=== PATIENT | female | born 1940 | race Caucasian/White ===

== ENCOUNTER 2017-06-20 13:41 | Outpatient (CLI) | payer MEDICARE | END 2017-06-20 13:42 | disposition home or self-care (01) | LOC: BICMAMMO 13:41 | PROVIDERS: ATTEND Physician Assistant | DX: Z12.31 Encounter for screening mammogram for malignant neoplasm of breast (principal); Z80.3 Family history of malignant neoplasm of breast; Z85.42 Personal history of malignant neoplasm of other parts of uterus | CPT/HCPCS: 77063; 77067 ==

== ENCOUNTER 2018-04-01 19:16 | Inpatient (IN) | payer MEDICARE ==
[2018-04-01 20:12] LABS: Hemoglobin 11.5 g/dL (12.0-16.0); Mean Corpuscular HGB CONC 31.6 g/dL (32.0-36.0); Mean Corpuscular Hemoglobin 30.9 pg (27.0-31.0); Mean Corpuscular Volume 97.9 fL (78.0-98.0); Mean Platelet Volume 7.8 fL (7.4-10.4); Platelet Count 438 thou/uL (130-400); RBC Distribution Width 11.7 % (11.5-14.5); Red Blood Cell (RBC) Count 3.71 mill/uL (4.20-5.40); White Blood Cell (WBC) Count 29.8 thou/uL (4.8-10.8)
--- NOTE | 2018-04-01 20:22 | RAD ---
CHEST ONE VIEW: History: Chest pain Comparison: None. FINDINGS: Lungs are clear. No pneumothorax or effusion. Cardiac silhouette and mediastinal contours are within normal limits. IMPRESSION: No acute intrathoracic abnormality. POS: [facility]
[2018-04-01 20:24] LABS: Band 8 % (5-11); Lymphocytes 8 % (21-51); MDiff Complete? YES; Monocytes 9 % (0-10); Myelocyte 1 % (0-0); Neutrophil 74 % (42-75); Platelet Morphology Comment Appears Increased; RBC Morphology Normal
[2018-04-01] MEDS ORDERED: Piperacillin/Tazobactam 3.375 GM VIAL ONE (20:29)
[2018-04-01] MEDS ORDERED: Norepinephrine 8 MG/0.9% NS 0 ML ONE (20:29)
[2018-04-01 20:32] LABS: ALT (SGPT) 41 U/L (8-55); AST (SGOT) 32 U/L (5-34); Albumin 3.4 g/dL (3.4-4.8); Alkaline Phosphatase 80 U/L (40-150); BUN (Urea Nitrogen) 48 mg/dL (9.8-20.1); Bilirubin, Total 0.2 mg/dL (0.2-1.2); CK (CPK) 702 U/L (29-168); Calc. Creatinine Clearance 0 mL/min (70-130); Calcium 8.7 mg/dL (7.8-10.44); Chloride 106 mmol/L (98-107); Estimated GFR-MDRD 10; Globulin 2.8 g/dL (2.4-3.5); Glucose 98 mg/dL (83-110); Lipase 487 U/L (8-78); Protein, Total 6.2 g/dL (6.0-8.3); Sodium 137 mmol/L (136-145)
[2018-04-01] MEDS ORDERED: Piperacillin/Tazobactam 4.5 GM VIAL ONE (20:34)
[2018-04-01 20:55] LABS: Carbon Dioxide Less than 8 mmol/L (23-31); Potassium 6.6 mmol/L (3.5-5.1)
[2018-04-01] MEDS ORDERED: Sodium Bicarbonate 150 MEQ in Dextrose 5% in Water 1,000 ML IV SCH (21:15)
[2018-04-01] MEDS ORDERED: Calcium Chloride 1 GM/10 ML Abboject SYRINGE ONE (21:20)
[2018-04-01] MEDS ORDERED: Sodium Bicarb 50 MEQ/50 ML VIAL ONE (21:20)
[2018-04-01] MEDS ORDERED: Insulin Regular 300 UNITS/3 ML VIAL ONE (21:20)
[2018-04-01] MEDS ORDERED: Dextrose 50% Abboject 50 ML SYRINGE ONE (21:20)
[2018-04-01] MEDS ORDERED: Dexamethasone 10 MG/ML VIAL ONE (21:32)
--- NOTE | 2018-04-01 22:13 | PDOC.FPRHP ---
- History of Present Illness Chief Complaint: SOB History of Present Illness: Mrs. Scott presents with her and daughter for increasing shortness of breath They report that she had hematuria earlier this week and was treated outpatient with abx, since that time she has had difficulty taking her medications 2/2 n/ v. vomiting multiple times today with increasing SOB and weakness. denies syncope, fever, chest or abdominal pain, focal weakness, headache or vision changes. They report a history of recurrent UTIs treated outpatient, no known stones. Her reports her main problem has been not being able to sleep well or tolerate her thyroid medication. she lives at home with him and completes ADLs without assistance. difficulty walking 2/2 to spinal issues. ED Course: CBC, CMP, LA, BNP, CK, UA, UCx, BCx, Coags, lipase MAPs<60, subclavian line placed, levophed drip at 14 vanc/zosyn/levaquin, 30ml/kg bolus, 3 amps bicarb, decadron - Allergies/Adverse Reactions Allergies Allergy/AdvReac Type Severity Reaction Status Date / Time No Known Drug Allergies Allergy Verified 04/17/18 08:36 - History PMHx: HTN, HLD, hypothyroid, DMII PSHx: Hysterectomy, Cspine repair FHx: Cancer Social: no TAD - Review of Systems ROS unobtainable: due to mental status (family reported) General: reports: fever/chills, weight/appetite/sleep changes Eyes: denies: vision changes ENT: denies: nasal congestion, rhinorrhea Respiratory: reports: shortness of breath. denies: cough, congestion Cardiovascular: denies: chest pain, palpitation, edema Gastrointestinal: reports: nausea, vomiting, diarrhea. denies: constipation, abdominal pain Genitourinary: reports: polyuria. denies: incontinence, dysuria Skin: denies: rashes, lesions Musculoskeletal: denies: pain, tenderness Neurological: denies: numbness, syncope - Vital signs BP: 119/59 HR: 99 RR: 25 Tmax: 97.4 Pox: 99% on RA Wt: 70kg - Physical Exam Constitutional: NAD, other (somnolent, unable to answer questioning) HEENT: normocephalic and atraumatic, grossly normal vision, grossly normal hearing, oropharynx clear, other (dry mm) Neck: supple, trachea midline Chest: no-tender to palpation, no lesions Heart: RRR, normal S1/S2, no murmurs/rubs/gallops Lungs: CTAB, no respiratory distress, good air movement Abdomen: soft, non-tender, bowel sounds present Musculoskeletal: normal structure, normal tone Neurological: no focal deficit, CN II-XII intact Skin: no rash/lesions Heme/Lymphatic: no unusual bruising or bleeding FMR H&P: Results - Labs Result Diagrams: 04/11/18 05:35 04/13/18 05:41 Lab results: WBC 29.8 thou/uL (4.8-10.8) H 04/01/18 20:02 Hgb 11.5 g/dL (12.0-16.0) L 04/01/18 20:02 Hct 36.3 % (36.0-47.0) 04/01/18 20:02 MCV 97.9 fL (78.0-98.0) 04/01/18 20:02 Plt Count 438 thou/uL (130-400) H 04/01/18 20:02 Band Neuts % (Manual) 8 % (5-11) 04/01/18 20:02 Sodium 137 mmol/L (136-145) 04/01/18 20:02 Potassium 6.6 mmol/L (3.5-5.1) H* 04/01/18 20:02 Chloride 106 mmol/L (98-107) 04/01/18 20:02 Carbon Dioxide Less than 8 mmol/L (23-31) L* 04/01/18 20:02 BUN 48 mg/dL (9.8-20.1) H 04/01/18 20:02 Creatinine 4.25 mg/dL (0.6-1.1) H 04/01/18 20:02 Glucose 98 mg/dL (83-110) 04/01/18 20:02 Lactic Acid 9.7 mmol/L (0.5-2.2) H* 04/01/18 20:41 Calcium 8.7 mg/dL (7.8-10.44) 04/01/18 20:02 Total Bilirubin 0.2 mg/dL (0.2-1.2) 04/01/18 20:02 AST 32 U/L (5-34) 04/01/18 20:02 ALT 41 U/L (8-55) 04/01/18 20:02 Alkaline Phosphatase 80 U/L (40-150) 04/01/18 20:02 Creatine Kinase 702 U/L (29-168) H 04/01/18 20:02 B-Natriuretic Peptide 229.3 pg/mL (0-100) H 04/01/18 20:02 Serum Total Protein 6.2 g/dL (6.0-8.3) 04/01/18 20:02 Albumin 3.4 g/dL (3.4-4.8) 04/01/18 20:02 Lipase 487 U/L (8-78) H 04/01/18 20:02 FMR H&P: A/P - Problem List (1) Septic shock Status: Acute Code(s): A41.9 - SEPSIS, UNSPECIFIED ORGANISM; R65.21 - SEVERE SEPSIS WITH SEPTIC SHOCK (2) NELI (acute kidney injury) Status: Acute Code(s): N17.9 - ACUTE KIDNEY FAILURE, UNSPECIFIED (3) Elevated lipase Status: Acute Code(s): R74.8 - ABNORMAL LEVELS OF OTHER SERUM ENZYMES (4) Elevated CK Status: Acute (5) Elevated brain natriuretic peptide (BNP) level Status: Acute Code(s): R79.89 - OTHER SPECIFIED ABNORMAL FINDINGS OF BLOOD CHEMISTRY (6) HTN (hypertension) Status: Chronic Code(s): I10 - ESSENTIAL (PRIMARY) HYPERTENSION (7) HLD (hyperlipidemia) Status: Acute Code(s): E78.5 - HYPERLIPIDEMIA, UNSPECIFIED (8) DMII (diabetes mellitus, type 2) Status: Chronic (9) Metabolic acidosis Status: Acute Code(s): E87.2 - ACIDOSIS - Plan Septic shock - MAP>60, non responsive to 30ml/kg bolus, subclavian placed levo 14 drip - evidence of organ failure, AMS - LR 150ml/hr - vanc/zosyn - pulmonology consulted, appreciate recs - admit to CCU Metabolic acidosis - s/p 3 amps bicarb - fluids as above NELI - fluid as above - FeNa pending - nephrology consulted, appreciate recs - q4hr BMP - mcguire placed - avoid nephrotoxic meds elevated lipase - abdominal US in ED, no evidence of acute pancreatitis - likely 2/2 septic shock elevated BNP - no history of CHF - likely 2/2 heart strain and NELI elevated CK - likely 2/2 poor perfusion - continue to monitor, fluids as above HTN - hold home meds 2/2 hypotension HLD - hold home meds 2/2 increased CK DMII - mild sliding scale - hold home meds 2/2 NELI Hypothyroid - continue home meds Code: full ppx: heparin Dispo: admit to CCU, monitor kidney function, prepare for dialysis if kidney function does not improve, aggressive fluid resuscitation FMR H&P: Upper Level - Pertinent history 78F presenting to ED for SOB. Recent history of UTI/hematuria that was treated with Bactrim. reports the medication made her sick with n/v multiple times over the last two days. Today, she has had worsening SOB and weakness which is unusual for her. She denies urinary sxs, fever/chills, productive cough , syncope, headache, palpitations, and changes in vision. Daughter reports the labored breathing has improved since coming to the ER. She has had difficulty walking for several months now due to long-standing issues with her back. Patient was found to be extremely hypotensive in ED and was given CVC. She has been fluid resuscitated 30cc/kg and is now maintaining MAPs on pressor support. Mentation has slightly improved and she is able to answer questions appropriately. - Pertinent findings CXR: normal EKG: NSR; no T wave abnormalities RUQ US: no abnormalities WBC: 30k H.5 D-dimer: 2.76 K: 6.6 Bicarb: less than 8 BUN/Cr: 48/4.25 lactate: 9.7 CK: 702 BNP: 230 Lipase: 487 Gen: A&Ox3 CV: RRR, no murmurs. no LE edema Pulm: CTA-B - Plan Date/Time: 04/01/182211 I, Earl Rai, have evaluated this patient and agree with findings/plan as outlined by planner intern resident. Pertinent changes/additions are listed here. Septic shock 2/2 likely urinary source: MAP unresponsive to IVF resuscitation. S /p left subclavian CVC with levophed titrated to MAP > 65. We will continue with LR @ 150 cc/hr. Continue empiric coverage with vanc/zosyn. Pulm and Nephro have been notified and we will await further recommendations. We will try to titrate levophed gtt down overnight. NELI: Nephrology consulted. Continue IVF with BMP q4h. Urine studies pending. Avoid nephrotoxic agents. Elevated Lipase: US in ED shows no abnormalities. Will continue to monitor and trend daily. No hx of pancreatitis. AG metabolic acidosis: 2/2 to renal failure. continue IVF and monitor. Patient receiving bicarb in MIVF. Check with BMPs Elevated BNP: no history of HF. Trend and monitor. consider TTE if unimproved or she shows s/s of HF.
--- NOTE | 2018-04-01 22:26 | RAD ---
CHEST ONE VIEW: History: Central line placement. Comparison: Radiograph same day. FINDINGS: Left subclavian central venous catheter has been placed, the tip at the cavoatrial junction. The raphael javier of the findings are unchanged. No pneumothorax. IMPRESSION: Uncomplicated placement left subclavian central venous catheter. POS: [facility]
[2018-04-01 22:54] LABS: Bilirubin Negative (Negative); Blood, Urine Large (Negative); Clarity CLOUDY (Clear); Glucose, Urine (Dipstick) 100 mg/dL (Negative); Leukocyte Small (Negative); Nitrite Negative (Negative); Protein, Urine (Dipstick) 100 mg/dL (Neg-Trace); Specific Gravity, Urine 1.014 (1.002-1.036); Urobilinogen 0.2 mg/dL (0.2-1.0)
[2018-04-01 22:56] LABS: Bacteria/HPF None Seen HPF (None Seen); RBC/HPF 0-3 HPF (0-3)
[2018-04-01 22:58] LABS: Pathc Cast-AUWi Flag 6.97 (0-2.49)
[2018-04-01 23:09] LABS: Hyaline Casts/LPF NONE SEEN LPF (0-3 Hyaline)
[2018-04-01] MEDS ORDERED: Ondansetron ODT 4 MG TAB SL PRN (23:28)
[2018-04-01] MEDS ORDERED: Ondansetron PF 4 MG/2 ML Vial IVP PRN ×2 (23:28→23:50)
[2018-04-01] MEDS ORDERED: Norepinephrine 8 MG/250 ML BAG IVPB PRN (23:28)
--- NOTE | 2018-04-01 23:41 | ULT ---
ULTRASOUND ABDOMEN: History: Abdominal pain. Comparison: None. FINDINGS: Real-time grayscale and color evaluation of the abdomen of the abdomen was performed. Visualized port ion of the aorta, IVC, and pancreas is unremarkable. Portal vein is patent. Antegrade flow. Gallbladd er is normal. No pericholecystic fluid. Right kidney measures 9.4 x 4.7 x 5 cm without mass, hydronephrosis, or abnormal calcifications. Left kidney measures 9.8 x 4.2 x 4.6 cm without mass, hydronephrosis, or abnormal calcifications. Measure s 6.2 cm in length. Urinary bladder volume is 56 ml. No dilatation of the intrahepatic or extrahepatic biliary system. N IMPRESSION: Unremarkable exam. POS: [facility]
[2018-04-01] MEDS ORDERED: Acetaminophen 325 MG TAB PO PRN (23:50)
[2018-04-01] MEDS ORDERED: Ondansetron ODT 4 MG TAB PO PRN (23:50)
[2018-04-01] MEDS ORDERED: Acetaminophen 650 MG Suppository PR PRN (23:50)
[2018-04-01] MEDS: Lactated Ringer's 1,000 ML IV SCH (23:50)
[2018-04-01] MEDS ORDERED: Piperacillin/Tazobactam 4.5 GM in Sodium Chloride 0.9% 100 ML IVPB SCH (23:59)
[2018-04-02 01:12] LABS: BUN (Urea Nitrogen) 48 mg/dL (9.8-20.1); Calc. Creatinine Clearance 14 mL/min (70-130); Calcium 9.4 mg/dL (7.8-10.44); Chloride 103 mmol/L (98-107); Estimated GFR-MDRD 10; Glucose 344 mg/dL (83-110); Potassium 6.2 mmol/L (3.5-5.1); Sodium 135 mmol/L (136-145)
[2018-04-02 01:18] LABS: Carbon Dioxide Less than 8 mmol/L (23-31); Lactic Acid 10.8 mmol/L (0.5-2.2)
[2018-04-02 01:22] LABS: Sodium, Urine Less than 20 mmol/L (Not Available)
[2018-04-02 01:27] LABS: Creatinine, Urine 47.26 mg/dL (47-110)
[2018-04-02] MEDS ORDERED: Piperacillin/Tazobactam 4.5 GM in Sodium Chloride 0.9% 100 ML IVPB SCH (05:00)
[2018-04-02 05:24] LABS: ALT (SGPT) 41 U/L (8-55); AST (SGOT) 32 U/L (5-34); Albumin 3.2 g/dL (3.4-4.8); Alkaline Phosphatase 70 U/L (40-150); BUN (Urea Nitrogen) 51 mg/dL (9.8-20.1); Bilirubin, Total 0.2 mg/dL (0.2-1.2); Calc. Creatinine Clearance 14 mL/min (70-130); Calcium 8.8 mg/dL (7.8-10.44); Chloride 99 mmol/L (98-107); Estimated GFR-MDRD 10; Globulin 2.7 g/dL (2.4-3.5); Glucose 437 mg/dL (83-110); Potassium 6.5 mmol/L (3.5-5.1); Protein, Total 5.9 g/dL (6.0-8.3); Sodium 132 mmol/L (136-145)
[2018-04-02 05:27] LABS: Carbon Dioxide Less than 8 mmol/L (23-31)
[2018-04-02 05:32] LABS: Band 4 % (5-11); Hemoglobin 10.2 g/dL (12.0-16.0); Hypochromia SLIGHT = 6-15 cells (100X) (0-5/hpf); Lymphocytes 10 % (21-51); MDiff Complete? YES; Mean Corpuscular HGB CONC 33.1 g/dL (32.0-36.0); Mean Corpuscular Volume 93.8 fL (78.0-98.0); Mean Platelet Volume 7.5 fL (7.4-10.4); Monocytes 2 % (0-10); Neutrophil 84 % (42-75); Platelet Count 400 thou/uL (130-400); Platelet Morphology Comment Appears Adequate; RBC Distribution Width 11.7 % (11.5-14.5); White Blood Cell (WBC) Count 27.9 thou/uL (4.8-10.8)
[2018-04-02] MEDS: Piperacillin/Tazobactam 2.25 GM in Sodium Chloride 0.9% 100 ML IVPB SCH ×3 (05:38→21:16)
[2018-04-02] MEDS: Lactated Ringer's 1,000 ML IV SCH (05:55)
[2018-04-02] MEDS: Norepinephrine 8 MG/0.9% NS 250 ML IVPB SCH (06:02)
--- NOTE | 2018-04-02 06:14 | PDOC.FM ---
- Subjective Subjective: This morning patient is AxOx2. She denies pain this morning and is much more alert than time of admission per her daughter who is at the bedside. She states she is thirsty this moring. SHe has not been able to eat for 3 days 2/2 N/V. She had hematuria for a few days and was given bactrim by her PCP which she was not able to take because of the vomiting. Daughter states that she has recurrent UTIs. - Objective Vital Signs & Weight: Vital Signs (12 hours) Temp Pulse Ox 04/02/18 04:00 98.4 F 04/02/18 02:00 97.2 F L 04/02/18 01:00 96.8 F L 04/02/18 00:00 94.3 F L 100 Weight Admit Weight 77.2 kg Weight 77.2 kg Most Recent Monitor Data Heart Rate from ECG 97 NIBP 99/59 NIBP BP-Mean 72 Respiration from ECG 23 SpO2 100 I&O: 03/31/18 04/01/18 04/02/18 06:59 06:59 06:59 Output Total 125 Balance -125 Result Diagrams: 04/02/18 03:45 04/02/18 03:45 Phys Exam - Physical Examination Constitutional: NAD HEENT: PERRLA, moist MMs, oral pharynx no lesions Respiratory: no wheezing, no rales, clear to auscultation bilateral Cardiovascular: RRR, no significant murmur, no rub Gastrointestinal: soft, non-tender, no distention, positive bowel sounds Musculoskeletal: no edema, pulses present Neurological: non-focal, moves all 4 limbs Psychiatric: normal affect Skin: no rash, cap refill <2 seconds Dx/Plan (1) NELI (acute kidney injury) Code(s): N17.9 - ACUTE KIDNEY FAILURE, UNSPECIFIED Status: Acute (2) DMII (diabetes mellitus, type 2) Status: Acute (3) Elevated CK Status: Acute (4) HTN (hypertension) Code(s): I10 - ESSENTIAL (PRIMARY) HYPERTENSION Status: Acute (5) Metabolic acidosis Code(s): E87.2 - ACIDOSIS Status: Acute (6) Septic shock Code(s): A41.9 - SEPSIS, UNSPECIFIED ORGANISM; R65.21 - SEVERE SEPSIS WITH SEPTIC SHOCK Status: Acute - Plan Plan: This is a 63 yo M/F being admitted for septic shock likely 2/2 UTI causing NELI, metabolic acidosis . 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, Pulm [facility]YWO[facility] MATCHER () - Sedation: none - AxOx2, improved from admission Resp () - ABG: pending - CXR no acute process CV (Septic shock, intravascular depletion) - Pressors: levophed 10 - BP in 110s/50s this AM GI (N/V) - suspect 2/2 sepsis /Renal (Metabolic Acidosis w/ AG, Hyper K, NELI) - I/O: 145 ml UO overnight - Cr 4.3, baseline around 2 - Lactic acid 10.8, AG 25, suspect intravascular depletion 2/2 sepsis - s/p 3 amps bicarb in ED, 150mEq in 1 L D5W overnight - will plan for dialysis today, will consult surgery for fem cath - HyperK, lantus 10U, continue fluid resuscitation, dialysis today - FeNa 1.4% suggests intrinsic injury, volume down - CK 702 likely 2/2 volume depletion Infection (Septic shock likely 2/2 UTI) - vanc/zosyn - clinically improving - bcx, ucx pending Endo (DMII) - on oral meds at home - hyperglycemia this AM, likely 2/2 d5W - lantus 10U Lines/Tubes: right subclavian Code status: full PPx: protonix, heparin Dispo: >2 midnights Addendum - Attending - Attending Attestation Date/Time: 04/02/18 1100 I personally evaluated the patient and discussed the management with Dr. Caldera and team. I agree with and repeated the History, Examination, Assessment and Plan documented above with any addition or exceptions noted below. Patient largely asymptomatic. Unclear source of leukocytosis but with mild right CVAT/suprapubic tenderness today. She also has a prominent murmur. Continue antibiotics. Initiate HD for hyperK/NELI. Monitor hypoNa. Thrombocytosis resolved. Mildly elevated BNP and murmur with check chart and consider TTE.
[2018-04-02] MEDS ORDERED: Benzocaine 20% Spray 60 ML CAN PO SCH (07:45)
[2018-04-02] MEDS: Heparin 5,000 UNITS/ML VIAL SC SCH ×3 (09:11→21:16)
[2018-04-02] MEDS ORDERED: Chloraseptic Spray 180 ml Bottle PO PRN (09:33)
--- NOTE | 2018-04-02 10:18 | CON ---
DATE OF CONSULTATION: HISTORY OF PRESENT ILLNESS: Ms. Scott is a 78-year-old white female, who was admitted with sepsis. She was also noted to be in acute kidney injury. She was also noted to be hyperkalemic and having severe metabolic acidosis. Attempt to correct the hyperkalemia has not been successful. She continues to be acidemic. We are now following this patient for acute kidney injury on top of her chronic renal failure. Due to the unimproved renal dysfunction, hyperkalemia, and metabolic acidosis, we will initiate dialysis. Please note, the patient was also very hypotensive when she came in at the hospital. She is currently in ICU on pressor supports and empiric antibiotics. REVIEW OF SYSTEMS: Positive for generalized malaise ? Of fever at home. No nausea. No vomiting. No diarrhea. No constipation. No abdominal pain. Positive for productive cough. Denies any dysuria or urinary frequency. MEDICATIONS: 1. Tylenol 650 mg q.4 hours. 2. Heparin 5000 units subcu t.i.d. 3. Lactated Ringer's at 150 mL/hour. 4. Levophed, titrating BP. 5. P.r.n. Zofran. 6. Protonix 40 mg daily. 7. Zosyn 2.25 g IV q.8 hours, status post vancomycin. PAST MEDICAL HISTORY: Type 2 diabetes mellitus, hypertension, DJD, hyperlipidemia, uterine cancer in remission. PAST SURGICAL HISTORY: Status post hysterectomy, status post colonoscopy. SOCIAL HISTORY: The patient lives in [place] by herself, no history of smoking. No alcohol intake. No blood transfusion. No IV drug abuse. Education, 10th grade. 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 FAMILY HISTORY: No family history of ESRD. ALLERGIES: TRAZODONE. TRAUMA: Status post left foot fracture. IMMUNIZATION: Up-to-date. HOSPITALIZATIONS: Please see past medical history. PHYSICAL EXAMINATION: VITAL SIGNS: Blood pressure is currently 115/54, heart rate 97, respiratory rate 23, and pulse ox 100%. GENERAL: Awake, comfortable, not in overt distress. SKIN: Adequate turgor. HEENT: She has a pinkish conjunctivae. Anicteric sclerae. NECK: No neck mass. No carotid bruits. No JVD. CHEST: No deformities. LUNGS: Clear breath sounds. No wheezing. No crackles. HEART: Normal sinus rhythm. No murmurs. No gallops. No rubs. ABDOMEN: Globular, soft, nontender. No masses. EXTREMITIES: No edema. No deformities. LABORATORY DATA: Laboratories of April 02, 2018; white count 27.9, hemoglobin 10.2. Sodium 132, potassium 6.5, chloride 99, carbon dioxide less than 8, BUN 51, creatinine 4.3, glucose 437, AST 32, ALT 41, albumin 3.2. ASSESSMENT AND PLAN: 1. Acute kidney injury on top of her chronic renal failure-this patient most likely has superimposed acute tubular necrosis. At times, she can have a low urine sodium in patient who may have ischemic acute tubular necrosis secondary to sepsis. Continue to optimize hemodynamics. Due to the unimproved hyperkalemia and metabolic acidosis, we will initiate hemodialysis. Surgical consult has been done for placement of a temporary femoral dialysis catheter. 2. Sepsis-continue empiric IV antibiotics. 3. Hyperkalemia/metabolic acidosis-a hemodialysis to be initiated today. Our plan 1 to 2 hour dialysis treatment with her today. Job ID: [id number] [facility]
[2018-04-02] MEDS ORDERED: Dextrose 5% in Water 1,000 ML IV PRN (10:24)
[2018-04-02] MEDS: Insulin Glargine 10 UNITS in Pre-Filled Syringe SC SCH (10:41)
[2018-04-02 10:56] LABS: HBSAB Concentration 0.84 mIU/mL; HBSAg Index 0.22 S/CO (0-0.99); Hep B Surf AB Non-Reactive (NonReactive); Hep B Surf Ag Non-Reactive S/CO (NonReactive)
[2018-04-02] MEDS: HumaLOG 300 UNITS/3 ML VIAL SC PRN (11:19)
[2018-04-02] MEDS: Sodium Chloride 0.9% 1,000 ML IV SCH ×2 (11:22→17:55)
[2018-04-02 11:42] LABS: Anion Gap 31 mmol/L (10-20); BUN (Urea Nitrogen) 57 mg/dL (9.8-20.1); Calc. Creatinine Clearance 13 mL/min (70-130); Calcium 8.6 mg/dL (7.8-10.44); Chloride 99 mmol/L (98-107); Estimated GFR-MDRD 10; Glucose 269 mg/dL (83-110); Potassium 6.5 mmol/L (3.5-5.1); Sodium 132 mmol/L (136-145)
[2018-04-02] MEDS ORDERED: Haloperidol Lactate 5 MG/ML VIAL ONE (12:02)
[2018-04-02 12:05] LABS: Carbon Dioxide 9 mmol/L (23-31)
[2018-04-02 13:13] LABS: Actual Bicarbonate (HCO3a) 9.9 mEq/L (22-28); Base Excess (BEa) -13.9 mEq/L (-2.0 to +3.0); Calcium, Ionized 1.13 mmol/L (1.12-1.30); Carboxyhemoglobin (COHb) 0.1 gm% (0.0-3.0); O2 Tension (PaO2) 88.2 mmHg (> 70.0); pH, Arterial 7.34 (7.35-7.45)
[2018-04-02 13:16] LABS: ALV-art Gradient 37.905 (0-20); CO2 Tension 18.9 mmHg (35.0-45.0); Puncture Site RRA
[2018-04-02 13:38] LABS: Magnesium 1.4 mg/dL (1.6-2.6); Phosphorus 4.3 mg/dL (2.3-4.7)
--- NOTE | 2018-04-02 14:35 | HP ---
HISTORY OF PRESENT ILLNESS: Alisa Scott is a 78-year-old female with diabetes, hypertension, chronic kidney disease, followed by Dr. John Sosa. I have been asked to see her by Dr. Sosa regarding placement of hemodialysis catheter. The patient was admitted yesterday, 97/52, heart rate 94. Her white count was 29,000, hemoglobin 10. She is acidotic, CO2 less than 8, potassium greater than 6.2 to 6.5 this morning. Sodium 135, GFR 10. She has a history of chronic kidney disease. MEDICATIONS: 1. Sulfa. 2. Rosuvastatin. 3. Metoprolol 50 mg a day. 4. Mobic 7.5 mg p.r.n. 5. Amaryl 2 mg daily. 6. Gabapentin 200 mg q.i.d. 7. Levothyroxine 12.5 mcg a day. 8. Metformin 1000 mg b.i.d. 9. Amlodipine 10 mg daily. 10. Losartan 25 mg daily. PAST SURGICAL HISTORY: Hysterectomy for uterine cancer and did not require radiation or chemotherapy. PAST MEDICAL HISTORY: Diabetes mellitus, hypertension, chronic kidney disease. PHYSICAL EXAMINATION: VITAL SIGNS: Height 5 feet tall, 170 pounds, 33 BMI, heart rate 94, temperature 97.2 degrees, blood pressure 97/52. HEAD, EARS, EYES, NOSE AND THROAT: Unremarkable. LUNGS: Clear to auscultation. CARDIAC: Regular rate and rhythm without murmur or gallop. ABDOMEN: Soft and nontender. No masses. VASCULAR: Palpable radial pulses. EXTREMITIES: Unremarkable. LABORATORY DATA: Laboratories noted above. Abdominal ultrasound, gallbladder is normal, kidneys normal, no obstructive uropathy. ASSESSMENT AND PLAN: Acute renal failure on top of chronic kidney disease. It is likely that she will need a cuffed tunneled dialysis catheter, when she is more stable we can place that. Currently, we will place a bedside femoral vein dialysis catheter to initiate dialysis and address her hyperkalemia. Avoid IV access and blood draws from above her wrist. Obtain ultrasound vein mapping. Await Dr. Sosa's assessment and consider possible hemodialysis catheter placement later in the week. Job ID: [id number]
[2018-04-02] MEDS ORDERED: Heparin 10,000 UNITS/ 10 ML VIAL ONE (15:00)
--- NOTE | 2018-04-02 15:24 | OP ---
DATE OF PROCEDURE: 04/02/2018 PREOPERATIVE DIAGNOSES: Hyperkalemia, renal failure in need of dialysis access. POSTOPERATIVE DIAGNOSES: Hyperkalemia, renal failure in need of dialysis access. PROCEDURE PERFORMED: Right femoral vein Trialysis catheter. ANESTHESIA: 1% Xylocaine. DESCRIPTION OF PROCEDURE: The patient was at bedside. Right groin was clipped of hair, prepared with ChloraPrep, and draped in routine fashion. Local anesthetic 1% Xylocaine was infiltrated in the skin and subcutaneous tissue about the operative site. Right femoral vein was cannulated with a trocar catheter. J-wire was threaded. Seldinger technique was used to place a Trialysis catheter. Removed the J-wire and secured the catheter with 3-0 nylon suture. Sterile dressings were applied. Each port aspirated and blood flushed with heparinized saline solution. Job ID: [id number]
[2018-04-02 16:15] LABS: Actual Bicarbonate (HCO3a) 15.1 mEq/L (22-28); Base Excess (BEa) -7.9 mEq/L (-2.0 to +3.0); Calcium, Ionized 1.07 mmol/L (1.12-1.30); Carboxyhemoglobin (COHb) 0.3 gm% (0.0-3.0); Hemoglobin (Hb) 10.9 g/dL (12.0-16.0); O2 Tension (PaO2) 78.9 mmHg (> 70.0); Potassium - ABG Lab 4.57 mmol/L (3.70-5.30); pH, Arterial 7.42 (7.35-7.45)
[2018-04-02 16:18] LABS: ALV-art Gradient 40.705 (0-20); CO2 Tension 24.1 mmHg (35.0-45.0); Puncture Site LRA
[2018-04-02 18:14] LABS: Anion Gap 23 mmol/L (10-20); BUN (Urea Nitrogen) 38 mg/dL (9.8-20.1); Calc. Creatinine Clearance 19 mL/min (70-130); Calcium 8.3 mg/dL (7.8-10.44); Carbon Dioxide 13 mmol/L (23-31); Chloride 102 mmol/L (98-107); Estimated GFR-MDRD 15; Glucose 122 mg/dL (83-110); Potassium 4.8 mmol/L (3.5-5.1); Sodium 133 mmol/L (136-145)
--- NOTE | 2018-04-02 18:42 | ULT ---
BILATERAL UPPER EXTREMITY VEIN MAPPING: HISTORY: End-stage renal disease. Evaluation for dialysis access. FINDINGS: RIGHT CEPHALIC BASILIC PROXIMAL HUMERUS 1.0 mm 4.2 mm MID 0.8 mm 4.4 mm DISTAL 1.1 mm 2.8 mm ELBOW 1.5 mm 1.7 mm PROXIMAL FOREARM 1.3 mm 1.2 mm MID 1.3 mm 1.3 mm DISTAL 1.1 mm Not seen LEFT PROXIMAL HUMERUS Thrombosed 1.6 mm MID Thrombosed 1.2 mm DISTAL 1.6 mm 2.5 mm ELBOW 2.0 mm with thrombus 2.5 mm PROXIMAL FOREARM 1.7 mm 2.5 mm MID 1.4 mm 1.4 mm DISTAL 1.2 mm Thrombosed at wrist RIGHT BRACHIAL ARTERY: 3.7 mm RIGHT RADIAL ARTERY: 1.3 mm RIGHT ULNAR ARTERY: 1.6 mm LEFT BRACHIAL ARTERY: 3.6 mm LEFT RADIAL ARTERY: 1.3 mm LEFT ULNAR ARTERY: 1.4 mm IMPRESSION: Vein mapping as discussed above. POS: [facility]
--- NOTE | 2018-04-02 21:04 | CON ---
DATE OF CONSULTATION: 04/02/2018 HISTORY OF PRESENT ILLNESS: Alisa Scott is a 78-year-old female who is admitted with severe metabolic acidosis and renal insufficiency as well as hyperkalemia. A temporary dialysis catheter has been placed. I was consulted because of her presence in the critical care unit. She says she has had nausea and vomiting for several days. She does report abdominal discomfort. Says it has not been severe. She has had diabetes for many years. She says she has had diabetes for so many years, she cannot remember how long it has been. PAST MEDICAL HISTORY: Remarkable for hypertension, lipid disorder, and uterine cancer. She has had a hysterectomy and a colonoscopy in the past. SOCIAL HISTORY: She is nonsmoker, nondrinker, nondrug user. 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 FAMILY HISTORY: Negative for lung disease in early age or kidney disease in early age. REVIEW OF SYSTEMS: 10 point review of systems completed, otherwise negative. ALLERGIES: SHE REPORTS TRAZODONE INTOLERANCE. PHYSICAL EXAMINATION: GENERAL: A temporary dialysis catheter has been placed. VITAL SIGNS: Surprisingly, her blood pressure was unremarkable. This afternoon , she was 114/55 after dialysis, heart rate was in the 90s, respiratory rate was in the 20s, but she had large tidal volume respiratory pattern (Kussmaul respirations). Oximetry was fine. HEAD: Unremarkable. NECK: Unremarkable. LUNGS: Clear. HEART: Regular rhythm with soft grade 1-3/6 systolic murmur. ABDOMEN: Soft. She had diffuse tenderness especially in the right lower quadrant, but there was no guarding or rigidity. EXTREMITIES: Without clubbing, cyanosis, or edema. LABORATORY DATA: White count 27.9, hemoglobin 10.2, platelets 400,000. Sodium 132, potassium 6.5, chloride 99, bicarb less than 8, BUN 51, creatinine 4.3. After dialysis, sodium 133, potassium 4.8, chloride 102, bicarb 13, BUN 38, creatinine 3.11. Blood gas before dialysis 7.34, CO2 18, PO2 88. Blood gas post dialysis 7.42, CO2 of 24, PO2 of 78. Urinalysis showed 100 mg/dL protein and 46 white cells. IMPRESSION: Acute on chronic kidney disease. Her creatinine in March 21 of this year was 2.0. It is unclear whether or not this is all just simply triggered by an enteritis type illness. Microbiology has been reviewed. Blood cultures are negative so far. Influenza screen was negative and urine culture was negative. Certainly with many years of diabetes could have ischemic bowel, but I would think that if she had bowel , she would be clinically getting worse instead of getting better. We will be happy to follow the other physicians caring for. This is a 70-minute consult, 50% of the time spent on the unit coordinating care and re-evaluating the patient both before and after dialysis. Job ID: [id number]
[2018-04-03] MEDS: Sodium Chloride 0.9% 1,000 ML IV SCH ×6 (00:09→21:07)
[2018-04-03] MEDS: Dextrose 50% Abboject 50 ML SYRINGE SLOW IVP PRN ×2 (04:55→05:19)
[2018-04-03 04:56] LABS: #Lymphocytes 2.1 thou/uL (1.20-3.40); #Monocytes 2.2 thou/uL (0.11-0.59); #Neutrophils 15.1 thou/uL (1.40-6.50); %Basophils 0.1 % (0.0-1.0); %Eosinophils 0.1 % (0.0-10.0); %Lymphocytes 10.8 % (21.0-51.0); %Monocytes 11.3 % (0.0-10.0); %Neutrophils 77.7 % (42.0-75.0); Hemoglobin 8.9 g/dL (12.0-16.0); Mean Corpuscular HGB CONC 32.8 g/dL (32.0-36.0); Mean Corpuscular Hemoglobin 30.3 pg (27.0-31.0); Mean Corpuscular Volume 92.3 fL (78.0-98.0); Mean Platelet Volume 7.1 fL (7.4-10.4); Platelet Count 289 thou/uL (130-400); RBC Distribution Width 11.9 % (11.5-14.5); Red Blood Cell (RBC) Count 2.92 mill/uL (4.20-5.40); White Blood Cell (WBC) Count 19.4 thou/uL (4.8-10.8)
[2018-04-03] MEDS: Piperacillin/Tazobactam 2.25 GM in Sodium Chloride 0.9% 100 ML IVPB SCH ×3 (05:02→22:40)
[2018-04-03 05:20] LABS: ALT (SGPT) 36 U/L (8-55); AST (SGOT) 37 U/L (5-34); Albumin 2.7 g/dL (3.4-4.8); Alkaline Phosphatase 57 U/L (40-150); Anion Gap 15 mmol/L (10-20); BUN (Urea Nitrogen) 48 mg/dL (9.8-20.1); Bilirubin, Total 0.2 mg/dL (0.2-1.2); CK (CPK) 564 U/L (29-168); Calc. Creatinine Clearance 17 mL/min (70-130); Calcium 7.6 mg/dL (7.8-10.44); Carbon Dioxide 20 mmol/L (23-31); Chloride 107 mmol/L (98-107); Estimated GFR-MDRD 12; Globulin 2.1 g/dL (2.4-3.5); Potassium 4.5 mmol/L (3.5-5.1); Protein, Total 4.8 g/dL (6.0-8.3); Sodium 137 mmol/L (136-145)
[2018-04-03 05:22] LABS: Glucose 38 mg/dL (83-110)
[2018-04-03 05:33] LABS: Lipase 1084 U/L (8-78)
[2018-04-03] MEDS: Norepinephrine 8 MG/0.9% NS 250 ML IVPB SCH (05:51)
--- NOTE | 2018-04-03 06:12 | PDOC.FM ---
- Subjective Subjective: This morning patient is AxOx3. She was taking clear liquids yesterday without N/ V. Will advance diet to blands. She states she has no pain this morning but her lips feel dry. She says she had a dry cough overnight but no SOB. - Objective Vital Signs & Weight: Vital Signs (12 hours) Temp Pulse Ox 04/03/18 04:00 99.0 F 04/03/18 03:13 95 04/03/18 00:00 98.6 F 04/02/18 20:00 98.1 F 97 04/02/18 18:35 99 Weight Admit Weight 77.2 kg Weight 79 kg Most Recent Monitor Data Heart Rate from ECG 88 NIBP 81/46 NIBP BP-Mean 57 Respiration from ECG 17 SpO2 95 I&O: 04/01/18 04/02/18 04/03/18 06:59 06:59 06:59 Intake Total 1196 2482 Output Total 145 130 Balance 1051 2352 Result Diagrams: 04/03/18 04:45 04/03/18 04:45 Phys Exam - Physical Examination Constitutional: NAD HEENT: PERRLA dry lips, mild dryness to oral mucosa Respiratory: no wheezing, no rales, clear to auscultation bilateral Cardiovascular: RRR, no significant murmur, no rub Gastrointestinal: soft, non-tender, no distention, positive bowel sounds Musculoskeletal: no edema, pulses present Neurological: non-focal, moves all 4 limbs Psychiatric: normal affect, A&O x 3 Skin: no rash, cap refill <2 seconds Dx/Plan (1) NELI (acute kidney injury) Code(s): N17.9 - ACUTE KIDNEY FAILURE, UNSPECIFIED Status: Acute (2) DMII (diabetes mellitus, type 2) Status: Acute (3) Elevated CK Status: Acute (4) HTN (hypertension) Code(s): I10 - ESSENTIAL (PRIMARY) HYPERTENSION Status: Acute (5) Metabolic acidosis Code(s): E87.2 - ACIDOSIS Status: Acute (6) Septic shock Code(s): A41.9 - SEPSIS, UNSPECIFIED ORGANISM; R65.21 - SEVERE SEPSIS WITH SEPTIC SHOCK Status: Acute - Plan Plan: This is a 63 yo M/F being admitted for septic shock likely 2/2 UTI causing NELI, metabolic acidosis . 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 () - Sedation: none - AxOx3, improved from admission Resp () - CXR no acute process - dry cough, CTA-B CV (Septic shock, intravascular depletion) - Pressors: levophed 5, was off most of the night but had a low of 81/46 this AM now back on - BP in 100s/50s this AM w/ levophed - suspect volume depletion contributing, will increase fluids to 200ml/hr and advance diet GI (N/V-resolved) - suspect viral gastroenteritis - zofran - lipase trending up, will follow, no clinical sxs of pancreatitis at this time suspect 2/2 hypotension, will trend /Renal (Metabolic Acidosis w/ AG- resolved, Hyper K- resolved, NELI on CKD) - urine output: 0.06 ml/kg/hr yesterday, dialysis x1 hour - Cr 3.6, baseline around 2 - bicarb improved to 20 this AM - yesterday the delta/delta ratio was 1.3 so unlikely DKA contributing - Lantus 10U, had one low overnight, advanced diet - FeNa 1.4% suggests intrinsic injury, volume down - BUN 48, anticipate another round of dialysis, appreciate Dr. Ian pagan Infection (Septic shock likely 2/2 UTI) - vanc/zosyn - WBC 29-> 27.9 -> 19.4 - clinically improving, still required levophed - bcx, ucx NGTD Endo (DMII) - on oral meds at home - hyperglycemia resolved - lantus 10U, will hold off on home meds for now 2/2 NELI Lines/Tubes: right subclavian Code status: full PPx: protonix, heparin Dispo: >2 midnights, will remain in ICU 2/2 need for pressors Addendum - Attending - Attending Attestation Date/Time: 04/03/18 2244 I personally evaluated the patient and discussed the management with Dr. Caldera. I agree with and repeated the History, Examination, Assessment and Plan documented above with any addition or exceptions noted below. Patient doing much better this AM. Still c/o some upper abdominal pain. No n/ v. Tolerating PO. Otherwise nonfocal exam. Working dx remains septic shock 2/2 UTI as she was dx with one prior to arrival (GBS). She is responding well. Deescalate when off pressors consistently. Profound LA yesterday with hyperglycemia and mild elevation of bhb, both of which resolved with a case of hypoglycemia which was treated as well. By her d- d I believe that she likely had a LA, with DKA only a very mild possibility in my opinion in light of her symptoms and rapidity of correction. Regardless we will monitor her closely. Dialysis again today.
[2018-04-03 08:55] LABS: Lactic Acid 1.9 mmol/L (0.5-2.2)
[2018-04-03] MEDS: Insulin Glargine 10 UNITS in Pre-Filled Syringe SC SCH (09:24)
[2018-04-03] MEDS: Heparin 5,000 UNITS/ML VIAL SC SCH ×3 (09:27→21:06)
--- NOTE | 2018-04-03 10:18 | PRG ---
DATE OF SERVICE: 04/03/2018 SUBJECTIVE: Ms. Scott is a 78-year-old white female, who was seen by the Renal Service for acute kidney injury. She was noted to be hyperkalemic and had severe metabolic acidosis at that time. For that reason, we initiated dialysis with this patient. Her urine sodium suggested that she may simply be hemodynamically mediated with the low urine sodium. She has still decreased urine output. What I will do today is probably hold the dialysis temporarily. Continue to optimize hemodynamics, start albumin infusion if needed with this patient. No other acute events noted. OBJECTIVE: VITAL SIGNS: Blood pressure is 109/57, heart rate 101, respiratory rate 22, pulse ox 95%. GENERAL: Awake, comfortable, not in overt distress. SKIN: Adequate turgor. HEENT: She has slightly pale conjunctivae. Anicteric sclerae. No neck mass. No carotid bruits. No JVD. CHEST: No deformities. LUNGS: Clear breath sounds. HEART: Normal sinus rhythm. No murmur. No gallops. No rubs. ABDOMEN: Globular, soft, nontender. No masses. EXTREMITIES: No edema. No deformities. MEDICATIONS: Medications of April 03, 2018, have been reviewed. LABORATORY DATA: Laboratories of April 03, 2018: White count 19.4, hemoglobin 8.9. Sodium 137, potassium 4.5, chloride 107, carbon dioxide 20, BUN 40, creatinine 3.59, glucose 130, calcium 7.6. AST 37, ALT 36, albumin is 2.7. ASSESSMENT AND PLAN: 1. Acute kidney injury on top of her chronic renal failure - still consider hemodynamically-mediated renal dysfunction. Electrolyte abnormalities are actually much improved with this patient after one dialysis session. Potassium is now normal. The bicarb was improved to 20. a. We will hold off dialysis today. Start albumin infusion. It is still possible that this patient may have superimposed acute tubular necrosis. I will re-evaluate her if there is a need for dialysis tomorrow. 2. Sepsis syndrome - currently on empiric IV antibiotics. Leukocytosis is much improved. Job ID: [id number]
[2018-04-03] MEDS: Albumin 25% 25 GM/100 ML BOT IVPB SCH ×3 (12:27→23:24)
--- NOTE | 2018-04-03 18:29 | PRG ---
DATE OF SERVICE: 04/03/2018 SUBJECTIVE: Alisa Scott says she is feeling better. She is actually hypoglycemic this morning. Two hours later, blood sugar is 130. She had a lipase done this morning that was 1084. Lipase 2 days ago was 487. OBJECTIVE: LUNGS: Clear. HEART: Regular rhythm. VITAL SIGNS: Stable. Blood pressure 109/65 this afternoon, heart rate 95, respiratory rate 26. ABDOMEN: Still diffusely mildly tender. EXTREMITIES: Without edema. IMPRESSION: Acute renal failure With pancreatitis, I would wonder if she did not have something infectious involving her biliary tree, although clinically it seems unlikely. We will ask for gastroenterology input. We will continue with supportive care. She appears to be clinically improving. Job ID: [id number] MTDD
[2018-04-03] MEDS ORDERED: Vancomycin HCl 750 MG in Sodium Chloride 0.9% 250 ML 250 ML IVPB SCH (21:00)
--- NOTE | 2018-04-04 01:52 | CON ---
DATE OF CONSULTATION: 04/03/2018 REASON FOR CONSULTATION: Acute pancreatitis. CONSULTING PHYSICIAN: Elvis Caldera MD HISTORY OF PRESENT ILLNESS: The patient is a 78-year-old female with past medical history of hypertension, hyperlipidemia, hypothyroidism, diabetes and chronic kidney disease, who was initially admitted to the hospital with complaints of shortness of breath, nausea and vomiting. On chart review, the patient was noted to have a history of recurrent UTIs that were being evaluated by primary care physician. However, earlier this week, she was noted to have hematuria and was placed on outpatient antibiotics by her PCP again of recurring UTI. With placement on what appears to be trimethoprim/sulfamethoxazole, she had increased nausea and vomiting as well as associated increased shortness of breath and weakness. With this increased nausea, vomiting, shortness of breath and weakness, it prompted her to seek healthcare assistance at the [facility]. While in the ER, she was noted to have a probable urinary tract infection, but also noted to have a severe metabolic acidosis concerning for diabetic ketoacidosis. She was ultimately admitted to the ICU and has since undergone aggressive antibiotic and IV fluid administration. However, during the course of this hospitalization, she had a significantly decreased urine output despite IV fluid administration concerning for worsening of her chronic kidney disease and was ultimately placed on dialysis after a tunnel catheter was placed. However, on admission, she was also noted to have a significantly elevated lipase concerning for acute pancreatitis. Upon conferring with the patient today, she does complain of increased midepigastric abdominal pain characterized as a sharp/stabbing/tightness type pain that is nonradiating. It is fairly constant with waxing and waning severity, and will reach a severity of approximately 7 to 8/10. The pain is worse with eating primarily solid foods with the pain occurring within seconds of ingestion, but does not experience any increased pain with ingestion of liquids. She also adds that the pain is worse with spicy greasy foods and has not noted any alleviating factors other than pain medications given here in the hospital. In addition to her increased abdominal pain, she also endorses increased back pain (that has been present for the last 6 months), nausea without any vomiting and subjective fevers, chills. During the course of this hospitalization, she has responded well to pressor support, IV fluids, dialysis and broad-spectrum antibiotics but again continues to have an elevated lipase on labs. Currently, she denies any vomiting, fevers, chills, hematemesis, melena, hematochezia, or constipation. REVIEW OF SYSTEMS: A 10-category review of systems was obtained with all responses negative except for the pertinent positives as listed in HPI. PAST MEDICAL HISTORY: As per HPI. PAST SURGICAL HISTORY: Hysterectomy and cervical spine repair. FAMILY HISTORY: Denies any GI malignancies. SOCIAL HISTORY: Denies any tobacco, alcohol, or illicit drug use. OUTPATIENT MEDICATIONS: Include: 1. Tylenol 650 mg every 4 hours as needed. 2. Rosuvastatin. 3. Metoprolol 50 mg daily. 4. Meloxicam 7.5 mg as needed. 5. Amaryl 2 mg daily. 6. Gabapentin 200 mg 4 times daily. 7. Levothyroxine 12.5 mcg daily. 8. Metformin 1000 mg b.i.d. 9. Amlodipine 10 mg daily. 10. Losartan 25 mg daily. ALLERGIES: NO KNOWN DRUG ALLERGIES. PHYSICAL EXAMINATION: VITAL SIGNS: Temperature 98.2, pulse 98, blood pressure 117/60, respiratory rate 26, saturating 96% on room air. GENERAL: The patient is lying in bed, in no acute distress. Alert and oriented x3. HEENT. Neck supple. No JVD or scleral icterus noted. Normocephalic, atraumatic. CARDIOVASCULAR: Regular rate and rhythm with no discernible murmurs, gallops, or rubs. RESPIRATORY: Clear to auscultation bilaterally, but with poor inspiratory effort. ABDOMEN: Normoactive bowel sounds. Soft, nondistended. Tenderness to palpation in the midepigastric region. EXTREMITIES: No cyanosis, clubbing, or edema. LABORATORY DATA: CBC with a white blood cell count of 19.4, hemoglobin 8.9, hematocrit 26.9, and platelets 289. Chemistry with a sodium of 137, potassium 4.5, chloride 107, CO2 of 20, BUN 48, creatinine 3.59, glucose 38, AST 37, ALT 36, alkaline phosphatase 57, total bilirubin 0.2. Creatine kinase 564, lipase 1084, albumin 2.7. IMAGING DATA: Abdominal ultrasound obtained on April 01, 2018, showed normal liver, aorta, IVC and pancreas. Also showed normal gallbladder with no evidence of pericholecystic fluid. No dilatation of the intrahepatic or extrahepatic biliary system was also seen, and essentially read as an unremarkable exam. ASSESSMENT AND PLAN: The patient is a 78-year-old female with past medical history of hypertension, hyperlipidemia, hypothyroidism, diabetes and chronic kidney disease, presenting with acute pancreatitis. 1. Acute pancreatitis. 2. The patient is presenting with history of recurrent urinary tract infections that have required multiple therapies with antibiotics in the past to assist with this particular condition. However, within the recent past, she was again diagnosed with urinary tract infection and placed on Bactrim as an outpatient. Shortly after being placed on Bactrim, she experienced increased nausea, vomiting, and midepigastric abdominal pain that ultimately prompted her to seek healthcare assistance at [facility]. On admission, she was noted to have a significantly elevated lipase level of approximately 487, which is only up trended during this hospitalization. On review of her other labs, she was also noted to have a significant metabolic acidosis as well as hyperglycemia on admission consistent with diabetic ketoacidosis type picture. At this time, it is difficult to say what may have prompted her to have the diabetic ketoacidosis and whether or not it was the urinary tract infection or acute pancreatitis but with the elevation of her lipase on admission to 487, acute pancreatitis is probably a true diagnosis. Granted, you can see elevated lipase levels in patients with either chronic kidney disease or end-stage renal disease. It usually does not exceed three times the upper limit of normal. Therefore, in this patient, the significant elevation of her lipase is more consistent with acute pancreatitis, especially when coupled with midepigastric abdominal pain that worsens with ingestion of solid food. Now, the etiology of her pancreatitis is a bit more confusing in that she could potentially have a hypertriglyceridemia associated with her hyperlipidemia, but could also be medication-induced given the fact that she is also taking losartan, rosuvastatin, and trimethoprim sulfamethoxazole as an outpatient, which could prompt her to have pancreatitis. In any case, the main stage of therapy is usually aggressive IV fluid hydration but with her chronic kidney disease now extending into end-stage renal disease and does make it more difficult in terms of maintaining sufficient volume status and avoiding hypervolemia. RECOMMENDATIONS: 1. We would continue IV fluids at the current rate with plans to have the patient dialyzed on a regular basis to avoid hyperkalemia and to assist with reduction of inflammatory cytokines associated with pancreatitis. 2. We would obtain a lipid panel for evaluation of triglycerides and rule out hypertriglyceridemia as a possible source of acute pancreatitis. 3. We would avoid any potential medications that could induce pancreatitis for the near future. 4. We will continue patient on a clear liquid diet and consider advancing the diet within the next 24 hours if the patient is able to tolerate it. 5. Pain control per primary team. We will continue to follow. Please call with any questions. Job ID: [id number]
[2018-04-04] MEDS: Piperacillin/Tazobactam 2.25 GM in Sodium Chloride 0.9% 100 ML IVPB SCH (05:12)
[2018-04-04] MEDS: Albumin 25% 25 GM/100 ML BOT IVPB SCH (05:12)
[2018-04-04] MEDS: Sodium Chloride 0.9% 1,000 ML IV SCH (05:12)
[2018-04-04 05:31] LABS: #Lymphocytes 2.3 thou/uL (1.20-3.40); #Monocytes 1.8 thou/uL (0.11-0.59); #Neutrophils 11.5 thou/uL (1.40-6.50); %Eosinophils 0.1 % (0.0-10.0); %Lymphocytes 14.8 % (21.0-51.0); %Monocytes 11.5 % (0.0-10.0); %Neutrophils 73.6 % (42.0-75.0); Hemoglobin 8.2 g/dL (12.0-16.0); Mean Corpuscular HGB CONC 33.3 g/dL (32.0-36.0); Mean Corpuscular Hemoglobin 30.9 pg (27.0-31.0); Mean Corpuscular Volume 92.7 fL (78.0-98.0); Mean Platelet Volume 6.8 fL (7.4-10.4); Platelet Count 195 thou/uL (130-400); RBC Distribution Width 12.1 % (11.5-14.5); Red Blood Cell (RBC) Count 2.67 mill/uL (4.20-5.40); White Blood Cell (WBC) Count 15.6 thou/uL (4.8-10.8)
[2018-04-04 05:57] LABS: ALT (SGPT) 23 U/L (8-55); AST (SGOT) 31 U/L (5-34); Albumin 3.7 g/dL (3.4-4.8); Alkaline Phosphatase 60 U/L (40-150); Anion Gap 17 mmol/L (10-20); BUN (Urea Nitrogen) 50 mg/dL (9.8-20.1); Bilirubin, Total 0.3 mg/dL (0.2-1.2); Calc. Creatinine Clearance 15 mL/min (70-130); Calcium 7.2 mg/dL (7.8-10.44); Carbon Dioxide 15 mmol/L (23-31); Cardiac Risk 2.1 (Less than 4.5); Chloride 107 mmol/L (98-107); Cholesterol 44 mg/dl (< 200 Desired); Estimated GFR-MDRD 11; Globulin 1.8 g/dL (2.4-3.5); Glucose 80 mg/dL (83-110); HDL Cholesterol 21 mg/dL (>60 Neg Risk); LDL Cholesterol, Calculated 8 mg/dL; Lipase 199 U/L (8-78); Potassium 4.2 mmol/L (3.5-5.1); Protein, Total 5.5 g/dL (6.0-8.3); Sodium 135 mmol/L (136-145); Triglycerides 73 mg/dL (Less than 150)
--- NOTE | 2018-04-04 06:58 | PDOC.FM ---
- Subjective Subjective: This morning the patient had shortness of breath which got worst around 0600. She was put on 3L NC and is satting well. She has had minimal urine output overnight. This morning she states she is still having some abdominal pain radiating around to the back katlin. with food. - Objective Vital Signs & Weight: Vital Signs (12 hours) Temp Pulse Ox 04/04/18 04:00 98.5 F 04/04/18 00:00 98.9 F 04/03/18 20:00 98.4 F 92 L Weight Admit Weight 77.2 kg Weight 83.6 kg Most Recent Monitor Data Heart Rate from ECG 113 NIBP 135/80 NIBP BP-Mean 98 Respiration from ECG 30 SpO2 90 I&O: 04/02/18 04/03/18 04/04/18 06:59 06:59 06:59 Intake Total 1196 4232 4776 Output Total 145 145 65 Balance 1051 4087 4711 Result Diagrams: 04/04/18 05:25 04/04/18 05:25 Phys Exam - Physical Examination Constitutional: NAD HEENT: PERRLA, moist MMs crackles throughout Cardiovascular: RRR, no significant murmur, no rub Gastrointestinal: soft, non-tender, no distention, positive bowel sounds Musculoskeletal: pulses present trace edema Neurological: non-focal, moves all 4 limbs Psychiatric: normal affect, A&O x 3 Skin: no rash, cap refill <2 seconds Dx/Plan (1) NELI (acute kidney injury) Code(s): N17.9 - ACUTE KIDNEY FAILURE, UNSPECIFIED Status: Acute (2) DMII (diabetes mellitus, type 2) Status: Acute (3) Elevated CK Status: Acute (4) HTN (hypertension) Code(s): I10 - ESSENTIAL (PRIMARY) HYPERTENSION Status: Acute (5) Metabolic acidosis Code(s): E87.2 - ACIDOSIS Status: Acute (6) Septic shock Code(s): A41.9 - SEPSIS, UNSPECIFIED ORGANISM; R65.21 - SEVERE SEPSIS WITH SEPTIC SHOCK Status: Acute - Plan Plan: This is a 63 yo M/F being admitted for septic shock likely 2/2 UTI vs pancreatitis, NELI on CKD, metabolic acidosis . 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 Sosa, will send patient for urgent dialysis CV (Septic shock, intravascular depletion-> now fluid overloaded) - Pressors: off pressors overnight - 45ml urine output total yesterday, BP WNL this AM GI (pancreatitis) - lipase 487-> 1082 -> 199 - zofran, norco for pain control - tolerated small amounts of solid foods yesterday, peaches, advance diet as tolerated /Renal (Metabolic Acidosis w/ AG- resolved, Hyper K- resolved, NELI on CKD, fluid overload) - urine output: 0.03 ml/kg/hr yesterday, dialysis x1 hour - Cr 4.1, baseline around 2 - FeNa 1.4% suggests intrinsic injury - gap resolved - now fluid overloaded 2/2 fluids for pancreatitis, spoke with Dr. Sosa will do urgent dialysis this AM - patient may have progressed to ESRD, has rt fem access, has had venous mapping , may need to consider long-term access later this week, appreciate Dr. Sosa recs Infection (Septic shock likely 2/2 UTI) - s/p vanc/zosyn - de-escalated to rocephin - WBC 29-> 27.9 -> 19.4 -> 15.6 - bcx, ucx negative Endo (DMII) - on oral meds at home - hyperglycemia resolved -was on lantus 10U, but had lows the last 2 mornings, will stop lantus - accuchecks q6 hrs Lines/Tubes: right subclavian, rt femoral tunnel cath Code status: full PPx: protonix, heparin Dispo: >2 midnights, will likely stay in ICU another day 2/2 resp distress Addendum - Attending - Attending Attestation Date/Time: 04/04/18 1018 I personally evaluated the patient and discussed the management with Dr. Caldera. I agree with and repeated the History, Examination, Assessment and Plan documented above with any addition or exceptions noted below.
--- NOTE | 2018-04-04 08:22 | RAD ---
PORTABLE AP CHEST X-RAY: 04/04/2018 HISTORY: Shortness of breath. Evaluate fluid state. COMPARISON: 04/01/2018 FINDINGS: A left subclavian central venous catheter is again noted in place. The cardiac silhouette is within normal limits for the portable technique of the study. There is a mild increase in interstitial dens ities when compared to the prior exam, which may be related to an element of mild pulmonary edema. T here is suggestion of tiny bilateral pleural effusions. The pulmonary vasculature is at the upper li mits of normal. Osteopenia is present. No other interval change. IMPRESSION: 1. Interval development of mild increase in interstitial densities bilaterally, which may be related to an element of mild pulmonary edema or an infectious process. Continued followup is suggested. 2. Suggestion of tiny bilateral pleural effusions. POS: CONSTANCE
--- NOTE | 2018-04-04 09:47 | PRG ---
DATE OF SERVICE: 04/04/2018 SERVICE: Renal Medicine. SUBJECTIVE: Ms. Scott is a 78-year-old white female seen by the Renal Service for acute kidney injury. Initially, I felt that she may simply have a hemodynamically-mediated renal dysfunction. Empiric volume repletion has also been given with this patient. She was started on dialysis the day before yesterday. I have dialysis yesterday thinking that there might be some improvement. However, she developed respiratory distress early today. In addition, renal function continues to worsen. My feeling is this patient most likely may have an acute tubular necrosis. She is currently undergoing dialysis. I am attempting to remove between 2 L and 3 L of fluid as tolerated by the patient. Review of the chest x-ray on April 04, 2018 showed CHF. In addition, this patient has been evaluated by Dr. Caballero for her acute pancreatitis. No other complaints by the patient. OBJECTIVE: VITAL SIGNS: Blood pressure 149/83, heart rate is 114, respiratory rate 36, and pulse ox 95%. GENERAL: Noted to be awake, supine, comfortable. SKIN: Adequate turgor. HEENT: She has slightly pale conjunctivae. Anicteric sclerae. NECK: No neck mass. No carotid bruits. No JVD. CHEST: No deformities. LUNGS: Decreased breath sounds. HEART: Normal sinus rhythm. No murmur. No gallops or rubs. ABDOMEN: Globular, soft, nontender. No masses. EXTREMITIES: Positive for edema. MEDICATIONS: Medications of April 04, 2018 reviewed. LABORATORY DATA: Laboratories of April 04, 2018; white count 15.6, hemoglobin 8.2. Sodium 135, potassium 4.2, chloride 107, carbon dioxide 15, BUN 50, creatinine 4.1, calcium is 7.2, AST 31, ALT 23. ASSESSMENT AND PLAN: 1. Acute kidney injury - consider the possibility of ischemic ATN with this patient. Continue supportive care. Since the patient is overloaded, I resume back dialysis. We will do a 2-hour dialysis with attempting to remove between 2 L and 3 L of fluid. 2. I have rescheduled her again tomorrow for 3-hour hemodialysis. 3. Acute pancreatitis. GI following. Continue supportive care. 4. Sepsis syndrome - clinically improving. White count is improving. She continues to be on IV antibiotics. So far, her blood cultures have been negative to growth. 5. Overall agree with current management. Job ID: [id number]
[2018-04-04] MEDS: HYDROcodone/Acetaminophen 5/325 mg Tablet PO PRN ×2 (10:09→17:42)
[2018-04-04] MEDS: Heparin 5,000 UNITS/ML VIAL SC SCH ×3 (10:09→21:57)
[2018-04-04] MEDS ORDERED: cefTRIAXone\\ROCEPHIN 1 GM in Sodium Chloride 0.9% 100 ML IVPB SCH (11:00)
[2018-04-04] MEDS ORDERED: Heparin 1,000 UNITS/ML VIAL ONE (11:11)
[2018-04-04] MEDS ORDERED: Sodium Chloride 0.9% 1,000 ML IV SCH (12:00)
--- NOTE | 2018-04-04 22:49 | PRG ---
DATE OF SERVICE: 04/04/2018 SUBJECTIVE: Alisa Scott developed some tachypnea and dyspnea overnight. She was volume resuscitated for pancreatitis. She did not tolerate this. She was urgently dialyzed this morning and had resolution of her symptoms. OBJECTIVE: VITAL SIGNS: This evening she is 122/59, heart rate is 104, respiratory rate is 20, and oximetry is 95. LUNGS: Remarkable for crackles at her bases. HEART: Regular rhythm. ABDOMEN: Soft. EXTREMITIES: Without edema. LABORATORY DATA: White count 15.6, hemoglobin 8.2, and platelets 195. Sodium 135, potassium 4.2, chloride 107, bicarb 15, BUN 50, and creatinine 4.1. She has no blood gas. IMPRESSION: 1. Respiratory failure associated with metabolic acidosis, now requiring intubation, compensated surprisingly well. 2. Status post emergent hemodialysis to correct her acid-base disorder. 3. Severe lactic acidosis, resolved. 4. Pancreatitis of unclear etiology. 5. Pulmonary edema secondary to volume resuscitation. It was hoped that she would have improvement of her renal function and tolerate the volume, but she did not. PLAN: Continue supportive care in critical care environment. Job ID: [id number]
--- NOTE | 2018-04-04 22:54 | PRG ---
DATE OF SERVICE: 04/04/2018 REASON FOR CONSULTATION: Acute pancreatitis. SUBJECTIVE: This morning, the patient exhibited increased wheezing with imaging consistent with possible pulmonary edema. She subsequently underwent more urgent dialysis today with significant improvement in her respiratory status. Currently states that she is doing much better, stating that her midepigastric abdominal pain has improved, but has not yet abated. She has not been able to tolerate anything other than clear liquids at this point due to increased abdominal pain with ingestion of either solid or liquid foods. She has had approximately one bowel movement earlier today with no difficulty with defecation. She currently remains off pressor support and there is plans to have the patient dialyzed every day for the next 2 days. Currently, denies any fevers, chills, constipation, dysphagia, or odynophagia. OBJECTIVE: VITAL SIGNS: Temperature 98.4, heart rate 104, blood pressure 122/59, respiratory rate 20, saturating 95% on room air. GENERAL: The patient is lying in bed, in no acute distress. Alert and oriented x4. CARDIOVASCULAR: Tachycardic rate, but regular rhythm. RESPIRATORY: Diminished breath sounds in bilateral lower lung doan, but difficult to discern due to poor inspiratory effort. Otherwise, clear to auscultation. ABDOMEN: Normoactive bowel sounds. Soft, nondistended. Tenderness to palpation in the midepigastric region. EXTREMITIES: No cyanosis, clubbing, or edema. LABORATORY DATA: CBC with a white blood cell count of 15.6, hemoglobin 8.2, hematocrit 24.7, platelets 195. Chemistry with a sodium of 135, potassium 4.2, chloride 107, CO2 of 15, BUN 50, creatinine 4.1, glucose 80, AST 31, ALT 23, alkaline phosphatase 60, total bilirubin 0.3, triglycerides 73, lipase 199. IMAGING DATA: No current GI imaging is available for review. ASSESSMENT AND PLAN: The patient is a 78-year-old female with past medical history of hypertension, hyperlipidemia, hypothyroidism, diabetes, and chronic kidney disease, presenting with acute pancreatitis and what appears to be end-stage renal disease. Acute pancreatitis. The patient is presenting with a history of recurrent urinary tract infections and required multiple therapies with antibiotics in the past with a recent bout of urinary tract infection and treatment with Bactrim as an outpatient. Shortly after being placed on Bactrim, she experienced increased nausea, vomiting, midepigastric abdominal pain, and intolerance to p.o. that prompted her to seek healthcare assistance at [facility]. On admission, she was noted to have a significant elevated lipase level consistent with acute pancreatitis as well as a significant metabolic acidosis consistent with diabetic ketoacidosis. She was subsequently transferred to the ICU where she has responded well to aggressive management including IV fluid support, broad-spectrum antibiotics, and pressor support, which she has been taken off of at this time. Based on her current clinical picture and based on the history of everything as well as a normal triglyceride level seen on labs this morning, the more likely explanation could be due to medication-induced pancreatitis resulting in midepigastric abdominal pain, nausea, vomiting which can further cascade into an episode of diabetic ketoacidosis with intolerance to p.o. Currently, she is doing better with decreased midepigastric abdominal pain, although she has not been able to tolerate much more than a clear liquid diet at this point in time. She also did have evidence of hypervolemia on physical exam earlier this morning due to decreased urinary output from worsening renal function. However, with dialysis earlier today, she exhibited improvement in her clinical status and does not exhibit any wheezing or crackles on physical exam this evening. Given her diagnosis of acute pancreatitis, aggressive IV fluid hydration is usually warranted in patients for the first 24 to 48 hours after presenting for therapy. Given that she is now approaching 48 hours and hypervolemia on examination this morning, I will decrease the IV fluids especially in light of her renal dysfunction. RECOMMENDATIONS: 1. Agree with significant reduction in her IV fluids, given hypervolemia on physical exam this morning and decreased efficacy of aggressive IV fluid hydration beyond 48 hours with acute pancreatitis. 2. Would continue to avoid any potential medications that could induce pancreatitis in the near future. 3. Continue the patient on a clear liquid diet and consider advancing within the next 24 hours and sedation if able to tolerate. 4. Pain control per primary team. 5. Trending lipase does not portend any prognostic indications nor does it reflect improvement in her clinical status from pancreatitis. Further trending of this labs not necessary. We will continue to follow. Please call with any questions. Job ID: [id number]
[2018-04-05 05:41] LABS: Hemoglobin 8.5 g/dL (12.0-16.0); Mean Corpuscular HGB CONC 34.1 g/dL (32.0-36.0); Mean Corpuscular Hemoglobin 31.4 pg (27.0-31.0); Mean Corpuscular Volume 92.2 fL (78.0-98.0); Mean Platelet Volume 7.2 fL (7.4-10.4); Platelet Count 184 thou/uL (130-400); RBC Distribution Width 11.8 % (11.5-14.5); White Blood Cell (WBC) Count 16.3 thou/uL (4.8-10.8)
[2018-04-05 05:57] LABS: Band 9 % (5-11); Eosinophils 2 % (0-10); Lymphocytes 13 % (21-51); MDiff Complete? YES; Metamyelocyte 1 % (0-0); Monocytes 7 % (0-10); Neutrophil 68 % (42-75); Platelet Morphology Comment Appears Adequate
[2018-04-05 06:01] LABS: Anion Gap 17 mmol/L (10-20); BUN (Urea Nitrogen) 34 mg/dL (9.8-20.1); Calc. Creatinine Clearance 17 mL/min (70-130); Calcium 7.6 mg/dL (7.8-10.44); Carbon Dioxide 19 mmol/L (23-31); Chloride 103 mmol/L (98-107); Estimated GFR-MDRD 12; Glucose 88 mg/dL (83-110); Potassium 3.9 mmol/L (3.5-5.1); Sodium 135 mmol/L (136-145)
--- NOTE | 2018-04-05 06:41 | PDOC.FM ---
- Subjective Subjective: This morning patient states she slept well overnight. She says she still has mild wet cough. She was on 1L NC overnight, turned off o2 while at bedside and still satting in mid-90s. Patient states she is not feeling short of breath this morning but is still feeling weak overall. Denies fevers, chills, sweats. Denies N/V/D. Patient states she is still having mild 4/10 aching LUQ pain that radiates around to the back with eating. She is tolerating clear liquid diet but still having poor appetite. - Objective Vital Signs & Weight: Vital Signs (12 hours) Temp Pulse Ox 04/05/18 04:00 98.6 F 04/05/18 00:00 98.8 F 04/04/18 20:00 98.3 F 95 Weight Admit Weight 77.2 kg Weight 83.5 kg Most Recent Monitor Data Heart Rate from ECG 106 NIBP 147/69 NIBP BP-Mean 95 Respiration from ECG 20 SpO2 97 I&O: 04/03/18 04/04/18 04/05/18 06:59 06:59 06:59 Intake Total 4232 4776 1170 Output Total 145 65 47 Balance 4087 4711 1123 Result Diagrams: 04/05/18 05:30 04/05/18 05:30 Phys Exam - Physical Examination Constitutional: NAD HEENT: PERRLA, moist MMs Respiratory: no rales no resp distress, mild expiratory wheeze bilaterally Cardiovascular: RRR, no significant murmur, no rub Gastrointestinal: soft, no distention, positive bowel sounds mild tenderness to palpation LUQ trace edema bilaterally Neurological: non-focal, moves all 4 limbs Psychiatric: normal affect, A&O x 3 Skin: no rash, cap refill <2 seconds Dx/Plan (1) NELI (acute kidney injury) Code(s): N17.9 - ACUTE KIDNEY FAILURE, UNSPECIFIED Status: Acute (2) DMII (diabetes mellitus, type 2) Status: Acute (3) Elevated CK Status: Acute (4) HTN (hypertension) Code(s): I10 - ESSENTIAL (PRIMARY) HYPERTENSION Status: Acute (5) Metabolic acidosis Code(s): E87.2 - ACIDOSIS Status: Acute (6) Septic shock Code(s): A41.9 - SEPSIS, UNSPECIFIED ORGANISM; R65.21 - SEVERE SEPSIS WITH SEPTIC SHOCK Status: Acute - Plan Plan: This is a 63 yo M/F being admitted for septic shock likely 2/2 UTI vs pancreatitis, NELI on CKD, metabolic acidosis . 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 () - Sedation: none - AxOx3, improved from admission Resp () - CXR yesterday showed pulm edema, no distress this AM - mild exp wheezes - status much improved after dialysis yesterday - plan for dialysis once again today CV (Septic shock-resolved, intravascular depletion-> now appears euvolemic) - Pressors: off pressors >24 hours - stopped fluids this AM, was on 20ml/hr overnight GI (pancreatitis) - lipase 487-> 1082 -> 199 -> 66 - no need to continue to trend lipase, >48 hours since episode will track clinical sxs - zofran, norco for pain control - tolerated small amounts of clear liquids yesterday /Renal (Metabolic Acidosis w/ AG- resolved, Hyper K- resolved, NELI on CKD, ATN ) - urine output: 47 ml total yesterday - Cr 3.61, baseline around 2 - FeNa 1.4% suggests intrinsic injury - gap resolved - suspect ATN, likely 2/2 hypovolemic episode, continue dialysis - patient may have progressed to ESRD, has rt fem access, has had venous mapping , may need to consider long-term access later this week, appreciate Dr. Ian pagan Infection (Septic shock likely 2/2 UTI vs pancreatitis-resolved) - s/p vanc/zosyn - stopped antibiotics today - WBC 29-> 27.9 -> 19.4 -> 15.6 -> 16.3 - procal 0.32 - bcx, ucx negative Endo (DMII) - on oral meds at home - hyperglycemia resolved - accuchecks q12hrs Lines/Tubes: right subclavian, rt femoral tunnel cath Code status: full PPx: protonix, heparin Dispo: >2 midnights, will transition to IMCU Addendum - Attending - Attending Attestation Date/Time: 04/05/18 1052 I personally evaluated the patient and discussed the management with Dr. Caldera. I agree with and repeated the History, Examination, Assessment and Plan documented above with any addition or exceptions noted below.
[2018-04-05] MEDS: HYDROcodone/Acetaminophen 5/325 mg Tablet PO PRN ×2 (07:39→21:41)
[2018-04-05] MEDS: Heparin 5,000 UNITS/ML VIAL SC SCH ×3 (10:07→20:48)
[2018-04-05] MEDS ORDERED: Heparin 1,000 UNITS/ML VIAL ONE (11:11)
--- NOTE | 2018-04-05 11:19 | PRG ---
DATE OF SERVICE: 04/05/2018 SUBJECTIVE: Ms. Scott has no complaints. She feels much better until yesterday morning. She is on room air. OBJECTIVE: VITAL SIGNS: Blood pressure 139/73, heart rate 108, respiratory rate 22. LUNGS: Clear anteriorly. HEART: Regular rhythm. ABDOMEN: Soft. LABORATORY DATA: White count 16.3, hemoglobin 8.5, platelets 184,000. Sodium 135, potassium 3.9, chloride 102, bicarb 19, BUN 34, and creatinine 3.61. IMPRESSION: 1. Metabolic acidosis, resolved. 2. Pancreatitis, clinically improving. Lipase down to 66 today. Etiology of her pancreatitis is unclear. 3. Acute on chronic kidney disease, requiring dialysis. 4. Volume overload yesterday, resolved. 5. Diabetes. 6. Hypertension. PLAN: She has significant lactic acidosis. No clear source. This could have been the metformin. It is unclear, but with her renal failure, if this continues, she may not need oral agents and some of them will definitely be contraindicated. We will continue to follow the other physicians caring for. Job ID: [id number]
--- NOTE | 2018-04-05 15:34 | PQF ---
CLINICAL DOCUMENTATION IMPROVEMENT CLARIFICATION FORM: ICD-10 Updated PLEASE DO AN ADDENDUM TO THE PROGRESS NOTE WITH ANY DOCUMENTATION UPDATES OR ADDITIONS AND CARRY THROUGH TO DC SUMMARY. THANK YOU. DATE: 04/05/2018 ATTN: Dr. Caldera/ Attending Dr. Holman Please exercise your independent, professional judgment in responding to the clarification form. Clinical indicators are provided on the bottom of this form for your review Please check appropriate box(s): PULMONARY EDEMA: 1.) ACUITY [x ] Acute [ ] Acute on Chronic [ ] Chronic [ ] without congestive heart failure [ ] with congestive heart failure [ ] Other diagnosis [ ] Unable to determine In addition, please specify: Present on Admission (POA): [ ] Yes [ x] No [ ] Unable to determine For continuity of documentation, please document condition throughout progress notes and discharge summary. Thank You. CLINICAL INDICATORS - SIGNS / SYMPTOMS / LABS PN 04/04: Pt had shortness of breath which got worst around 0600. She was put on 3L NC & is satting well. CXR appears to have pulmonary edema -crackles throughout -now fluid overloaded 2/2 fluids for pancreatitis 04/04 (Ian): She is currently undergoing dialysis. I am attempting to remove between 2L and 3L of fluid as tolerated by the pt. Review of the chest x-ray on Apr 04, 2018 showed CHF 04/04 (Arianna) Pulmonary edema secondary to volume resuscitation. RISKS: H&P 2/: Recent hx of UTI/hematuria that was treated with Bactrim. PN 04/04: Admitted for septic shock likely 2/2 UTI vs pancreatitis. NELI on CKD, metabolic acidosis. TREATMENT: PN 04/04: Dr. Sosa will do urgent dialysis this am. Thank you, Felipa (This form is maintained as a part of the permanent medical record) 2014 [employer]. All Rights Reserved Felipa Ramirez RN, BSN [email or web address] Office: [phone] [facility]
--- NOTE | 2018-04-05 18:37 | PRG ---
DATE OF SERVICE: 04/05/2018 SUBJECTIVE: A 78-year-old female with acute on chronic renal failure in the context of septic shock. The patient noted to have hyperkalemia and volume overload; hence, was started on dialytic treatment. She reports feeling better and is well in regression. Tolerated dialysis well earlier today. OBJECTIVE: VITAL SIGNS: Blood pressure 152/86, heart rate 115, respiratory rate 23, and SpO2 of 97% on 2 L of oxygen supplementation. GENERAL: Elderly female in no obvious distress. Afebrile, anicteric, and acyanotic. HEENT: Normocephalic, atraumatic. Oral mucosa is moist. RESPIRATORY: Fair air entry bilateral with some transmitted sounds. No obvious crackle or rhonchi was appreciated. CARDIOVASCULAR: Regular rhythm and rate. Tachycardic. No murmur appreciated. ABDOMEN: Full, soft, nontender, nondistended with normal bowel sounds. EXTREMITIES: [id number] bilateral leg edema noted. NEUROLOGIC: Conscious, alert, oriented x3 with appropriate mental status. CURRENT MEDICATIONS: On April 05, 2018, were reviewed. DIAGNOSTIC DATA: BMP showed sodium of 135, potassium 3.9, chloride 103, CO2 of 19, BUN 34, creatinine 3.61, phosphorus 4.3, and calcium 7.6. Liver enzymes are unremarkable. CBC showed WBC count of 16.3, hemoglobin of 8.5, MCV of 92.2, and platelets of 184. ASSESSMENT: 1. Acute kidney injury superimposed on chronic kidney disease stage 4: Most likely, due to ischemic acute tubular necrosis due to shock. The patient is currently getting dialytic treatment and is tolerating it well. She had 3 hours today. She is scheduled for another session tomorrow. 2. Hyperkalemia: Resolved with dialytic treatment. 3. Mild metabolic acidosis: We will monitor with treatment with dialysis. 4. Acute pancreatitis: GI following. Continue supportive care. 5. Septic shock: Clinically improved. We will defer antibiotic therapy to the primary team. 6. We will monitor renal function for recovery. Job ID: [id number] [facility]
--- NOTE | 2018-04-05 18:58 | PRG ---
DATE OF SERVICE: 04/05/2018 REASON FOR CONSULTATION: Acute pancreatitis. SUBJECTIVE: This morning, per chart review, the patient did exhibit some increased shortness of breath, but resolved upon sitting in an upright position and with dialysis later on today. Currently, she states that she continues to have midepigastric/left upper quadrant abdominal pain. This seems to worsen with ingestion of either liquid or solid food reaching a severity approximately 5/10; however, when discussing the pain, she says it was increased a little bit from yesterday and even the day before. Currently, she denies any fevers, chills, constipation, dysphagia, or odynophagia. OBJECTIVE: VITAL SIGNS: Temperature 98.1, heart rate 115, blood pressure 152/86, respiratory rate 23, and saturating 97% on room air. GENERAL: The patient is lying in bed, in no acute distress. Alert and oriented x4. CARDIOVASCULAR: Tachycardic rate, but regular rhythm. RESPIRATORY: Clear to auscultation bilaterally with poor inspiratory effort. ABDOMEN: Normoactive bowel sounds. Soft, nondistended. Mild tenderness to palpation in the midepigastric region (improved from previous). EXTREMITIES: No cyanosis, clubbing, or edema. LABORATORY DATA: CBC with a white blood cell count of 16.3, hemoglobin 8.5, hematocrit 24.9, and platelets 184. Chemistry with a sodium of 135, potassium 3.9, chloride 103, CO2 of 19, BUN 34, creatinine 3.61, glucose 88, and lipase 66. IMAGING DATA: No current GI imaging is available for review. ASSESSMENT AND PLAN: The patient is a 78-year-old female with past medical history of hypertension, hyperlipidemia, hypothyroidism, diabetes, and chronic kidney disease, presenting with acute pancreatitis and acute renal failure. Acute pancreatitis. The patient is presenting with a history of recurrent urinary tract infections that has required multiple antibiotic regimens in the past with a recent diagnosis of this recurrence and subsequently treated with Bactrim as an outpatient. Shortly after being placed on Bactrim, she experienced increased nausea, vomiting, midepigastric abdominal pain consistent with acute pancreatitis. On this admission, she was noted to have significantly elevated lipase confirming this diagnosis, which could have contributed to diabetic ketoacidosis due to with associated nausea and vomiting. At this time, she has responded well to IV fluid support along with dialysis as well as broad-spectrum antibiotics and pressor support for which she has been removed at this time. She continues to have midepigastric abdominal pain with a clear liquid diet that is also associated with mild anorexia, although it is difficult to tell if the patient is not eating anything due to fear of pain or because of the actual pain itself. Given that she is having significant abdominal pain with ingestion of a clear liquid diet, it may require backtracking to an n.p.o. status, waiting for her to resolve further inflammation within the pancreas and then restarting the diet at that point, although studies have shown that following this approach does not necessarily improve clinical outcomes nor does it improve length of stay. RECOMMENDATIONS: 1. Agree with minimal administration of IV fluids and coupled with dialysis for filtration especially with acute pancreatitis. 2. We would have continued to avoid any potential medications that could induce pancreatitis. 3. We will continue the patient on a clear liquid diet and advance the diet and assess for tolerance. 4. Pain control per primary team. We will continue to follow. Please call with any additional questions. Job ID: [id number]
[2018-04-06 05:05] LABS: Anion Gap 15 mmol/L (10-20); BUN (Urea Nitrogen) 16 mg/dL (9.8-20.1); Calc. Creatinine Clearance 25 mL/min (70-130); Calcium 8.3 mg/dL (7.8-10.44); Carbon Dioxide 26 mmol/L (23-31); Chloride 102 mmol/L (98-107); Estimated GFR-MDRD 18; Glucose 75 mg/dL (83-110); Potassium 3.7 mmol/L (3.5-5.1); Sodium 139 mmol/L (136-145)
[2018-04-06 05:39] LABS: Band 13 % (5-11); Hemoglobin 8.5 g/dL (12.0-16.0); Lymphocytes 11 % (21-51); MDiff Complete? YES; Mean Corpuscular HGB CONC 32.9 g/dL (32.0-36.0); Mean Corpuscular Hemoglobin 30.3 pg (27.0-31.0); Mean Corpuscular Volume 92.2 fL (78.0-98.0); Mean Platelet Volume 7.5 fL (7.4-10.4); Monocytes 9 % (0-10); Neutrophil 67 % (42-75); Platelet Count 197 thou/uL (130-400); Red Blood Cell (RBC) Count 2.82 mill/uL (4.20-5.40); White Blood Cell (WBC) Count 16.3 thou/uL (4.8-10.8)
[2018-04-06 05:47] LABS: Folate (Folic Acid) 4.1 ng/mL (7.0-31.4)
[2018-04-06] MEDS ORDERED: CCU Electrolyte Replacement 1 EACH IVPB ONE (06:25)
--- NOTE | 2018-04-06 07:41 | PDOC.FM ---
- Subjective Subjective: This morning the patient states she is feeling ok overall. She is still having a nagging abdominal pain, now moving more towards the RUQ. The pain is worse after eating or drinking. The patient denies N/V/D. She states she has not had much appetite but would like to try the ivorian toast on her breakfast tray. She denies SOB or cough. She is complaining of some burning in her fingers and toes this AM. - Objective Vital Signs & Weight: Vital Signs (12 hours) Temp Pulse Ox 04/06/18 04:05 97.4 F L 04/06/18 00:00 97.2 F L 04/05/18 20:00 99.3 F 99 Weight Admit Weight 77.2 kg Weight 83.5 kg Most Recent Monitor Data Heart Rate from ECG 105 NIBP 171/81 NIBP BP-Mean 111 Respiration from ECG 17 SpO2 97 I&O: 04/05/18 04/06/18 04/07/18 06:59 06:59 06:59 Intake Total 1170 901 Output Total 47 39 Balance 1123 862 Result Diagrams: 04/06/18 04:30 04/06/18 04:30 Phys Exam - Physical Examination Constitutional: NAD HEENT: PERRLA, moist MMs Respiratory: no wheezing, clear to auscultation bilateral Cardiovascular: RRR 2/6 systolic murmur Gastrointestinal: soft, non-tender, no distention, positive bowel sounds Musculoskeletal: no edema, pulses present Neurological: non-focal, moves all 4 limbs Psychiatric: normal affect, A&O x 3 Skin: no rash, cap refill <2 seconds Dx/Plan (1) NELI (acute kidney injury) Code(s): N17.9 - ACUTE KIDNEY FAILURE, UNSPECIFIED Status: Acute (2) DMII (diabetes mellitus, type 2) Status: Acute (3) Elevated CK Status: Acute (4) HTN (hypertension) Code(s): I10 - ESSENTIAL (PRIMARY) HYPERTENSION Status: Acute (5) Metabolic acidosis Code(s): E87.2 - ACIDOSIS Status: Acute (6) Septic shock Code(s): A41.9 - SEPSIS, UNSPECIFIED ORGANISM; R65.21 - SEVERE SEPSIS WITH SEPTIC SHOCK Status: Acute - Plan Plan: This is a 63 yo F being admitted for septic shock likely 2/2 pancreatitis, possible UTI, NELI on CKD, metabolic acidosis . 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, Pulm CLIN NURSE (neuropathy) - Sedation: none - AxOx3, improved from admission - low b12, folate, will replete - rbc folate pending Resp () - acute pulmonary edema on 04/04, resolved after dialysis - CTA -B - cautious hydration as patient is not making urine CV (Septic shock-resolved, intravascular depletion-> now appears euvolemic) - Pressors: off pressors >48 hours GI (pancreatitis) - lipase 487-> 1082 -> 199 -> 66 - no need to continue to trend lipase, >48 hours after acute episode - zofran, norco for pain control - still having pain with intake, will rehydrate gently /Renal (Metabolic Acidosis w/ AG- resolved, Hyper K- resolved, NELI on CKD, ATN ) - urine output: 47 ml total yesterday - Cr 2.55, baseline around 2 - FeNa 1.4% suggests intrinsic injury - gap resolved - suspect ATN, likely 2/2 hypovolemic episode, continue dialysis - will await Nephjuana pagan on long term care pharmacist access - patient may have progressed to ESRD, has rt fem access, has had venous mapping , may need to consider long-term access later this week, appreciate Dr. Ian pagan Infection (Septic shock likely 2/2 UTI vs pancreatitis-resolved) - s/p vanc/zosyn - stopped antibiotics 04/05 - WBC 29-> 27.9 -> 19.4 -> 15.6 -> 16.3 -> 16.3 - procal 0.32 - bcx, ucx negative Endo (DMII) - on oral meds at home - stopped long acting 2/2 hypoglycemia - hyperglycemia resolved, had a high b-hydroxybutryrate after receiving d5w with bicarb on admission, maybe a light dka contributed to metabolic acidosis, now resolved - accuchecks q12hrs Lines/Tubes: right subclavian, rt femoral tunnel cath Code status: full PPx: protonix, heparin Dispo: >2 midnights barriers to d/c: control pain from pancreatitis, tolerating PO, long-term plan regarding ATN/CKD will transfer to medical floor Addendum - Attending - Attending Attestation Date/Time: 04/06/18 1212 I personally evaluated the patient and discussed the management with Dr. Caldera. I agree with and repeated the History, Examination, Assessment and Plan documented above with any addition or exceptions noted below.
[2018-04-06] MEDS: HYDROcodone/Acetaminophen 5/325 mg Tablet PO PRN ×2 (07:46→20:22)
[2018-04-06] MEDS ORDERED: Labetalol HCl 100 MG/20 ML VIAL SLOW IVP PRN (07:59)
[2018-04-06] MEDS ORDERED: Sodium Chloride 0.9% 1,000 ML IV SCH (08:00)
[2018-04-06] MEDS: Folic Acid 1 MG TAB PO SCH (09:23)
[2018-04-06] MEDS: Cyanocobalamin (Vitamin B-12) 1,000 MCG TAB PO SCH (09:24)
[2018-04-06] MEDS: Heparin 5,000 UNITS/ML VIAL SC SCH ×3 (09:25→20:22)
--- NOTE | 2018-04-06 09:51 | PDOC.EVN ---
Event Note - Event Note Event Note: CDI phsyician query acute pulm edema not related to CHF
--- NOTE | 2018-04-06 09:55 | PDOC.EVN ---
Event Note - Event Note Event Note: Patient is made NPO in order to facilitate placement of cuffed tunnel cath for dialysis access per Dr. Sosa's request Dr. Schroeder to evaluate
[2018-04-06] MEDS ORDERED: CEFAZOLIN/Water 2 GM/20 ML SYRINGE SLOW IVP SCH (10:30)
[2018-04-06] MEDS ORDERED: CEFAZOLIN 2 GM in Premix Bag 1 BAG IVPB SCH (10:45)
[2018-04-06] MEDS ORDERED: Heparin 1,000 UNITS/ML VIAL ONE (11:11)
--- NOTE | 2018-04-06 13:03 | PRG ---
DATE OF SERVICE: 04/06/2018 HISTORY: This is a 78-year-old female, who presented to the ER with chief complaint of increasing shortness of breath. She was found to have blood pressures in the 60 systolic and was started on Levophed and broad-spectrum antibiotics in the ER. After workup, it was found that she had a severe metabolic acidosis. There were a couple of things contributing to this. First was possible septic shock secondary to UTI, she had a partially treated UTI earlier in the week with Bactrim, but was throwing up the medication. Additionally, she was found to have a severe pancreatitis, which also could have caused the shock syndrome. Finally, the night of admission because of her severe metabolic acidosis, she was given 3 amps of bicarb and 1 L of D5W, which caused her blood glucose to go into the 400s, and it was thought that she could have developed a slight DKA that was quickly resolved. She had a beta-hydroxybutyrate that was 7 and then later resolved to 1.1. After a round of dialysis, all of her metabolic abnormalities were resolved, but currently, we are still working to advance her diet. She is still having abdominal pain secondary to the pancreatitis. Additionally, she has acute tubular necrosis on CKD. At first, the hope was that the temporary dialyzing measures would help the patient progressed back into normal kidney function, but her kidney function has not recovered. She has been putting out 40 to 60 mL of urine per day the last few days. Dr. Schroeder has been consulted for placement of a tunneled cath for long-term dialysis. Dr. Sosa and Dr. Lopez are following the case from a Nephrology standpoint, and recs are appreciated. Dr. Caballero is following the case from a GI standpoint and has been making recommendations on treatment of the pancreatitis. Recs are appreciated. Nutrition has seen the patient. Please see the recs in the note after finishing the procedure. They recommend adding Ensure and renal high-protein diet. Job ID: [id number]
--- NOTE | 2018-04-06 16:52 | PRG ---
DATE OF SERVICE: 04/06/2018 REASON FOR CONSULTATION: Acute pancreatitis. SUBJECTIVE: The patient was in the operating room at the time of evaluation for tunneled catheter placement for dialysis. The rest of the information obtained through chart review. Per nursing staff and chart review this morning, the patient did exhibit some increased midepigastric abdominal pain with ingestion of food, but otherwise has been doing well and has been having relatively little pain in between meals. Otherwise, the patient did well overnight with no acute events or problems. OBJECTIVE: VITAL SIGNS: Temperature 98.1, pulse 103, blood pressure 151/81, respiratory rate 16, and saturating 92% on room air. The remainder of the physical examination could not be performed due the patient being in the operating room. LABORATORY DATA: CBC with a white blood cell count of 16.3, hemoglobin 8.5, hematocrit 26, platelets 197. Chemistry with a sodium of 139, potassium 3.7, chloride 102, CO2 of 26, BUN 16, creatinine 2.55, and glucose 75. IMAGING DATA: No current GI imaging is available for review. ASSESSMENT AND PLAN: The patient is a 78-year-old female with past medical history of hypertension, hyperlipidemia, hypothyroidism, diabetes, and chronic kidney disease, presenting with acute pancreatitis and acute renal failure. Acute pancreatitis. The patient is presenting with a history of recurrent urinary tract infections that has required multiple antibiotic regimens in the past. However, more recently, the patient was administered Bactrim as part of a recurrent urinary tract infection and experienced increased nausea, vomiting, and midepigastric abdominal pain consistent with acute pancreatitis. With this increased nausea, vomiting, and inability to tolerate p.o., I think it may have ultimately pushed her into a diabetic ketoacidosis type picture, which then prompted her admission to [facility]. At this time, she responded well with IV fluid support with an episode of hypervolemia due to acute renal failure and lack of adequate urine output. She has been dialyzed multiple times during this admission and has responded well to this modality. She continues to have mild midepigastric abdominal pain with administration of a clear liquid diet with attempts to advance her diet semi-successful thus far. Given that she is having significant abdominal pain with ingestion of just a clear liquid diet, it may require backtracking to an n.p.o. status, waiting her for to resolve further information with the pancreas and then restarting the diet at that point, although, studies have shown that following this approach does not necessarily improve clinical outcome nor does it improve length of stay. RECOMMENDATIONS: 1. We will continue to avoid any potential medications that could induce pancreatitis. 2. We would continue the patient on a clear liquid diet and advance the diet as tolerated. 3. Pain control per primary team. 4. We will place the patient on a bowel regimen of MiraLAX 1 capful daily as part of probable constipation resulting from opiate medications. At this point, the patient is hemodynamically stable and doing well from a clinical standpoint other than not tolerating a full diet as of yet. However, I will continue to attempt to try to advance the diet. At this point, we have nothing additional to offer and we will sign off. Please call with any additional questions. Job ID: [id number]
[2018-04-06] MEDS ORDERED: Lidocaine 2% PF 5 ML VIAL ONE ×2 (17:03→17:04)
[2018-04-06] MEDS ORDERED: Bupivacaine HCl 0.5%/Epinephrine 1:200,000/PF 30 ml Vial ONE (17:03)
[2018-04-06] MEDS ORDERED: Sodium Chloride 0.9% 20 ML ONE (17:03)
[2018-04-06] MEDS ORDERED: Heparin 10,000 UNITS/1 ML VIAL ONE (17:03)
[2018-04-06] MEDS ORDERED: Fentanyl 100 MCG/2 ML VIAL ONE (17:32)
[2018-04-06] MEDS ORDERED: Propofol 1,000 MG/100 ML VIAL IV ONE (17:33)
[2018-04-06] MEDS ORDERED: Promethazine HCl 25 MG/ML VIAL SLOW IVP PRN (17:57)
[2018-04-06] MEDS ORDERED: Promethazine HCl 25 MG/ML VIAL IM PRN (17:57)
[2018-04-06] MEDS ORDERED: Ondansetron HCl/PF 4 MG/2 ML Vial IVP PRN (17:57)
--- NOTE | 2018-04-06 18:39 | PRG ---
DATE OF SERVICE: 04/06/2018 SUBJECTIVE: Mr. Scott is now getting dialysis on the dialysis room. OBJECTIVE: VITAL SIGNS: Stable. Her blood pressure 151/81, heart rate 103, and respiratory rate 16. INTAKE AND OUTPUT: Positive 887. URINE OUTPUT: Only 47 mL for the past 24 hours. Nothing else is changed. LABORATORY DATA: White count 16.3, hemoglobin 8.5, and platelets 197,000. Electrolytes unremarkable. Creatinine is 2.55. IMPRESSION: Status post severe lactic acidosis. PLAN: We will continue with supportive care. I would think she can move off the intermediate care unit to a non-monitored bed. She is being followed up for her pancreatitis by GI. The etiology of her pancreatitis is not clear. It is unclear whether her lactic acidosis is secondary to the drugs or secondary to an infectious process. Cultures remain negative. Job ID: [id number]
--- NOTE | 2018-04-06 18:41 | RAD ---
PORTABLE CHEST ONE VIEW: 04/06/18 at 5:13 p.m. HISTORY: Dialysis catheter placement. FINDINGS/IMPRESSION: Comparison made with 04/04/18. The left subclavian central line catheter remains in place. There has been interval placement of a ri ght internal jugular double lumen dialysis catheter with tips in the projection of the SVC. The heart size is stable. No pneumothoraces are seen. There is mild infiltrate versus atelectatic change in th e right medial lung base. No pneumothoraces are seen. POS: RITO
--- NOTE | 2018-04-06 21:19 | PRG ---
DATE OF SERVICE: 04/06/2018 SUBJECTIVE: A 78-year-old female with acute on chronic renal failure in the context of septic shock. The patient is getting dialytic treatments for management of hyperkalemia and volume overload as well as advanced CKD. Last dialysis was on 04/05/2018. No new problem. Denied shortness of breath, nausea, vomiting, or hiccups. OBJECTIVE: VITAL SIGNS: BP 141/66, pulse 100, respiratory rate 18, SpO2 95 on room air. Temperature 99.1. GENERAL: Healthy looking elderly female, in no obvious distress. Afebrile. Anicteric, acyanotic. HEENT: Normocephalic, atraumatic. Pupils are equal and reacting to light. Oral mucosa is moist. RESPIRATORY: Fair air entry bilaterally with some transmitted sounds. No crackles or respiratory distress appreciated. CARDIOVASCULAR: Regular rhythm and rate with normal heart sounds 1 and 2. No murmur appreciated. ABDOMEN: Full, soft, nontender, nondistended with normal bowel sounds. EXTREMITIES: Mild to moderate bilateral leg edema noted. NEUROLOGIC: Conscious, alert, oriented x3 with appropriate mental status. DIAGNOSTIC DATA: CBC showed WBC count of 16.3, hemoglobin of 8.5, and platelets of 197. Chemistry showed sodium 139, potassium 3.7, chloride 102, CO2 26, BUN 16, creatinine 2.55, glucose 75, calcium 8.3. Chest x-ray showed mild infiltrate or atelectatic changes in the right medial lung base with no pneumothorax or any acute finding. ASSESSMENT AND PLAN: 1. Acute kidney injury superimposed on chronic kidney disease stage 4. Thought to be due to ischemic acute tubular necrosis in the context of shock. She was started on dialysis for volume management as well as for management of hyperkalemia. Last dialysis was on 04/05/2018. For dialysis today and tomorrow. We will also monitor intake and output. 2. Hyperkalemia: Resolved with dialysis. 3. Shock: Thought to be related to sepsis. Clinically improved. Further treatment as per primary team. 4. Bilateral leg edema: Due to fluid overload in the context of renal failure. We will consider adding diuretics for volume management. Job ID: [id number] [facility]
--- NOTE | 2018-04-07 00:47 | OP ---
DATE OF PROCEDURE: 04/06/2018 PREOPERATIVE DIAGNOSIS: End-stage renal disease, in need of dialysis access. POSTOPERATIVE DIAGNOSIS: End-stage renal disease, in need of dialysis access. PROCEDURE PERFORMED: Right IJ cuffed tunneled hemodialysis catheter, ultrasound and fluoroscopy used ANESTHESIA: TIVA, local of 0.5% Marcaine with epinephrine 30 mL mixed with 2% Xylocaine. DESCRIPTION OF PROCEDURE: The patient was taken to the operating room, where under intravenous sedation, neck and chest were prepared with ChloraPrep and draped in routine fashion. Local anesthetic mixture was infiltrated into the skin and subcutaneous tissue about the operative site. Using ultrasound, the right internal jugular vein was cannulated with a trocar catheter, and J-wire was threaded. Trocar catheter was removed. Skin was incised and enlarged sharply. Stab incision was made over the right chest. A tunneling device was used to tunnel the pre-curved [employer] cuffed-tunneled hemodialysis catheter between the two incisions, placed the fabric cuff beneath the skin exit site. Catheter was secured with 2 interrupted sutures of 3-0 nylon and sterile dressing was applied. Small and medium size dilators were placed over the J-wire into the internal jugular vein and removed. Dilator and Peel-Away sheath were placed over the J-wire into the superior vena cava and dilator and J-wire were removed. Catheter was placed through the Peel-Away sheath and Peel-Away sheath was removed. Fluoroscopically, the catheter was noted to be in good position. The platysma was approximately with 4-0 Monocryl, skin with subdermal 4-0 Monocryl and [place] glue applied. Each port was aspirated of blood and flushed with saline solution and heparinized saline solution, 1000 units heparin per mL indicating volume of the port. Fluoroscopic images revealed good line placement. Dermabond was applied. Job ID: [id number]
[2018-04-07 04:49] LABS: #Eosinphils 0.8 thou/uL (0.0-0.7); #Lymphocytes 1.8 thou/uL (1.20-3.40); #Monocytes 1.8 thou/uL (0.11-0.59); #Neutrophils 11.3 thou/uL (1.40-6.50); %Basophils 0.1 % (0.0-1.0); %Eosinophils 4.9 % (0.0-10.0); %Lymphocytes 11.2 % (21.0-51.0); %Monocytes 11.5 % (0.0-10.0); %Neutrophils 72.4 % (42.0-75.0); Hemoglobin 9.5 g/dL (12.0-16.0); Mean Corpuscular HGB CONC 33.6 g/dL (32.0-36.0); Mean Corpuscular Hemoglobin 31.5 pg (27.0-31.0); Mean Corpuscular Volume 93.6 fL (78.0-98.0); Mean Platelet Volume 7.7 fL (7.4-10.4); Platelet Count 199 thou/uL (130-400); RBC Distribution Width 11.9 % (11.5-14.5); Red Blood Cell (RBC) Count 3.01 mill/uL (4.20-5.40); White Blood Cell (WBC) Count 15.6 thou/uL (4.8-10.8)
[2018-04-07 05:11] LABS: Anion Gap 15 mmol/L (10-20); BUN (Urea Nitrogen) 9 mg/dL (9.8-20.1); Calc. Creatinine Clearance 34 mL/min (70-130); Calcium 8.6 mg/dL (7.8-10.44); Carbon Dioxide 25 mmol/L (23-31); Chloride 100 mmol/L (98-107); Estimated GFR-MDRD 27; Glucose 81 mg/dL (83-110); Potassium 3.6 mmol/L (3.5-5.1); Sodium 136 mmol/L (136-145)
--- NOTE | 2018-04-07 06:40 | PDOC.FM ---
- Subjective Subjective: No overnight events. Reports pain is tolerable. Has good appetite this morning. Requesting cottage cheese and pineapple. Voiding via catheter and stooling. - Objective MAR Reviewed: Yes Vital Signs & Weight: Vital Signs (12 hours) Temp Pulse Resp BP Pulse Ox 04/06/18 23:12 98.2 F 87 16 138/79 92 L 04/06/18 20:15 98.3 F 93 16 139/66 93 L 04/06/18 19:05 99.1 F 100 18 141/66 H 95 Weight Admit Weight 77.2 kg Weight 83.5 kg Most Recent Monitor Data Heart Rate from ECG 103 NIBP 151/81 NIBP BP-Mean 104 Respiration from ECG 16 SpO2 92 I&O: 04/05/18 04/06/18 04/07/18 06:59 06:59 06:59 Intake Total 1170 1001 Output Total 47 114 Balance 1123 887 Result Diagrams: 04/07/18 04:13 04/07/18 04:13 Phys Exam - Physical Examination Constitutional: NAD HEENT: moist MMs Neck: supple Respiratory: clear to auscultation bilateral Cardiovascular: RRR systolic murmur Gastrointestinal: soft, non-tender, positive bowel sounds mildly tender to palpation epigastric region Musculoskeletal: no edema Neurological: non-focal, moves all 4 limbs Psychiatric: normal affect, A&O x 3 Skin: cap refill <2 seconds Dx/Plan (1) Metabolic acidosis Code(s): E87.2 - ACIDOSIS Status: Acute (2) Septic shock Code(s): A41.9 - SEPSIS, UNSPECIFIED ORGANISM; R65.21 - SEVERE SEPSIS WITH SEPTIC SHOCK Status: Acute (3) ATN (acute tubular necrosis) Code(s): N17.0 - ACUTE KIDNEY FAILURE WITH TUBULAR NECROSIS Status: Acute (4) DMII (diabetes mellitus, type 2) Status: Acute (5) NELI (acute kidney injury) Code(s): N17.9 - ACUTE KIDNEY FAILURE, UNSPECIFIED Status: Acute (6) Elevated CK Status: Acute (7) Elevated lipase Code(s): R74.8 - ABNORMAL LEVELS OF OTHER SERUM ENZYMES Status: Acute (8) HLD (hyperlipidemia) Code(s): E78.5 - HYPERLIPIDEMIA, UNSPECIFIED Status: Acute (9) HTN (hypertension) Code(s): I10 - ESSENTIAL (PRIMARY) HYPERTENSION Status: Acute (10) ESRD needing dialysis Code(s): N18.6 - END STAGE RENAL DISEASE; Z99.2 - DEPENDENCE ON RENAL DIALYSIS Status: Acute - Plan Plan: 63yo female admitted for septic shock likely 2/2 pancreatitis, possible UTI, NELI on CKD, metabolic acidosis Pancreatitis - Lipase peaked 1082, symptoms improving - No signs of stone, FLP wnl. Possibly due to Metformin/ Rotuvastatin - Zofran, [place] for pain control - Encourage PO intake Septic shock likely 2/2 UTI vs pancreatitis, resolved - s/p vanc/zosyn (d/c'ed 04/05) - Leukocytosis downtrending - Pressors: off pressors >48 hours - Procal 0.32 - bcx, ucx negative Metabolic Acidosis w/ AG- resolved - Minimal urine output, monitor closely - Cr back at baseline, 1.88 - FeNa 1.4% suggests intrinsic injury - Gap resolved NELI on CKD, ATN - Suspect ATN, likely 2/2 hypovolemic episode, continue dialysis - Tunnel cath placed 04/06 - Nephrology following DMII - On oral meds at home - Stopped long acting 2/2 hypoglycemia - Hyperglycemia resolved, had a high b-hydroxybutryrate after receiving d5w with bicarb on admission, maybe a light dka contributed to metabolic acidosis, now resolved - Accuchecks q12hrs Neuropathy - Low B12 & folate, replacing - RBC folate pending Acute pulm edema, resolved - resolved after dialysis - gentle hydration as patient is not making urine Hyperkalemia, resolved Lines/Tubes: right subclavian, rt femoral tunnel cath Code status: FULL GI ppx: Protonix DVT ppx: Heparin PCP: Addendum - Attending - Attending Attestation Date/Time: 04/07/18 9952 I personally evaluated the patient and discussed the management with Dr. Willis I agree with the History, Examination, Assessment and Plan documented above with any addition or exceptions noted below. Tolerating HD well advance diet restorative care appreciate consultants care and recommendations.
[2018-04-07] MEDS ORDERED: Furosemide 100 MG/10 ML VIAL SLOW IVP SCH (07:30)
--- NOTE | 2018-04-07 08:29 | PRG ---
DATE OF SERVICE: 04/07/2018 SUBJECTIVE: A 78-year-old female with acute on chronic renal failure in the context of septic shock. The patient continued to get hemodialysis. Last hemodialysis was on April 06. No new complaints. Denied shortness of breath, nausea, or vomiting. OBJECTIVE: VITAL SIGNS: BP 150/80, pulse 89, respiratory rate 16, SpO2 of 93 on room air. GENERAL: Elderly female in no obvious distress. Afebrile. Anicteric. HEENT: Normocephalic, atraumatic. Pupils are equal and reacting to light. Oral mucosa is moist. RESPIRATORY: Good air entry bilaterally with no obvious crackles or rhonchi. CARDIOVASCULAR: Regular rhythm and rate. Normal heart sounds 1 and 2. No murmur was appreciated. GI: Abdomen is full, soft, nontender, nondistended with normal bowel sounds. She is obese. EXTREMITIES: Moderate bilateral leg edema noted. NEUROLOGIC: Conscious, alert and oriented x3 with appropriate mental status. DIAGNOSTIC DATA: BMP showed sodium 136, potassium 3.6, chloride 100, CO2 of 25, BUN 9, creatinine 1.83, glucose 81, calcium 8.6. CBC showed WBC count of 15.6, hemoglobin of 9.5, platelets of 199. ASSESSMENT AND PLAN: 1. End-stage renal disease on hemodialysis. The patient had acute kidney injury superimposed on chronic kidney disease stage 4. There has not been significant improvement in renal function. We will continue hemodialysis. Last hemodialysis was on April 06, 2018. Next dialysis will be on April 09. 2. Volume overload. We will start the patient on diuretics to help fluid management. 3. Hyperkalemia: Resolved with dialysis. 4. Septic shock and other problems: We will defer to the primary attending. 5. Disposition: The patient will need arrangement for dialysis here. We will consult Case Management to help with placement. The patient already had a tunneled dialysis catheter in place. Job ID: [id number]
[2018-04-07] MEDS: Heparin 5,000 UNITS/ML VIAL SC SCH ×3 (09:04→20:27)
[2018-04-07] MEDS: Polyethylene Glycol 3350 17 GM Packet PO SCH (09:05)
[2018-04-07] MEDS: Cyanocobalamin (Vitamin B-12) 1,000 MCG TAB PO SCH (09:05)
[2018-04-07] MEDS: Folic Acid 1 MG TAB PO SCH (09:05)
[2018-04-07] MEDS: HYDROcodone/Acetaminophen 5/325 mg Tablet PO PRN (09:42)
[2018-04-07] MEDS: Furosemide 40 MG/4 ML VIAL SLOW IVP SCH (14:07)
[2018-04-08 03:53] LABS: #Eosinphils 0.9 thou/uL (0.0-0.7); #Lymphocytes 1.7 thou/uL (1.20-3.40); #Monocytes 2.2 thou/uL (0.11-0.59); %Basophils 0.1 % (0.0-1.0); %Eosinophils 5.7 % (0.0-10.0); %Lymphocytes 10.6 % (21.0-51.0); %Monocytes 13.7 % (0.0-10.0); %Neutrophils 69.9 % (42.0-75.0); Hemoglobin 8.9 g/dL (12.0-16.0); Mean Corpuscular HGB CONC 33.1 g/dL (32.0-36.0); Mean Corpuscular Hemoglobin 30.4 pg (27.0-31.0); Mean Corpuscular Volume 91.6 fL (78.0-98.0); Mean Platelet Volume 7.2 fL (7.4-10.4); Platelet Count 216 thou/uL (130-400); RBC Distribution Width 11.9 % (11.5-14.5); Red Blood Cell (RBC) Count 2.94 mill/uL (4.20-5.40); White Blood Cell (WBC) Count 15.7 thou/uL (4.8-10.8)
[2018-04-08 04:19] LABS: Anion Gap 12 mmol/L (10-20); BUN (Urea Nitrogen) 20 mg/dL (9.8-20.1); Calc. Creatinine Clearance 21 mL/min (70-130); Calcium 8.5 mg/dL (7.8-10.44); Carbon Dioxide 27 mmol/L (23-31); Chloride 101 mmol/L (98-107); Estimated GFR-MDRD 15; Glucose 82 mg/dL (83-110); Potassium 3.7 mmol/L (3.5-5.1); Sodium 136 mmol/L (136-145)
[2018-04-08] MEDS: Furosemide 40 MG/4 ML VIAL SLOW IVP SCH ×2 (05:11→14:25)
--- NOTE | 2018-04-08 06:31 | PDOC.FM ---
- Subjective Subjective: Doing well this morning. Slept well. Pain in epigastric region and back worse than yesterday. She was able to tolerate applesauce and carrots yesterday but peas made her feel nauseated and was unable to eat after. She denies SOB, vomiting. Pain is adequately controlled. - Objective MAR Reviewed: Yes Vital Signs & Weight: Vital Signs (12 hours) Temp Pulse Resp BP Pulse Ox 04/08/18 03:45 98.4 F 88 18 144/84 H 96 04/08/18 00:09 99.4 F 85 20 145/81 H 94 L 04/07/18 20:00 98.8 F 90 20 148/85 H 93 L Weight Admit Weight 77.2 kg Weight 79 kg Most Recent Monitor Data Heart Rate from ECG 103 NIBP 151/81 NIBP BP-Mean 104 Respiration from ECG 16 SpO2 92 I&O: 04/06/18 04/07/18 04/08/18 06:59 06:59 06:59 Intake Total 1001 840 795 Output Total 114 25 85 Balance 887 815 710 Result Diagrams: 04/08/18 03:45 04/08/18 03:45 Phys Exam - Physical Examination Constitutional: NAD HEENT: moist MMs Neck: supple Respiratory: no wheezing, clear to auscultation bilateral Cardiovascular: RRR, no significant murmur Gastrointestinal: soft, positive bowel sounds mildly tender epigastric region Musculoskeletal: no edema Neurological: moves all 4 limbs Psychiatric: normal affect, A&O x 3 Skin: cap refill <2 seconds Dx/Plan (1) Metabolic acidosis Code(s): E87.2 - ACIDOSIS Status: Acute (2) Septic shock Code(s): A41.9 - SEPSIS, UNSPECIFIED ORGANISM; R65.21 - SEVERE SEPSIS WITH SEPTIC SHOCK Status: Acute (3) ATN (acute tubular necrosis) Code(s): N17.0 - ACUTE KIDNEY FAILURE WITH TUBULAR NECROSIS Status: Acute (4) DMII (diabetes mellitus, type 2) Status: Acute (5) NELI (acute kidney injury) Code(s): N17.9 - ACUTE KIDNEY FAILURE, UNSPECIFIED Status: Acute (6) Elevated CK Status: Acute (7) Elevated lipase Code(s): R74.8 - ABNORMAL LEVELS OF OTHER SERUM ENZYMES Status: Acute (8) HLD (hyperlipidemia) Code(s): E78.5 - HYPERLIPIDEMIA, UNSPECIFIED Status: Acute (9) HTN (hypertension) Code(s): I10 - ESSENTIAL (PRIMARY) HYPERTENSION Status: Acute (10) ESRD needing dialysis Code(s): N18.6 - END STAGE RENAL DISEASE; Z99.2 - DEPENDENCE ON RENAL DIALYSIS Status: Acute - Plan Plan: 63yo female admitted for septic shock likely 2/2 pancreatitis, possible UTI, NELI on CKD, metabolic acidosis Pancreatitis - Lipase peaked 1082, symptoms improving - No signs of stone, FLP wnl. Possibly due to Metformin/ Rotuvastatin - Zofran, [place] for pain control - Encourage PO intake Septic shock likely 2/2 UTI vs pancreatitis, resolved - s/p vanc/zosyn (d/c'ed 04/05) - Leukocytosis downtrending - Pressors: off pressors >48 hours - Procal 0.32 - bcx, ucx negative Metabolic Acidosis w/ AG- resolved - Minimal urine output, monitor closely - Cr back at baseline - FeNa 1.4% suggests intrinsic injury - Gap resolved NELI on CKD4, ESRD on HD - Suspect ATN, likely 2/2 hypovolemic episode, continue dialysis - Tunnel cath placed 04/06 - Next Dialysis 04/09 - Nephrology following Volume overload - Continue Lasix 40mg IV BID DMII - On oral meds at home - Stopped long acting 2/2 hypoglycemia - Elevated B-hydroxy after D5W with bicarb at admission, possible dka contributed to Met Acidosis. Resolved - Accuchecks q12hrs Neuropathy - Low B12 & folate, replacing Acute pulm edema, resolved - resolved after dialysis Hyperkalemia, resolved Lines/Tubes: right subclavian, rt femoral tunnel cath Code status: FULL GI ppx: Protonix DVT ppx: Heparin PCP: Jackelyn Burns NP ([facility]) Addendum - Attending - Attending Attestation Date/Time: 04/08/18 4390 I personally evaluated the patient and discussed the management with Dr. Willis I agree with the History, Examination, Assessment and Plan documented above with any addition or exceptions noted below. Advancing diet as tolerated discussed care plan with patient and family. Discussed potential need bander indefinite dialysis. Appreciate recommendations from consultants.
[2018-04-08] MEDS: Heparin 5,000 UNITS/ML VIAL SC SCH ×3 (09:13→20:07)
[2018-04-08] MEDS: Folic Acid 1 MG TAB PO SCH (09:13)
[2018-04-08] MEDS: Cyanocobalamin (Vitamin B-12) 1,000 MCG TAB PO SCH (09:13)
[2018-04-08] MEDS: Polyethylene Glycol 3350 17 GM Packet PO SCH (09:16)
[2018-04-08] MEDS ORDERED: Milk Of Magnesia 30 ML UDCUP PO SCH (09:30)
[2018-04-08] MEDS: Docusate 100 MG CAP PO SCH (20:08)
[2018-04-08] MEDS: HumaLOG 300 UNITS/3 ML VIAL SC PRN (20:13)
[2018-04-08] MEDS ORDERED: Senokot S 8.6-50 MG TAB PO SCH (21:00)
[2018-04-09 04:12] LABS: Anion Gap 14 mmol/L (10-20); BUN (Urea Nitrogen) 29 mg/dL (9.8-20.1); Calc. Creatinine Clearance 16 mL/min (70-130); Calcium 8.6 mg/dL (7.8-10.44); Carbon Dioxide 25 mmol/L (23-31); Chloride 97 mmol/L (98-107); Estimated GFR-MDRD 12; Glucose 96 mg/dL (83-110); Sodium 132 mmol/L (136-145)
[2018-04-09 04:54] LABS: Band 3 % (5-11); Eosinophils 8 % (0-10); Hemoglobin 8.9 g/dL (12.0-16.0); Lymphocytes 11 % (21-51); MDiff Complete? YES; Mean Corpuscular HGB CONC 33.5 g/dL (32.0-36.0); Mean Corpuscular Hemoglobin 30.9 pg (27.0-31.0); Mean Corpuscular Volume 92.3 fL (78.0-98.0); Mean Platelet Volume 7.5 fL (7.4-10.4); Monocytes 12 % (0-10); Myelocyte 1 % (0-0); Neutrophil 65 % (42-75); Platelet Count 230 thou/uL (130-400); Red Blood Cell (RBC) Count 2.86 mill/uL (4.20-5.40); White Blood Cell (WBC) Count 15.1 thou/uL (4.8-10.8)
[2018-04-09] MEDS: Furosemide 40 MG/4 ML VIAL SLOW IVP SCH (05:36)
--- NOTE | 2018-04-09 06:36 | PDOC.FM ---
- Subjective Subjective: Feeling better today. Denies pain, fever, chills. Reports improvement in appetite. Had tomato soup and Ensure yesterday. No overnight events. Receiving dialysis this morning. - Objective MAR Reviewed: Yes Vital Signs & Weight: Vital Signs (12 hours) Temp Pulse Resp BP Pulse Ox 04/09/18 05:01 95 04/09/18 03:30 98.9 F 89 18 167/85 H 99 04/09/18 00:15 98.7 F 86 18 132/79 96 04/08/18 19:30 98.5 F 84 18 140/66 96 Weight Admit Weight 77.2 kg Weight 81.828 kg Most Recent Monitor Data Heart Rate from ECG 103 NIBP 151/81 NIBP BP-Mean 104 Respiration from ECG 16 SpO2 92 I&O: 04/07/18 04/08/18 04/09/18 06:59 06:59 06:59 Intake Total 840 795 770 Output Total 25 135 85 Balance 815 660 685 Result Diagrams: 04/09/18 03:40 04/09/18 03:40 Phys Exam - Physical Examination Constitutional: NAD HEENT: moist MMs Neck: supple Respiratory: no wheezing, clear to auscultation bilateral Cardiovascular: RRR, no significant murmur Gastrointestinal: soft, positive bowel sounds Musculoskeletal: no edema Neurological: moves all 4 limbs Psychiatric: normal affect, A&O x 3 Skin: cap refill <2 seconds Dx/Plan (1) Metabolic acidosis Code(s): E87.2 - ACIDOSIS Status: Acute (2) Septic shock Code(s): A41.9 - SEPSIS, UNSPECIFIED ORGANISM; R65.21 - SEVERE SEPSIS WITH SEPTIC SHOCK Status: Acute (3) ATN (acute tubular necrosis) Code(s): N17.0 - ACUTE KIDNEY FAILURE WITH TUBULAR NECROSIS Status: Acute (4) DMII (diabetes mellitus, type 2) Status: Acute (5) NELI (acute kidney injury) Code(s): N17.9 - ACUTE KIDNEY FAILURE, UNSPECIFIED Status: Acute (6) Elevated CK Status: Acute (7) Elevated lipase Code(s): R74.8 - ABNORMAL LEVELS OF OTHER SERUM ENZYMES Status: Acute (8) HLD (hyperlipidemia) Code(s): E78.5 - HYPERLIPIDEMIA, UNSPECIFIED Status: Acute (9) HTN (hypertension) Code(s): I10 - ESSENTIAL (PRIMARY) HYPERTENSION Status: Acute (10) ESRD needing dialysis Code(s): N18.6 - END STAGE RENAL DISEASE; Z99.2 - DEPENDENCE ON RENAL DIALYSIS Status: Acute - Plan Plan: 63yo female admitted for septic shock likely 2/2 pancreatitis, possible UTI, NELI on CKD, metabolic acidosis Pancreatitis - Lipase peaked 1082, symptoms improving - No signs of stone, FLP wnl. Possibly due to Metformin/ Rotuvastatin - Zofran, [place] for pain control - Encourage PO intake Septic shock likely 2/2 UTI vs pancreatitis, resolved - s/p vanc/zosyn (d/c'ed 04/05) - bcx, ucx negative Metabolic Acidosis w/ AG- resolved - Gap resolved NELI on CKD4, ESRD on HD - Suspect ATN, likely 2/2 hypovolemic episode, continue dialysis - Tunnel cath placed 04/06 - Diaylsis today, will need CM for outpt dialysis chair - Nephrology following - Minimal urine output, monitor closely Volume overload - Continue Lasix 40mg IV BID DMII - On oral meds at home - Stopped long acting 2/2 hypoglycemia - Elevated B-hydroxy after D5W with bicarb at admission, possible dka contributed to Met Acidosis. Resolved - Accuchecks q12hrs Neuropathy - Low B12 & folate, replacing Acute pulm edema, resolved - resolved after dialysis Hyperkalemia, resolved Lines/Tubes: right subclavian, rt femoral tunnel cath Code status: FULL GI ppx: Protonix DVT ppx: Heparin PCP: Jackelyn Burns NP ([facility]) Addendum - Attending - Attending Attestation Date/Time: 04/09/18 8009 I personally evaluated the patient and discussed the management with Dr. Willis. I agree with the History, Examination, Assessment and Plan documented above with any addition or exceptions noted below. Patient doing well. Just received HD. She will need setup for outpatient HD for the time being unless renal function return to a useful level. She is continuing to make small amounts of urine. WBC stable. Suspect that her profound acidosis and decompensation was due to DKA set off by pancreatitis, possibly due to medication effect but unable to determine. Cultures negative. Vitals stable.
--- NOTE | 2018-04-09 09:15 | PRG ---
DATE OF SERVICE: 04/09/2018 SUBJECTIVE: Ms. Scott is a 78-year-old white female with known history of pancreatitis. She was admitted with pancreatitis and a presumptive infection. But all the blood cultures have been negative. She also developed acute kidney injury and currently on maintenance hemodialysis. I am doing a 3-1/2 hour dialysis at the present time. I am at the bedside, supervising her dialysis. No other complaints today. She is feeling a little better. OBJECTIVE: VITAL SIGNS: Blood pressure is 167/85, heart rate 89, respiratory rate 18, temperature 98.9, and pulse ox 99%. GENERAL: She is awake, alert, comfortable, not in distress. SKIN: Adequate turgor. HEENT: Slightly pale conjunctivae. Anicteric sclerae. NECK: No neck mass. No carotid bruits. No JVD. CHEST: No deformities. LUNGS: Decreased breath sounds. HEART: Normal sinus rhythm. No murmur. No gallops. No rubs. ABDOMEN: Globular, soft, nontender. No masses. EXTREMITIES: No edema. No deformities. MEDICATIONS: Medications of April 09, 2018, were reviewed. LABORATORY DATA: Laboratories of April 09, 2018; white count 15.1, hemoglobin 8.9. Sodium 132, potassium 4, chloride 97, carbon dioxide 25, BUN 29, creatinine 3.81, glucose 96, calcium 8.6. ASSESSMENT AND PLAN: 1. Acute kidney injury on top of her chronic renal failure. No evidence of renal recovery. Continuing 3 times a week hemodialysis with this patient. At the present time, we are removing fluid as tolerated. She is currently undergoing 3-1/2 hour dialysis. 2. Acute pancreatitis - supportive care. 3. ? of sepsis - previously, the patient was on empiric antibiotics. It is now currently on hold. 4. We will also hold off temporarily the furosemide with this patient while she is on dialysis. 5. We will check CBC, basic metabolic again tomorrow. Continue current management. Job ID: [id number]
[2018-04-09] MEDS: Heparin 5,000 UNITS/ML VIAL SC SCH ×3 (12:02→20:48)
[2018-04-09] MEDS: Polyethylene Glycol 3350 17 GM Packet PO SCH (12:05)
[2018-04-09] MEDS: Docusate 100 MG CAP PO SCH ×2 (12:05→20:48)
[2018-04-09] MEDS: Cyanocobalamin (Vitamin B-12) 1,000 MCG TAB PO SCH (12:05)
[2018-04-09] MEDS: Folic Acid 1 MG TAB PO SCH (12:05)
[2018-04-09] MEDS ORDERED: Heparin 10,000 UNITS/ 10 ML VIAL ONE (13:40)
[2018-04-09] MEDS: HYDROcodone/Acetaminophen 5/325 mg Tablet PO PRN (20:47)
[2018-04-10 05:31] LABS: Anion Gap 13 mmol/L (10-20); BUN (Urea Nitrogen) 18 mg/dL (9.8-20.1); Calc. Creatinine Clearance 27 mL/min (70-130); Calcium 8.4 mg/dL (7.8-10.44); Carbon Dioxide 28 mmol/L (23-31); Chloride 98 mmol/L (98-107); Estimated GFR-MDRD 21; Glucose 129 mg/dL (83-110); Sodium 135 mmol/L (136-145)
[2018-04-10 06:00] LABS: Band 2 % (5-11); Eosinophils 6 % (0-10); Hemoglobin 8.4 g/dL (12.0-16.0); Lymphocytes 17 % (21-51); MDiff Complete? YES; Mean Corpuscular Hemoglobin 30.7 pg (27.0-31.0); Mean Corpuscular Volume 93.2 fL (78.0-98.0); Mean Platelet Volume 7.4 fL (7.4-10.4); Monocytes 13 % (0-10); Myelocyte 3 % (0-0); Neutrophil 59 % (42-75); Platelet Count 223 thou/uL (130-400); Red Blood Cell (RBC) Count 2.75 mill/uL (4.20-5.40)
--- NOTE | 2018-04-10 06:47 | PDOC.FM ---
- Subjective Subjective: Feeling good this morning. Was able to eat soup and ensure shakes. Tolerated dialysis well yesterday. Mild abdominal pain. Expresses she would like to go home with home health and have her help her with transfers. Case management is working with her for placement and dialysis chair. - Objective MAR Reviewed: Yes Vital Signs & Weight: Vital Signs (12 hours) Temp Pulse Resp BP Pulse Ox 04/10/18 04:34 98.3 F 80 16 134/78 95 04/10/18 00:00 98.5 F 78 17 121/77 96 04/09/18 20:00 98 F 86 17 125/77 96 Weight Admit Weight 77.2 kg Weight 81.828 kg Most Recent Monitor Data Heart Rate from ECG 103 NIBP 151/81 NIBP BP-Mean 104 Respiration from ECG 16 SpO2 92 I&O: 04/08/18 04/09/18 04/10/18 06:59 06:59 06:59 Intake Total 795 770 650 Output Total 135 85 70 Balance 660 685 580 Result Diagrams: 04/10/18 05:00 04/10/18 05:00 Phys Exam - Physical Examination Constitutional: NAD HEENT: moist MMs Neck: supple Respiratory: no wheezing, clear to auscultation bilateral Cardiovascular: RRR, no significant murmur Gastrointestinal: soft, non-tender, positive bowel sounds Musculoskeletal: no edema Neurological: moves all 4 limbs Psychiatric: normal affect, A&O x 3 Skin: normal turgor Dx/Plan (1) Metabolic acidosis Code(s): E87.2 - ACIDOSIS Status: Acute (2) Septic shock Code(s): A41.9 - SEPSIS, UNSPECIFIED ORGANISM; R65.21 - SEVERE SEPSIS WITH SEPTIC SHOCK Status: Acute (3) ATN (acute tubular necrosis) Code(s): N17.0 - ACUTE KIDNEY FAILURE WITH TUBULAR NECROSIS Status: Acute (4) DMII (diabetes mellitus, type 2) Status: Acute (5) NELI (acute kidney injury) Code(s): N17.9 - ACUTE KIDNEY FAILURE, UNSPECIFIED Status: Acute (6) Elevated CK Status: Acute (7) Elevated lipase Code(s): R74.8 - ABNORMAL LEVELS OF OTHER SERUM ENZYMES Status: Acute (8) HLD (hyperlipidemia) Code(s): E78.5 - HYPERLIPIDEMIA, UNSPECIFIED Status: Acute (9) HTN (hypertension) Code(s): I10 - ESSENTIAL (PRIMARY) HYPERTENSION Status: Acute (10) ESRD needing dialysis Code(s): N18.6 - END STAGE RENAL DISEASE; Z99.2 - DEPENDENCE ON RENAL DIALYSIS Status: Acute - Plan Plan: 63yo female admitted for septic shock likely 2/2 pancreatitis, possible UTI, NELI on CKD, metabolic acidosis Pancreatitis - Lipase peaked 1082, symptoms improving - No signs of stone, FLP wnl. Possibly due to Metformin/ Rotuvastatin - Zofran, [place] for pain control - Encourage PO intake NELI on CKD4, ESRD on HD - Suspect ATN, likely 2/2 hypovolemic episode, continue dialysis - Tunnel cath placed 04/06 - Will discharge with HD 3x week - CM for outpt dialysis chair - Nephrology following - Minimal urine output, monitor closely Septic shock likely 2/2 UTI vs pancreatitis, resolved - s/p vanc/zosyn (d/c'ed 04/05) - bcx, ucx negative Metabolic Acidosis w/ AG- resolved - Gap resolved DMII - On oral meds at home - Stopped long acting 2/2 hypoglycemia - Elevated B-hydroxy after D5W with bicarb at admission, possible dka contributed to Met Acidosis. Resolved - Accuchecks q12hrs Neuropathy - Low B12 & folate, replacing Acute pulm edema, resolved - resolved after dialysis Hyperkalemia, resolved Lines/Tubes: right subclavian, rt femoral tunnel cath Code status: FULL GI ppx: Protonix DVT ppx: Heparin PCP: Jackelyn Burns NP ([facility]) Addendum - Attending - Attending Attestation Date/Time: 04/10/18 1100 I personally evaluated the patient and discussed the management with Dr. Willis. I agree with the History, Examination, Assessment and Plan documented above with any addition or exceptions noted below. Patient stable. Continues to tolerate diet well. Awaiting HD chair outpatient and placement decision. Labs stable.
[2018-04-10] MEDS: HYDROcodone/Acetaminophen 5/325 mg Tablet PO PRN (09:48)
[2018-04-10] MEDS: Docusate 100 MG CAP PO SCH ×2 (09:48→21:58)
[2018-04-10] MEDS: Folic Acid 1 MG TAB PO SCH (09:48)
[2018-04-10] MEDS: Cyanocobalamin (Vitamin B-12) 1,000 MCG TAB PO SCH (09:48)
[2018-04-10] MEDS: Polyethylene Glycol 3350 17 GM Packet PO SCH (09:50)
[2018-04-10] MEDS: Heparin 5,000 UNITS/ML VIAL SC SCH ×3 (09:52→21:58)
--- NOTE | 2018-04-10 10:19 | PRG ---
DATE OF SERVICE: 04/10/2018 SUBJECTIVE: Ms. Scott is a 78-year-old white female, being seen for her acute kidney injury secondary to presumed ischemic ATN. She was initially admitted with acute pancreatitis. She is tolerating dialysis. No other complaints today. She is feeling a little stronger today. No chest pain or shortness of breath. OBJECTIVE: VITAL SIGNS: Blood pressure 146/81, heart rate 86, respiratory rate 15, temperature 98.5, and pulse ox 94%. GENERAL: Awake, alert, and comfortable, not in distress. SKIN: Adequate turgor. HEENT: She has slightly pale conjunctivae. Anicteric sclerae. NECK: No neck mass. No carotid bruits. No JVD. CHEST: No deformities. LUNGS: Clear breath sounds. HEART: Normal sinus rhythm. No murmur. No gallops. No rubs. ABDOMEN: Globular, soft, and nontender. No masses. EXTREMITIES: No edema. No deformities. MEDICATIONS: Medications of April 10, 2018, reviewed. LABORATORY DATA: Laboratories of April 10, 2018; white count 14, hemoglobin 8.4. Sodium 135, potassium 4, chloride 98, carbon dioxide 28, BUN 18, creatinine 2.27, glucose 129, and calcium 8.4. ASSESSMENT AND PLAN: Acute kidney injury - secondary to presumed ischemic ATN, continuing maintenance hemodialysis. No evidence of renal recovery. Fluid removal as tolerated. I have rescheduled this patient for another dialytic intervention. Consider case management consult for outpatient hemodialysis. Job ID: [id number]
[2018-04-10] MEDS ORDERED: Tuberculin PPD 0.1 ML VIAL I-DERMAL SCH (14:30)
[2018-04-10 16:12] LABS: Folate,Hemolysate 208.6 ng/mL (Not Estab.); Hematocrit 25.9 % (34.0-46.6); RBC Folate Test Component 805 ng/mL (>498)
[2018-04-11 06:21] LABS: Anion Gap 17 mmol/L (10-20); BUN (Urea Nitrogen) 29 mg/dL (9.8-20.1); Calc. Creatinine Clearance 19 mL/min (70-130); Calcium 8.6 mg/dL (7.8-10.44); Carbon Dioxide 24 mmol/L (23-31); Chloride 95 mmol/L (98-107); Estimated GFR-MDRD 14; Glucose 125 mg/dL (83-110); Sodium 131 mmol/L (136-145)
--- NOTE | 2018-04-11 06:27 | PDOC.FM ---
- Subjective Subjective: Feeling well this morning. Pain is well controlled. She had cream of wheat, 2 different soups and ensure yesterday. Pain with eating is also decreasing. No overnight events. - Objective MAR Reviewed: Yes Vital Signs & Weight: Weight Admit Weight 77.2 kg Weight 81.828 kg Most Recent Monitor Data Heart Rate from ECG 103 NIBP 151/81 NIBP BP-Mean 104 Respiration from ECG 16 SpO2 92 I&O: 04/09/18 04/10/18 04/11/18 06:59 06:59 06:59 Intake Total 770 650 720 Output Total 85 70 35 Balance 685 580 685 Result Diagrams: 04/11/18 05:35 04/11/18 05:35 Phys Exam - Physical Examination Constitutional: NAD HEENT: moist MMs Neck: supple Respiratory: no wheezing, clear to auscultation bilateral Cardiovascular: RRR, no significant murmur Gastrointestinal: soft, positive bowel sounds mildly tender epigastric region Musculoskeletal: no edema Neurological: non-focal Psychiatric: normal affect, A&O x 3 Skin: normal turgor Dx/Plan (1) Metabolic acidosis Code(s): E87.2 - ACIDOSIS Status: Acute (2) Septic shock Code(s): A41.9 - SEPSIS, UNSPECIFIED ORGANISM; R65.21 - SEVERE SEPSIS WITH SEPTIC SHOCK Status: Acute (3) ATN (acute tubular necrosis) Code(s): N17.0 - ACUTE KIDNEY FAILURE WITH TUBULAR NECROSIS Status: Acute (4) DMII (diabetes mellitus, type 2) Status: Acute (5) NELI (acute kidney injury) Code(s): N17.9 - ACUTE KIDNEY FAILURE, UNSPECIFIED Status: Acute (6) Elevated CK Status: Acute (7) Elevated lipase Code(s): R74.8 - ABNORMAL LEVELS OF OTHER SERUM ENZYMES Status: Acute (8) HLD (hyperlipidemia) Code(s): E78.5 - HYPERLIPIDEMIA, UNSPECIFIED Status: Acute (9) HTN (hypertension) Code(s): I10 - ESSENTIAL (PRIMARY) HYPERTENSION Status: Acute (10) ESRD needing dialysis Code(s): N18.6 - END STAGE RENAL DISEASE; Z99.2 - DEPENDENCE ON RENAL DIALYSIS Status: Acute - Plan Plan: 63yo female admitted for septic shock likely 2/2 pancreatitis, possible UTI, NELI on CKD, metabolic acidosis Pancreatitis - Lipase peaked 1082, symptoms improving - No signs of stone, FLP wnl. Possibly due to Metformin/ Rotuvastatin - Zofran, [place] for pain control - PO intake improving NELI on CKD4, ESRD on HD - Suspect ATN, likely 2/2 hypovolemic episode, continue dialysis - Tunnel cath placed 04/06 - Will discharge with HD 3x week - CM for outpt dialysis chair - Nephrology following - Minimal urine output, monitor closely Septic shock likely 2/2 UTI vs pancreatitis, resolved - s/p vanc/zosyn (d/c'ed 04/05) - bcx, ucx negative Metabolic Acidosis w/ AG- resolved - Gap resolved DMII - On oral meds at home - Stopped long acting 2/2 hypoglycemia - Elevated B-hydroxy after D5W with bicarb at admission, possible dka contributed to Met Acidosis. Resolved - Accuchecks q12hrs Neuropathy - Low B12 & folate, replacing Acute pulm edema, resolved - resolved after dialysis Hyperkalemia, resolved Lines/Tubes: right subclavian, rt femoral tunnel cath Code status: FULL GI ppx: Protonix DVT ppx: Heparin PCP: Jackelyn Burns NP ([facility]) Dipso: [place], awaiting placement and dialysis chair Addendum - Attending - Attending Attestation Date/Time: 04/11/18 1110 I personally evaluated the patient and discussed the management with Dr. Willis. I agree with the History, Examination, Assessment and Plan documented above with any addition or exceptions noted below. Patient doing well and tolerating diet well. Awaiting placement and outpatient dialysis bed and will be stable for discharge once that is set up.
[2018-04-11 06:38] LABS: Band 2 % (5-11); Eosinophils 10 % (0-10); Hemoglobin 8.6 g/dL (12.0-16.0); Lymphocytes 12 % (21-51); MDiff Complete? YES; Mean Corpuscular HGB CONC 33.1 g/dL (32.0-36.0); Mean Corpuscular Hemoglobin 30.8 pg (27.0-31.0); Mean Corpuscular Volume 93.2 fL (78.0-98.0); Mean Platelet Volume 7.8 fL (7.4-10.4); Monocytes 10 % (0-10); Myelocyte 1 % (0-0); Neutrophil 65 % (42-75); Nucleated RBC 1 % (0); Platelet Count 263 thou/uL (130-400); RBC Distribution Width 12.1 % (11.5-14.5); Red Blood Cell (RBC) Count 2.78 mill/uL (4.20-5.40); White Blood Cell (WBC) Count 14.9 thou/uL (4.8-10.8)
--- NOTE | 2018-04-11 08:53 | PRG ---
DATE OF SERVICE: 04/11/2018 SUBJECTIVE: Ms. Scott is a 78-year-old white female, who was admitted for acute bronchitis with hemodynamic instability. She developed acute kidney injury. This is on presumptive basis of acute tubular necrosis. No evidence of renal recovery. She is undergoing regular 3 times a week hemodialysis at the present time. I am at the bedside supervising her dialysis. No new complaints. Appetite is improving. OBJECTIVE: VITAL SIGNS: Blood pressure 136/77, heart rate 87, respiratory rate 16, temperature 98.4, and pulse ox 97%. GENERAL: Noted to be awake, alert, and comfortable, not in distress. SKIN: Adequate turgor. HEENT: Slightly pale conjunctivae. Anicteric sclerae. NECK: No neck mass. No carotid bruits. No JVD. CHEST: No deformities. LUNGS: Clear breath sounds. No wheezing. No crackles. HEART: Normal sinus rhythm. No murmur. No gallops. No rubs. ABDOMEN: Globular, soft, and nontender. No masses. EXTREMITIES: No edema. No deformities. MEDICATIONS: Medications of April 11, 2018, were reviewed. LABORATORY DATA: Laboratories of April 11, 2018; white count 14.9, hemoglobin 8.6. Sodium 131, potassium 5, chloride 95, carbon dioxide 24, BUN 29, creatinine 3.26, glucose 126, and calcium 8.6. ASSESSMENT AND PLAN: 1. End-stage renal disease, stable. We will continue current 3 times a week hemodialysis. Again, fluid removal only as tolerated by this patient. 2. Anemia. Continue to observe. P.r.n. blood transfusion. 3. Status post acute pancreatitis. Clinically improving, tolerating p.o. Agree with current management. Continue daily basement. No evidence of renal recovery. Job ID: [id number]
[2018-04-11] MEDS: Heparin 5,000 UNITS/ML VIAL SC SCH ×3 (11:59→21:27)
[2018-04-11] MEDS: Docusate 100 MG CAP PO SCH ×2 (12:00→21:25)
[2018-04-11] MEDS: Polyethylene Glycol 3350 17 GM Packet PO SCH (12:00)
[2018-04-11] MEDS: Cyanocobalamin (Vitamin B-12) 1,000 MCG TAB PO SCH (12:01)
[2018-04-11] MEDS: Folic Acid 1 MG TAB PO SCH (12:01)
[2018-04-11 12:42] VITALS: BMI 33.5
[2018-04-11 16:58] LABS: Hep B Core Total Ab Non-Reactive (NonReactive)
[2018-04-11 16:59] LABS: Hep B Core Total Index 0.07 S/CO (0-0.79)
[2018-04-11 17:00] LABS: HBSAg Index 0.41 S/CO (0-0.99); Hep B Surf Ag Non-Reactive S/CO (NonReactive); Hep C IgG Ab Non-Reactive (NonReactive)
[2018-04-11 17:01] LABS: Hep A IgM AB Non-Reactive (NonReactive); Hep C Index 0.08 S/CO (0-0.79)
[2018-04-11 17:02] LABS: Hep A IgM S/CO 0.22 S/CO (0-0.79)
[2018-04-11 17:03] LABS: HBCM Index 0.05 S/CO (0-0.79); Hepatitis B Core IgM Abs Non-Reactive (NonReactive)
--- NOTE | 2018-04-12 06:17 | PDOC.FM ---
- Subjective Subjective: Feeling well this morning. Tolerated dialysis well yesterday. No overnight events. Denies pain. Reports improvement in PO intake. Has been up working with PT/OT. - Objective MAR Reviewed: Yes Vital Signs & Weight: Vital Signs (12 hours) Temp Pulse Resp BP Pulse Ox 04/12/18 04:00 98.7 F 88 17 137/79 98 04/12/18 00:00 98.6 F 88 16 141/76 H 98 04/11/18 20:00 98.8 F 84 17 128/75 96 Weight Admit Weight 77.2 kg Weight 77.8 kg Most Recent Monitor Data Heart Rate from ECG 103 NIBP 151/81 NIBP BP-Mean 104 Respiration from ECG 16 SpO2 92 I&O: 04/10/18 04/11/18 04/12/18 06:59 06:59 06:59 Intake Total 650 840 240 Output Total 70 105 20 Balance 580 735 220 Result Diagrams: 04/11/18 05:35 04/12/18 06:14 Phys Exam - Physical Examination Constitutional: NAD HEENT: moist MMs Neck: supple Respiratory: no wheezing, clear to auscultation bilateral Cardiovascular: RRR, no significant murmur Gastrointestinal: soft, positive bowel sounds mild epigastric tenderness Neurological: non-focal, moves all 4 limbs Psychiatric: normal affect, A&O x 3 Skin: normal turgor Dx/Plan (1) Metabolic acidosis Code(s): E87.2 - ACIDOSIS Status: Acute (2) Septic shock Code(s): A41.9 - SEPSIS, UNSPECIFIED ORGANISM; R65.21 - SEVERE SEPSIS WITH SEPTIC SHOCK Status: Acute (3) ATN (acute tubular necrosis) Code(s): N17.0 - ACUTE KIDNEY FAILURE WITH TUBULAR NECROSIS Status: Acute (4) DMII (diabetes mellitus, type 2) Status: Acute (5) NELI (acute kidney injury) Code(s): N17.9 - ACUTE KIDNEY FAILURE, UNSPECIFIED Status: Acute (6) Elevated CK Status: Acute (7) Elevated lipase Code(s): R74.8 - ABNORMAL LEVELS OF OTHER SERUM ENZYMES Status: Acute (8) HLD (hyperlipidemia) Code(s): E78.5 - HYPERLIPIDEMIA, UNSPECIFIED Status: Acute (9) HTN (hypertension) Code(s): I10 - ESSENTIAL (PRIMARY) HYPERTENSION Status: Acute (10) ESRD needing dialysis Code(s): N18.6 - END STAGE RENAL DISEASE; Z99.2 - DEPENDENCE ON RENAL DIALYSIS Status: Acute - Plan Plan: 63yo female admitted for septic shock likely 2/2 pancreatitis, possible UTI, NELI on CKD, metabolic acidosis Pancreatitis - Lipase peaked 1082, symptoms improving - No signs of stone, FLP wnl. Possibly due to Metformin/ Rotuvastatin - Zofran, [place] for pain control - PO intake and pain improving NELI on CKD4, ESRD on HD - Suspect ATN, likely 2/2 hypovolemic episode, continue dialysis - Tunnel cath placed 04/06 - Will discharge with HD 3x week - CM for outpt dialysis chair, awaiting TB skin test - Nephrology following - Minimal urine output, monitor closely Septic shock likely 2/2 UTI vs pancreatitis, resolved - s/p vanc/zosyn (d/c'ed 04/05) - bcx, ucx negative Metabolic Acidosis w/ AG- resolved - Gap resolved DMII - On oral meds at home - Stopped long acting 2/2 hypoglycemia - Elevated B-hydroxy after D5W with bicarb at admission, possible dka contributed to Met Acidosis. Resolved - Accuchecks q12hrs Neuropathy - Low B12 & folate, replacing Acute pulm edema, resolved - resolved after dialysis Hyperkalemia, resolved Lines/Tubes: right subclavian, rt femoral tunnel cath Code status: FULL GI ppx: Protonix DVT ppx: Heparin PCP: Jackelyn Burns NP ([facility]) Dipso: [facility], Referrals placed for [facility] dialysis Addendum - Attending - Attending Attestation Date/Time: 04/12/18 0983 I personally evaluated the patient and discussed the management with Dr. Willis. I agree with the History, Examination, Assessment and Plan documented above with any addition or exceptions noted below. Patient doing well. Continue HD per Nephro. Awaiting placement and HD chair. Labs stable.
[2018-04-12 07:03] LABS: Anion Gap 18 mmol/L (10-20); BUN (Urea Nitrogen) 17 mg/dL (9.8-20.1); Calc. Creatinine Clearance 25 mL/min (70-130); Calcium 8.6 mg/dL (7.8-10.44); Carbon Dioxide 24 mmol/L (23-31); Chloride 96 mmol/L (98-107); Estimated GFR-MDRD 20; Glucose 126 mg/dL (83-110); Potassium 3.8 mmol/L (3.5-5.1); Sodium 134 mmol/L (136-145)
[2018-04-12] MEDS: Cyanocobalamin (Vitamin B-12) 1,000 MCG TAB PO SCH (08:11)
[2018-04-12] MEDS: Folic Acid 1 MG TAB PO SCH (08:11)
[2018-04-12] MEDS: Docusate 100 MG CAP PO SCH ×2 (08:11→21:58)
[2018-04-12] MEDS: Polyethylene Glycol 3350 17 GM Packet PO SCH (08:12)
[2018-04-12] MEDS: Heparin 5,000 UNITS/ML VIAL SC SCH ×3 (08:12→21:57)
[2018-04-12] MEDS ORDERED: READ PPD TEST SITE PO SCH (09:00)
[2018-04-12] MEDS: HYDROcodone/Acetaminophen 5/325 mg Tablet PO PRN (15:27)
[2018-04-12] MEDS: HumaLOG 300 UNITS/3 ML VIAL SC PRN (17:30)
--- NOTE | 2018-04-13 06:14 | PDOC.FM ---
- Subjective Subjective: Feeling well this morning. Reports good diet. Endorses pain but chronic pain prior to hospitalization. No overnight events. She is still awaiting dialysis chair placement. - Objective MAR Reviewed: Yes Vital Signs & Weight: Vital Signs (12 hours) Temp Pulse Resp BP BP Pulse Ox 04/13/18 04:00 98.2 F 85 16 137/82 94 L 04/12/18 23:49 98.5 F 81 16 137/80 96 04/12/18 20:00 98.3 F 81 16 137/79 95 Weight Admit Weight 77.2 kg Weight 78.88 kg Most Recent Monitor Data Heart Rate from ECG 103 NIBP 151/81 NIBP BP-Mean 104 Respiration from ECG 16 SpO2 92 I&O: 04/11/18 04/12/18 04/13/18 06:59 06:59 06:59 Intake Total 840 360 840 Output Total 105 20 Balance 735 340 840 Result Diagrams: 04/11/18 05:35 04/13/18 05:41 Phys Exam - Physical Examination Constitutional: NAD HEENT: moist MMs Neck: supple Respiratory: no wheezing, clear to auscultation bilateral Cardiovascular: RRR, no significant murmur Gastrointestinal: soft, non-tender, positive bowel sounds Musculoskeletal: no edema Neurological: moves all 4 limbs Psychiatric: normal affect, A&O x 3 Skin: normal turgor Dx/Plan (1) Metabolic acidosis Code(s): E87.2 - ACIDOSIS Status: Acute (2) Septic shock Code(s): A41.9 - SEPSIS, UNSPECIFIED ORGANISM; R65.21 - SEVERE SEPSIS WITH SEPTIC SHOCK Status: Acute (3) ATN (acute tubular necrosis) Code(s): N17.0 - ACUTE KIDNEY FAILURE WITH TUBULAR NECROSIS Status: Acute (4) DMII (diabetes mellitus, type 2) Status: Acute (5) NELI (acute kidney injury) Code(s): N17.9 - ACUTE KIDNEY FAILURE, UNSPECIFIED Status: Acute (6) Elevated CK Status: Acute (7) Elevated lipase Code(s): R74.8 - ABNORMAL LEVELS OF OTHER SERUM ENZYMES Status: Acute (8) HLD (hyperlipidemia) Code(s): E78.5 - HYPERLIPIDEMIA, UNSPECIFIED Status: Acute (9) HTN (hypertension) Code(s): I10 - ESSENTIAL (PRIMARY) HYPERTENSION Status: Acute (10) ESRD needing dialysis Code(s): N18.6 - END STAGE RENAL DISEASE; Z99.2 - DEPENDENCE ON RENAL DIALYSIS Status: Acute - Plan Plan: 63yo female admitted for septic shock likely 2/2 pancreatitis, possible UTI, NELI on CKD, metabolic acidosis Pancreatitis - Lipase peaked 1082, symptoms improving - No signs of stone, FLP wnl. Possibly due to Metformin/ Rotuvastatin - Zofran, [place] for pain control - PO intake and pain improving NELI on CKD4, ESRD on HD - Suspect ATN, likely 2/2 hypovolemic episode, continue dialysis - Tunnel cath placed 04/06 - Will discharge with HD 3x week - CM for outpt dialysis chair, awaiting TB skin test - Nephrology following - Minimal urine output, monitor closely Septic shock likely 2/2 UTI vs pancreatitis, resolved - s/p vanc/zosyn (d/c'ed 04/05) - bcx, ucx negative Metabolic Acidosis w/ AG- resolved - Gap resolved DMII - On oral meds at home - Stopped long acting 2/2 hypoglycemia - Elevated B-hydroxy after D5W with bicarb at admission, possible dka contributed to Met Acidosis. Resolved - Accuchecks q12hrs Neuropathy - Low B12 & folate, replacing Acute pulm edema, resolved - resolved after dialysis Hyperkalemia, resolved Lines/Tubes: right subclavian, rt femoral tunnel cath Code status: FULL GI ppx: Protonix DVT ppx: Heparin PCP: Jackelyn Burns NP ([facility]) Dipso: [facility], Referrals placed for [facility] dialysis Addendum - Attending - Attending Attestation Date/Time: 04/13/18 1048 I personally evaluated the patient and discussed the management with Dr. Willis. I agree with the History, Examination, Assessment and Plan documented above with any addition or exceptions noted below. Patient has been medically stable for discharge for most of the week. Awaiting placement for HD and SNF. Continue current meds and therapy services and HD while here. BP well controlled and tolerating diet well.
[2018-04-13 06:43] LABS: Anion Gap 16 mmol/L (10-20); BUN (Urea Nitrogen) 25 mg/dL (9.8-20.1); Calc. Creatinine Clearance 18 mL/min (70-130); Calcium 8.9 mg/dL (7.8-10.44); Carbon Dioxide 25 mmol/L (23-31); Chloride 95 mmol/L (98-107); Estimated GFR-MDRD 13; Glucose 136 mg/dL (83-110); Potassium 4.1 mmol/L (3.5-5.1); Sodium 132 mmol/L (136-145)
--- NOTE | 2018-04-13 07:20 | PRG ---
DATE OF SERVICE: 04/13/2018 SERVICE: Renal Medicine. SUBJECTIVE: Ms. Scott is a 78-year-old white female, who was admitted for an acute pancreatitis. She developed a presumptive ischemic ATN. She is undergoing hemodialysis 3 times a week. No evidence of renal recovery so far. The patient denies any chest pain or shortness of breath this morning. She is scheduled for dialysis this morning. OBJECTIVE: VITAL SIGNS: Blood pressure is 137/82, heart rate 85, respiratory rate 16, temperature 98.2, and pulse ox 94% - room air. GENERAL: Awake, alert, comfortable, not in distress. SKIN: Adequate turgor. HEENT: Slightly pale conjunctivae. Anicteric sclerae. NECK: No neck mass. No carotid bruits. No JVD. CHEST: No deformities. LUNGS: Clear breath sounds. HEART: Normal sinus rhythm. No murmur. No gallops. No rubs. ABDOMEN: Globular, soft, nontender. No masses. EXTREMITIES: No edema. No deformities. MEDICATIONS: Medications of April 13, 2018, reviewed. LABORATORY DATA: Laboratories of April 13, 2018; sodium 132, potassium 4.1, chloride 95, carbon dioxide 25, BUN 25, creatinine 3.35, glucose 136, and calcium 8.9. On April 11, 2018; white count is 14.9, hemoglobin 8.6. ASSESSMENT AND PLAN: 1. Acute kidney injury - secondary to presumptive ischemic cute tubular necrosis, continuing 3 times a week hemodialysis. There is no evidence of renal recovery. Continue current dialysis regimen. Fluid removal only as tolerated. 2. Acute pancreatitis, clinically much improved. Overall agree with current management. Recheck basic metabolic panel and CBC in a.m. Job ID: [id number]
[2018-04-13] MEDS ORDERED: Heparin 10,000 UNITS/ 10 ML VIAL ONE (09:59)
[2018-04-13] MEDS ORDERED: Heparin 1,000 UNITS/ML VIAL ONE (11:11)
[2018-04-13] MEDS: Heparin 5,000 UNITS/ML VIAL SC SCH ×2 (11:52→16:26)
[2018-04-13] MEDS: Polyethylene Glycol 3350 17 GM Packet PO SCH (11:53)
[2018-04-13] MEDS: Docusate 100 MG CAP PO SCH (11:53)
[2018-04-13] MEDS: Cyanocobalamin (Vitamin B-12) 1,000 MCG TAB PO SCH (11:53)
[2018-04-13] MEDS: Folic Acid 1 MG TAB PO SCH (11:53)
[2018-04-13 15:36] VITALS: BP 138/83; TEMP 98.2
--- NOTE | 2018-04-14 12:40 | EKG ---
Test Reason : Blood Pressure : / mmHG Vent. Rate : 093 BPM Atrial Rate : 093 BPM P-R Int : 208 ms QRS Dur : 074 ms QT Int : 358 ms P-R-T Axes : 074 028 085 degrees QTc Int : 445 ms Normal sinus rhythm Normal ECG Confirmed by JAN HSU, PAUL ([id number]), film and video editor DENIA DENIS ([id number]) on 04/14/2018 12:39:44 PM Referred By: Confirmed By:PAUL MONTOYA MD
--- NOTE | 2018-04-16 08:52 | DIS ---
DATE OF ADMISSION: 04/01/2018 DATE OF DISCHARGE: 04/13/2018 RESIDENT: Hedy Willis MD, PGY-1. ADMITTING ATTENDING: Wesley Robins MD DISCHARGE ATTENDING: Mika Rubio MD PROCEDURES: 1. Chest x-ray, no acute intrathoracic abnormality. 2. Chest x-ray, uncomplicated placement of left subclavian central venous catheter. 3. Abdominal ultrasound, unremarkable exam. 4. Right femoral vein Trialysis catheter. 5. Chest x-ray, interval development of mild increase of interstitial densities bilaterally which may be related to an element of mild pulmonary edema or an infectious process. Continued follow up is suggested for tiny bilateral pleural effusions. 6. Chest x-ray, left subclavian catheter remains in place. There has been interval placement of a right internal jugular double-lumen dialysis catheter with tips in the projection of SVC. The heart size is stable and no pneumothoraces are seen. There is mild infiltrate versus atelectatic change in the right medial lung base. No pneumothoraces are seen. DISCHARGE DIAGNOSES: 1. Pancreatitis. 2. End-stage renal disease on hemodialysis, secondary to acute kidney injury on chronic kidney disease 4. 3. Septic shock likely secondary to urinary tract infection versus pancreatitis, resolved. 4. Metabolic acidosis with anion gap, resolved. SECONDARY DIAGNOSES: 1. Type 2 diabetes. 2. Neuropathy. 3. Acute pulmonary edema, resolved. 4. Hyperkalemia, resolved. DISCHARGE MEDICATIONS: 1. Vitamin B12 of 1000 mcg daily. 2. Colace 100 mg b.i.d. 3. Folic acid 1 mg daily. 4. Glucagon 1 mg IM p.r.n. 5. Metoprolol succinate 50 mg daily. 6. Pantoprazole 40 mg daily. 7. Levothyroxine 12.5 mcg daily. 8. Mobic 7.5 mg daily. 9. Losartan 25 mg t.i.d. 10. Metformin 1000 mg b.i.d. 11. Rosuvastatin 40 mg daily. HOSPITAL COURSE: Ms. Scott is a 78-year-old female, who presented for shortness of breath and vomiting as well as weakness. In the ED, she was noted to have MAPs less than 60. A subclavian line was placed. Levophed was started at 14. Vancomycin, Zosyn and Levaquin were started. She received 30 mL/kg bolus, 3 amps of bicarb, and Decadron. Initial white blood cell count 29.8. D-dimer 2.76. PH of 7.34, pCO2 of 18.9, and pO2 of 88.2. Potassium was elevated at 6.6. Bicarb less than 8, BUN 48, creatinine 4.25. Lactic acid 9.7 trended up to 10.8. CK 102. BNP 229.3. Lipase 487. UA, notable for infection. Beta-hydroxybutyrate 7.03. When evaluated for admission, blood pressure 119/59. Was started at 150 mL/h. Pulmonology was consulted and she was admitted to the CCU. Nephrology was consulted for NELI. It was thought initially that elevated lipase was secondary to septic shock, but later pancreatitis was thought likely the cause of the sepsis. Elevated BNP likely secondary to CHF and elevated CK due to poor perfusion of tissues. On day 3 of hospitalization, chest x-ray showed pulmonary edema. On exam, patient had crackles throughout all lung doan. The patient was taken for urgent dialysis. This resolved after dialysis. She was weaned off pressors, but it appeared kidney function was not improving. Anion gap resolved. The patient continued to be followed by Nephrology. They scheduled dialysis, was performed in the hospital and plan for outpatient dialysis arranged. Tunneled catheter was placed on 04/06/2018. It appears there is a plan for venous mapping for long-term dialysis. She plans to follow up with Dr. Sosa. As far as her infection, she was deescalated to Rocephin from vancomycin and Zosyn and blood culture and urine cultures continued to be negative for leukocytosis, downtrended, antibiotics were stopped on 04/05/2018. Home medications for diabetes were held. She did not require basal insulin to sliding scale throughout hospitalization. In regard to her pancreatitis, her pain improved and she began to tolerate oral intake and just had mild discomfort prior to discharge and was not requiring oral pain medications. She was evaluated by Physical Therapy and Occupational Therapy, who felt that rehab versus SNF placement would be best. The patient and family decided on [facility]. The patient was discharged with right IJ cuffed tunneled dialysis catheter. DISPOSITION: Stable. DISCHARGE INSTRUCTIONS: 1. Location: [facility]. 2. Diet: Renal, high-protein, consistent carb. 3. Activity: As tolerated. 4. Followup: Follow up with Jackelyn Gudino nurse practitioner in [place], [place]. Job ID: [id number]
== END 2018-04-13 17:23 | DRG 871 ==
LOC: ERS 19:16 → CCU 23:32 → IMCU/EMU 04-05 23:48 → SURG B 04-06 19:01 → SJJU 04-09 10:07 → SURG B 04-09 10:09
PROVIDERS: ADMIT Family Medicine; ATTEND Family Medicine
PROC: 3E033XZ Introduction of Vasopressor into Peripheral Vein, Percutaneous Approach (ICD-10-PCS; 2018-04-01)
PROC: 06HM33Z Insertion of Infusion Device into Right Femoral Vein, Percutaneous Approach (ICD-10-PCS; principal; 2018-04-02)
PROC: 5A1D70Z Performance of Urinary Filtration, Intermittent, Less than 6 Hours Per Day (ICD-10-PCS; 2018-04-02)
PROC: 5A1D70Z Performance of Urinary Filtration, Intermittent, Less than 6 Hours Per Day (ICD-10-PCS; 2018-04-04)
PROC: 5A1D70Z Performance of Urinary Filtration, Intermittent, Less than 6 Hours Per Day (ICD-10-PCS; 2018-04-05)
PROC: 0JH63XZ Insertion of Tunneled Vascular Access Device into Chest Subcutaneous Tissue and Fascia, Percutaneous Approach (ICD-10-PCS; 2018-04-06)
PROC: 02HV33Z Insertion of Infusion Device into Superior Vena Cava, Percutaneous Approach (ICD-10-PCS; 2018-04-06)
PROC: 5A1D70Z Performance of Urinary Filtration, Intermittent, Less than 6 Hours Per Day (ICD-10-PCS; 2018-04-06)
PROC: 5A1D70Z Performance of Urinary Filtration, Intermittent, Less than 6 Hours Per Day (ICD-10-PCS; 2018-04-09)
PROC: 5A1D70Z Performance of Urinary Filtration, Intermittent, Less than 6 Hours Per Day (ICD-10-PCS; 2018-04-11)
PROC: 5A1D70Z Performance of Urinary Filtration, Intermittent, Less than 6 Hours Per Day (ICD-10-PCS; 2018-04-13)
DX: A41.9 Sepsis, unspecified organism (principal); R65.21 Severe sepsis with septic shock; N18.6 End stage renal disease; N17.0 Acute kidney failure with tubular necrosis; K85.90 Acute pancreatitis without necrosis or infection, unspecified; J81.0 Acute pulmonary edema; E11.10 Type 2 diabetes mellitus with ketoacidosis without coma; I12.0 Hypertensive chronic kidney disease with stage 5 chronic kidney disease or end stage renal disease; N39.0 Urinary tract infection, site not specified; E78.5 Hyperlipidemia, unspecified; E03.9 Hypothyroidism, unspecified; E11.22 Type 2 diabetes mellitus with diabetic chronic kidney disease; E87.5 Hyperkalemia; D63.1 Anemia in chronic kidney disease; E11.42 Type 2 diabetes mellitus with diabetic polyneuropathy; Z79.84 Long term (current) use of oral hypoglycemic drugs; Z79.899 Other long term (current) drug therapy
CPT/HCPCS: 36415; 36416; 36556; 51702; 71045; 76700; 80048; 80053; 80061; 80074; 80202; 81003; 81015; 82010; 82550; 82570; 82607; 82746; 82747; 82805; 83605; 83690; 83735; 83880; 84100; 84145; 84300; 84443; 84484; 85025; 85379; 86580; 86704; 86705; 86706; 87040; 87086; 87340; 87350; 87804; 90935; 93005; 93970; 96365; 96366; 96367; 96368; 96375; C1752; C1769; G0257; G0365; J0670; J0696; J1100; J1630; J1642; J1644; J1815; J1825; J1940; J1956; J2001; J2543; J2704; J3010; J3370; J7050; J7070; P9047

== ENCOUNTER 2018-04-16 14:58 | Inpatient (IN) | payer MEDICARE ==
[~2018-04-16 14:58] MED LIST: Heparin 1,000 UNITS/ML VIAL ONE
[2018-04-16 15:22] LABS: Bilirubin Negative (Negative); Blood, Urine Moderate (Negative); Clarity CLOUDY (Clear); Glucose, Urine (Dipstick) Negative (Negative); Leukocyte Large (Negative); Nitrite Negative (Negative); Protein, Urine (Dipstick) 100 mg/dL (Neg-Trace); Specific Gravity, Urine 1.008 (1.002-1.036); Urobilinogen 0.2 mg/dL (0.2-1.0); pH, Urine 7.5 (5.0-9.0)
[2018-04-16 15:25] LABS: Bacteria/HPF None Seen HPF (None Seen); Hyaline Casts/LPF 0-3 HYALINE CAST LPF (0-3 Hyaline); Pathc Cast-AUWi Flag 0.87 (0-2.49); RBC/HPF 0-3 HPF (0-3); WBC/HPF 21-50 HPF (0-3); Yeast-AUWi Flag 11.7 (0-25.0)
[2018-04-16 15:36] LABS: Renal Epithelial 0-3 HPF (0-3); Transitional Epithelial 0-3 HPF (0-3)
--- NOTE | 2018-04-16 16:06 | RAD ---
PORTABLE CHEST: DATE: 04/16/2018. PROVIDED CLINICAL HISTORY: Shortness of breath. FINDINGS: Comparison is made with exam dated 04/06/2018. Right IJ dialysis catheter is again seen in similar po sition. Cardiac silhouette is unchanged in appearance. Suboptimal visualization of the left lung ba se. Limitations due to material overlying the right chest. No definite focal consolidation, pleural fluid, or pneumothorax apparent. IMPRESSION: No evidence for an acute cardiopulmonary process with limitations as above. POS: [facility]
[2018-04-16] MEDS ORDERED: Norepinephrine 8 MG/0.9% NS 250 ML ONE (16:15)
[2018-04-16 16:33] LABS: Hemoglobin 7.3 g/dL (12.0-16.0); Mean Corpuscular HGB CONC 29.6 g/dL (32.0-36.0); Mean Corpuscular Hemoglobin 31.4 pg (27.0-31.0); Platelet Count 529 thou/uL (130-400); RBC Distribution Width 13.6 % (11.5-14.5); Red Blood Cell (RBC) Count 2.32 mill/uL (4.20-5.40); White Blood Cell (WBC) Count 29.4 thou/uL (4.8-10.8)
[2018-04-16 16:54] LABS: ALT (SGPT) Less than 7 U/L (8-55); AST (SGOT) 20 U/L (5-34); Albumin 2.8 g/dL (3.4-4.8); Alkaline Phosphatase 124 U/L (40-150); BUN (Urea Nitrogen) 30 mg/dL (9.8-20.1); Bilirubin, Total 0.2 mg/dL (0.2-1.2); Calc. Creatinine Clearance 0 mL/min (70-130); Calcium 8.8 mg/dL (7.8-10.44); Chloride 94 mmol/L (98-107); Estimated GFR-MDRD 9; Globulin 2.7 g/dL (2.4-3.5); Glucose 118 mg/dL (83-110); Potassium 5.5 mmol/L (3.5-5.1); Protein, Total 5.5 g/dL (6.0-8.3); Sodium 130 mmol/L (136-145)
[2018-04-16] MEDS ORDERED: cefTRIAXone\\ROCEPHIN 2 GM VIAL ONE (17:00)
[2018-04-16] MEDS ORDERED: Sodium Chloride 0.9% 100 ML ONE (17:00)
[2018-04-16 17:04] LABS: Carbon Dioxide Less than 8 mmol/L (23-31)
[2018-04-16 17:05] LABS: CK (CPK) 90 U/L (29-168)
[2018-04-16 17:15] LABS: Band 5 % (5-11); Eosinophils 1 % (0-10); Lymphocytes 26 % (21-51); MDiff Complete? YES; Macrocytosis SLIGHT = 6-15 cells (100X) (0-5/hpf); Metamyelocyte 1 % (0-0); Monocytes 5 % (0-10); Neutrophil 60 % (42-75); Platelet Morphology Comment Appears Increased; Polychromasia MODERATE = 3-4 cells (100X) (0-2/hpf)
[2018-04-16] MEDS: Norepinephrine 8 MG/0.9% NS 250 ML IVPB SCH (19:45)
--- NOTE | 2018-04-16 19:47 | PDOC.EVN ---
Event Note - Event Note Event Note: Patient was recently discharged from the [facility]. I spoke with Dr. Sosa with the residents and she stated that they will see and admit the patient.
[2018-04-16] MEDS ORDERED: Norepinephrine 8 MG/250 ML BAG IVPB PRN (19:54)
--- NOTE | 2018-04-16 20:21 | PDOC.FPRHP ---
- History of Present Illness Chief Complaint: SOB History of Present Illness: Pt is a 78 y/o F with ESRD, HTN, T2DM presenting to ED for SOB from [place]. [place] reports SOB began yesterday. Was on [facility] HD schedule last week ,but son states she received it on Monday in an effort to move her to [facility]. She did not receive HD today for unknown reason. Upon chart review pt was started on Levophed in ED and labs were drawn. Rocephin and Gentamycin were given. Pt was admitted to [facility] service. We were called as this qualifies for bounce back as she was recently admitted. Additional history is unable to be obtained as pt was on BIPAP and [place] records not available and we did not receive checkout from ED. After phone call I evaluated patient in ICU and ordered stat ABG and IVF bolus as she was hypotensive and had received no IVF at this point during her stay. ABG resulted pH of 6.8 and I immediately consulted critical care Dr Partida. Intubation performed along with bicarb bolus. Dr Sosa called for HD. - Allergies/Adverse Reactions Allergies Allergy/AdvReac Type Severity Reaction Status Date / Time No Known Drug Allergies Allergy Verified 04/05/18 19:40 - Home Medications Medication Instructions Recorded Confirmed Type Amlodipine [Norvasc] 10 mg PO DAILY 04/01/18 04/16/18 History Gabapentin 200 mg PO QID 04/01/18 04/16/18 History Glimepiride [Amaryl] 2 mg PO DAILY 04/01/18 04/16/18 History Levothyroxine Sodium 12.5 mcg PO DAILY 04/01/18 04/16/18 History Losartan Potassium 25 mg PO TID 04/01/18 04/16/18 History Meloxicam [Mobic] 7.5 mg PO DAILY PRN 04/01/18 04/16/18 History Metoprolol Succinate [Toprol XL] 50 mg PO DAILY 04/01/18 04/16/18 History Rosuvastatin Calcium 40 mg PO DAILY 04/01/18 04/16/18 History metFORMIN HCl [Metformin HCl] 1,000 mg PO BID 04/01/18 04/16/18 History Cyanocobalamin (Vitamin B-12) 1,000 mcg PO DAILY #30 tab 04/13/18 04/16/18 Rx [Vitamin B-12] Docusate [Colace] 100 mg PO BID #30 cap 04/13/18 04/16/18 Rx Folic Acid [Folvite] 1 mg PO DAILY #30 tab 04/13/18 04/16/18 Rx Glucagon 1 mg IM PRN PRN #1 vial 04/13/18 04/16/18 Rx Pantoprazole [Protonix] 40 mg PO DAILY #30 tab 04/13/18 04/16/18 Rx Phenol [Chloraseptic [place]] 0 ml PO Q2H PRN bot 04/13/18 Rx Polyethylene Glycol 3350 [Miralax] 17 gm PO DAILY #1 bot 04/13/18 04/16/18 Rx - History PMHx: HTN, HLD, CKD/ESRD, T2DM, PSHx: c-spine rapain hysterectomy FHx: cancers Social: unknown - Review of Systems ROS unobtainable: due to mental status - Vital signs BP: 68/34 HR: 90 RR: 25 Tmax: 92.1 Pox: 94% on bipap - Physical Exam Constitutional: other (lying in bed on BIPAP) HEENT: PERRLA, EOMI Neck: supple, trachea midline Heart: RRR, normal S1/S2, no murmurs/rubs/gallops Lungs: good air movement (mild expiratory wheeze with diffuse ronchi) Abdomen: soft, non-tender, bowel sounds present Musculoskeletal: normal structure, normal tone Neurological: other (unable to fulls assess as pt alert x1. DTR 2+ b/l) Skin: no rash/lesions Heme/Lymphatic: no unusual bruising or bleeding, no purpura FMR H&P: Results - Labs Result Diagrams: 04/16/18 21:32 04/16/18 20:38 Lab results: WBC 29.4 thou/uL (4.8-10.8) H 04/16/18 16:13 Hgb 7.3 g/dL (12.0-16.0) L 04/16/18 16:13 Hct 24.6 % (36.0-47.0) L 04/16/18 16:13 MCV 106.0 fL (78.0-98.0) H 04/16/18 16:13 Plt Count 529 thou/uL (130-400) H 04/16/18 16:13 Band Neuts % (Manual) 5 % (5-11) 04/16/18 16:13 Sodium 130 mmol/L (136-145) L 04/16/18 15:13 Potassium 5.5 mmol/L (3.5-5.1) H 04/16/18 15:13 Chloride 94 mmol/L (98-107) L 04/16/18 15:13 Carbon Dioxide Less than 8 mmol/L (23-31) L* 04/16/18 15:13 BUN 30 mg/dL (9.8-20.1) H 04/16/18 15:13 Creatinine 4.56 mg/dL (0.6-1.1) H 04/16/18 15:13 Glucose 118 mg/dL (83-110) H 04/16/18 15:13 Lactic Acid 19.7 mmol/L (0.5-2.2) H* 04/16/18 15:12 Calcium 8.8 mg/dL (7.8-10.44) 04/16/18 15:13 Total Bilirubin 0.2 mg/dL (0.2-1.2) 04/16/18 15:13 AST 20 U/L (5-34) 04/16/18 15:13 ALT Less than 7 U/L (8-55) L 04/16/18 15:13 Alkaline Phosphatase 124 U/L (40-150) 04/16/18 15:13 Creatine Kinase 90 U/L (29-168) 04/16/18 15:13 B-Natriuretic Peptide 1769.2 pg/mL (0-100) H 04/16/18 15:12 Serum Total Protein 5.5 g/dL (6.0-8.3) L 04/16/18 15:13 Albumin 2.8 g/dL (3.4-4.8) L 04/16/18 15:13 Urine Ketones Trace mg/dL (Negative) H 04/16/18 15:14 Urine Blood Moderate (Negative) H 04/16/18 15:14 Urine Nitrite Negative (Negative) 04/16/18 15:14 Ur Leukocyte Esterase Large (Negative) H 04/16/18 15:14 Urine RBC 0-3 HPF (0-3) 04/16/18 15:14 Urine WBC 21-50 HPF (0-3) H 04/16/18 15:14 Ur Squamous Epith Cells 7-10 HPF (0-3) H 04/16/18 15:14 Urine Bacteria None Seen HPF (None Seen) 04/16/18 15:14 FMR H&P: A/P - Problem List (1) DMII (diabetes mellitus, type 2) Current Visit: No Status: Acute (2) ESRD needing dialysis Current Visit: No Status: Acute Code(s): N18.6 - END STAGE RENAL DISEASE; Z99.2 - DEPENDENCE ON RENAL DIALYSIS (3) HTN (hypertension) Current Visit: No Status: Acute Code(s): I10 - ESSENTIAL (PRIMARY) HYPERTENSION (4) Metabolic acidosis Current Visit: No Status: Acute Code(s): E87.2 - ACIDOSIS (5) Septic shock Current Visit: No Status: Acute Code(s): A41.9 - SEPSIS, UNSPECIFIED ORGANISM; R65.21 - SEVERE SEPSIS WITH SEPTIC SHOCK (6) Hypothermia Current Visit: Yes Status: Acute Code(s): T68.XXXA - HYPOTHERMIA, INITIAL ENCOUNTER FMR H&P: Upper Level - Plan Date/Time: 04/16/182020 IDarnell, have evaluated this patient and agree with findings/plan as outlined by actuarial intern resident. Pertinent changes/additions are listed here. 1. Presumed septic Shock- Will continue septic w/u, but initially seems to be 2/ 2 UTI. On Levophed and titrate to MAP >65. Pt w/o adequate resuscitation in ED as she received 0L. Will order NS bolus and discussed adding Bicarb bolus as well. Broad spectrum abx. Trend LA as initially severely elevated at 19. EKG w/ o any ST changes. Discussed with family prior to intubation. 2. Severe Metabolic Acidosis - pH 6.8, pt now intubated and bicarb bolus infusing. Follow/trend Lactate and ketones 3. Hypothermia - Warming device on. Initial ICU temp was 92, now up to 94. 4. NELI on CKD4 requiring HD - Dr Sosa notified for HD tonight or early AM. Hold nephrotoxic medications. Was placed on HD ~2w ago after previous hospitalization. At this point she may be ESRD if she is unable to wean off HD. Need to ensure she is not discharged on nephrotoxic medications upon discharge. 5. Anemia: H/H 6.06/11 - will transfuse 2u PRBCs and continue to follow. Possibly 2/2 Renal disease vs chronic disease. Noted macrocytic. Order B12/ Folate. 6. Elevated Lipase: Recent pancreatitis so at high risk of having pancreatitis, but this is likely 2/2 ischemia or she is till recovering from previous injury. 7. T2DM: SSI, was hypoglycemic at [place] and will schedule accuchecks. 8: HTN: Hold home medications DISPO: Inpatient in ICU. Prognosis guarded. Code Status: Full
[2018-04-16] MEDS ORDERED: Sodium Chloride 0.9% 1,000 ML IV SCH (20:45)
[2018-04-16 20:50] LABS: Actual Bicarbonate (HCO3a) 2.3 mEq/L (22-28); Base Excess (BEa) -29.9 mEq/L (-2.0 to +3.0); Calcium, Ionized 1.19 mmol/L (1.12-1.30); Carboxyhemoglobin (COHb) 0.6 gm% (0.0-3.0); O2 Tension (PaO2) 192.3 mmHg (> 70.0); Potassium - ABG Lab 5.74 mmol/L (3.70-5.30)
[2018-04-16] MEDS ORDERED: Midazolam HCl 2 mg/2 ml Vial ONE (21:03)
[2018-04-16] MEDS ORDERED: Sodium Bicarb 50 MEQ/50 ML VIAL ONE (21:06)
[2018-04-16] MEDS ORDERED: Sodium Bicarb 50 MEQ/50 ML Abboject 8.4% SYRINGE IVP SCH (21:15)
[2018-04-16] MEDS ORDERED: fentaNYL Citrate/PF 2,000 MCG in Sodium Chloride 0.9% 60 ML IV SCH (21:15)
[2018-04-16] MEDS ORDERED: Ventilator Sedation Protocol 1 EACH FS SCH (21:15)
[2018-04-16] MEDS ORDERED: Lorazepam 2 MG/ML VIAL SLOW IVP PRN (21:15)
[2018-04-16] MEDS ORDERED: DISCONTINUE PREVIOUS NARCOTIC PAIN MEDICATIONS AND BENZODIAZEPINES FS SCH (21:15)
[2018-04-16] MEDS ORDERED: Propofol BOLUS 1,000 MG/100 ML VIAL IV PRN (21:15)
[2018-04-16] MEDS ORDERED: Fentanyl BOLUS 250 ML IVPB PRN (21:15)
[2018-04-16 21:38] LABS: Hemoglobin 6.4 g/dL (12.0-16.0); Mean Corpuscular HGB CONC 29.2 g/dL (32.0-36.0); Mean Corpuscular Hemoglobin 30.1 pg (27.0-31.0); Mean Platelet Volume 7.4 fL (7.4-10.4); Platelet Count 483 thou/uL (130-400); RBC Distribution Width 13.9 % (11.5-14.5); Red Blood Cell (RBC) Count 2.13 mill/uL (4.20-5.40); White Blood Cell (WBC) Count 30.1 thou/uL (4.8-10.8)
[2018-04-16] MEDS: Propofol 1,000 MG/100 ML VIAL IV PRN (21:44)
[2018-04-16 21:49] LABS: CO2 Tension 14.7 mmHg (35.0-45.0); Puncture Site RBA; pH, Arterial 6.82 (7.35-7.45)
[2018-04-16 21:50] LABS: ALV-art Gradient 3.225 (0-20)
[2018-04-16 21:54] LABS: Hypochromia SLIGHT = 6-15 cells (100X) (0-5/hpf); Lymphocytes 16 % (21-51); MDiff Complete? YES; Macrocytosis SLIGHT = 6-15 cells (100X) (0-5/hpf); Neutrophil 84 % (42-75); Platelet Morphology Comment Appears Increased
[2018-04-16] MEDS: Sodium Bicarbonate 150 MEQ in Dextrose 5% in Water 1,000 ML IV SCH ×2 (22:04→22:12)
[2018-04-16 22:09] LABS: ALT (SGPT) 7 U/L (8-55); AST (SGOT) 19 U/L (5-34); Albumin 2.5 g/dL (3.4-4.8); Alkaline Phosphatase 112 U/L (40-150); BUN (Urea Nitrogen) 32 mg/dL (9.8-20.1); Bilirubin, Total Less than 0.2 mg/dL (0.2-1.2); Calc. Creatinine Clearance 13 mL/min (70-130); Calcium 8.5 mg/dL (7.8-10.44); Carbon Dioxide Less than 8 mmol/L (23-31); Chloride 93 mmol/L (98-107); Estimated GFR-MDRD 10; Globulin 2.3 g/dL (2.4-3.5); Glucose 168 mg/dL (83-110); Potassium 5.9 mmol/L (3.5-5.1); Protein, Total 4.8 g/dL (6.0-8.3); Sodium 134 mmol/L (136-145)
[2018-04-16 22:15] LABS: pH, Arterial 7.14 (7.35-7.45)
[2018-04-16 22:16] LABS: Actual Bicarbonate (HCO3a) 3.5 mEq/L (22-28); Base Excess (BEa) -23.3 mEq/L (-2.0 to +3.0); CO2 Tension 10.5 mmHg (35.0-45.0); Carboxyhemoglobin (COHb) 0.6 gm% (0.0-3.0); Hemoglobin (Hb) 6.8 g/dL (12.0-16.0); O2 Tension (PaO2) 168.6 mmHg (> 70.0)
[2018-04-16 22:17] LABS: Calcium, Ionized 1.05 mmol/L (1.12-1.30); Potassium - ABG Lab 5.12 mmol/L (3.70-5.30); Puncture Site LRA
[2018-04-16 22:18] LABS: ALV-art Gradient 30.675 (0-20)
[2018-04-16 22:25] LABS: Lactic Acid 19.9 mmol/L (0.5-2.2)
[2018-04-16 23:08] LABS: Folate (Folic Acid) 9.4 ng/mL (7.0-31.4)
--- NOTE | 2018-04-16 23:13 | RAD ---
PORTABLE CHEST: Indication: Sepsis. Intubation. FINDINGS: ET tube appears adequately positioned with tip above the joyce. The lungs appear aerated and clear. No infiltrate identified. Mild cardiomegaly. No evidence of vascular congestion. IMPRESSION: No acute lung process apparent. POS: [facility]
--- NOTE | 2018-04-17 00:06 | CON ---
DATE OF CONSULTATION: 04/16/2018 SERVICE: Pulmonary Medicine. REASON FOR CONSULT: Septic shock. HISTORY OF PRESENT ILLNESS: The patient is a 78-year-old white female. I was actually trying to address an issue in a different room when I got a come quick request. It was based on an ABG that had just been performed. The patient was unable to provide additional elements of the history. She was on BiPAP. She was a little encephalopathic. She would wake up with some gentle stimulation but without anything stimulation, she drift off to sleep within 3 seconds. I was unable to get any elements of the history out of her. Everything that I know is essentially from chart review. She was recently in the hospital with an episode of pancreatitis. She has end-stage renal disease and is a full code. She presented to the emergency department with some difficulty with breathing. She had missed one episode of dialysis. On presentation, she denied any significant nausea or vomiting. These onset of symptoms were described as acute. PAST MEDICAL HISTORY: 1. End-stage renal disease. 2. Type 2 diabetes mellitus. 3. Hypothyroidism. 4. Dyslipidemia. 5. Hypertension. 6. Recent history of acute pancreatitis. PAST SURGICAL HISTORY: 1. Hysterectomy. 2. C-spine repair. 3. Dialysis access. FAMILY HISTORY: Noncontributory. SOCIAL HISTORY: Negative for alcohol, tobacco, or illicit drug use. ALLERGIES: NO KNOWN DRUG ALLERGIES. MEDICATIONS: List of her inpatient medications was reviewed. Multiple updates were made at this time. REVIEW OF SYSTEMS: This cannot be obtained because of the patient's underlying encephalopathy. PHYSICAL EXAMINATION: VITAL SIGNS: Hypothermic with a temperature of 92, pulse 90, blood pressure is 70/50, respirations 24, saturation 100% on 30% FiO2, and a PEEP of 5 now. HEENT: Normocephalic and atraumatic. Sclerae white. Conjunctivae pink. Oral mucosa is moist without lesions. LUNGS: Decent air entry. There is no prolonged expiratory phase. I do not hear any crackles or wheezing. No rhonchi are appreciated. HEART: Normal rate, regular. ABDOMEN: Soft, nontender, nondistended. Bowel sounds are positive. MUSCULOSKELETAL: No cyanosis or clubbing. There is no pitting in the bilateral lower extremities. NEUROLOGIC: Grossly nonfocal. She moves all 4 extremities. She demonstrates diffuse encephalopathy. LABORATORY DATA: WBC 30.1, hemoglobin 6.4, and platelets 483,000. PH 6.8, pCO2 of 14, PO2 of 190. Sodium 130, potassium 5.5, chloride 94, bicarb less than the assay limit of 8, creatinine 4.56, BUN 30. Basic metabolic profile is otherwise unremarkable. Lactate 19.7. Liver function studies are essentially unremarkable. BNP 1700, troponin 0.01. Liver function studies are otherwise unremarkable. Urinalysis is positive for white blood cells and 7 to 10 squamous epithelial cells. Leukocyte esterase is large. Nitrites are unremarkable. There is a little proteinuria present. Prior serologies were all unremarkable. IMAGING: Chest x-ray demonstrates tunneled dialysis catheter in the right IJ, terminates in good position. There is blunting of the left costophrenic angle, possibly suggestive of some pleural parenchymal abnormality there. That being said, it is quite small. Leighann appears to be sharp. The cardiac silhouette is essentially normal. ASSESSMENT: 1. Shock, etiology not clear. 2. Acute kidney injury, currently requiring hemodialysis. 3. Anemia. 4. Anion gap metabolic acidosis, severe. DISCUSSION AND PLAN: We will check lipase and beta hydroxybutyric acid to round out our investigation. We will continue our empiric antibiotics. Panculture will be performed. I will give the patient 3 L of bolus. We are going to give her 2 amps of bicarb. Dialysis has been requested by Dr. Sosa to help us correct her severe acidosis. She has been intubated to secure her airway as I do not think she would be able to keep up with her work of breathing for much longer. Her gas exchange is actually fantastic. I am really not concerned about any acute lung issue. Her shortness of breath on presentation was most likely secondary to increased work of breathing associated with her metabolic issue. We will trend lactate through time. Hopefully, she will clear this. We will titrate Levophed and vasopressin in order to maintain maps between 60 and 65. This patient remains extremely sick. There is a possibility if things do not recover over the next 12-24 hours, she will not make a recovery from this hospital stay. would not be unexpected during this stay. CRITICAL CARE TIME: 30 minutes. Job ID: [id number] [facility]
[2018-04-17] MEDS: Norepinephrine 8 MG/0.9% NS 250 ML IVPB SCH ×3 (00:27→16:21)
--- NOTE | 2018-04-17 00:40 | PDOC.EVN ---
Event Note - Event Note Event Note: Date/Time: 04/17/18 0038 I personally evaluated the patient and discussed the management with Dr. Zhou on 04/16/2018 I agree with the History, Examination, Assessment and Plan documented above with any addition or exceptions noted below- 78 yo female with recent hospitalization for acute pancreatitis and NELI needing hemodialysis, h/o hypothyroidism, HTN, and HLD transferred from [place] due to SOB. In ER patient found to be hypotensive. Was placed on Bipap and nephrology consulted for dialysis. Patient currently intubated after ABG revealed severe metabolic acidosis. Further history unable to be obtained at this time. PMH/PSH/Meds/SH reviewed and agree with resident's documentation. T94.1 P86 RR23 BP 108/43. Exam repeated by me and agree with resident's findings. Labs: WBC=30.1, H/H= 6.8 /22, Plt= 483, Wf=899, K=5.9, Cl=93, Co2<8, BUN/Cr= 35/4.5, Aajn=481, Lactic acid=19.7. A/P: 1) Severe metabolic acidosis- pt now intubated to assist with acid-base balance. Bicarb also given with IVF. Continue to trend lactic acid. 2 ) Septic shock- comtomue OVF, pressors. Cultures drawn and pending. Continue abx. 3) NELI- continue HD as per nephrology. 4) Hypothyroidism- will check TSH; continue levothyroxine
[2018-04-17] MEDS: Heparin 5,000 UNITS/ML VIAL SC SCH ×4 (00:47→20:34)
[2018-04-17] MEDS: Hydrocortisone Sod Succ/PF 100 mg/2 ml Vial IVP SCH ×4 (00:48→20:32)
[2018-04-17] MEDS ORDERED: Dextrose 5% in Water 1,000 ML IV PRN (02:43)
[2018-04-17] MEDS: Propofol 1,000 MG/100 ML VIAL IV PRN ×4 (03:38→20:31)
[2018-04-17] MEDS: HumaLOG 300 UNITS/3 ML VIAL SC PRN (04:44)
[2018-04-17 04:54] LABS: INR-International Normal Ratio 2.3; Prothrombin Time 25.2 SEC (12.0-14.7)
[2018-04-17] MEDS ORDERED: RENALLY ADJUST ANTIBIOTICS IVPB PRN (04:58)
[2018-04-17 05:06] LABS: BUN (Urea Nitrogen) 15 mg/dL (9.8-20.1); Calc. Creatinine Clearance 24 mL/min (70-130); Calcium 7.7 mg/dL (7.8-10.44); Chloride 89 mmol/L (98-107); Estimated GFR-MDRD 19; Glucose 246 mg/dL (83-110); Potassium 3.5 mmol/L (3.5-5.1); Sodium 136 mmol/L (136-145)
[2018-04-17 05:09] LABS: Anisocytosis SLIGHT = 6-15 cells (100X) (0-5/hpf); Band 3 % (5-11); Carbon Dioxide Less than 8 mmol/L (23-31); Hemoglobin 9.7 g/dL (12.0-16.0); Lymphocytes 9 % (21-51); MDiff Complete? YES; Mean Corpuscular HGB CONC 32.9 g/dL (32.0-36.0); Mean Corpuscular Hemoglobin 31.6 pg (27.0-31.0); Mean Corpuscular Volume 96.1 fL (78.0-98.0); Mean Platelet Volume 7.8 fL (7.4-10.4); Neutrophil 88 % (42-75); Platelet Count 227 thou/uL (130-400); Platelet Morphology Comment Appears Adequate; Polychromasia SLIGHT = 2-3 cells (100X) (0-2/hpf); RBC Distribution Width 13.2 % (11.5-14.5); Red Blood Cell (RBC) Count 3.06 mill/uL (4.20-5.40); White Blood Cell (WBC) Count 24.8 thou/uL (4.8-10.8)
[2018-04-17] MEDS ORDERED: Meropenem 500 MG in Sodium Chloride 0.9% 100 ML IVPB SCH (06:00)
--- NOTE | 2018-04-17 07:26 | PDOC.FM ---
- Subjective Subjective: Alisa Scott is a 78 year old F with a PMH of ESRD on HD, HTN, and T2DM admitted last night for sepsis shock and anion gap metabolic acidosis. She was apparently hypotensive and hypothermic at the halfway and in the ED. She was moved to the CCU and blood gas was noted to have a pH of 6.8. Dr. Partida was urgency consulted and patient was intubated. She was hypotensive and decision was made to start pressors, she was on Levophed and Vasopressin. Vasopressin has been weaned off and she is currently on Levophed @ 16 mcg. She is intubated on SIMV. Freq 11, FiO2 30%, PEEP 5 Last ABG at 2200 on 04/16 was: pH 7.14, pO2 168, pCO2 10.5 Gastric tube day #2, 7.5 ET tube day #2, mcguire cath day #2, Tunneled IJ from previous admission one week ago for HD, R femoral CVC day #2. Empirically covered with Meropenem, she received gentamicin and rocephin in the ED. She underwent 3 hours of HD last night and was given 2 U pRBC at that time. Blood and urine cultures are pending. Dr. Sosa and Dr. Partida have been consulted. - Objective MAR Reviewed: Yes Vital Signs & Weight: Vital Signs (12 hours) Pulse Resp BP Pulse Ox 04/17/18 07:07 93 106/52 L 04/17/18 07:00 91 19 99 04/16/18 23:32 106 H 24 H 99 04/16/18 21:19 100 04/16/18 21:10 22 H Weight Weight 77.3 kg Most Recent Monitor Data Heart Rate from ECG 93 NIBP 118/53 NIBP BP-Mean 74 Respiration from ECG 23 SpO2 100 I&O: 04/16/18 04/17/18 04/18/18 06:59 06:59 06:59 Intake Total 800 Output Total 35 Balance 765 Result Diagrams: 04/17/18 04:15 04/17/18 04:15 Radiology Reviewed by me: Yes (No acute lung process apparent) Phys Exam - Physical Examination Intubated on mechanical ventilation HEENT: moist MMs, sclera anicteric Neck: supple, full ROM soft rales heard b/l otherwise clear Cardiovascular: RRR, no significant murmur Gastrointestinal: soft, no distention hypoactive BSs Musculoskeletal: no edema, pulses present Deviation from normal: sedated Skin: no rash, cap refill <2 seconds Dx/Plan (1) Septic shock Code(s): A41.9 - SEPSIS, UNSPECIFIED ORGANISM; R65.21 - SEVERE SEPSIS WITH SEPTIC SHOCK Status: Acute (2) Increased anion gap metabolic acidosis Code(s): E87.2 - ACIDOSIS Status: Acute (3) Anemia Code(s): D64.9 - ANEMIA, UNSPECIFIED Status: Acute (4) Hypothermia Code(s): T68.XXXA - HYPOTHERMIA, INITIAL ENCOUNTER Status: Acute (5) NELI (acute kidney injury) Code(s): N17.9 - ACUTE KIDNEY FAILURE, UNSPECIFIED Status: Acute (6) ESRD needing dialysis Code(s): N18.6 - END STAGE RENAL DISEASE; Z99.2 - DEPENDENCE ON RENAL DIALYSIS Status: Chronic (7) DMII (diabetes mellitus, type 2) Status: Chronic (8) HTN (hypertension) Code(s): I10 - ESSENTIAL (PRIMARY) HYPERTENSION Status: Chronic - Plan Plan: 1) Septic Shock: - Initial suspicion based on lab work is suspicious for urine as the source - On Levophed and titrate to MAP >65, currently on 16 mcg/hr, vasopressin has been weaned off - S/p 2 L D5W with 6 amp bicarb and 1 L NS - Will continue D5W with 150 mEq sodium bicarb @ 125 ml/hr - Continue broad spectrum abx coverage - Trend LA as initially severely elevated at 19. EKG w/o any ST changes. - Blood and urine cultures pending - ordered procalcitonin 2) Severe Metabolic Acidosis: - pH 6.8 on arrival to the floor while patient was on BiPAP - decision made to intubate patient at that time, pt remains intubated on SIMV - Current settings: SIMV-Freq 11, FiO2 30%, PEEP 5 - Most recent ABG: pH 7.14, pO2 168, pCO2 10.5 - Dr. Partida consulted for CCU management 3) Hypothermia: resolved - Required warming device initially with ICU temp was 92 - Most recent temp was 98.6 4) NELI on CKD4 requiring HD: - Dr Sosa consulted. Patient underwent HD last night for 3 hours, only filtering, no fluid was removed - Hold nephrotoxic medications. Was placed on HD ~2w ago after previous hospitalization. At this point she may be ESRD if she is unable to wean off HD. - Need to ensure she is not discharged on nephrotoxic medications upon discharge. 5) Anemia: - H/H 6.4/22 on admission - s/p 2 U pRBCs during HD last night, currently Hemoglobin is 9.7 - Possibly 2/2 Renal disease vs chronic disease. Noted macrocytic. B12 and folate levels were normal. 6) Elevated Lipase: - Recent pancreatitis so at high risk of having pancreatitis, but this is likely 2/2 ischemia or she is till recovering from previous injury. 7) T2DM: - SSI, was hypoglycemic at [place] and will schedule accuchecks - Accuchecks have been ranging from 170-250 - holding home meds 8) HTN: - Hold home medications Gastric tube day #2 7.5 ET tube day #2 Mcguire cath day #2 Tunneled IJ from previous admission one week ago for HD R femoral CVC day #2. Addendum - Attending - Attending Attestation Date/Time: 04/17/18 1114 I personally evaluated the patient and discussed the management with Dr. Weaver. I agree with the History, Examination, Assessment and Plan documented above with any addition or exceptions noted below. 78 y/o WF in critical condition Septic Shock- presumed urine source- awaiting blood and urine cx. Continue meropenem and zosyn (renally dosed). On levophed-goal MAP >65. Severe metabolic acidosis (AG from lactic acidosis)- continue D5W with 3 amps of bicarb. Appreciate renal recs. ESRD- s/p dialysis yesterday. renal recs M, W, F scheduled dialysis. Anemia- s/p 2 units PRBC transfusion with dialysis.
[2018-04-17 08:56] LABS: Lactic Acid 18.7 mmol/L (0.5-2.2)
[2018-04-17] MEDS ORDERED: Piperacillin/Tazobactam 2.25 GM in Sodium Chloride 0.9% 100 ML IVPB SCH (09:00)
[2018-04-17] MEDS ORDERED: Prevnar 13-Val Conj/PF 0.5 ML SYRINGE IM ONE (09:00)
--- NOTE | 2018-04-17 09:12 | OP ---
DATE OF PROCEDURE: 04/16/2018 SERVICE: Pulmonary Medicine. PROCEDURE PERFORMED: Emergent endotracheal intubation. CONSENT: Procedure was performed emergently secondary to clinical deterioration and respiratory failure. STAFF PHYSICIAN: Rayo Partida MD MIXING TECHNICIAN: Vel Weaver MD MEDICATIONS USED: 1. Versed 2 mg IV push. 2. Etomidate 20 mg IV push. PREPROCEDURE DIAGNOSES: 1. Anion gap metabolic acidosis. 2. Septic shock. POSTPROCEDURE DIAGNOSES: 1. Anion gap metabolic acidosis. 2. Septic shock. DESCRIPTION OF PROCEDURE: Vital sign monitoring was accomplished by noninvasive hemodynamic monitoring, pulse oximetry, and telemetry. In the supine position, the patient was preoxygenated with BiPAP and maintained with saturations of 100%. Following induction of anesthesia, a GlideScope was inserted through the mouth offering clear identification of the posterior oropharynx and laryngeal structures with a grade 1 view. An endotracheal 7.5-Uzbek endotracheal tube was visualized passing through the vocal cords. Placement was confirmed by condensation in the endotracheal tube, colorimetric capnography, and bi-axillary chest auscultation. The endotracheal tube was secured at 22 cm, measured at the teeth. The patient was placed on mechanical ventilation with good return of volumes. Postprocedure x-ray demonstrated decent position for the endotracheal tube. ESTIMATED BLOOD LOSS: None. COMPLICATIONS: None. Job ID: [id number]
[2018-04-17] MEDS: Famotidine/PF 20 mg/2ml Vial SLOW IVP SCH (09:22)
[2018-04-17] MEDS ORDERED: Sodium Bicarbonate 150 MEQ in Dextrose 5% in Water 850 ML IV SCH (10:00)
[2018-04-17 10:01] LABS: Actual Bicarbonate (HCO3a) 5.6 mEq/L (22-28); Base Excess (BEa) -17.5 mEq/L (-2.0 to +3.0); CO2 Tension 10.6 mmHg (35.0-45.0); Carboxyhemoglobin (COHb) 0.3 gm% (0.0-3.0); Hemoglobin (Hb) 10.5 g/dL (12.0-16.0); O2 Tension (PaO2) 116.6 mmHg (> 70.0); Potassium - ABG Lab 3.32 mmol/L (3.70-5.30); pH, Arterial 7.34 (7.35-7.45)
[2018-04-17 10:02] LABS: Calcium, Ionized 0.99 mmol/L (1.12-1.30); Puncture Site LRA
[2018-04-17] MEDS: Meropenem 500 MG in Sodium Chloride 0.9% 100 ML IVPB SCH ×2 (10:03→22:00)
--- NOTE | 2018-04-17 10:44 | CON ---
DATE OF CONSULTATION: SERVICE: Renal Medicine. HISTORY OF PRESENT ILLNESS: Ms. Scott is a 78-year-old white female with known history of acute renal failure - secondary to prolonged ATN - currently on maintenance hemodialysis and was admitted for shortness of breath. She was noted to be severely acidemic. We were consulted for serum acidemia and she underwent emergent hemodialysis. This morning, she is still acidemic. She is empirically being treated for presumptive infection. In addition, her medication was reviewed and she was noted to be on NSAIDs as well as metformin. This has now been discontinued. The patient currently was intubated last night. She did receive dialysis. Case discussed with the house staff and the police stenographer. For the moment, we will continue this patient on isotonic bicarbonate drip. REVIEW OF SYSTEMS: Not obtainable since the patient is intubated on ventilator support. MEDICATIONS: Currently on, 1. DuoNeb q.6. 2. Fentanyl drip. 3. Pepcid 20 mg IV daily. 4. Hydrocortisone 50 mg IV q.6. 5. Meropenem 500 mg IV q.12. 6. Morphine p.r.n. 7. Zosyn 2.25 g IV q.12. 8. Diprivan drip. PAST MEDICAL HISTORY: 1. Recently status post acute pancreatitis. 2. Acute renal failure - prolonged acute tubular necrosis. 3. Type 2 diabetes mellitus. 4. Hypertension. 5. DJD. 6. Hyperlipidemia. 7. Uterine cancer - in remission. PAST SURGICAL HISTORY: Status post cuffed hemodialysis catheter placement, status post colonoscopy, status post intubation, and status post hysterectomy. SOCIAL HISTORY: Currently [facility] in [place]. No history of smoking. No alcohol intake. Status post blood transfusion. No IV drug abuse. Education, 10th grade. 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 Sedentary lifestyle. ALLERGIES: TRAZODONE. TRAUMA: Status post left foot fracture. IMMUNIZATIONS: Up-to-date. HOSPITALIZATIONS: Please see past medical history. FAMILY HISTORY: No family history of ESRD. PHYSICAL EXAMINATION: VITAL SIGNS: Blood pressure is 105/47, heart rate 93, respiratory rate 15, pulse ox 100%, and temperature 99. GENERAL: The patient is sedated, intubated, on ventilator support. SKIN: Adequate turgor. HEENT: Pinkish conjunctivae. Anicteric sclerae. NECK: No neck mass. No carotid bruits. No JVD. CHEST: No deformities. LUNGS: Clear breath sounds. No wheezing. No crackles. HEART: Normal sinus rhythm. No murmur. No gallops. No rubs. ABDOMEN: Globular, soft, nontender. No masses. EXTREMITIES: No edema. No deformities. LABORATORY DATA: Laboratories of April 17, 2018; white count 24.8, hemoglobin 9.7. Sodium 136, potassium 3.5, chloride 89, carbon dioxide 8, BUN 16, creatinine 2.46, glucose 246, and calcium 7.7. Lactic acid is 18.7. ASSESSMENT AND PLAN: 1. Metabolic acidosis - consider the possibilities may be related to metformin use. Currently off metformin. Start isotonic bicarbonate, hemodialysis again tomorrow. 2. Acute kidney injury/prolonged acute tubular necrosis, on maintenance hemodialysis. We will place her on a Monday, Monday, and Monday schedule. 3. Elevated white count, on empiric IV antibiotics. Overall, prognosis remains guarded. Addendum: Case discussed with Dr. Keller - Due to the persistent acidosis - will proceed with another hemodialysis session with the patient his afternoon. Job ID: [id number] [facility]
[2018-04-17 11:34] LABS: #Eosinphils 0.1 thou/uL (0.0-0.7); #Lymphocytes 2.7 thou/uL (1.20-3.40); #Monocytes 2.3 thou/uL (0.11-0.59); #Neutrophils 16.9 thou/uL (1.40-6.50); %Basophils 0.1 % (0.0-1.0); %Eosinophils 0.3 % (0.0-10.0); %Lymphocytes 12.3 % (21.0-51.0); %Monocytes 10.6 % (0.0-10.0); %Neutrophils 76.6 % (42.0-75.0); Hemoglobin 9.9 g/dL (12.0-16.0); Mean Corpuscular HGB CONC 32.7 g/dL (32.0-36.0); Mean Corpuscular Hemoglobin 31.4 pg (27.0-31.0); Mean Corpuscular Volume 95.9 fL (78.0-98.0); Mean Platelet Volume 7.7 fL (7.4-10.4); Platelet Count 285 thou/uL (130-400); Red Blood Cell (RBC) Count 3.16 mill/uL (4.20-5.40); White Blood Cell (WBC) Count 22.1 thou/uL (4.8-10.8)
[2018-04-17 11:52] LABS: BUN (Urea Nitrogen) 17 mg/dL (9.8-20.1); Calc. Creatinine Clearance 22 mL/min (70-130); Calcium 7.8 mg/dL (7.8-10.44); Chloride 90 mmol/L (98-107); Estimated GFR-MDRD 18; Glucose 178 mg/dL (83-110); Potassium 3.5 mmol/L (3.5-5.1); Sodium 136 mmol/L (136-145)
[2018-04-17 12:02] LABS: Carbon Dioxide Less than 8 mmol/L (23-31)
[2018-04-17] MEDS ORDERED: Heparin 10,000 UNITS/ 10 ML VIAL ONE (15:00)
--- NOTE | 2018-04-17 16:03 | PRG ---
DATE OF SERVICE: 04/17/2018 SUBJECTIVE: Alisa Scott remains mechanically ventilated. OBJECTIVE: VITAL SIGNS: Blood pressure 103/52, heart rate 79, respiratory rate 22. LUNGS: Clear anteriorly. HEART: Regular rhythm. ABDOMEN: Soft. EXTREMITIES: Without edema. LABORATORY DATA: White count 22, hemoglobin 9.9, and platelets 285. Bicarb still less than 8 at 11 o'clock this morning and she is being dialyzed now, creatinine is 2.65. A pH this morning while mechanically ventilated at 10.34, CO2 of 10, and pO2 116. She is set up with a room air FiO2 rate of 9, peak inspiratory pressure of 7, PEEP of 5. IMPRESSION: 1. Respiratory failure secondary to severe metabolic acidosis ? secondary to metformin. 2. Renal failure. 3. Recent pancreatitis. Hopefully, she will survive. Total care time 30 minutes. Job ID: [id number]
[2018-04-17 17:15] LABS: Actual Bicarbonate (HCO3a) 26.3 mEq/L (22-28); Base Excess (BEa) 5.4 mEq/L (-2.0 to +3.0); CO2 Tension 26.7 mmHg (35.0-45.0); Calcium, Ionized 0.98 mmol/L (1.12-1.30); Carboxyhemoglobin (COHb) 0.4 gm% (0.0-3.0); Hemoglobin (Hb) 10.7 g/dL (12.0-16.0); O2 Tension (PaO2) 88.2 mmHg (> 70.0); Potassium - ABG Lab 3.22 mmol/L (3.70-5.30)
[2018-04-17 17:17] LABS: Puncture Site LBA; pH, Arterial 7.61 (7.35-7.45)
[2018-04-17 17:18] LABS: ALV-art Gradient 28.155 (0-20)
[2018-04-18] MEDS: HumaLOG 300 UNITS/3 ML VIAL SC PRN ×3 (00:26→21:50)
[2018-04-18] MEDS: Norepinephrine 8 MG/0.9% NS 250 ML IVPB SCH (04:00)
[2018-04-18] MEDS: Propofol 1,000 MG/100 ML VIAL IV PRN ×2 (04:00→10:33)
[2018-04-18] MEDS: Hydrocortisone Sod Succ/PF 100 mg/2 ml Vial IVP SCH ×5 (05:00→21:49)
[2018-04-18 05:19] LABS: #Basophils 0.2 thou/uL (0.0-0.2); #Lymphocytes 2.1 thou/uL (1.20-3.40); #Monocytes 2.4 thou/uL (0.11-0.59); #Neutrophils 12.5 thou/uL (1.40-6.50); %Eosinophils 0.1 % (0.0-10.0); %Monocytes 14.1 % (0.0-10.0); %Neutrophils 72.8 % (42.0-75.0); Hemoglobin 10.3 g/dL (12.0-16.0); Mean Corpuscular HGB CONC 33.2 g/dL (32.0-36.0); Mean Corpuscular Hemoglobin 31.2 pg (27.0-31.0); Mean Corpuscular Volume 94.1 fL (78.0-98.0); Mean Platelet Volume 7.2 fL (7.4-10.4); Platelet Count 288 thou/uL (130-400); RBC Distribution Width 13.8 % (11.5-14.5); White Blood Cell (WBC) Count 17.2 thou/uL (4.8-10.8)
[2018-04-18 06:04] LABS: Anion Gap 19 mmol/L (10-20); BUN (Urea Nitrogen) 10 mg/dL (9.8-20.1); Calc. Creatinine Clearance 38 mL/min (70-130); Carbon Dioxide 30 mmol/L (23-31); Chloride 93 mmol/L (98-107); Estimated GFR-MDRD 32; Glucose 132 mg/dL (83-110); Potassium 3.1 mmol/L (3.5-5.1); Sodium 139 mmol/L (136-145)
--- NOTE | 2018-04-18 06:26 | PDOC.FM ---
- Subjective Subjective: Alisa Scott is a 78 year old F with a PMH of ESRD on HD, HTN, and T2DM admitted 04/16/18 for septic shock and anion gap metabolic acidosis. Patient remains sedated, intubated, on mechanical ventilation. She underwent HD yesterday and 2 L were removed. We have slowly been titrating Levophed down, currently @ 10 mcg. D5W with 150 mEq sodium bicarb was discontinued yesterday evening when ABG returned with pH of 7.61. No acute events or changes overnight. ABG to be drawn after dialysis this morning. Gastric tube day #3, 7.5 ET tube day #3, mcguire cath day #3, Tunneled IJ from previous admission one week ago for HD, R femoral CVC day #3. Empirically covered with Meropenem and Zosyn, she received gentamicin and rocephin in the ED. S/p 2 U pRBC with first round on HD on 04/16, 2nd round of HD on 04/17 Blood and urine cultures are pending. Dr. Sosa and Dr. Keller have been consulted. - Objective MAR Reviewed: Yes Vital Signs & Weight: Vital Signs (12 hours) Pulse BP 04/18/18 02:25 86 126/58 L 04/18/18 00:13 78 122/53 L 04/17/18 21:53 82 138/59 L 04/17/18 18:32 77 125/53 L Weight Admit Weight 77.111 kg Weight 79.1 kg Most Recent Monitor Data Heart Rate from ECG 85 NIBP 140/65 NIBP BP-Mean 90 Respiration from ECG 13 SpO2 94 I&O: 04/16/18 04/17/18 04/18/18 06:59 06:59 06:59 Intake Total 4486.9 1900 Output Total 210 60 Balance 4276.9 1840 Result Diagrams: 04/18/18 05:15 04/18/18 05:15 Radiology Reviewed by me: Yes Phys Exam - Physical Examination Constitutional: NAD HEENT: moist MMs, sclera anicteric Neck: no JVD, supple bilateral expiratory rhonchi heard b/l Cardiovascular: RRR, no significant murmur Gastrointestinal: soft, no distention, positive bowel sounds Musculoskeletal: edema present 2+ pitting edema bilaterally Neurological: moves all 4 limbs follows commands Deviation from normal: sedated, intubated Skin: no rash, cap refill <2 seconds Dx/Plan (1) Septic shock Code(s): A41.9 - SEPSIS, UNSPECIFIED ORGANISM; R65.21 - SEVERE SEPSIS WITH SEPTIC SHOCK Status: Acute (2) Increased anion gap metabolic acidosis Code(s): E87.2 - ACIDOSIS Status: Resolved (3) Anemia Code(s): D64.9 - ANEMIA, UNSPECIFIED Status: Acute (4) Hypothermia Code(s): T68.XXXA - HYPOTHERMIA, INITIAL ENCOUNTER Status: Resolved (5) NELI (acute kidney injury) Code(s): N17.9 - ACUTE KIDNEY FAILURE, UNSPECIFIED Status: Acute (6) ESRD needing dialysis Code(s): N18.6 - END STAGE RENAL DISEASE; Z99.2 - DEPENDENCE ON RENAL DIALYSIS Status: Chronic (7) DMII (diabetes mellitus, type 2) Status: Chronic (8) HTN (hypertension) Code(s): I10 - ESSENTIAL (PRIMARY) HYPERTENSION Status: Chronic - Plan Plan: 1) Severe Metabolic Acidosis: improving - pH 6.8 on arrival to the floor while patient was on BiPAP - decision made to intubate (04/16) patient at that time, pt remains intubated on SIMV - likely secondary to lactic acidosis from metformin - Current settings: SIMV-Freq 9, FiO2 21%, PEEP 5, Pi 10 - Most recent ABG (04/17): pH 7.61, pO2 88.2, pCO2 26.7 - Dr. Keller consulted for CCU management - Dr. Sosa consulted 2) Septic Shock: less likely - Initial suspicion based on lab work is suspicious for urine as the source - Elevated WBC, hypothermic, elevated Lactic acid. Essentially negative procalcitonin, no growth to date on blood and urine cx - On Levophed and titrate to MAP >65, currently on 10 mcg/hr, vasopressin weaned off on 04/17/18 - Continue broad spectrum abx coverage with meropenem until negative cultures for 48 hours - Trend LA as initially severely elevated at 19, could be all related to lactic acidosis from metformin use in ESRD - ordered repeat procal and lactic acid this morning 3) Hypothermia: resolved - Required warming device initially with ICU temp was 92 - Most recent temp was 97.9 4) NELI on CKD4 requiring HD: - Dr Sosa consulted. Patient underwent HD (04/16, 04/17) - Hold nephrotoxic medications, especially on discharge - Cr improving with HD, Cr is 1.59 this morning 5) Anemia: - H/H 6.4/22 on admission - s/p 2 U pRBCs during HD last night, currently Hemoglobin is 10.3 - Possibly 2/2 Renal disease vs chronic disease. Noted macrocytic. B12 and folate levels were normal. 6) Elevated Lipase: - Recent pancreatitis so at high risk of having pancreatitis, but this is likely 2/2 ischemia or she is till recovering from previous injury. 7) T2DM: - SSI, was hypoglycemic at [place] and will schedule accuchecks - Accuchecks have been ranging from 126-213 - holding home meds 8) HTN: - Hold home medications Gastric tube day #3 7.5 ET tube day #3 Mcguire cath day #3 Tunneled IJ from previous admission one week ago for HD R femoral CVC day #3. Addendum - Attending - Attending Attestation Date/Time: 04/18/18 8619 I personally evaluated the patient and discussed the management with Dr. Weaver. I agree with the History, Examination, Assessment and Plan documented above with any addition or exceptions noted below. Lungs- increased rhonchi anteriorly, but no crackles Neuro- patient follows commands and squeezes hand and wiggles toes. Anion gap Metabolic acidosis- improving with bicarb yesterday and dialysis. Will discuss length of intubation with pulmonology and start feeds via NGT if continued. repeat lactate level pending. Septic shock- no source identified but will continue empiric abx until cx neg at 48 hours. Hypotension- on levophed- continue to wean to keep map >65. ESRD- dialysis per nephro- oligouric-appreciate their recs t2dm- accuchecks and SSI. anemia- s/p transfusion with dialysis Continue ICU care
--- NOTE | 2018-04-18 08:52 | PRG ---
DATE OF SERVICE: 04/18/2018 SUBJECTIVE: Ms. Scott is a 78-year-old white female with known history of a prolonged acute kidney injury secondary to a presumptive ischemic ATN. Currently, on maintenance hemodialysis. She was admitted due to severe metabolic acidosis and respiratory failure. She is currently intubated on ventilator support. She underwent daily dialysis due to the severe metabolic acidosis. The metabolic acidosis is now much improved with dialysis. OBJECTIVE: Blood pressure is 85/70, heart rate 91, respiratory rate 21 and pulse ox 98 percent. GENERAL: The patient is sedated and intubated on ventilator support. SKIN: Adequate turgor. HEENT: She has pinkish conjunctivae. Anicteric sclerae. NECK: No neck mass. No carotid bruits. No JVD. CHEST: No deformities. LUNGS: Decreased breath sounds. HEART: Normal sinus rhythm. No murmur. No gallops. No rubs. ABDOMEN: Globular, soft and nontender. No masses. EXTREMITIES: No edema, no deformities. LABORATORY DATA: Blood and urine cultures shows no growth to date. White count 17.2, hemoglobin 10.3. Sodium 139, potassium 3.1, chloride 93, carbon dioxide 30, BUN is 10, creatinine 1.59, glucose 132, calcium 8.0. ASSESSMENT AND PLAN: 1. Acute kidney injury/secondary to prolonged acute tubular necrosis-continuing hemodialysis regimen. This patient has been placed back on a regular Monday, Monday, and Monday hemodialysis. Fluid removal only as tolerated. 2. Metabolic acidosis, much improved with dialysis. Most recent bicarb is now noted at 30. 3. ? sepsis-the patient is currently on empiric IV antibiotics. 4. Overall prognosis remains guarded. 5. I did review the medications this morning with this patient. Job ID: [id number]
--- NOTE | 2018-04-18 09:01 | RAD ---
PORTABLE AP CHEST X-RAY: 04/18/2018 HISTORY: Sepsis. Intubated. Follow-up evaluation. COMPARISON: 04/16/2018 FINDINGS: Endotracheal tube and tunneled right internal jugular vein hemodialysis catheter in place and unchang ed in position. There has been interval placement of a nasogastric tube, which courses into the uppe r abdomen, but the tip is not visualized. There is atelectasis present at the left lung base. The l ungs otherwise appear clear. The cardiac silhouette is magnified by projection. The pulmonary vascu lature is within normal limits. Osteopenia is present. Vascular calcification is seen in the thorac ic aorta. No other interval change. IMPRESSION: 1. Lines and tubes in place, as described above. 2. Atelectasis, left lung base. POS: [facility]
[2018-04-18] MEDS: Famotidine/PF 20 mg/2ml Vial SLOW IVP SCH (10:33)
[2018-04-18] MEDS: Heparin 5,000 UNITS/ML VIAL SC SCH ×3 (10:33→21:49)
[2018-04-18] MEDS: Meropenem 500 MG in Sodium Chloride 0.9% 100 ML IVPB SCH ×2 (10:46→21:49)
[2018-04-18] MEDS ORDERED: Heparin 1,000 UNITS/ML VIAL ONE (11:11)
[2018-04-18] MEDS ORDERED: Sodium Bicarbonate Tab 325 MG TAB PER TUBE PRN (12:59)
[2018-04-18] MEDS ORDERED: Pancrelipase DR 12000 1 CAP FS PRN (12:59)
[2018-04-18 13:48] LABS: Lactic Acid 1.3 mmol/L (0.5-2.2)
[2018-04-18] MEDS: Morphine 2 MG/ML SYRINGE SLOW IVP PRN (14:57)
--- NOTE | 2018-04-18 20:57 | PRG ---
DATE OF SERVICE: 04/18/2018 SUBJECTIVE: Ms. Scott was given a sedation holiday this morning. She awakens and moves all her extremities. I met with the family, answered all their questions. OBJECTIVE: VITAL SIGNS: Heart rates in the 80s, blood pressure 98/52, respiratory rates in the teens. LUNGS: Clear. HEART: Regular rhythm. S1 and S2 are normal. ABDOMEN: Soft and nontender. EXTREMITIES: Without clubbing, cyanosis, or edema. IMAGING: Chest radiograph is clear. LABORATORY DATA: White count 17.2, hemoglobin 10, platelets 288. Sodium 139, potassium 3.1, chloride 93, bicarb 30, BUN 10, creatinine 1.59. PH 7.61 yesterday. No blood gas was done today. INR was 2.3 yesterday. IMPRESSION: 1. Respiratory failure associated with severe metabolic acidosis (lactate) likely related to metformin. 2. Renal insufficiency, possibly aggravated by sulfa/trimethoprim. Hopefully, we can wean her in 24 to 48 hours. I suspect she will survive this. Hopefully, developed some recovery of renal function. Her diabetes probably needs to be just managed with insulin. Critical care time is 35 minutes. Job ID: [id number] [facility]
[2018-04-19 04:42] LABS: #Lymphocytes 1.1 thou/uL (1.20-3.40); #Neutrophils 9.8 thou/uL (1.40-6.50); %Basophils 0.2 % (0.0-1.0); %Eosinophils 0.1 % (0.0-10.0); %Lymphocytes 8.8 % (21.0-51.0); %Monocytes 8.4 % (0.0-10.0); %Neutrophils 82.5 % (42.0-75.0); Hemoglobin 9.3 g/dL (12.0-16.0); Mean Corpuscular HGB CONC 32.6 g/dL (32.0-36.0); Mean Corpuscular Hemoglobin 31.2 pg (27.0-31.0); Mean Corpuscular Volume 95.6 fL (78.0-98.0); Mean Platelet Volume 7.8 fL (7.4-10.4); Platelet Count 220 thou/uL (130-400); Red Blood Cell (RBC) Count 2.97 mill/uL (4.20-5.40); White Blood Cell (WBC) Count 11.9 thou/uL (4.8-10.8)
[2018-04-19 05:03] LABS: Anion Gap 21 mmol/L (10-20); BUN (Urea Nitrogen) 16 mg/dL (9.8-20.1); Calc. Creatinine Clearance 35 mL/min (70-130); Calcium 8.5 mg/dL (7.8-10.44); Carbon Dioxide 23 mmol/L (23-31); Chloride 98 mmol/L (98-107); Estimated GFR-MDRD 29; Glucose 239 mg/dL (83-110); Potassium 3.6 mmol/L (3.5-5.1); Sodium 138 mmol/L (136-145)
[2018-04-19] MEDS: Hydrocortisone Sod Succ/PF 100 mg/2 ml Vial IVP SCH ×4 (05:19→22:27)
[2018-04-19] MEDS: Levothyroxine Sodium 25 MCG TAB PO SCH (05:19)
[2018-04-19] MEDS: HumaLOG 300 UNITS/3 ML VIAL SC PRN ×3 (05:20→16:37)
--- NOTE | 2018-04-19 06:46 | PDOC.FM ---
Addendum entered and electronically signed by Vel Weaver MD 04/19/18 10:30: Most recent AB/28, pH 7.51, pCO2 29.7, pO2 78.6 Original Note: - Subjective Subjective: Alisa Scott is a 78 year old F with a PMH of ESRD on HD, HTN, and T2DM admitted 04/16/18 for severe anion gap metabolic acidosis and possible septic shock. This morning, patient is not sedated, awake tolerating intubation well, follows commands. She had HD yesterday and an additional 3 L were removed. She was titrated off Levophed yesterday afternoon but did have to go back on levo from 2200 to 0200. No acute events or changes overnight. Plan to extubate today. Gastric tube day #4, 7.5 ET tube day #4, mcguire cath day #4, Tunneled IJ from previous admission one week ago for HD, R femoral CVC day #4. Empirically covered with Meropenem, she received gentamicin and rocephin in the ED and zosyn one day on the floor. S/p 2 U pRBC with first round on HD on 04/16. Blood and urine cultures have shown no growth to date. Dr. Sosa and Dr. Keller consulted. - Objective MAR Reviewed: Yes Vital Signs & Weight: Vital Signs (12 hours) Temp Pulse Resp BP Pulse Ox 04/19/18 06:00 13 04/19/18 04:17 94 127/61 04/19/18 04:00 97.9 F 18 04/19/18 02:00 12 04/19/18 00:13 105 H 106/67 04/19/18 00:00 99.5 F 12 04/18/18 22:05 90 119/61 04/18/18 22:00 13 04/18/18 20:00 98.0 F 12 100 04/18/18 18:46 82 98/52 L Weight Admit Weight 77.111 kg Weight 74.4 kg Most Recent Monitor Data Heart Rate from ECG 99 NIBP 117/62 NIBP BP-Mean 80 Respiration from ECG 22 SpO2 100 I&O: 04/17/18 04/18/18 04/19/18 06:59 06:59 06:59 Intake Total 4486.9 1900 1325.12 Output Total 210 80 8 Balance 4276.9 1820 1317.12 Result Diagrams: 04/19/18 Unknown 04/19/18 Unknown Radiology Reviewed by me: Yes (CXR 04/18/18, left lung base atelectasis) Phys Exam - Physical Examination Constitutional: NAD HEENT: moist MMs, sclera anicteric Neck: no JVD, supple mild rhonchi, good air movement Cardiovascular: RRR, no significant murmur Gastrointestinal: soft, no distention Musculoskeletal: edema present 1+ LE edema, b/l Neurological: moves all 4 limbs Skin: no rash, cap refill <2 seconds Dx/Plan (1) Increased anion gap metabolic acidosis Code(s): E87.2 - ACIDOSIS Status: Resolved (2) Septic shock Code(s): A41.9 - SEPSIS, UNSPECIFIED ORGANISM; R65.21 - SEVERE SEPSIS WITH SEPTIC SHOCK Status: Acute (3) Anemia Code(s): D64.9 - ANEMIA, UNSPECIFIED Status: Acute (4) Hypothermia Code(s): T68.XXXA - HYPOTHERMIA, INITIAL ENCOUNTER Status: Resolved (5) NELI (acute kidney injury) Code(s): N17.9 - ACUTE KIDNEY FAILURE, UNSPECIFIED Status: Acute (6) ESRD needing dialysis Code(s): N18.6 - END STAGE RENAL DISEASE; Z99.2 - DEPENDENCE ON RENAL DIALYSIS Status: Chronic (7) DMII (diabetes mellitus, type 2) Status: Chronic (8) HTN (hypertension) Code(s): I10 - ESSENTIAL (PRIMARY) HYPERTENSION Status: Chronic - Plan Plan: 1) Severe Metabolic Acidosis: improving - pH 6.8 on arrival to the floor while patient was on BiPAP - decision made to intubate (04/16) patient at that time, pt remains intubated on SIMV - likely secondary to lactic acidosis from metformin use - Current settings: SIMV-Freq 9, FiO2 21%, PEEP 5, Pi 10 - Most recent ABG (04/17): pH 7.52, pO2 78.6, pCO2 29.7 - Dr. Keller consulted for CCU management, potential extubation today - Dr. Sosa consulted 2) Septic Shock: less likely - Initial suspicion based on lab work is suspicious for urine as the source - Elevated WBC, hypothermic, elevated Lactic acid. Essentially negative procalcitonin, no growth to date on blood and urine cx - Weaned off levophed on 04/19/18 at 0200, vasopressin weaned off on 04/17/18 - Continue broad spectrum abx coverage with meropenem until negative cultures for 48 hours - Lactic acid has downtrended from 18.7 to 1.3, WBC count trending down, now normal - procalcitonin trending up, 0.5 to 1.15 to 1.82 3) Hypothermia: resolved - Required warming device initially with ICU temp was 92 - Most recent temp was 97.9 4) NELI on CKD4 requiring HD: - Dr Sosa consulted. Patient underwent HD (04/16, 04/17, 04/18) - Hold nephrotoxic medications, especially on discharge - Pt remains anuric, <50 ml output over the last 24 hours - appreciate recs 5) Anemia: - H/H 6.4/22 on admission - s/p 2 U pRBCs during HD last night, currently Hemoglobin is 9.3 - Possibly 2/2 Renal disease vs chronic disease. Noted macrocytic. B12 and folate levels were normal. 6) Elevated Lipase: - Recent pancreatitis so at high risk of having pancreatitis, but this is likely 2/2 ischemia or she is till recovering from previous injury. 7) T2DM: - Starting long acting insulin today with mild SSI - holding home meds 8) HTN: - Hold home medications Gastric tube day #4 7.5 ET tube day #4 Mcguire cath day #4 Tunneled IJ from previous admission one week ago for HD R femoral CVC day #4. Addendum - Attending - Attending Attestation Date/Time: 04/19/18 1100 I personally evaluated the patient and discussed the management with Dr. Weaver. I agree with the History, Examination, Assessment and Plan documented above with any addition or exceptions noted below. AG Metabolic Acidosis from lactic acidosis- resolved. Inbutation secondary to above. Now with what appears to be resp alkalosis- appreciate pulm recs. Hypotension- initially presumed septic shock. All cultures negative thus far and no obvious source of infection. Possible d/c meropenem if cx negative today. Off levophed. ESRD-on M,W,F dialysis schedule per nephro. Anemia- stable Extubation per pulm and goal of removing femoral catheter in the next 24 hours if peripheral access adequate.
[2018-04-19] MEDS ORDERED: Insulin Glargine 10 UNITS in Pre-Filled Syringe 1 EACH SC SCH (09:00)
[2018-04-19] MEDS: Heparin 5,000 UNITS/ML VIAL SC SCH ×3 (09:14→20:23)
[2018-04-19] MEDS: Famotidine/PF 20 mg/2ml Vial SLOW IVP SCH (09:14)
--- NOTE | 2018-04-19 09:55 | PRG ---
DATE OF SERVICE: 04/19/2018 SERVICE: Renal Medicine. SUBJECTIVE: Ms. Scott is a 78-year-old white female, who was admitted for severe metabolic acidosis. She was felt to have some infection. But so far, all the blood culture and urine culture have been negative. She is being empirically treated with IV antibiotics. It was also suspected that the metformin may have contributed to the severe metabolic acidosis. She is off of those medications. We are following her up for maintenance hemodialysis. Her metabolic acidosis is resolved. The plan is to have her extubated today. No other complaints. She can follow commands. OBJECTIVE: VITAL SIGNS: Blood pressure 107/53, heart rate 94, respiratory rate 12, temperature 98.5, and pulse ox 97%. GENERAL: Awake, alert, comfortable, not in distress, intubated on ventilator support. SKIN: Adequate turgor. HEENT: She has slightly pale conjunctivae. Anicteric sclerae. NECK: No neck mass. No carotid bruits. No JVD. CHEST: No deformities. LUNGS: Clear breath sounds. HEART: Normal sinus rhythm. No murmur. No gallops. No rubs. ABDOMEN: Globular, soft, nontender. No masses. EXTREMITIES: No edema. No deformities. MEDICATIONS: Medications of April 19, 2018, was reviewed. LABORATORY DATA: Laboratories of April 19, 2018; white count 11.9, hemoglobin 9.3. Sodium 138, potassium 3.6, chloride 98, carbon dioxide 23, BUN 16, creatinine 1.73, glucose 239, calcium 8.5, and magnesium 1.6. ASSESSMENT AND PLAN: 1. Acute kidney injury - secondary to prolonged acute tubular necrosis. Continuing three times a week hemodialysis. Urine output is noted to be minimal still. Tolerating current hemodialysis regimen. No indication for an acute dialysis today. 2. Metabolic acidosis, resolved. 3. Presumptive sepsis - on IV antibiotics. Overall, prognosis remains guarded. The patient is clinically much improved. Job ID: [id number]
[2018-04-19 09:58] LABS: Actual Bicarbonate (HCO3a) 23.7 mEq/L (22-28); Base Excess (BEa) 1.3 mEq/L (-2.0 to +3.0); CO2 Tension 29.7 mmHg (35.0-45.0); Calcium, Ionized 1.14 mmol/L (1.12-1.30); Carboxyhemoglobin (COHb) 0.6 gm% (0.0-3.0); Hemoglobin (Hb) 9.5 g/dL (12.0-16.0); O2 Tension (PaO2) 78.6 mmHg (> 70.0); Potassium - ABG Lab 3.42 mmol/L (3.70-5.30); pH, Arterial 7.52 (7.35-7.45)
[2018-04-19 10:01] LABS: Puncture Site LRA
[2018-04-19 10:02] LABS: ALV-art Gradient 34.005 (0-20)
[2018-04-19] MEDS: Meropenem 500 MG in Sodium Chloride 0.9% 100 ML IVPB SCH ×2 (10:29→22:27)
[2018-04-19] MEDS ORDERED: Propofol 1,000 MG/100 ML VIAL IV ONE (11:32)
[2018-04-19] MEDS ORDERED: Magnesium 2 GM/50 ML 2 GM in Premix Bag 1 BAG IVPB SCH (11:45)
[2018-04-19] MEDS ORDERED: Diltiazem HCl 125 MG, Admixture Fee 1 EACH in Sodium Chloride 0.9% 100 ML IVPB SCH (11:45)
[2018-04-19] MEDS ORDERED: Digoxin 0.5 MG/2 ML AMP ONE (12:29)
[2018-04-19] MEDS ORDERED: Metoprolol Tartrate 5 MG/5 ML VIAL ONE (13:06)
[2018-04-19] MEDS ORDERED: DEXTROSE IVPB SCH (13:30)
[2018-04-19] MEDS ORDERED: ADMIXTURE FEE IVPB SCH (13:30)
[2018-04-19] MEDS ORDERED: AMIODARONE IVPB SCH (13:30)
[2018-04-19] MEDS ORDERED: WATER IVPB SCH (13:30)
[2018-04-19] MEDS: Amiodarone 450 MG, Admixture Fee 1 EACH in Dextrose 5% in Water 250 ML IVPB SCH ×2 (13:51→23:09)
--- NOTE | 2018-04-19 15:14 | CON ---
DATE OF CONSULTATION: 04/19/2018 INDICATION FOR CONSULTATION: This is a 78-year-old female who was admitted with probable urosepsis, has end-stage renal disease. She is on hemodialysis 3 days a week. She has also history of diabetes, dyslipidemia, hypertension, and a history recently of acute pancreatitis. She was in the hospital due to the acute urosepsis. Today, she developed atrial flutter with a heart rate up to the 170s to 180s, almost 200 beats per minute with atrial flutter. We were asked to see her in consultation. She is on the ventilator at this time, but is somewhat awake. Sometimes the heart rate will go down to one teens when I am sitting here, but basically anywhere between 180 and 190 beats per minute. She otherwise appears to be relatively comfortable. Her blood pressure seems to be tolerating this at 121/77 at present, respiratory rate is about 16, O2 saturation about 94%. PAST MEDICAL HISTORY: Significant for: 1. End-stage renal disease. 2. She is on hemodialysis. 3. Type 2 diabetes. 4. Dyslipidemia. 5. Hypothyroidism. 6. Hypertension. 7. History of acute pancreatitis. PAST SURGICAL HISTORY: 1. She has had a C-spine repair. 2. She has had hysterectomy. 3. She has had shunts for her dialysis. 4. She has a right shunt also at this time from the right IJ or subclavian. FAMILY HISTORY: Noncontributory according to the records. SOCIAL HISTORY: According to the records, no history of alcohol or tobacco abuse or illicit drugs. ALLERGIES: NONE. PRESENT MEDICATIONS: She is presently on: 1. IV diltiazem. 2. Fentanyl. 3. Insulin. 4. Magnesium. 5. Meropenem. 6. Vasopressin as needed. 7. She is on heparin 3 times a day, 5000 units. 8. Hydrocodone q.6 hours 50 mg. 9. She is also on nebulizer treatments. 10. She is on propofol at the time at this time. 11. She gets Tylenol as needed. 12. She is on other p.r.n. medications. 13. Pancrelipase. REVIEW OF SYSTEMS: Not obtainable at this time. Please refer to the notes already dictated. Apparently, the patient has been encephalopathic as well as being on the ventilator at this time. PHYSICAL EXAMINATION: GENERAL: Reveals an elderly female, who is intubated. She is arousable. VITAL SIGNS: Her heart rate is noted above anywhere between one-teens to 190 beats per minute, blood pressure is 120/77, saturation is 100% at this time, respiratory rate is 13 on the ventilator. HEENT: Shows the head to be normocephalic and atraumatic. Carotid pulses are present without any bruits. CHEST: Clear to auscultation. CARDIOVASCULAR: Reveals a tachycardia. I do not hear any gross murmurs. ABDOMEN: Soft and nontender. Decreased bowel sounds are present. EXTREMITIES: Showed mild edema. Pedal pulses are present. NEUROLOGIC: The patient is obviously somewhat sedated, but no gross focal motor deficits. LABORATORY DATA: Showed WBC of 11.9, previously was up to 30, hemoglobin is 9.3 , hematocrit 28.4, platelet count was 220,000. Her sodium is 138, potassium 3.6, BUN is 16 with a creatinine of 1.73, but she is on dialysis. Her blood sugar is 239 today. Her blood gases last was a pH of 7.52, pCO2 of 29, pO2 of 78, O2 saturation is 96%. IMPRESSION: 1. Atrial flutter with heart rates up to 190 beats per minute. She has been on diltiazem. I attempted carotid massage without any slowing of the heart rate. She has also been given IV digoxin without evidence of slowing of the heart rate. Given the patient's overall ill status, it will be better to go ahead and cardiovert the patient to see if the Cardizem will continue to keep her. We will also ask vacuum applicator operator to see her. Most likely, she in the future will need to undergo an ablation of her atrial flutter. 2. Hypertension, this is under good control at this time. 3. History of end-stage renal disease. She will continue on dialysis. 4. History of hyperlipidemia. Once she is able to take p.o., she will be placed back on her medications. 5. Urosepsis. She will continue on her antibiotics. 6. At this time, we will plan for an electrical cardioversion of her atrial flutter back to a sinus rhythm and hopefully will be able to maintain sinus rhythm with medications. Pt. was cardioverted x 2 with 50j and 100 joules. Each time she converted bact to NSR but returned to atrial flutter.I started amiodarone and will repeat cardioversion if she continues with atrial fluter and RVR. EP consulted. She may need an ablation in the future. Job ID: [id number]
--- NOTE | 2018-04-19 17:36 | PRG ---
DATE OF SERVICE: 04/19/2018 SUBJECTIVE: Ms. Scott do well overnight and we are contemplating extubating her today, but then she developed atrial fibrillation and atrial flutter, predominantly atrial flutter. This did not improve with Cardizem and digoxin, so we elected to cardiovert her. She was sedated with 100 mg of propofol, and the cardioversion pads were placed on her. Her mechanical ventilation was switched to volume ventilation, and she was ventilated with a rate of 14. Cardioversion was successful multiple times, but she would inevitably go back into atrial flutter. She is being loaded with amiodarone at this time. OBJECTIVE: LUNGS: Clear. HEART: Regular rhythm. ABDOMEN: Soft. EXTREMITIES: Without asymmetry. LABORATORY DATA: White count 11.9, hemoglobin 9.3, platelets 220. Sodium 138, potassium 3.6, chloride 98, bicarb 23, BUN 16, and creatinine 1.73. IMPRESSION: 1. Atrial flutter. 2. Respiratory failure after presenting with severe recurrent metabolic acidosis felt to be in part at least secondary to metformin. 3. Chronic kidney disease with renal failure. She has only had 8 mL of urine recorded out since yesterday. 4. Deconditioning. 5. Respiratory failure. Once her atrial fibrillation and atrial flutter are under control, I think we can proceed toward weaning and extubation. CRITICAL CARE TIME: 30 minutes. Job ID: [id number]
--- NOTE | 2018-04-19 18:06 | CON ---
DATE OF CONSULTATION: REASON FOR CONSULTATION: Atrial flutter with RVR. HISTORY OF PRESENT ILLNESS: Ms. Scott is a 78-year-old woman with a history of end-stage renal disease, hypertension, type 2 diabetes, presented to the emergency room on 04/16/2018, for shortness of breath from the senior living. Reportedly, the shortness of breath began the day prior. She is on a Monday, , Monday schedule for dialysis. She was hypotensive in the emergency room and was started on norepinephrine drip. There was initial concern for sepsis, given some lactic acidosis, hypotension, and an elevated white blood cell count, and she was started on empiric antibiotics with Rocephin and gentamicin. While there is still some mild concern for sepsis, it is largely thought that her lactic acidosis is attributed to metformin use for her type 2 diabetes. This has since been discontinued. She is currently intubated with expected extubation later today. Unfortunately, she did go into atrial flutter with RVR and IV amiodarone has been initiated. Per her , there is no history of atrial arrhythmias or abnormal heart rhythms and this is a new finding for her. He also denies any history of GI bleed or intracranial hemorrhage or brain bleeds. The only bleeding issue that she recently had was in the urine, when she was being treated for a urinary tract infection. Ms. Scott is currently intubated and mildly sedated. She is unable to answer questions at this time. Her heart rate is rapid. She does not appear to be in any apparent distress at the moment. REVIEW OF SYSTEMS: Unable to obtain with the patient intubated. PAST MEDICAL HISTORY: Hypertension; hyperlipidemia; end-stage renal disease, on dialysis, Monday, , Monday; type 2 diabetes; hysterectomy. FAMILY HISTORY: Noncontributory. SOCIAL HISTORY: . Her denies alcohol, tobacco, or drug use to the best of his knowledge. ALLERGIES: NO KNOWN DRUG ALLERGIES. HOME MEDICATIONS: Include; 1. Metoprolol succinate 50 mg daily. 2. Cyanocobalamin daily. 3. Amlodipine 10 mg daily. 4. Levothyroxine sodium 12.5 mcg daily. 5. Glucagon as needed. 6. Glimepiride 2 mg daily. 7. Gabapentin 200 mg q.i.d. 8. Folic acid 1 mg daily. 9. Docusate sodium 100 mg p.o. b.i.d. 10. Pantoprazole 40 mg p.o. daily. 11. Meloxicam 7.5 mg daily as needed. 12. Losartan 25 mg p.o. t.i.d. 13. Metformin 1000 mg p.o. b.i.d. 14. Rosuvastatin 40 mg daily. 15. MiraLAX 17 g daily. OBJECTIVE: vital signs: Pulse 130, blood pressure 139/77, respirations 15 via ET tube/ventilator, oxygen is 100%, temperature 98.5. GENERAL: The patient is mildly sedated, intubated, on the ventilator. NECK: Supple without jugular venous distention. LUNGS: Clear to auscultation. HEART: Heart rate is rapid, but regular. PMI is nondisplaced. ABDOMEN: Soft, obese. EXTREMITIES: Warm and dry to touch without clubbing or cyanosis. NEUROLOGIC: Could not be performed with this sedation. DATABASE: Laboratory: Hemoglobin 9.3, WBC 11.9. Potassium 3.6, creatinine 1.73, magnesium is 1.6 Telemetry and EKGs are personally reviewed. Currently, the patient is in what appears to be CTI dependent typical atrial flutter with a rapid ventricular rate of 140 beats per minute. IMPRESSION: 1. Newly diagnosed persisting typical atrial flutter with RVR and difficult to rate control. 2. Likely urosepsis. 3. Recent metabolic acidosis, attributed to metformin. 4. End-stage renal disease, on dialysis, Monday, , Monday. 5. Hypomagnesemia. 6. Hypokalemia. 7. Anemia of chronic disease. 8. Type 2 diabetes. RECOMMENDATIONS AND PLAN: Continue with IV amiodarone drip that was just initiated for both rate control and arrhythmia suppression. We will use beta-blockers as needed and as blood pressure tolerates. Ultimately with a typical atrial flutter, our recommendation is to move forward with a CTI ablation once she is medically stable. We will continue to monitor her through her hospital stay. Ablation can either be performed once out of the ICU and before discharge or alternately as an outpatient as well. She will require anticoagulation, we will recommend either a heparin drip or subcutaneous Lovenox for right now, but eventually, she will require transition into oral anticoagulation. Also recommend replacing her magnesium to at least 2.0 and potassium to a goal of 4.0. Thank you for allowing us to participate in the care of this patient. We will continue to follow through her stay. Job ID: [id number]
[2018-04-19] MEDS: Morphine 2 MG/ML SYRINGE SLOW IVP PRN (21:51)
[2018-04-19] MEDS: Propofol 1,000 MG/100 ML VIAL IV PRN (21:52)
[2018-04-20] MEDS: Hydrocortisone Sod Succ/PF 100 mg/2 ml Vial IVP SCH (04:08)
[2018-04-20] MEDS: HumaLOG 300 UNITS/3 ML VIAL SC PRN (04:18)
[2018-04-20] MEDS: Levothyroxine Sodium 25 MCG TAB PO SCH (06:10)
--- NOTE | 2018-04-20 06:35 | PDOC.FM ---
- Subjective Subjective: Alisa Scott is a 78 year old F with a PMH of ESRD on HD, HTN, and T2DM admitted 04/16/18 for severe anion gap metabolic acidosis and possible septic shock. She developed acute respiratory failure upon admission and required intubation. Extubated this morning. Yesterday, 04/19, she went into atrial flutter. Failed treatment with Dilt bolus and ggt, Digoxin, and Metoprolol. Dr. Purcell and Elsy were consulted. She is s/p Cardioversion X2, started on Amiodarone ggt which she continues to be on. She converted to NSR not long after starting on Amio ggt. She has not required any levophed ggt over the last 24 hours. She is on MWF HD. There were no acute events overnight. Gastric tube day #5, 7.5 ET tube day #5-removed, mcguire cath day #5, Tunneled IJ from previous admission one week ago for HD, R femoral CVC day #5. Empirically covered with Meropenem, she received gentamicin and rocephin in the ED and zosyn one day on the floor. S/p 2 U pRBC with first round on HD on 04/16. Blood and urine cultures have shown no growth to date. Dr. Sosa, Dr. Keller, Dr. Purcell, and Dr. Chin consulted. - Objective MAR Reviewed: Yes Vital Signs & Weight: Vital Signs (12 hours) Temp Pulse Resp Pulse Ox 04/20/18 04:00 98.2 F 04/20/18 02:42 77 04/20/18 00:16 77 14 100 04/20/18 00:00 98.2 F 04/19/18 22:21 72 04/19/18 20:00 98.0 F 14 100 04/19/18 19:00 72 04/19/18 18:59 75 15 100 Weight Admit Weight 77.111 kg Weight 77.1 kg Most Recent Monitor Data Heart Rate from ECG 68 NIBP 147/63 NIBP BP-Mean 91 Respiration from ECG 23 SpO2 100 I&O: 04/18/18 04/19/18 04/20/18 06:59 06:59 06:59 Intake Total 1900 1325.12 1327.3 Output Total 80 8 114 Balance 1820 1317.12 1213.3 Result Diagrams: 04/20/18 08:15 04/20/18 08:15 Radiology Reviewed by me: Yes Phys Exam - Physical Examination Constitutional: NAD HEENT: moist MMs, sclera anicteric Neck: no JVD, supple Respiratory: no wheezing, no rales, no rhonchi, clear to auscultation bilateral Cardiovascular: RRR, no significant murmur Gastrointestinal: soft, no distention, positive bowel sounds Musculoskeletal: edema present 2+ pitting edema in LE b/l Neurological: moves all 4 limbs Skin: no rash, cap refill <2 seconds Dx/Plan (1) Acute respiratory failure Code(s): J96.00 - ACUTE RESPIRATORY FAILURE, UNSP W HYPOXIA OR HYPERCAPNIA Status: Acute (2) Increased anion gap metabolic acidosis Code(s): E87.2 - ACIDOSIS Status: Resolved (3) Atrial flutter with rapid ventricular response Code(s): I48.92 - UNSPECIFIED ATRIAL FLUTTER Status: Resolved (4) Septic shock Code(s): A41.9 - SEPSIS, UNSPECIFIED ORGANISM; R65.21 - SEVERE SEPSIS WITH SEPTIC SHOCK Status: Acute (5) Anemia Code(s): D64.9 - ANEMIA, UNSPECIFIED Status: Acute (6) Hypothermia Code(s): T68.XXXA - HYPOTHERMIA, INITIAL ENCOUNTER Status: Resolved (7) NELI (acute kidney injury) Code(s): N17.9 - ACUTE KIDNEY FAILURE, UNSPECIFIED Status: Acute (8) ESRD needing dialysis Code(s): N18.6 - END STAGE RENAL DISEASE; Z99.2 - DEPENDENCE ON RENAL DIALYSIS Status: Chronic (9) DMII (diabetes mellitus, type 2) Status: Chronic (10) HTN (hypertension) Code(s): I10 - ESSENTIAL (PRIMARY) HYPERTENSION Status: Chronic - Plan Plan: 1) Severe Metabolic Acidosis: improving - pH 6.8 on arrival to the floor while patient was on BiPAP - likely secondary to lactic acidosis from metformin use - Dr. Sosa consulted, will continue MWF HD - Dr. Keller consulted for CCU management, potential extubation today 2) Acute Respiratory failure: 03/24 #1, resolved - Most recent ABG: (04/20) pH: 7.50, PO2: 95.0, PCO2 31.5 - Extubated this morning 3) Atrial Flutter: resolved - went into Atrial Flutter at 1130 on 04/19/18 - Dr. Purcell consulted - given Dilt ggt, Digoxin IVP, and metoprolol IVP and remained in Atrial Flutter - Cardioversion X2 (50 J and 100 J), went immediately into NSR and spontaneously returned to A flutter - Started on Amiodarone ggt, has been in NSR since that time - Dr. Chin consulted, possible CTI ablation this hospitalization - starting home metoprolol today 4) Septic Shock: less likely - Initial suspicion based on lab work is suspicious for urine as the source - Elevated WBC, hypothermic, elevated Lactic acid. No growth to date on blood and urine cx - Weaned off levophed on 04/19/18 at 0200, vasopressin weaned off on 04/17/18 - Discontinuing Antiobiotics this morning (04/20) - Lactic acid has downtrended from 18.7 to 1.3, WBC count trending down, now normal 3) Hypothermia: resolved - Required warming device initially with ICU temp was 92 - Most recent temp was 98.2 4) NELI on CKD4 requiring HD: - Dr Sosa consulted. Patient underwent HD (04/16, 04/17, 04/18) - Hold nephrotoxic medications, especially on discharge - Pt remains anuric, <50 ml output over the last 24 hours - Continue MWF HD 5) Anemia: - H/H 6.4/22 on admission - s/p 2 U pRBCs during HD last night, currently Hemoglobin is 9.3 - Possibly 2/2 Renal disease vs chronic disease. Noted macrocytic. B12 and folate levels were normal. 6) Elevated Lipase: - Recent pancreatitis so at high risk of having pancreatitis, but this is likely 2/2 ischemia or she is till recovering from previous injury. 7) T2DM: - Started long acting insulin 04/19 with mild SSI - holding home meds 8) HTN: - Hold home medications Gastric tube day #5 7.5 ET tube day #5 Mcguire cath day #5 Tunneled IJ from previous admission one week ago for HD R femoral CVC day #5. Addendum - Attending - Attending Attestation Date/Time: 04/20/18 1140 I personally evaluated the patient and discussed the management with Dr. Harden I agree with the History, Examination, Assessment and Plan documented above with any addition or exceptions noted below. Severe metabolic acidose requiring intubation- resolved. s/p extubation this morning. ESRD- dialysis M, W, F Aflutter with RVR- on amiodarone gtt and HR stable. Appreciate cards/EP recs. T2DM- long acting plus SSI
[2018-04-20] MEDS: Propofol 1,000 MG/100 ML VIAL IV PRN (06:37)
[2018-04-20 08:04] LABS: Actual Bicarbonate (HCO3a) 24.2 mEq/L (22-28); Base Excess (BEa) 1.4 mEq/L (-2.0 to +3.0); CO2 Tension 31.5 mmHg (35.0-45.0); Calcium, Ionized 1.12 mmol/L (1.12-1.30); Hemoglobin (Hb) 9.6 g/dL (12.0-16.0); Potassium - ABG Lab 3.59 mmol/L (3.70-5.30)
[2018-04-20 08:07] LABS: Puncture Site RRA
[2018-04-20 08:08] LABS: ALV-art Gradient 79.525 (0-20)
--- NOTE | 2018-04-20 08:28 | PDOC.CTH ---
Cardiology Progress Note - Subjective The pt seen and examined. No overnight events. No cardiac complaints. Off sedation now for possible extubation today, She is alerted and can follow commands. - Objective Vital Signs Temp Pulse Resp BP Pulse Ox 04/20/18 08:00 98.6 F 16 04/20/18 07:53 77 154/73 H 04/20/18 04:00 98.2 F 04/20/18 02:42 77 04/20/18 00:16 77 14 100 04/20/18 00:00 98.2 F 04/19/18 22:21 72 Admit Weight 170 lb Weight 169 lb 15.622 oz 04/19/18 04/20/18 04/21/18 06:59 06:59 06:59 Intake Total 1325.12 1327.3 Output Total 8 114 Balance 1317.12 1213.3 - Physical Examination General/Neuro: alert & oriented x3 Neck: no JVD present Lungs: other: (diminished at bases) Heart: RRR Abdomen: soft Extremities: other: (generalized edema) - Telemetry Telemetry Rhythm: SR - Labs Result Diagrams: 04/20/18 08:15 04/20/18 08:15 Troponin/CKMB Troponin I Less than 0.010 ng/mL (< 0.028) 04/16/18 15:12 - Assessment/Plan 1. Aflutter with RVR with s/p Cardioversion X2 on 04/19/2018 - remains in SR with Amiodrane drip, which will changed to PO once the pt can tolerate PO meds. On Heparin subq; may start BBlocker. 2. Urosepsis - managed by PCP 3. HTN - stable 4. ESRD with HD on , Mon - managed by central supply worker (Dr Sosa) 5. DM type 2 - managed by PCP 6. Hypothyroidism - 7. Anemia with s/p 2 PRBCs - stable; 8. Hyperlipidemia - 9. Hypomagnesemia - recheck this AM. MAR reviewed Pt. seen and eval. by me. I agree with the A/P by the SOCIAL SECURITY ASSESSOR. No c/o's today from a cardiac standpoint. When taking po then change IV amiodarone to PO. Chest clear anteriorly. RRR. Pt. on dialysis at this time. Review of Systems - Review of Systems Constitutional: reports: see HPI
--- NOTE | 2018-04-20 08:49 | RAD ---
SINGLE VIEW OF THE CHEST: COMPARISON: 04/18/2018. HISTORY: Ventilated patient with respiratory failure. FINDINGS: A single view of the chest shows an enlarged but stable cardiomediastinal silhouette. The lines and tubes are unchanged in position. Atelectasis is seen in the left lung base. IMPRESSION: Stable exam. POS: RITO
[2018-04-20 08:58] LABS: #Lymphocytes 1.7 thou/uL (1.20-3.40); #Monocytes 1.2 thou/uL (0.11-0.59); #Neutrophils 7.6 thou/uL (1.40-6.50); %Basophils 0.1 % (0.0-1.0); %Eosinophils 0.1 % (0.0-10.0); %Lymphocytes 16.5 % (21.0-51.0); %Neutrophils 72.3 % (42.0-75.0); Hemoglobin 9.2 g/dL (12.0-16.0); Mean Corpuscular HGB CONC 33.1 g/dL (32.0-36.0); Mean Corpuscular Hemoglobin 31.5 pg (27.0-31.0); Mean Corpuscular Volume 95.1 fL (78.0-98.0); Mean Platelet Volume 8.2 fL (7.4-10.4); Platelet Count 229 thou/uL (130-400); RBC Distribution Width 13.4 % (11.5-14.5); Red Blood Cell (RBC) Count 2.92 mill/uL (4.20-5.40); White Blood Cell (WBC) Count 10.5 thou/uL (4.8-10.8)
[2018-04-20 09:24] LABS: Anion Gap 18 mmol/L (10-20); BUN (Urea Nitrogen) 30 mg/dL (9.8-20.1); Calc. Creatinine Clearance 22 mL/min (70-130); Calcium 8.5 mg/dL (7.8-10.44); Carbon Dioxide 25 mmol/L (23-31); Chloride 96 mmol/L (98-107); Estimated GFR-MDRD 17; Glucose 182 mg/dL (83-110); Magnesium 2.4 mg/dL (1.6-2.6); Potassium 3.7 mmol/L (3.5-5.1); Sodium 135 mmol/L (136-145)
[2018-04-20] MEDS: Famotidine/PF 20 mg/2ml Vial SLOW IVP SCH (09:27)
[2018-04-20] MEDS: Heparin 5,000 UNITS/ML VIAL SC SCH ×3 (09:28→21:54)
[2018-04-20] MEDS: methylPREDNISolone Sod Succ 40 MG VIAL IVP SCH (09:28)
[2018-04-20] MEDS: Insulin Glargine 13 UNITS in Pre-Filled Syringe 1 EACH SC SCH (09:39)
--- NOTE | 2018-04-20 09:51 | PRG ---
DATE OF SERVICE: 04/20/2018 SUBJECTIVE: Ms. Scott is in no distress. She is awake and alert. She moves all extremities equally. She is afebrile. Respiratory rate was in the teens. Blood pressure is 153/76. Her ventilatory support was decreased this morning. She has passed spontaneous breathing trial. She did not have a leak, but since she had been on steroids since admission, I felt the chances of her having vocal cord edema was extremely small, so we subsequently extubated with the bronchoscope in the room. She had no postextubation stridor. OBJECTIVE: LUNGS: Clear. HEART: Regular rhythm. S1 and S2 are normal. ABDOMEN: Soft. EXTREMITIES: Without asymmetry. LABORATORY DATA: Chest radiograph is clear. White count 10.5, hemoglobin 9.2, and platelets 229. Sodium 138, potassium 3.6, chloride 98, bicarb 23, BUN 16, and creatinine 1.73. A pH 7.5, CO2 of 31, and pO2 of 95. IMPRESSION: 1. Respiratory failure, status post intubation for severe metabolic acidosis, felt to be secondary to lactic acid secondary to metformin. 2. Chronic kidney disease, requiring dialysis now. 3. Extreme deconditioning. 4. Hypertension. 5. Diabetes. 6. History of lipid disorder. 7. Atrial flutter yesterday, status post cardioversion 3 times, she went back into atrial flutter, but eventually has converted with amiodarone. She is clinically stable at this point in time. I do not feel she was septic when she was admitted. I think this was all appear acid-base disorder that was medication induced. All of her cultures are negative, so we stopped her antimicrobial therapy and decreased her steroid dosing. CRITICAL CARE TIME: 30 minutes. Job ID: [id number]
[2018-04-20] MEDS: Amiodarone 450 MG, Admixture Fee 1 EACH in Dextrose 5% in Water 250 ML IVPB SCH (13:50)
--- NOTE | 2018-04-20 14:36 | PDOC.CTH ---
Cardiology Progress Note - Subjective EP PROGRESS NOTE: 04/20/18 Seen as follow up for atrial flutter. Remains on amiodarone gtt at 0.5mg dose. Extubated. Weak voice. Feel weak but denies any cardiac complaints today. - Objective Vital Signs Temp Pulse Resp BP Pulse Ox 04/20/18 12:38 80 19 04/20/18 12:00 98.5 F 04/20/18 08:00 98.6 F 16 100 04/20/18 07:53 77 154/73 H 04/20/18 04:00 98.2 F 04/20/18 02:42 77 Admit Weight 170 lb Weight 169 lb 15.622 oz 04/19/18 04/20/18 04/21/18 06:59 06:59 06:59 Intake Total 1325.12 1327.3 11 Output Total 8 114 5 Balance 1317.12 1213.3 6 - Physical Examination General/Neuro: alert & oriented x3, NAD Neck: carotid US brisk, no JVD present Lungs: CTA, unlabored respirations Heart: PMI normal, RRR Abdomen: NT/ND, soft - Telemetry Telemetry Rhythm: SR - Labs Result Diagrams: 04/20/18 08:15 04/20/18 08:15 Troponin/CKMB Troponin I Less than 0.010 ng/mL (< 0.028) 04/16/18 15:12 - Assessment/Plan 1. Atrial flutter, CTI dependent - newly diagnosed - Amiodarone gtt 0.5mg - currently in SR - recommend anticoagulation with Lovenox for now and plan for 30 day lovenox or NOAC therapy after ablation. 2. Lactic acidosis - attributed to metformin use 3. Urosepsis Currently in sinus rhythm. Discussed treatment options with yesterday and patient today now that she is extubated. Possible CTI ablation Monday if medical issues are stable and patient is agreeable. Will see again Monday to re-assess.
[2018-04-20] MEDS ORDERED: Heparin 10,000 UNITS/ 10 ML VIAL ONE (15:00)
--- NOTE | 2018-04-20 19:46 | PRG ---
DATE OF SERVICE: 04/20/2018 SERVICE: Renal Medicine. SUBJECTIVE: Ms. Scott is a 78-year-old white female with known history of acute kidney injury, secondary to prolonged ATN. Currently, on maintenance hemodialysis. We were currently dialyzing this patient and doing fluid removal. She did develop atrial flutter and amiodarone has been started. She is currently in normal sinus rhythm. Dr. Chin has evaluated this patient. Possible CTI ablation therapy Monday was planned. No other complaints. The patient is extubated. OBJECTIVE: VITAL SIGNS: Blood pressure 112/62, heart rate 75, respiratory rate 18, and O2 saturation 98%. GENERAL: Awake, alert, and comfortable, not in distress. SKIN: Adequate turgor. HEENT: Slightly pale conjunctivae. Anicteric sclerae. No neck mass. No carotid bruits. No JVD. CHEST: No deformities. LUNGS: Clear breath sounds. HEART: Normal sinus rhythm. No murmurs, gallops, or rubs. ABDOMEN: Globular, soft, nontender. No masses. EXTREMITIES: No edema. No deformities. MEDICATIONS: Medications of April 20, 2018 were reviewed. LABORATORY DATA: Laboratories of April 20, 2018 were reviewed and it showed following. Sodium 135, potassium 3.7, chloride 96, carbon dioxide 25, BUN 30, creatinine 2.68. White count 10.5, hemoglobin 9.2. ASSESSMENT AND PLAN: 1. Acute kidney injury/prolonged acute tubular necrosis-no evidence of renal recovery, continuing 3 times a week hemodialysis with this patient. Fluid removal only as tolerated. 2. Atrial flutter-the patient is currently in normal sinus rhythm, status post Cardizem. Currently, on amiodarone drip. Dr. Chin has evaluated the patient for a possible ablation therapy this coming Monday. 3. Anemia. Continue to observe. 4. Metabolic acidosis, resolved. Drug-induced? The patient was also treated for a possible empiric sepsis. Overall prognosis remains guarded. Job ID: [id number]
[2018-04-20] MEDS ORDERED: Rosuvastatin 20 MG TAB PO SCH (21:00)
[2018-04-21] MEDS: Amiodarone 450 MG, Admixture Fee 1 EACH in Dextrose 5% in Water 250 ML IVPB SCH (05:50)
[2018-04-21] MEDS: Levothyroxine Sodium 25 MCG TAB PO SCH (05:51)
--- NOTE | 2018-04-21 05:58 | PDOC.FM ---
- Subjective Subjective: Alisa Scott seen at bedside this morning. She is doing well, she has no complaints. No acute events overnight, BPs were stable and WNL off levophed ggt. HR remained in NSR on Amiodarone ggt. Denies any fever, chills, chest pain, dyspnea, abdominal pain, n/v. - Objective MAR Reviewed: Yes Vital Signs & Weight: Vital Signs (12 hours) Temp Pulse Resp Pulse Ox 04/21/18 04:00 98.4 F 04/21/18 00:21 80 17 100 04/21/18 00:00 98.7 F 04/20/18 20:00 98.5 F 97 04/20/18 18:43 75 18 98 Weight Admit Weight 77.111 kg Weight 77.1 kg Most Recent Monitor Data Heart Rate from ECG 75 NIBP 132/68 NIBP BP-Mean 89 Respiration from ECG 10 SpO2 97 I&O: 04/19/18 04/20/18 04/21/18 06:59 06:59 06:59 Intake Total 1325.12 1327.3 594 Output Total 8 114 5 Balance 1317.12 1213.3 589 Result Diagrams: 04/21/18 07:12 04/21/18 07:12 Radiology Reviewed by me: Yes Phys Exam - Physical Examination Constitutional: NAD HEENT: moist MMs, sclera anicteric Neck: supple, full ROM Respiratory: no wheezing, no rales, no rhonchi, clear to auscultation bilateral Cardiovascular: RRR, no significant murmur Gastrointestinal: soft, non-tender, no distention, positive bowel sounds Musculoskeletal: pulses present, edema present Neurological: non-focal, normal sensation, moves all 4 limbs Psychiatric: normal affect, A&O x 3 Skin: no rash, cap refill <2 seconds Dx/Plan (1) Acute respiratory failure Code(s): J96.00 - ACUTE RESPIRATORY FAILURE, UNSP W HYPOXIA OR HYPERCAPNIA Status: Resolved (2) Increased anion gap metabolic acidosis Code(s): E87.2 - ACIDOSIS Status: Resolved (3) Atrial flutter with rapid ventricular response Code(s): I48.92 - UNSPECIFIED ATRIAL FLUTTER Status: Resolved (4) Anemia Code(s): D64.9 - ANEMIA, UNSPECIFIED Status: Chronic (5) Hypothermia Code(s): T68.XXXA - HYPOTHERMIA, INITIAL ENCOUNTER Status: Resolved (6) NELI (acute kidney injury) Code(s): N17.9 - ACUTE KIDNEY FAILURE, UNSPECIFIED Status: Acute (7) ESRD needing dialysis Code(s): N18.6 - END STAGE RENAL DISEASE; Z99.2 - DEPENDENCE ON RENAL DIALYSIS Status: Chronic (8) DMII (diabetes mellitus, type 2) Status: Chronic (9) HTN (hypertension) Code(s): I10 - ESSENTIAL (PRIMARY) HYPERTENSION Status: Chronic - Plan Plan: 1) Severe Metabolic Acidosis: resolved - pH 6.8 on arrival to the floor - likely secondary to lactic acidosis from metformin use - Dr. Sosa and Dr. Keller consulted - Extubated 04/20/18 2) Acute Respiratory failure: 03/24 #1, resolved - Most recent ABG: (04/20) pH: 7.50, PO2: 95.0, PCO2 31.5 - Extubated 04/20/18 - Stable from respiratory standpoint since extubation 3) Atrial Flutter: resolved - went into Atrial Flutter at 1130 on 04/19/18 - Dr. Purcell consulted - given Dilt ggt, Digoxin IVP, and metoprolol IVP and remained in Atrial Flutter - Cardioversion X2 (50 J and 100 J), went immediately into NSR and spontaneously returned to A flutter - Started on Amiodarone ggt, has been in NSR since that time - Dr. Chin consulted, possible CTI ablation Monday if remains medical stable - continue metoprolol and amiodarone - heparin for VTE ppx 4) Septic Shock: less likely - Initial suspicion based on lab work is suspicious for urine as the source - Elevated WBC, hypothermic, elevated Lactic acid. 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 Patient underwent HD (04/16, 04/17, 04/18) - Hold nephrotoxic medications, especially on discharge - Pt remains anuric, <50 ml output over the last 24 hours - Continue MWF HD 5) Anemia: - H/H 6.4/ on admission - s/p 2 U pRBCs during HD last night, currently Hemoglobin is 9.3 - Possibly 2/2 Renal disease vs chronic disease. Noted macrocytic. B12 and folate levels were normal. 6) Elevated Lipase: - Recent pancreatitis so at high risk of having pancreatitis, but this is likely 2/2 ischemia or she is till recovering from previous injury. 7) T2DM: - Started long acting insulin 04/19 with mild SSI - holding home meds 8) HTN: - Hold home medications Gastric tube day 04/16-04/20 7.5 ET tube day 04/16-04/20 Forrest cath day #6 Tunneled IJ from previous admission one week ago for HD R femoral CVC day #6. Addendum - Attending - Attending Attestation Date/Time: 04/21/18 8538 I personally evaluated the patient and discussed the management with Dr. Weaver. I agree with the History, Examination, Assessment and Plan documented above with any addition or exceptions noted below. Patient is feeling well today. She remains on amiodarone. Will transition to the floor.
[2018-04-21 07:42] LABS: #Basophils 0.1 thou/uL (0.0-0.2); #Lymphocytes 2.9 thou/uL (1.20-3.40); #Monocytes 1.3 thou/uL (0.11-0.59); #Neutrophils 6.9 thou/uL (1.40-6.50); %Basophils 0.5 % (0.0-1.0); %Eosinophils 0.4 % (0.0-10.0); %Lymphocytes 25.9 % (21.0-51.0); %Monocytes 11.8 % (0.0-10.0); %Neutrophils 61.4 % (42.0-75.0); Hemoglobin 9.3 g/dL (12.0-16.0); Mean Corpuscular HGB CONC 33.1 g/dL (32.0-36.0); Mean Corpuscular Hemoglobin 31.7 pg (27.0-31.0); Mean Platelet Volume 8.1 fL (7.4-10.4); Platelet Count 235 thou/uL (130-400); RBC Distribution Width 13.3 % (11.5-14.5); Red Blood Cell (RBC) Count 2.91 mill/uL (4.20-5.40); White Blood Cell (WBC) Count 11.2 thou/uL (4.8-10.8)
[2018-04-21 08:02] LABS: Anion Gap 14 mmol/L (10-20); BUN (Urea Nitrogen) 19 mg/dL (9.8-20.1); Calc. Creatinine Clearance 29 mL/min (70-130); Calcium 8.6 mg/dL (7.8-10.44); Carbon Dioxide 26 mmol/L (23-31); Chloride 100 mmol/L (98-107); Estimated GFR-MDRD 24; Glucose 98 mg/dL (83-110); Magnesium 1.7 mg/dL (1.6-2.6); Potassium 3.6 mmol/L (3.5-5.1); Sodium 136 mmol/L (136-145)
[2018-04-21] MEDS: Heparin 5,000 UNITS/ML VIAL SC SCH ×3 (09:19→20:39)
[2018-04-21] MEDS: methylPREDNISolone Sod Succ 40 MG VIAL IVP SCH (09:19)
[2018-04-21] MEDS: Famotidine/PF 20 mg/2ml Vial SLOW IVP SCH (09:20)
[2018-04-21] MEDS: Insulin Glargine 13 UNITS in Pre-Filled Syringe 1 EACH SC SCH (09:22)
--- NOTE | 2018-04-21 11:45 | PRG ---
DATE OF SERVICE: 04/21/2018 SERVICE: Renal Medicine. SUBJECTIVE: Ms. Scott is a 78-year-old white female with acute kidney injury secondary to prolonged ATN, currently on maintenance hemodialysis. She was initially admitted due to hypotension and severe metabolic acidosis. She underwent emergent hemodialysis at that time. She was also empirically treated for possible sepsis. In the interim, she developed atrial flutter. She is currently on IV amiodarone and she is in normal sinus rhythm. Dr. Chin has evaluated the patient. The possibility of cardiac ablation is being considered. No other complaints today. The patient denies any chest pain or shortness of breath. OBJECTIVE: VITAL SIGNS: Blood pressure 135/62, heart rate 78, respiratory rate 18, pulse ox 97%. GENERAL: Awake, alert, comfortable, not in distress. SKIN: Adequate turgor. HEENT: Pinkish conjunctivae. Anicteric sclerae. NECK: No neck mass. No carotid bruits. No JVD. CHEST: No deformities. LUNGS: Decreased breath sounds. HEART: Normal sinus rhythm. No murmur. No gallops, or rubs. ABDOMEN: Globular, soft, nontender, no masses. EXTREMITIES: No edema. No deformities. MEDICATIONS: Of April 21, 2018, reviewed. LABORATORY DATA: Of April 21, 2018, white count 11.2, hemoglobin 9.3. Sodium 136, potassium 3.6, chloride 100, carbon dioxide 26, BUN 19, creatinine 2, glucose 98, calcium 8.6, phosphorus 2.0. ASSESSMENT AND PLAN: 1. Acute kidney injury secondary to prolonged ATN, continue current 3 times a week hemodialysis. No indication for any emergent dialysis today. 2. Metabolic acidosis, resolved. Off metformin, off antibiotics. 3. Atrial flutter-currently in normal sinus rhythm. Cardiology is following. Currently, on IV amiodarone. Case discussed at length with the patient and her . Job ID: [id number]
[2018-04-21] MEDS ORDERED: Insulin Glargine 11 UNITS in Pre-Filled Syringe 1 EACH SC SCH (12:30)
--- NOTE | 2018-04-21 12:35 | PRG ---
DATE OF SERVICE: 04/21/2018 SERVICE: Pulmonary Medicine. INTERVAL HISTORY: The patient is doing fine from respiratory standpoint. She is breathing comfortably. She does not have any complaints of nausea, vomiting, chest pain, fevers, or chills. Otherwise, there has been normal change to her condition. She is tolerating p.o. She is yet to be out of bed. PHYSICAL EXAMINATION: VITAL SIGNS: Afebrile, pulse 75, blood pressure 130/78, respirations 16, saturation 95% on 2 L nasal cannula. GENERAL: The patient is awake and alert, in no apparent distress. LUNGS: Excellent air entry with no prolonged expiratory phase. Dependent crackles are noted. No wheezing or rhonchi appreciated. HEART: Normal rate regular. ABDOMEN: Soft, nontender, nondistended. Bowel sounds are positive. MUSCULOSKELETAL: No cyanosis or clubbing. No pitting in the bilateral lower extremities. NEUROLOGIC: Grossly nonfocal. LABORATORY DATA: WBCs 11.2, hemoglobin 9.3, platelets 235,000. INR 2.3. Creatinine 2.0. Basic metabolic profile is otherwise unremarkable. Magnesium and phosphorous are at the lower limits of normal. Urine culture and blood culture x2 are otherwise unremarkable. IMAGING: Echocardiogram demonstrates normal ejection fraction. Mild valvular abnormalities are noted. There is a trivial pericardial effusion. It is not causing any tamponade physiology. ASSESSMENT: 1. Shock secondary to horrendous acidosis. 2. Anion gap metabolic acidosis, resolved. 3. Acute kidney injury, currently on hemodialysis. 4. Anemia. DISCUSSION AND PLAN: The patient is doing fine from respiratory standpoint. I do not see any evidence of infection over the last 5 days. She has been on empiric antibiotics. All of these will be interrupted. All IV medications will be strict transitioned over to p.o. We will mobilize the patient, and involve Physical therapy. From my perspective, she is stable for transition out of the ICU to the telemetry unit. The atrial fibrillation was previously in the setting of severe electrolyte derangements. The need for long-term medications will further be considered by cardiology going forward. Critical Care will continue to follow. Job ID: [id number]
[2018-04-21] MEDS: Dextrose 50% Abboject 50 ML SYRINGE SLOW IVP PRN (18:15)
[2018-04-21] MEDS: Rosuvastatin 10 MG TAB PO SCH (20:39)
[2018-04-21] MEDS: Amiodarone 200 MG TAB PO SCH (20:39)
[2018-04-22] MEDS: Dextrose 50% Abboject 50 ML SYRINGE SLOW IVP PRN (04:35)
--- NOTE | 2018-04-22 05:38 | PDOC.FM ---
- Subjective Subjective: Alisa Scott seen at bedside this morning. She is doing well from a respiratory standpoint and there have been no episodes of atrial flutter since being started on amiodarone. She was switched to PO amio on 04/21. She has no complaints this morning and there were no acute events overnight. Denies fever , chills, chest pain, dyspnea, n/v, abdominal pain. - Objective MAR Reviewed: Yes Vital Signs & Weight: Vital Signs (12 hours) Temp Pulse Resp Pulse Ox 04/22/18 04:00 96 04/22/18 01:31 97 04/22/18 00:00 98 F 04/21/18 20:00 98.6 F 98 04/21/18 18:57 74 17 93 L Weight Admit Weight 77.111 kg Weight 78 kg Most Recent Monitor Data Heart Rate from ECG 58 NIBP 114/56 NIBP BP-Mean 75 Respiration from ECG 1 SpO2 96 I&O: 04/20/18 04/21/18 04/22/18 06:59 06:59 06:59 Intake Total 1327.3 917 1307 Output Total 114 5 10 Balance 1213.3 912 1297 Result Diagrams: 04/22/18 09:30 04/22/18 09:29 Phys Exam - Physical Examination Constitutional: NAD HEENT: moist MMs, sclera anicteric Neck: supple, full ROM Respiratory: no wheezing, no rales, no rhonchi, clear to auscultation bilateral Cardiovascular: RRR, no significant murmur Gastrointestinal: soft, non-tender, no distention Musculoskeletal: pulses present, edema present Neurological: non-focal, normal sensation, moves all 4 limbs Psychiatric: A&O x 3 Deviation from normal: slowed speech Skin: no rash, cap refill <2 seconds Dx/Plan (1) Acute respiratory failure Code(s): J96.00 - ACUTE RESPIRATORY FAILURE, UNSP W HYPOXIA OR HYPERCAPNIA Status: Resolved (2) Increased anion gap metabolic acidosis Code(s): E87.2 - ACIDOSIS Status: Resolved (3) Atrial flutter with rapid ventricular response Code(s): I48.92 - UNSPECIFIED ATRIAL FLUTTER Status: Resolved (4) Anemia Code(s): D64.9 - ANEMIA, UNSPECIFIED Status: Chronic (5) Hypothermia Code(s): T68.XXXA - HYPOTHERMIA, INITIAL ENCOUNTER Status: Resolved (6) NELI (acute kidney injury) Code(s): N17.9 - ACUTE KIDNEY FAILURE, UNSPECIFIED Status: Acute (7) ESRD needing dialysis Code(s): N18.6 - END STAGE RENAL DISEASE; Z99.2 - DEPENDENCE ON RENAL DIALYSIS Status: Chronic (8) DMII (diabetes mellitus, type 2) Status: Chronic (9) HTN (hypertension) Code(s): I10 - ESSENTIAL (PRIMARY) HYPERTENSION Status: Chronic - Plan Plan: 1) Severe Metabolic Acidosis: resolved - pH 6.8 on arrival to the floor - likely secondary to lactic acidosis from metformin use - Dr. Sosa and Dr. Keller consulted - Extubated 04/20/18 2) Acute Respiratory failure: 03/24 #1, resolved - Most recent ABG: (04/20) pH: 7.50, PO2: 95.0, PCO2 31.5 - Extubated 04/20/18 - Stable from respiratory standpoint since extubation 3) Atrial Flutter: resolved - went into Atrial Flutter at 1130 on 04/19/18 - Dr. Purcell consulted - given Dilt ggt, Digoxin IVP, and metoprolol IVP and remained in Atrial Flutter - Cardioversion X2 (50 J and 100 J), went immediately into NSR and spontaneously returned to A flutter - Started on Amiodarone ggt, has been in NSR since that time - Dr. Chin consulted, possible CTI ablation Monday if remains medical stable - Amio switched to PO, continue Amio and Metoprolol - heparin for VTE ppx 4) Hypothermia: resolved - Required warming device initially with ICU temp was 92 - Most recent temp was 98.2 5) NELI on CKD4 requiring HD: - Dr Sosa consulted. Patient underwent HD (04/16, 04/17, 04/18) - Hold nephrotoxic medications, especially on discharge - Pt remains anuric, <50 ml output over the last 24 hours - Continue MWF HD 6) Anemia: - H/H 6.4/22 on admission - s/p 2 U pRBCs during HD last night, currently Hemoglobin is stable - Possibly 2/2 Renal disease vs chronic disease. Noted macrocytic. B12 and folate levels were normal. 7) T2DM: - Started long acting insulin 04/19 with mild SSI - holding home meds - Episode of hypoglycemia /, decreased long acting insulin 8) HTN: - Hold home medications Gastric tube day 04/16-04/20 7.5 ET tube day 04/16-04/20 Tunneled IJ from previous admission one week ago for HD R femoral CVC day 04/16-04/21 Addendum - Attending - Attending Attestation Date/Time: 04/22/18 9415 I personally evaluated the patient and discussed the management with Dr. Weaver. I agree with the History, Examination, Assessment and Plan documented above with any addition or exceptions noted below. Patient is still waiting to transfer out of ICU. She is on po amiodarone. Will continue to monitor.
[2018-04-22] MEDS: Levothyroxine Sodium 25 MCG TAB PO SCH (05:44)
[2018-04-22] MEDS: Amiodarone 200 MG TAB PO SCH ×2 (08:48→20:54)
[2018-04-22] MEDS: Heparin 5,000 UNITS/ML VIAL SC SCH ×3 (08:49→20:54)
[2018-04-22] MEDS ORDERED: Insulin Glargine 11 UNITS in Pre-Filled Syringe 1 EACH SC SCH (09:00)
[2018-04-22 09:40] LABS: #Eosinphils 0.1 thou/uL (0.0-0.7); #Lymphocytes 2.5 thou/uL (1.20-3.40); #Monocytes 1.7 thou/uL (0.11-0.59); #Neutrophils 8.6 thou/uL (1.40-6.50); %Basophils 0.3 % (0.0-1.0); %Lymphocytes 19.6 % (21.0-51.0); %Monocytes 12.7 % (0.0-10.0); %Neutrophils 66.3 % (42.0-75.0); Hemoglobin 11.5 g/dL (12.0-16.0); Mean Corpuscular HGB CONC 32.1 g/dL (32.0-36.0); Mean Corpuscular Hemoglobin 30.4 pg (27.0-31.0); Mean Corpuscular Volume 94.5 fL (78.0-98.0); Mean Platelet Volume 8.2 fL (7.4-10.4); Platelet Count 314 thou/uL (130-400); RBC Distribution Width 13.7 % (11.5-14.5); Red Blood Cell (RBC) Count 3.79 mill/uL (4.20-5.40)
[2018-04-22 09:56] LABS: Anion Gap 16 mmol/L (10-20); BUN (Urea Nitrogen) 27 mg/dL (9.8-20.1); Calc. Creatinine Clearance 21 mL/min (70-130); Calcium 9.2 mg/dL (7.8-10.44); Carbon Dioxide 27 mmol/L (23-31); Chloride 98 mmol/L (98-107); Estimated GFR-MDRD 16; Glucose 117 mg/dL (83-110); Magnesium 2.2 mg/dL (1.6-2.6); Potassium 4.1 mmol/L (3.5-5.1); Sodium 137 mmol/L (136-145)
--- NOTE | 2018-04-22 10:06 | PRG ---
DATE OF SERVICE: 04/22/2018 SERVICE: Pulmonary Medicine. INTERVAL HISTORY: The patient is doing fine from respiratory standpoint. Breathing comfortably. She is on room air. Her saturations; however, around 90%. She denies any current chest pain, fevers, or chills. There were no overnight events. Her blood pressures have been a little bit elevated. PHYSICAL EXAMINATION: VITAL SIGNS: Afebrile, pulse 70, blood pressure 179/75 respirations 21, and saturation 94% on room air. GENERAL: The patient is awake and alert, in no apparent distress. LUNGS: Extensive crackles are present. No prolonged expiratory phase. There are some rhonchi. They clear with cough. HEART: Normal rate. Regular. ABDOMEN: Soft, nontender, and nondistended. Bowel sounds are positive. MUSCULOSKELETAL: No cyanosis or clubbing. There is no pitting in the bilateral lower extremities. NEUROLOGIC: Grossly nonfocal. LABORATORY DATA: Blood sugars ranged from 35 up to 114. Urine culture and blood culture are unremarkable to-date. ASSESSMENT: 1. Shock secondary to horrendous acidosis, resolved. 2. Anion gap metabolic acidosis, resolved. 3. Acute kidney injury, on hemodialysis. 4. Anemia. DISCUSSION AND PLAN: The patient is currently volume overloaded. As such, we will need to dialyze her to get fluid off ever. In the meantime, we can reintroduce some of her home blood pressure medications. We will back off the insulin. She remained stable for transition out of the ICU to the Telemetry Unit. Pulmonary/Critical Care will continue to follow along. We will continue working on mobilization efforts through time. Ultimately, discharge from the hospital, she will require rehabilitation facility or usp facility to pursue aggressive PT. The thing that would prevent her from leaving the hospital at this point is that she may require little touch of oxygen. That being said, I think this will resolve very easily when she undergoes some dialysis again. Job ID: [id number]
--- NOTE | 2018-04-22 10:35 | PRG ---
DATE OF SERVICE: 04/22/2018 SUBJECTIVE: Ms. Scott is a 78-year-old white female with known acute kidney injury secondary to prolonged ATN. No evidence of renal recovery so far. She is on maintenance hemodialysis. She voices no new complaints today. Please note, this patient was admitted due to severe metabolic acidosis. She was also in acute respiratory failure and was intubated and currently extubated. She also developed atrial flutter. Dr. Chin, her outside dealer sales representative, is following. There was an issue that she might need cardiac ablation this coming Monday. No acute events noted last night. OBJECTIVE: VITAL SIGNS: Blood pressure 164/74, heart rate 67, respiratory rate 20, temperature 96.5, and pulse ox 96% to 98%. GENERAL: Awake, alert, comfortable, not in distress. SKIN: Adequate turgor. HEENT: She has pinkish conjunctivae. Anicteric sclerae. No neck mass. No carotid bruits. No JVD. CHEST: No deformities. LUNGS: Decreased breath sounds. No wheezing. No crackles. HEART: Normal sinus rhythm. No murmur. No gallops. No rubs. ABDOMEN: Globular, soft, and nontender. No masses. EXTREMITIES: No edema. No deformities. MEDICATIONS: Medications of April 22, 2018, reviewed. LABORATORY DATA: Laboratories of April 22, 2018; sodium 137, potassium 4.1, chloride 98, carbon dioxide 27, BUN 27, creatinine 2.88, white count is 13, hemoglobin 11.5. ASSESSMENT AND PLAN: 1. Acute kidney injury-secondary to prolonged acute tubular necrosis. No evidence of renal recovery, continuing 3 times a week hemodialysis. Fluid removal as tolerated. 2. Metabolic acidosis-much improved. Continue current dialytic regimen. 3. Status post acute respiratory failure, resolved. 4. Atrial flutter-currently on sinus rhythm. Cardiology is following. 5. We will be rechecking a basic metabolic profile and CBC in a.m. Overall agree with current management. Job ID: [id number] [facility]
[2018-04-22] MEDS ORDERED: hydrALAZINE 20 MG/ML VIAL SLOW IVP PRN (11:59)
[2018-04-22] MEDS ORDERED: Losartan 25 MG TAB PO SCH (12:15)
[2018-04-22] MEDS ORDERED: Amlodipine 10 MG TAB PO SCH (12:15)
[2018-04-22] MEDS: Losartan 25 MG TAB PO SCH ×2 (15:04→20:54)
[2018-04-22] MEDS: Acetaminophen 325 MG TAB PO PRN (15:14)
[2018-04-22] MEDS: Rosuvastatin 10 MG TAB PO SCH (20:54)
[2018-04-23 05:07] LABS: #Basophils 0.1 thou/uL (0.0-0.2); #Eosinphils 0.8 thou/uL (0.0-0.7); #Lymphocytes 2.4 thou/uL (1.20-3.40); #Monocytes 1.7 thou/uL (0.11-0.59); #Neutrophils 8.7 thou/uL (1.40-6.50); %Basophils 0.5 % (0.0-1.0); %Eosinophils 5.6 % (0.0-10.0); %Lymphocytes 17.5 % (21.0-51.0); %Monocytes 12.7 % (0.0-10.0); %Neutrophils 63.7 % (42.0-75.0); Hemoglobin 12.1 g/dL (12.0-16.0); Mean Corpuscular HGB CONC 32.2 g/dL (32.0-36.0); Mean Corpuscular Hemoglobin 31.2 pg (27.0-31.0); Mean Corpuscular Volume 96.8 fL (78.0-98.0); Mean Platelet Volume 8.1 fL (7.4-10.4); Platelet Count 307 thou/uL (130-400); RBC Distribution Width 13.6 % (11.5-14.5); Red Blood Cell (RBC) Count 3.87 mill/uL (4.20-5.40); White Blood Cell (WBC) Count 13.6 thou/uL (4.8-10.8)
[2018-04-23 05:30] LABS: Anion Gap 17 mmol/L (10-20); BUN (Urea Nitrogen) 33 mg/dL (9.8-20.1); Calc. Creatinine Clearance 18 mL/min (70-130); Calcium 8.9 mg/dL (7.8-10.44); Carbon Dioxide 26 mmol/L (23-31); Chloride 96 mmol/L (98-107); Estimated GFR-MDRD 14; Potassium 4.5 mmol/L (3.5-5.1); Sodium 134 mmol/L (136-145)
[2018-04-23 05:34] LABS: Glucose 41 mg/dL (83-110)
--- NOTE | 2018-04-23 06:00 | PDOC.FM ---
- Subjective Subjective: Alisa Scott seen at bedside this morning. She is doing well, she has no complaints. Morning labs showed a blood sugar of 41, patient was given juice and we are awaiting recheck. She is asymptomatic. Her insulin was discontinued yesterday after morning dose was given due to a couple previous episodes of hypoglycemia. Patient has not been eating too much do to abdominal pain. States she has been getting crampy abdominal pain after eating. States this started long before this admission. She denies fever, chills, chest pain, dyspnea, n/v. - Objective MAR Reviewed: Yes Vital Signs & Weight: Vital Signs (12 hours) Temp Pulse Resp BP Pulse Ox 04/23/18 04:00 97.6 F 66 14 151/70 H 95 04/23/18 00:00 97.9 F 66 18 156/72 H 95 04/22/18 20:00 95 04/22/18 19:10 95 04/22/18 19:09 95 04/22/18 18:00 96.2 F L Weight Admit Weight 77.111 kg Weight 78.6 kg Most Recent Monitor Data Heart Rate from ECG 62 NIBP 151/70 NIBP BP-Mean 97 Respiration from ECG 14 SpO2 90 I&O: 04/21/18 04/22/18 04/23/18 06:59 06:59 06:59 Intake Total 917 1682 510 Output Total 5 10 0 Balance 912 1672 510 Result Diagrams: 04/23/18 04:40 04/23/18 04:40 Phys Exam - Physical Examination Constitutional: NAD HEENT: moist MMs, sclera anicteric Neck: supple, full ROM Respiratory: no wheezing, no rales, no rhonchi, clear to auscultation bilateral Cardiovascular: RRR, no significant murmur Gastrointestinal: soft, non-tender, no distention, positive bowel sounds Musculoskeletal: no edema, pulses present Neurological: non-focal, normal sensation, moves all 4 limbs Psychiatric: normal affect, A&O x 3 Skin: no rash, cap refill <2 seconds Dx/Plan (1) Acute respiratory failure Code(s): J96.00 - ACUTE RESPIRATORY FAILURE, UNSP W HYPOXIA OR HYPERCAPNIA Status: Resolved (2) Increased anion gap metabolic acidosis Code(s): E87.2 - ACIDOSIS Status: Resolved (3) Atrial flutter with rapid ventricular response Code(s): I48.92 - UNSPECIFIED ATRIAL FLUTTER Status: Resolved (4) Anemia Code(s): D64.9 - ANEMIA, UNSPECIFIED Status: Chronic (5) Hypothermia Code(s): T68.XXXA - HYPOTHERMIA, INITIAL ENCOUNTER Status: Resolved (6) NELI (acute kidney injury) Code(s): N17.9 - ACUTE KIDNEY FAILURE, UNSPECIFIED Status: Acute (7) ESRD needing dialysis Code(s): N18.6 - END STAGE RENAL DISEASE; Z99.2 - DEPENDENCE ON RENAL DIALYSIS Status: Chronic (8) DMII (diabetes mellitus, type 2) Status: Chronic (9) HTN (hypertension) Code(s): I10 - ESSENTIAL (PRIMARY) HYPERTENSION Status: Chronic - Plan Plan: 1) Severe Metabolic Acidosis: resolved - pH 6.8 on arrival to the floor - likely secondary to lactic acidosis from metformin use - Dr. Sosa and Dr. Keller consulted - Extubated 04/20/18 2) Acute Respiratory failure: 03/24 #1, resolved - Most recent ABG: (04/20) pH: 7.50, PO2: 95.0, PCO2 31.5 - Extubated 04/20/18 - Stable from respiratory standpoint since extubation 3) Atrial Flutter: resolved - went into Atrial Flutter at 1130 on 04/19/18 - Dr. Purcell consulted - given Dilt ggt, Digoxin IVP, and metoprolol IVP and remained in Atrial Flutter - Cardioversion X2 (50 J and 100 J), went immediately into NSR and spontaneously returned to A flutter - Started on Amiodarone ggt, has been in NSR since that time - Dr. Chin consulted, possible CTI ablation Monday if remains medical stable - Amio switched to PO, continue Amio and Metoprolol - heparin for VTE ppx 4) Hypothermia: resolved - Required warming device initially with ICU temp was 92 - Most recent temp was 97.6 5) NELI on CKD4 requiring HD: - Dr Sosa consulted. - Hold nephrotoxic medications, especially on discharge - Pt remains anuric, <50 ml output over the last 24 hours - Continue MWF HD 6) Anemia: - H/H 6.4/22 on admission - s/p 2 U pRBCs during HD last night, currently Hemoglobin is stable - Possibly 2/2 Renal disease vs chronic disease. Noted macrocytic. B12 and folate levels were normal. 7) T2DM: - Started long acting insulin 04/19 with mild SSI - holding home meds - Episode of hypoglycemia 04/22, decreased long acting insulin to 11 U daily 8) HTN: - Hold home medications Gastric tube day 04/16-04/20 7.5 ET tube day 04/16-04/20 Tunneled IJ from previous admission one week ago for HD R femoral CVC day 04/16-04/21 Dispo: Stable, nearing discharge. Likely that patient will be discharged to rehab vs SNF. Possible CTI ablation early this week. Addendum - Attending - Attending Attestation Date/Time: 04/23/18 0900 I personally evaluated the patient and discussed the management with Dr. Weaver I agree with the History, Examination, Assessment and Plan documented above with any addition or exceptions noted below- Ptaient sitting up in bed. Denies any complaints. Having poor appetite. Afebrile VSS. Portions of exam repeated by and agree with resident's findings. A/P: 1) Metabolic acidosis- aresolved. 2 ) ESRD- continue HD as scheduled. 3) DM- very sensitive to insulin; continue to hold meds for now pending improved po intake. Consider Nutrition consult for recommendations and supplements. 4) Atrial flutter- on po amiodarone. Plans as per EP for possible ablation.
[2018-04-23] MEDS: Levothyroxine Sodium 25 MCG TAB PO SCH (07:24)
[2018-04-23] MEDS: Heparin 5,000 UNITS/ML VIAL SC SCH ×3 (08:13→21:29)
[2018-04-23] MEDS: Losartan 25 MG TAB PO SCH ×3 (08:14→21:29)
[2018-04-23] MEDS: Saccharomyces boulardii 250 MG CAP PO SCH (08:14)
[2018-04-23] MEDS: Amiodarone 200 MG TAB PO SCH ×2 (08:15→21:29)
[2018-04-23] MEDS: Amlodipine 10 MG TAB PO SCH (08:16)
--- NOTE | 2018-04-23 09:51 | PRG ---
DATE OF SERVICE: 04/23/2018 SERVICE: Renal Medicine. SUBJECTIVE: Ms. Scott is a 78-year-old white female with known history of acute kidney injury secondary to prolonged ATN, still dependent on maintenance hemodialysis. I am currently dialyzing the patient. I am at the bedside supervising her dialysis. Please note, she was admitted for severe metabolic acidosis. This has now been resolved with adjustment of her medication with dialysis. No new complaints today. OBJECTIVE: VITAL SIGNS: Blood pressure is 168/78, heart rate 72, respiratory rate 20, temperature 97.3, pulse ox 98%. GENERAL: Noted to be awake, alert, comfortable, not in distress. SKIN: Adequate turgor. HEENT: Pinkish conjunctivae. Anicteric sclerae. NECK: No neck mass. No carotid bruits. No JVD. CHEST: No deformities. LUNGS: Clear breath sounds. HEART: Normal sinus rhythm. No murmurs, no gallops, no rubs. ABDOMEN: Globular, soft, nontender. No masses. EXTREMITIES: No edema. No deformities. MEDICATIONS: Medications of April 23, 2018, was reviewed. LABORATORY DATA: Laboratories of April 23, 2018; white count 13.6, hemoglobin 12.1. Sodium 134, potassium 4.5, chloride 96, carbon dioxide 26, BUN 33, creatinine 3.26, glucose 41, calcium 8.9. ASSESSMENT AND PLAN: 1. Acute kidney injury/prolonged acute tubular necrosis. Continue supportive dialysis. No evidence of renal recovery. Continue supportive care. I will continue the Monday, Monday, Monday dialysis. 2. Status post acute respiratory failure/metabolic acidosis, much improved. 3. Atrial flutter - currently in normal sinus rhythm. Dr. Chin, cardiology is following. Consideration for a possibility of cardiac ablation ? I have spoken with the case therapist. We will consider placing the patient at rehab. 4. Overall, agree with current management. Job ID: [id number]
[2018-04-23] MEDS: Acetaminophen 325 MG TAB PO PRN (14:36)
--- NOTE | 2018-04-23 15:36 | PDOC.CTH ---
Cardiology Progress Note - Subjective EP PROGRESS NOTE: 04/23/18 Seen as follow up for atrial flutter. Remains on PO amiodarone 400mg BID dose. Remained extubated over weekend.Feels stronger. Denies any cardiac complaints today. - - Objective Vital Signs Temp Pulse Pulse Resp BP BP BP 04/23/18 14:42 73 135/63 04/23/18 12:49 71 22 H 04/23/18 12:00 97.0 F L 74 16 137/59 L 04/23/18 08:16 72 168/78 H 04/23/18 07:49 04/23/18 07:26 97.3 F L 72 20 156/74 H 04/23/18 06:39 69 16 04/23/18 04:00 97.6 F 66 14 151/70 H Pulse Ox 04/23/18 14:42 04/23/18 12:49 94 L 04/23/18 12:00 98 04/23/18 08:16 04/23/18 07:49 98 04/23/18 07:26 98 04/23/18 06:39 95 04/23/18 04:00 95 Admit Weight 170 lb Weight 169 lb 1.513 oz 04/22/18 04/23/18 04/24/18 06:59 06:59 06:59 Intake Total 1682 910 Output Total 10 0 Balance 1672 910 - Physical Examination General/Neuro: alert & oriented x3, NAD Neck: carotid US brisk Lungs: CTA Heart: RRR Abdomen: no HSM - Labs Result Diagrams: 04/23/18 04:40 04/23/18 04:40 Troponin/CKMB Troponin I Less than 0.010 ng/mL (< 0.028) 04/16/18 15:12 - Assessment/Plan 1. New onset atrial flutter, CTI dependent - Supressed with IV->PO Amiodarone - currently in SR - Possible CTI ablation Monday as medical issues are now stable. - recommend anticoagulation with Lovenox for now and plan for 30 day lovenox or NOAC therapy after ablation. 2. Lactic acidosis - attributed to metformin use 3. Urosepsis- resolved Currently in sinus rhythm. Discussed treatment options with today. Possible CTI ablation Monday if medical issues are stable and they are agreeable.
--- NOTE | 2018-04-23 17:23 | PDOC.CTH ---
Cardiology Progress Note - Subjective The pt seen and examined. No overnight events. No cardiac complaints. - Objective Vital Signs Temp Pulse Pulse Pulse Pulse Resp BP 04/23/18 16:00 98.0 F 67 18 04/23/18 14:42 73 72 73 04/23/18 13:30 04/23/18 12:49 71 22 H 04/23/18 12:00 97.0 F L 74 16 04/23/18 08:16 72 168/78 H 04/23/18 07:49 04/23/18 07:26 97.3 F L 72 20 04/23/18 06:39 69 16 BP BP BP BP Pulse Ox 04/23/18 16:00 115/56 L 94 L 04/23/18 14:42 135/63 134/62 148/67 H 04/23/18 13:30 98 04/23/18 12:49 94 L 04/23/18 12:00 137/59 L 98 04/23/18 08:16 04/23/18 07:49 98 04/23/18 07:26 156/74 H 98 04/23/18 06:39 95 Admit Weight 170 lb Weight 169 lb 1.513 oz 04/22/18 04/23/18 04/24/18 06:59 06:59 06:59 Intake Total 1682 910 Output Total 10 0 Balance 1672 910 - Physical Examination General/Neuro: alert & oriented x3 Neck: no JVD present Lungs: other: (diminished at bases) Heart: RRR Abdomen: soft Extremities: other: (No edema) - Telemetry Telemetry Rhythm: SR - Labs Result Diagrams: 04/23/18 04:40 04/23/18 04:40 Troponin/CKMB Troponin I Less than 0.010 ng/mL (< 0.028) 04/16/18 15:12 - Assessment/Plan 1. Aflutter with RVR with s/p Cardioversion X2 on 04/19/2018 - remains in SR with BBlocker and Amiodrane 400mg PO BID since @ 2100 on 04/21/2018; Possible CTI ablation tomorrow by Dr Chin; On Heparin subq; may start BBlocker. 2. Urosepsis - managed by PCP 3. HTN - stable 4. ESRD with HD on , , Mon - managed by psychologist personnel (Dr Sosa) 5. DM type 2 - managed by PCP 6. Hypothyroidism - 7. Anemia with s/p 2 PRBCs - stable; 8. Hyperlipidemia - on Crestor 10mg qd; 9. Hypomagnesemia - recheck this AM. MAR reviewed * Possible CTI ablation tomorrow by Dr Chin; Pt. seen and eval. by me. I agree with the A/P by the DIVISION ENGINEER. She is doing better and should be ready for the ablation tomorrow. Chest clear. RRR. No edema. Review of Systems - Review of Systems Constitutional: reports: no symptoms reported EENTM: reports: no symptoms reported Respiratory: reports: no symptoms reported Cardiac (ROS): reports: no symptoms reported ABD/GI: reports: no symptoms reported : reports: no symptoms reported
--- NOTE | 2018-04-23 19:26 | PRG ---
DATE OF SERVICE: 04/23/2018 SUBJECTIVE: Alisa Scott is clinically unchanged. She had dialysis today. She has no fever. OBJECTIVE: VITAL SIGNS: Heart rate is 60, respiratory rate is 20, oximetry is 92% on room air up to 94%, and blood pressure 134/62. LUNGS: Clear. HEART: Regular rhythm. ABDOMEN: Soft. LABORATORY DATA: White count 13.6, hemoglobin 12.1, and platelets 307. Electrolytes; sodium 134, potassium 4.5, chloride 96, bicarb 26, BUN 33, and creatinine 3.26. IMPRESSION: 1. Lactic acidosis brought on by metformin. 2. End-stage renal disease, on dialysis. She has an IV site in her right forearm. Probably need to save her upper extremities. 3. Diabetes. 4. Atrial flutter, now in sinus rhythm. PLAN: Continue supportive care. Job ID: [id number]
[2018-04-23] MEDS: Rosuvastatin 10 MG TAB PO SCH (21:29)
[2018-04-24] MEDS: Levothyroxine Sodium 25 MCG TAB PO SCH (05:30)
[2018-04-24] MEDS ORDERED: Hydrocortisone Sod Succ/PF 300 MG in Sodium Chloride 0.9% 50 ML IVPB SCH (08:00)
[2018-04-24] MEDS: Saccharomyces boulardii 250 MG CAP PO SCH (08:33)
[2018-04-24] MEDS: Amlodipine 10 MG TAB PO SCH (08:33)
[2018-04-24] MEDS: Losartan 25 MG TAB PO SCH ×3 (08:34→21:50)
[2018-04-24] MEDS: Amiodarone 200 MG TAB PO SCH ×2 (08:34→21:50)
[2018-04-24] MEDS: Heparin 5,000 UNITS/ML VIAL SC SCH ×3 (08:34→21:51)
--- NOTE | 2018-04-24 10:17 | PRG ---
DATE OF SERVICE: 04/24/2018 SERVICE: Renal Medicine. SUBJECTIVE: Ms. Scott is a 78-year-old white female with acute kidney injury secondary to a prolonged ATN. I do not see any recovery with renal function. She was initially admitted for severe metabolic acidosis. The acidosis was felt to be multifactorial including for her medication, possible sepsis. Since admission, she is doing better. She is tolerating hemodialysis. She also went into atrial flutter. The plan is for her to undergo cardiac ablation procedure this afternoon with Dr. Chin. No complaints of chest pain or shortness of breath. OBJECTIVE: VITAL SIGNS: Blood pressure 146/64, heart rate 71, respiratory rate 18, temperature 98.8, and pulse ox 96%. GENERAL: Noted to be awake, alert, comfortable, not in distress. SKIN: Adequate turgor. HEENT: She has a pinkish conjunctivae. Anicteric sclerae. NECK: No neck mass. No carotid bruits. No JVD. CHEST: No deformities. LUNGS: Clear breath sounds. No wheezing. No crackles. HEART: Normal sinus rhythm. No murmur. No gallops. No rubs. ABDOMEN: Globular, soft, nontender. No masses. EXTREMITIES: No edema. No deformities. MEDICATIONS: Medications of April 24, 2018, reviewed. LABORATORY DATA: April 24, 2018, glucose 94. April 23, 2018, BUN 33, creatinine 3.26. ASSESSMENT AND PLAN: 1. Acute kidney injury secondary to prolonged acute tubular necrosis. Continuing hemodialysis regimen on Monday, Monday, and Monday. Fluid removal as tolerated. No evidence of renal recovery. 2. Status post atrial flutter - on amiodarone for cardiac ablation therapy today. Dr. Chin is following. 3. Metabolic acidosis, resolved. Job ID: [id number]
--- NOTE | 2018-04-24 10:35 | PDOC.FM ---
- Subjective Subjective: Alisa Scott seen at bedside this morning. She has no complaints and there were no acute events overnight. She is scheduled to undergo CTI Ablation with Dr. Chin this afternoon. Patient has remained in NSR on Amiodarone ggt. She has been on heparin for VTE ppx due to ESRD. She denies any fever, chills, chest pain, dyspnea, palpitations, n/v, abdominal pain. - Objective MAR Reviewed: Yes Vital Signs & Weight: Vital Signs (12 hours) Temp Pulse Resp BP Pulse Ox 04/24/18 08:33 74 04/24/18 07:54 94 L 04/24/18 07:53 74 16 94 L 04/24/18 07:10 98.8 F 71 18 146/64 H 96 04/24/18 04:00 97.3 F L 73 16 145/63 H 95 Weight Admit Weight 77.111 kg Weight 75.75 kg Most Recent Monitor Data Heart Rate from ECG 67 NIBP 156/74 NIBP BP-Mean 101 Respiration from ECG 16 SpO2 90 I&O: 04/23/18 04/24/18 04/25/18 06:59 06:59 06:59 Intake Total 910 540 Output Total 0 Balance 910 540 Result Diagrams: 04/25/18 04:05 04/25/18 04:05 Phys Exam - Physical Examination Constitutional: NAD HEENT: moist MMs, sclera anicteric Neck: no JVD, supple, full ROM Respiratory: no wheezing, no rales, no rhonchi, clear to auscultation bilateral Cardiovascular: RRR, no significant murmur Gastrointestinal: soft, non-tender, no distention, positive bowel sounds Musculoskeletal: no edema, pulses present Neurological: non-focal, normal sensation, moves all 4 limbs Psychiatric: normal affect, A&O x 3 Skin: no rash, cap refill <2 seconds Dx/Plan (1) Acute respiratory failure Code(s): J96.00 - ACUTE RESPIRATORY FAILURE, UNSP W HYPOXIA OR HYPERCAPNIA Status: Resolved (2) Increased anion gap metabolic acidosis Code(s): E87.2 - ACIDOSIS Status: Resolved (3) Atrial flutter with rapid ventricular response Code(s): I48.92 - UNSPECIFIED ATRIAL FLUTTER Status: Resolved (4) Anemia Code(s): D64.9 - ANEMIA, UNSPECIFIED Status: Chronic (5) Hypothermia Code(s): T68.XXXA - HYPOTHERMIA, INITIAL ENCOUNTER Status: Resolved (6) NELI (acute kidney injury) Code(s): N17.9 - ACUTE KIDNEY FAILURE, UNSPECIFIED Status: Acute (7) ESRD needing dialysis Code(s): N18.6 - END STAGE RENAL DISEASE; Z99.2 - DEPENDENCE ON RENAL DIALYSIS Status: Chronic (8) DMII (diabetes mellitus, type 2) Status: Chronic (9) HTN (hypertension) Code(s): I10 - ESSENTIAL (PRIMARY) HYPERTENSION Status: Chronic - Plan Plan: 1) Severe Metabolic Acidosis: resolved - pH 6.8 on arrival to the floor - likely secondary to lactic acidosis from metformin use and possible sepsis - Dr. Sosa and Dr. Keller consulted - Extubated 04/20/18 2) Acute Respiratory failure: 03/24 #1, resolved - Most recent ABG: (04/20) pH: 7.50, PO2: 95.0, PCO2 31.5 - Extubated 04/20/18 - Stable from respiratory standpoint since extubation 3) Atrial Flutter: resolved - went into Atrial Flutter at 1130 on 04/19/18 - Dr. Purcell consulted - given Dilt ggt, Digoxin IVP, and metoprolol IVP and remained in Atrial Flutter - Cardioversion X2 (50 J and 100 J), went immediately into NSR and spontaneously returned to A flutter - Started on Amiodarone ggt, has been in NSR since that time - Dr. Chin consulted, scheduled CTI ablation today - Continue Amio and Metoprolol - heparin for VTE ppx 4) Hypothermia: resolved - Required warming device initially with ICU temp was 92 - Most recent temp was 97.3 5) NELI on CKD4 requiring HD: - Dr Sosa consulted. - Hold nephrotoxic medications, especially on discharge - Pt remains anuric, <50 ml output over the last 24 hours - Continue MWF HD 6) Anemia: resolved - H/H 6.4/22 on admission - s/p 2 U pRBCs during HD last night, currently Hemoglobin is stable at 12.1 - Possibly 2/2 Renal disease vs chronic disease. Noted macrocytic. B12 and folate levels were normal. 7) T2DM: - Started long acting insulin 04/19 with mild SSI - holding home meds - Episode of hypoglycemia 04/22 - Holding long acting insulin at this time, only SSI 8) HTN: - Continue home medications Gastric tube day 04/16-04/20 7.5 ET tube day 04/16-04/20 Tunneled IJ from previous admission one week ago for HD R femoral CVC day 04/16-04/21 Addendum - Attending - Attending Attestation Date/Time: 04/24/18 1041 I personally evaluated the patient and discussed the management with Dr. Weaver I agree with the History, Examination, Assessment and Plan documented above with any addition or exceptions noted below - Patient without complaints. Afebrile VSS. A/P: 1) Metabolic acidosis- resolved. 2) ESRD - continue HD. 3) A- flutter- plan for ablation today.
--- NOTE | 2018-04-24 10:38 | PDOC.CTH ---
Cardiology Progress Note - Subjective The pt seen and examined. No overnight events. No cardiac complaints. Plan for CTI ablation today. The pt stated she does not have any questions about the procedure at this moment. - Objective Vital Signs Temp Pulse Resp BP Pulse Ox 04/24/18 08:33 74 04/24/18 07:54 94 L 04/24/18 07:53 74 16 94 L 04/24/18 07:10 98.8 F 71 18 146/64 H 96 04/24/18 04:00 97.3 F L 73 16 145/63 H 95 Admit Weight 170 lb Weight 167 lb 04/23/18 04/24/18 04/25/18 06:59 06:59 06:59 Intake Total 910 540 Output Total 0 Balance 910 540 - Physical Examination General/Neuro: alert & oriented x3 Neck: no JVD present Lungs: CTA (diminished at bases) Heart: RRR Abdomen: soft Extremities: other: (mild generalized edema) - Telemetry Telemetry Rhythm: SR - Labs Result Diagrams: 04/23/18 04:40 04/24/18 11:16 Troponin/CKMB Troponin I Less than 0.010 ng/mL (< 0.028) 04/16/18 15:12 - Assessment/Plan 1. Aflutter with RVR with s/p Cardioversion X2 on 04/19/2018 - remains in SR with BBlocker and Amiodrane 400mg PO BID since @ 2100 on 04/21/2018; Plan for CTI ablation today by Dr Chin; On Heparin subq; 2. Urosepsis - managed by PCP 3. HTN - stable 4. ESRD with HD on M, W, F - managed by char filter tank tender (Dr Sosa) 5. DM type 2 - managed by PCP 6. Hypothyroidism - 7. Anemia with s/p 2 PRBCs - stable; 8. Hyperlipidemia - on Crestor 10mg qd; 9. Hypomagnesemia - recheck this AM. MAR reviewed * Possible CTI ablation on 04/24/[address] Chin; Pt. seen and eval. by me. I agree with the A/P by the INSURANCE SALES PRODUCER. Chest clear. RRR.Plan for Atrial flutter ablattion today. Review of Systems - Review of Systems Constitutional: reports: no symptoms reported EENTM: reports: no symptoms reported Respiratory: reports: no symptoms reported Cardiac (ROS): reports: no symptoms reported ABD/GI: reports: no symptoms reported : reports: no symptoms reported Musculoskeletal: reports: no symptoms reported
[2018-04-24 11:52] LABS: Anion Gap 14 mmol/L (10-20); BUN (Urea Nitrogen) 21 mg/dL (9.8-20.1); Calc. Creatinine Clearance 21 mL/min (70-130); Calcium 8.4 mg/dL (7.8-10.44); Carbon Dioxide 25 mmol/L (23-31); Chloride 97 mmol/L (98-107); Estimated GFR-MDRD 17; Glucose 105 mg/dL (83-110); Sodium 132 mmol/L (136-145)
[2018-04-24 13:03] LABS: INR-International Normal Ratio 1.1; Prothrombin Time 14.3 SEC (12.0-14.7)
[2018-04-24] MEDS ORDERED: Heparin 10,000 UNITS/1 ML VIAL ONE (14:23)
[2018-04-24] MEDS ORDERED: Midazolam HCl 2 mg/2 ml Vial ONE (15:01)
[2018-04-24] MEDS ORDERED: Fentanyl 100 MCG/2 ML VIAL ONE (15:09)
[2018-04-24] MEDS ORDERED: Ketamine 50 MG/ML (10ML VIAL) ONE (15:49)
[2018-04-24] MEDS ORDERED: DOPamine 400 MG/D5W 250 ML 250 ML ONE (16:20)
[2018-04-24] MEDS: Acetaminophen 325 MG TAB PO PRN (19:16)
--- NOTE | 2018-04-24 20:07 | OP ---
DATE OF PROCEDURE: 04/24/2018 PROCEDURE PERFORMED: Electrophysiology study and radiofrequency ablation report. REASON FOR PROCEDURE: Ms. Scott is a 78-year-old female, who developed atrial flutter with rapid ventricular rates, difficult for ventricular rate control in the setting of an acute sepsis like illness. The sepsis resolved. She is now suppressed with amiodarone. Plan is to eliminate typical atrial flutter circuit, which likely was cause of her sustained atrial flutter. She is currently in sinus rhythm. DESCRIPTION OF PROCEDURE: The patient received propofol and Versed per Anesthesia specialist. After adequate level of sedation achieved, the right femoral venous area was prepped, draped, and anesthetized using subcutaneous lidocaine and under ultrasound guidance, the right femoral vein was cannulated x2. Two 8-Libyan short sheaths were introduced through which a decapolar CS and a ThermoCool SFST catheter advanced to the right atrium. 3D map of the right atrium, coronary sinus, His bundle, and cavotricuspid isthmus areas were obtained. The CS catheter was placed in the CS position. Baseline measurements are as follows. Sinus rhythm at baseline cycle length 828 milliseconds, DE 148 milliseconds, QRS 80 milliseconds, QT 348 milliseconds, AH 160 milliseconds, HV 37 milliseconds. Sinus node recovery time is 1321, corrected sinus node recovery time 521 milliseconds noted. AV Wenckebach cycle length was 320 milliseconds. Retrograde Wenckebach cycle length was 480 milliseconds. Concentric retrograde VA conduction is seen. Gracy ERP was measured to be 369/217 milliseconds. No dual AV gracy physiology was seen. Burst atrial pacing did not induce sudden atrial flutter due to the prior typical appearing isthmus dependent flutter. On EKGs, decision was made to proceed with the cavotricuspid isthmus ablation. With proximal CS pacing, cavotricuspid isthmus ablation was performed, a total of 14 lesions placed. Total ablation was 10 minutes and 47 seconds. The transisthmus time was increased to 140 milliseconds. The transisthmus time was approved by longest transisthmus time adjacent to the ablation line. Following that, burst atrial pacing did not re-induce atrial arrhythmias either. At this point, dopamine was administered and the transisthmus block was again reassessed and reconnection was re-ablated. At the end of the case, cardiac silhouette did not change. The patient tolerated the procedure well. Sheaths were pulled in the recyclable materials collector. CONCLUSIONS: 1. Successful cavotricuspid isthmus ablation. 2. Normal AV gracy function pre and post ablation. Normal HV interval. 3. No evidence of accessory pathway or slow pathway present. 4. Abnormal sinus node recovery time. PLAN: Continue monitoring recurrent arrhythmias considering stopping amiodarone after medical illness resolved and monitor for bradyarrhythmias. If symptomatic bradycardia present, optimal medical therapy pacing could be a consideration. Job ID: [id number]
[2018-04-24] MEDS: Rosuvastatin 10 MG TAB PO SCH (21:50)
[2018-04-25 05:23] LABS: Anion Gap 15 mmol/L (10-20); BUN (Urea Nitrogen) 29 mg/dL (9.8-20.1); Calc. Creatinine Clearance 18 mL/min (70-130); Calcium 8.3 mg/dL (7.8-10.44); Carbon Dioxide 25 mmol/L (23-31); Chloride 99 mmol/L (98-107); Estimated GFR-MDRD 14; Glucose 114 mg/dL (83-110); Sodium 135 mmol/L (136-145)
[2018-04-25 05:37] LABS: Band 2 % (5-11); Eosinophils 9 % (0-10); Hemoglobin 9.9 g/dL (12.0-16.0); Lymphocytes 16 % (21-51); MDiff Complete? YES; Mean Corpuscular HGB CONC 32.5 g/dL (32.0-36.0); Mean Corpuscular Volume 95.3 fL (78.0-98.0); Mean Platelet Volume 8.3 fL (7.4-10.4); Monocytes 11 % (0-10); Neutrophil 62 % (42-75); Platelet Count 206 thou/uL (130-400); RBC Distribution Width 13.4 % (11.5-14.5); Red Blood Cell (RBC) Count 3.18 mill/uL (4.20-5.40); White Blood Cell (WBC) Count 9.2 thou/uL (4.8-10.8)
--- NOTE | 2018-04-25 06:04 | PDOC.FM ---
- Subjective Subjective: Alisa Scott seen at bedside this morning. She had a successful CTI ablation performed yesterday (04/24) afternoon. No acute events overnight. She has no complaints this morning. She is scheduled for HD today. Further plan pending Dr. Chin and Dr. Jazzy pagan. Denies fever, chills, chest pain, dyspnea, palpitations, n/v. - Objective MAR Reviewed: Yes Vital Signs & Weight: Vital Signs (12 hours) Temp Pulse Resp BP BP Pulse Ox 04/25/18 04:00 97.8 F 72 14 121/58 L 94 L 04/24/18 23:59 97.8 F 77 16 141/63 H 96 04/24/18 20:39 74 18 93 L 04/24/18 20:00 95 04/24/18 19:55 98.2 F 73 16 131/59 L 95 Weight Admit Weight 77.111 kg Weight 79.515 kg Most Recent Monitor Data Heart Rate from ECG 67 NIBP 156/74 NIBP BP-Mean 101 Respiration from ECG 16 SpO2 90 I&O: 04/23/18 04/24/18 04/25/18 06:59 06:59 06:59 Intake Total 910 540 60 Output Total 0 Balance 910 540 60 Result Diagrams: 04/25/18 04:05 04/25/18 04:05 Radiology Reviewed by me: Yes (no acute changes ) Phys Exam - Physical Examination Constitutional: NAD HEENT: moist MMs, sclera anicteric Neck: supple, full ROM Respiratory: no wheezing, no rales, no rhonchi, clear to auscultation bilateral Cardiovascular: RRR, no significant murmur, no rub Gastrointestinal: soft, non-tender, no distention, positive bowel sounds Musculoskeletal: no edema, pulses present Neurological: non-focal, normal sensation, moves all 4 limbs Psychiatric: A&O x 3 Skin: no rash, cap refill <2 seconds Dx/Plan (1) Acute respiratory failure Code(s): J96.00 - ACUTE RESPIRATORY FAILURE, UNSP W HYPOXIA OR HYPERCAPNIA Status: Resolved (2) Increased anion gap metabolic acidosis Code(s): E87.2 - ACIDOSIS Status: Resolved (3) Atrial flutter with rapid ventricular response Code(s): I48.92 - UNSPECIFIED ATRIAL FLUTTER Status: Resolved (4) Anemia Code(s): D64.9 - ANEMIA, UNSPECIFIED Status: Chronic (5) Hypothermia Code(s): T68.XXXA - HYPOTHERMIA, INITIAL ENCOUNTER Status: Resolved (6) NELI (acute kidney injury) Code(s): N17.9 - ACUTE KIDNEY FAILURE, UNSPECIFIED Status: Acute (7) ESRD needing dialysis Code(s): N18.6 - END STAGE RENAL DISEASE; Z99.2 - DEPENDENCE ON RENAL DIALYSIS Status: Chronic (8) DMII (diabetes mellitus, type 2) Status: Chronic (9) HTN (hypertension) Code(s): I10 - ESSENTIAL (PRIMARY) HYPERTENSION Status: Chronic - Plan Plan: 1) Severe Metabolic Acidosis: resolved - pH 6.8 on arrival to the floor - likely secondary to lactic acidosis from metformin use and possible sepsis - Dr. Sosa and Dr. Keller consulted - Extubated 04/20/18 2) Acute Respiratory failure: 03/24 #1, resolved - Extubated 04/20/18 - Stable from respiratory standpoint since extubation 3) Atrial Flutter: resolved - went into Atrial Flutter at 1130 on 04/19/18 - Dr. Purcell consulted - Dr. Chin consulted, successful CTI Ablation for Atrial Flutter on 04/24/18 - Continue Amio and Metoprolol, will follow Cariology recs for discharge medications - heparin for VTE ppx at this time, may need to initiate coumadin if patient will need anticoagulation after discharge 4) Hypothermia: resolved - Required warming device initially with ICU temp was 92 - Most recent temp was 97.8 5) NELI on CKD4 requiring HD: - Dr Sosa consulted. - Hold nephrotoxic medications, especially on discharge - Pt remains anuric, <50 ml output over the last 24 hours - Continue MWF HD 6) Anemia: resolved - H/H 6.4/22 on admission - s/p 2 U pRBCs during HD last night, currently Hemoglobin is stable at 12.1 - Possibly 2/2 Renal disease vs chronic disease. Noted macrocytic. B12 and folate levels were normal. 7) T2DM: - Started long acting insulin 04/19 with mild SSI - holding home meds - Episode of hypoglycemia 04/22 - Holding long acting insulin at this time, only SSI 8) HTN: - Continue home medications Gastric tube day 04/16-04/20 7.5 ET tube day 04/16-04/20 Tunneled IJ from previous admission one week INFORMATION TECHNOLOGY SECURITY ANALYST for HD R femoral CVC day 04/16-04/21 Addendum - Attending - Attending Attestation Date/Time: 04/25/18 [id number] I personally evaluated the patient and discussed the management with Dr. Weaver I agree with the History, Examination, Assessment and Plan documented above with any addition or exceptions noted below - Patient at HD. No complaints. Afebrile VSS. A/P: 1) Metabolic acidosis- resolved. 2) ESRD- continue HD. 3) Deconditioning - start PT. Awaiting insurance approval for NHP and outpatient dialysis
[2018-04-25] MEDS: Levothyroxine Sodium 25 MCG TAB PO SCH (06:18)
[2018-04-25] MEDS: Losartan 25 MG TAB PO SCH ×3 (08:11→22:41)
[2018-04-25] MEDS: Heparin 5,000 UNITS/ML VIAL SC SCH ×3 (08:11→23:31)
--- NOTE | 2018-04-25 08:33 | RAD ---
SINGLE VIEW OF THE CHEST: Comparison: 04-20-18 History: Status post ablation. Respiratory failure. FINDINGS: Single view of the chest shows a normal sized cardiomediastinal silhouette. Endotracheal tube and NG tube have been removed. The dialysis catheter is unchanged in position. There is no evidence of conso lidation, mass, or pleural effusion. IMPRESSION: No evidence of acute cardiopulmonary disease. POS: [facility]
--- NOTE | 2018-04-25 09:21 | PRG ---
DATE OF SERVICE: 04/25/2018 SUBJECTIVE: Ms. Scott is a 78-year-old white female with known history of acute kidney injury secondary to prolonged ATN - no renal recovery - currently on maintenance hemodialysis. She is currently being dialyzed today. I am at the bedside supervising her dialysis. Yesterday, she does underwent an EP and radiofrequency ablation procedure. This was reported as to be successful. No new complaints today. No chest pain or shortness of breath. OBJECTIVE: VITAL SIGNS: Blood pressure 176/73, heart rate 71, respiratory rate 16, temperature 98.1, and pulse ox 96%. GENERAL: Awake, alert, and comfortable, not in distress. SKIN: Adequate turgor. HEENT: She has slightly pale conjunctivae. Anicteric sclerae. NECK: No neck mass. No carotid bruits. No JVD. CHEST: No deformities. LUNGS: Clear breath sounds. No wheezing. No crackles. HEART: Normal sinus rhythm. No murmur. No gallops. No rubs. ABDOMEN: Globular, soft, and nontender. No masses. EXTREMITIES: No edema. No deformities. MEDICATIONS: Medications of April 25, 2018, was reviewed. LABORATORY DATA: Laboratories of April 25, 2018, white count 9.2 and hemoglobin 9.9. Sodium 135, potassium 4, chloride 99, carbon dioxide 25, BUN 29, creatinine 3.25, glucose 114, and calcium 8.3. ASSESSMENT AND PLAN: 1. Acute kidney injury - secondary to prolonged acute tubular necrosis - so far no evidence of renal recovery. Continue current hemodialysis regimen on Monday, Monday, and Monday. Fluid removal as tolerated. 2. Status post atrial flutter - the patient is status post electrophysiology study and status post cardiac ablation therapy. Doing well. 3. Borderline anemia. We will continue to observe. If needed, we can always start Epogen. 4. Status post acute respiratory failure, resolved. 5. Metabolic acidosis, resolved with dialysis. Continue to hold off any metformin. 6. We will recheck basic metabolic and CBC in a.m. Job ID: [id number]
[2018-04-25] MEDS: Amlodipine 10 MG TAB PO SCH (11:10)
[2018-04-25] MEDS: Amiodarone 200 MG TAB PO SCH ×2 (11:10→22:41)
[2018-04-25] MEDS: Saccharomyces boulardii 250 MG CAP PO SCH (11:10)
--- NOTE | 2018-04-25 12:56 | PDOC.CTH ---
Cardiology Progress Note - Subjective EP PROGRESS NOTE: 04/25/18 Seen as follow up for atrial flutter s/p EPS and CTI ablation 04/24/18. Remains on PO amiodarone 400mg BID dose. Remained extubated over weekend. Feels stronger. Denies any cardiac complaints today. - Objective Vital Signs Temp Pulse Resp BP Pulse Ox 04/25/18 11:00 98.4 F 80 16 143/64 H 98 04/25/18 07:10 98.1 F 71 16 176/73 H 96 04/25/18 04:00 97.8 F 72 14 121/58 L 94 L Admit Weight 170 lb Weight 175 lb 4.8 oz 04/24/18 04/25/18 04/26/18 06:59 06:59 06:59 Intake Total 540 170 Balance 540 170 - Labs Result Diagrams: 04/25/18 04:05 04/25/18 04:05 Troponin/CKMB Troponin I Less than 0.010 ng/mL (< 0.028) 04/16/18 15:12 - Assessment/Plan 1. Aflutter with RVR - s/p Cardioversion X2 on 04/19/2018 - remains in SR with BBlocker and Amiodarone 400mg PO BID since @ 2100 on 03/2018 -s/p EPS and CTI ablation 04/24: Arrhythmias were suppressed by amiodarone during EP study. CTI ablation was performed although she was not inducible. -On Heparin subq TID 2. Urosepsis - managed by PCP 3. HTN - stable 4. ESRD with HD on M, W, F - managed by facepiece line supervisor (Dr Sosa) 5. DM type 2 - managed by PCP 6. Hypothyroidism - 7. Anemia with s/p 2 PRBCs - Hgb down from 12 to 10 over past two days. 8. Hyperlipidemia - on Crestor 10mg qd; 9. Hypomagnesemia - recheck showed 2.2 Stable post ablation. Would like to continue short course of amiodarone to allow her to recover from her medical issues before stopping and risking recurrent arrhythmias issues. Recommend OAC and possibly switching to Multaq if recurrent arrhythmias are seen. For now, hold off on OAC considering her recent anemia issues and transfusion and since no atrial fibrillation has been seen.
--- NOTE | 2018-04-25 17:04 | EKG ---
Test Reason : Blood Pressure : / mmHG Vent. Rate : 074 BPM Atrial Rate : 074 BPM P-R Int : 160 ms QRS Dur : 110 ms QT Int : 390 ms P-R-T Axes : 069 059 044 degrees QTc Int : 432 ms Normal sinus rhythm Incomplete right bundle branch block Abnormal ECG Confirmed by DIANNA GIVENS ([id number]) on 04/25/2018 5:04:11 PM Referred By: Confirmed By:DIANNA GIVENS
--- NOTE | 2018-04-25 17:06 | EKG ---
Test Reason : Blood Pressure : / mmHG Vent. Rate : 072 BPM Atrial Rate : 072 BPM P-R Int : 154 ms QRS Dur : 074 ms QT Int : 386 ms P-R-T Axes : 071 052 064 degrees QTc Int : 422 ms Normal sinus rhythm Nonspecific ST abnormality Abnormal ECG Confirmed by DIANNA GIVENS ([id number]) on 04/25/2018 5:05:41 PM Referred By: HILLARY Confirmed By:DIANNA GIVENS
--- NOTE | 2018-04-25 17:49 | PDOC.CTH ---
Cardiology Progress Note - Subjective The pt seen and examined at HD room. No overnight events. No cardiac complaints. She is more alerted today. - Objective Vital Signs Temp Pulse Pulse Resp BP BP Pulse Ox 04/25/18 15:10 98.3 F 80 16 129/62 97 04/25/18 13:11 82 16 94 L 04/25/18 11:33 81 138/86 04/25/18 11:00 98.4 F 80 16 143/64 H 98 04/25/18 07:10 98.1 F 71 16 176/73 H 96 Admit Weight 170 lb Weight 175 lb 4.8 oz 04/24/18 04/25/18 04/26/18 06:59 06:59 06:59 Intake Total 540 170 Balance 540 170 - Physical Examination General/Neuro: alert & oriented x3 Neck: no JVD present Lungs: other: (diminished at bases) Heart: RRR Abdomen: soft Extremities: other: (3-4+ pitting BLE edema) - Telemetry Telemetry Rhythm: SR - Labs Result Diagrams: 04/25/18 04:05 04/25/18 04:05 Troponin/CKMB Troponin I Less than 0.010 ng/mL (< 0.028) 04/16/18 15:12 - Assessment/Plan 1. Aflutter with RVR with s/p Cardioversion X2 on 04/19/2018 and s/p CIT ablation on 04/24/2018 - remains in SR with BBlocker and Amiodrane 400mg PO BID since @ 2100 on 04/21/2018 (will taper off); On Heparin subq; Cont. Amiodarone for now and possible change to Multaq and start OAC for recurrent Afib/Aflutter (not OAC for now 2/2 hx of anemia and s/p PRBC tx) Appreciate EP input. 2. Urosepsis - managed by PCP 3. HTN - stable 4. ESRD with HD on , W, - managed by sensitizer (Dr Sosa) 5. DM type 2 - managed by PCP 6. Hypothyroidism - 7. Anemia with s/p 2 PRBCs tx - stable; 8. Hyperlipidemia - on Crestor 10mg qd; 9. Hypomagnesemia - recheck this AM. MAR reviewed CTI ablation on 04/24/[address] Chin; She is maintaining NSR. Pt. seen and eval. by me. I agree with the A/P by the GENERAL EDUCATION PROFESSOR. She is doing well. Eating, no complaints. Plan to continue Amiodarone for 1-2 months. EP has suggested Coumadin for OAC. Review of Systems - Review of Systems Constitutional: reports: no symptoms reported EENTM: reports: no symptoms reported Respiratory: reports: no symptoms reported Cardiac (ROS): reports: no symptoms reported ABD/GI: reports: no symptoms reported : reports: no symptoms reported Musculoskeletal: reports: no symptoms reported
[2018-04-25] MEDS ORDERED: Warfarin Sodium 5 MG TAB PO SCH (20:00)
[2018-04-25] MEDS: Rosuvastatin 10 MG TAB PO SCH (22:41)
[2018-04-26] MEDS: Levothyroxine Sodium 25 MCG TAB PO SCH (05:23)
[2018-04-26 06:56] LABS: Anion Gap 19 mmol/L (10-20); BUN (Urea Nitrogen) 16 mg/dL (9.8-20.1); Calc. Creatinine Clearance 22 mL/min (70-130); Calcium 8.4 mg/dL (7.8-10.44); Carbon Dioxide 21 mmol/L (23-31); Chloride 98 mmol/L (98-107); Estimated GFR-MDRD 18; Glucose 92 mg/dL (83-110); Potassium 4.5 mmol/L (3.5-5.1); Sodium 133 mmol/L (136-145)
--- NOTE | 2018-04-26 06:59 | PDOC.FM ---
- Subjective Subjective: Alisa Scott seen at bedside this morning. Successful CTI ablation on 04/24/18. Patient has been doing well since that time. She had HD yesterday and continues on her MWF schedule, she remains essentially anuric, showing no evidence of renal improvement. EP recommended that patient go home with at least 1 month of OAC, so Coumadin was started yesterday. Cards recommended patient continue amiodarone for 1-2 months upon discharge. Patient is nearing discharge. Awaiting acceptance to rehab facility. - Objective MAR Reviewed: Yes Vital Signs & Weight: Vital Signs (12 hours) Temp Pulse Resp BP BP Pulse Ox 04/26/18 04:55 97.8 F 76 20 149/67 H 92 L 04/25/18 22:39 80 14 139/61 04/25/18 20:17 78 18 94 L 04/25/18 19:51 98 F 82 16 140/60 100 Weight Admit Weight 77.111 kg Weight 77.383 kg Most Recent Monitor Data Heart Rate from ECG 67 NIBP 156/74 NIBP BP-Mean 101 Respiration from ECG 16 SpO2 90 I&O: 04/24/18 04/25/18 04/26/18 06:59 06:59 06:59 Intake Total 540 170 480 Output Total 0 Balance 540 170 480 Result Diagrams: 04/26/18 05:30 04/26/18 05:31 Phys Exam - Physical Examination Constitutional: NAD HEENT: moist MMs, sclera anicteric Neck: no JVD, supple, full ROM Respiratory: no wheezing, no rales, no rhonchi, clear to auscultation bilateral Cardiovascular: RRR, no significant murmur Gastrointestinal: soft, non-tender, no distention Musculoskeletal: pulses present Neurological: non-focal, normal sensation, moves all 4 limbs Psychiatric: normal affect, A&O x 3 Skin: no rash, cap refill <2 seconds Dx/Plan (1) Acute respiratory failure Code(s): J96.00 - ACUTE RESPIRATORY FAILURE, UNSP W HYPOXIA OR HYPERCAPNIA Status: Resolved (2) Increased anion gap metabolic acidosis Code(s): E87.2 - ACIDOSIS Status: Resolved (3) Atrial flutter with rapid ventricular response Code(s): I48.92 - UNSPECIFIED ATRIAL FLUTTER Status: Resolved (4) Anemia Code(s): D64.9 - ANEMIA, UNSPECIFIED Status: Chronic (5) Hypothermia Code(s): T68.XXXA - HYPOTHERMIA, INITIAL ENCOUNTER Status: Resolved (6) NELI (acute kidney injury) Code(s): N17.9 - ACUTE KIDNEY FAILURE, UNSPECIFIED Status: Acute (7) ESRD needing dialysis Code(s): N18.6 - END STAGE RENAL DISEASE; Z99.2 - DEPENDENCE ON RENAL DIALYSIS Status: Chronic (8) DMII (diabetes mellitus, type 2) Status: Chronic (9) HTN (hypertension) Code(s): I10 - ESSENTIAL (PRIMARY) HYPERTENSION Status: Chronic - Plan Plan: 1) Severe Metabolic Acidosis: resolved - pH 6.8 on arrival to the floor - likely secondary to lactic acidosis from metformin use and possible sepsis - Dr. Sosa and Dr. Keller consulted - Extubated 04/20/18 2) Acute Respiratory failure: 03/24 #1, resolved - Extubated 04/20/18 - Stable from respiratory standpoint since extubation 3) Atrial Flutter: resolved - went into Atrial Flutter at 1130 on 04/19/18 - Dr. Purcell consulted - Dr. Chin consulted, successful CTI Ablation for Atrial Flutter on 04/24/18 - Continue Amio and Metoprolol - Started on Coumadin on 04/25/18 will continue to monitor PT and INR - Pt will need to continue amiodarone for 1-2 months as an oupatient 4) Hypothermia: resolved - Required warming device initially with ICU temp was 92 - Most recent temp was 97.8 5) NELI on CKD4 requiring HD: - Dr Sosa consulted. - Hold nephrotoxic medications, especially on discharge - Pt remains anuric, <50 ml output over the last 24 hours - Continue MWF HD 6) Anemia: resolved - H/H 6.4/22 on admission - s/p 2 U pRBCs during HD last night, currently Hemoglobin is stable at 12.1 - Possibly 2/2 Renal disease vs chronic disease. Noted macrocytic. B12 and folate levels were normal. 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 Awaiting acceptance to rehab facility. Addendum - Attending - Attending Attestation Date/Time: 04/26/18 1031 I personally evaluated the patient and discussed the management with Dr. Weaver I agree with the History, Examination, Assessment and Plan documented above with any addition or exceptions noted below - Patient without complaints. Afebrle VSS. A/P: 1) Metabolic acidosis -resolved. 2) A-flutter- s/p ablation- on amiodarone taper and started on warfarin. 3) DM- on sliding scale only with minimal usage. Continue to monitor BG. May have minimal insulin requirement now due to end stage renal disease. 4) ESRD- continue HD.
[2018-04-26 07:16] LABS: Band 3 % (5-11); Eosinophils 5 % (0-10); Hemoglobin 9.9 g/dL (12.0-16.0); Lymphocytes 17 % (21-51); MDiff Complete? YES; Mean Corpuscular HGB CONC 32.5 g/dL (32.0-36.0); Mean Corpuscular Hemoglobin 31.3 pg (27.0-31.0); Mean Corpuscular Volume 96.5 fL (78.0-98.0); Monocytes 14 % (0-10); Myelocyte 4 % (0-0); Neutrophil 53 % (42-75); Platelet Count 159 thou/uL (130-400); Platelet Morphology Comment Appears Adequate; Polychromasia SLIGHT = 2-3 cells (100X) (0-2/hpf); RBC Distribution Width 13.7 % (11.5-14.5); Reactive Lymphocytes 2 % (0-10); Red Blood Cell (RBC) Count 3.17 mill/uL (4.20-5.40); White Blood Cell (WBC) Count 10.7 thou/uL (4.8-10.8)
--- NOTE | 2018-04-26 09:49 | PDOC.CTH ---
Cardiology Progress Note - Subjective The pt seen and examined. No overnight events. No cardiac complaints. - Objective Vital Signs Temp Pulse Resp BP BP Pulse Ox 04/26/18 08:06 93 L 04/26/18 08:01 77 16 94 L 04/26/18 07:15 98.1 F 79 18 151/67 H 93 L 04/26/18 04:55 97.8 F 76 20 149/67 H 92 L 04/25/18 22:39 80 14 139/61 Admit Weight 170 lb Weight 170 lb 9.6 oz 04/25/18 04/26/18 04/27/18 06:59 06:59 06:59 Intake Total 170 480 Output Total 0 Balance 170 480 - Physical Examination General/Neuro: alert & oriented x3 Neck: no JVD present Lungs: CTA (diminished at bases) Heart: RRR Abdomen: soft Extremities: other: (3-4+ pitting BLE edema) - Telemetry Telemetry Rhythm: SR - Labs Result Diagrams: 04/26/18 05:30 04/26/18 05:31 Troponin/CKMB Troponin I Less than 0.010 ng/mL (< 0.028) 04/16/18 15:12 - Assessment/Plan 1. Aflutter with RVR with s/p Cardioversion X2 on 04/19/2018 and s/p CIT ablation on 04/24/2018 - remains in SR with BBlocker and Amiodrane 400mg PO BID since @ 2100 on 04/21/2018 (will taper off); Coumadin from 04/25/2018; Cont. Amiodarone for now and possible change to Multaq for recurrent Afib/Aflutter; Appreciate EP input. 2. Urosepsis - managed by PCP 3. HTN - stable 4. ESRD with HD on M, W, F - managed by arts manager (Dr Sosa) 5. DM type 2 - managed by PCP 6. Hypothyroidism - 7. Anemia with s/p 2 PRBCs tx - stable; 8. Hyperlipidemia - on Crestor 10mg qd; 9. Hypomagnesemia - recheck this AM. [place] reviewed * CTI ablation on 04/24/[address] Chin; She is maintaining NSR. * Plan to continue Amiodarone for 1-2 months. EP has suggested Coumadin for OAC. Pt. seen and eval. by me. I agree with the A/P by the WATER RESTORATION TECHNICIAN. Chest clear. RRR. Plan to change amiodarone to Multaq for rhythm control for 1-2 months and if no recurrence then stop. Review of Systems - Review of Systems Constitutional: reports: no symptoms reported EENTM: reports: no symptoms reported Respiratory: reports: no symptoms reported Cardiac (ROS): reports: no symptoms reported ABD/GI: reports: no symptoms reported : reports: no symptoms reported Musculoskeletal: reports: no symptoms reported
[2018-04-26] MEDS: Amlodipine 10 MG TAB PO SCH (10:12)
[2018-04-26] MEDS: Amiodarone 200 MG TAB PO SCH (10:12)
[2018-04-26] MEDS: Saccharomyces boulardii 250 MG CAP PO SCH (10:13)
[2018-04-26] MEDS: Heparin 5,000 UNITS/ML VIAL SC SCH ×3 (10:13→21:13)
[2018-04-26] MEDS: Losartan 25 MG TAB PO SCH ×3 (10:13→21:13)
--- NOTE | 2018-04-26 10:32 | PRG ---
DATE OF SERVICE: SERVICE: Renal Medicine. SUBJECTIVE: Ms. Scott is a 78-year-old white female who was followed up by the Renal Service for her acute kidney injury secondary to prolonged ATN. There is no evidence of renal recovery. She continues to be on maintenance hemodialysis three times a week. Please note, she recently underwent cardiac ablation procedure and is doing well. She is tolerating her current hemodialysis regimen. No other complaints today except for some occasional nausea. OBJECTIVE: VITAL SIGNS: Blood pressure is 151/67, heart rate 79, respiratory rate 18, temperature 98.1, pulse ox 93%. GENERAL: Noted to be awake, alert, comfortable, supine, not in distress. SKIN: Adequate turgor. HEENT: Pinkish conjunctivae. Anicteric sclerae. No neck mass. No carotid bruits. No JVD. CHEST: No deformities. LUNGS: Clear breath sounds. No wheezing. No crackles. HEART: Normal sinus rhythm. No murmurs, no gallops, no rubs. ABDOMEN: Globular, soft, nontender. No masses. Positive for bowel sounds. EXTREMITIES: No edema. No deformities. MEDICATIONS: Medications of April 26, 2018, was reviewed. LABORATORY DATA: Laboratories of April 26, 2018; sodium 133, potassium 4.5, chloride 98, carbon dioxide 21, BUN 16, creatinine 2.62, glucose 92, calcium 8.4. White count 10.7, hemoglobin 9.9. ASSESSMENT AND PLAN: 1. Acute kidney injury secondary to prolonged acute tubular necrosis - no evidence of renal recovery. Continue maintenance hemodialysis. Fluid removal as only as tolerated. 2. Status post atrial flutter - status post cardiac ablation. Doing well overall. Dr. Chin is following. 3. Metabolic acidosis, resolved. We are currently awaiting rehab evaluation with this patient. She is a candidate for rehab placement. Agree with current management. Job ID: [id number]
--- NOTE | 2018-04-26 11:31 | PDOC.CTH ---
Cardiology Progress Note - Subjective EP PROGRESS NOTE: 04/26/18 Seen as follow up for atrial flutter s/p EPS and CTI ablation 04/24/18. Remains on PO amiodarone 400mg BID dose. Feels stronger. Denies any cardiac complaints today. No obvious bleeding seen - Objective Vital Signs Temp Pulse Pulse Pulse Resp BP BP 04/26/18 09:39 79 82 169/71 H 143/65 H 04/26/18 08:06 04/26/18 08:01 77 16 04/26/18 07:15 98.1 F 79 18 04/26/18 04:55 97.8 F 76 20 BP BP Pulse Ox 04/26/18 09:39 04/26/18 08:06 93 L 04/26/18 08:01 94 L 04/26/18 07:15 151/67 H 93 L 04/26/18 04:55 149/67 H 92 L Admit Weight 170 lb Weight 170 lb 9.6 oz 04/25/18 04/26/18 04/27/18 06:59 06:59 06:59 Intake Total 170 480 Output Total 0 Balance 170 480 - Physical Examination General/Neuro: alert & oriented x3, NAD Neck: carotid US brisk, no JVD present Lungs: CTA, unlabored respirations Heart: PMI normal, RRR Abdomen: NT/ND, soft - Telemetry Telemetry Rhythm: SR - Labs Result Diagrams: 04/26/18 05:30 04/26/18 05:31 Troponin/CKMB Troponin I Less than 0.010 ng/mL (< 0.028) 04/16/18 15:12 - Assessment/Plan 1. Aflutter with RVR - s/p Cardioversion X2 on 04/19/2018 - remains in SR with BBlocker and Amiodarone 400mg PO BID since @ 2100 on 03/2018 -s/p EPS and CTI ablation 04/24: Arrhythmias were suppressed by amiodarone during EP study. CTI ablation was performed although she was not inducible. -On Heparin subq TID 2. Urosepsis - managed by PCP 3. HTN - stable 4. ESRD with HD on M, W, F - managed by imaging center manager (Dr Sosa) 5. DM type 2 - managed by PCP 6. Hypothyroidism - 7. Anemia with s/p 2 PRBCs - Hgb down from 12 to 10 over past two days. 8. Hyperlipidemia - on Crestor 10mg qd; 9. Hypomagnesemia - recheck showed 2.2 -Rhythm stable post CTI ablation. -Switching to Multaq 400mg PO BID for 1-2 months course to allow her to recover from her medical issues before stopping and risking recurrent arrhythmias issues. -Consider OAC if recurrent arrhythmias are seen, thus need for manager long term care therapy. -For now, hold off on OAC. Recent anemia issues with transfusion and since no atrial fibrillation has been seen. Addendum - Physician - Physician Attestation Date/Time: 04/27/18 1050 I personally performed or re-performed the physical examination and medical decision making. I have verified all INSURANCE FOLLOW UP REP documentation or findings, including history, physical exam and/or medical decision making.
[2018-04-26] MEDS ORDERED: Warfarin Sodium 5 MG TAB PO SCH ×2 (17:00)
[2018-04-26] MEDS: Dronedarone HCl 400 MG TAB PO SCH (17:16)
[2018-04-26 18:29] VITALS: BMI 32.2
[2018-04-26] MEDS: Rosuvastatin 10 MG TAB PO SCH (21:13)
[2018-04-27] MEDS: Levothyroxine Sodium 25 MCG TAB PO SCH (05:29)
[2018-04-27 06:07] LABS: INR-International Normal Ratio 2.6; Prothrombin Time 27.8 SEC (12.0-14.7)
--- NOTE | 2018-04-27 06:47 | PDOC.FM ---
- Subjective Subjective: Alisa cSott seen at bedside this morning. She had no acute events overnight and she has no complaints this morning. She is scheduled for HD this morning. She has been accepted to [facility] in [place], awaiting acceptance for [facility] in [place]. Pending Elsy and Jazzy recommendations on discharge medications, looks like she will be discharged on Multaq and OAC. INR is 2.6 on coumadin this morning. She has not required any SSI for the last week despite advancing diet. Denies fever, chills, vision changes, chest pain, palpitations, dyspnea, n/v, abdominal pain, polyuria, polydipsia. - Objective MAR Reviewed: Yes Vital Signs & Weight: Vital Signs (12 hours) Temp Pulse Resp BP Pulse Ox 04/27/18 04:10 97.8 F 77 20 141/63 H 94 L 04/27/18 03:10 92 L 04/26/18 23:45 98 F 77 20 134/63 92 L 04/26/18 20:00 98.1 F 77 16 126/61 95 04/26/18 19:19 80 16 93 L Weight Admit Weight 77.3 kg Weight 77.474 kg Most Recent Monitor Data Heart Rate from ECG 67 NIBP 156/74 NIBP BP-Mean 101 Respiration from ECG 16 SpO2 90 I&O: 04/25/18 04/26/18 04/27/18 06:59 06:59 06:59 Intake Total 170 480 600 Output Total 0 100 Balance 170 480 500 Result Diagrams: 04/26/18 05:30 04/26/18 05:31 Phys Exam - Physical Examination Constitutional: NAD HEENT: moist MMs, sclera anicteric Neck: supple, full ROM Respiratory: no wheezing, no rales, no rhonchi, clear to auscultation bilateral Cardiovascular: RRR, no significant murmur, no rub Gastrointestinal: soft, non-tender, no distention, positive bowel sounds Musculoskeletal: no edema, pulses present Neurological: non-focal, normal sensation, moves all 4 limbs Psychiatric: normal affect, A&O x 3 Skin: no rash, cap refill <2 seconds Dx/Plan (1) Acute respiratory failure Code(s): J96.00 - ACUTE RESPIRATORY FAILURE, UNSP W HYPOXIA OR HYPERCAPNIA Status: Resolved (2) Increased anion gap metabolic acidosis Code(s): E87.2 - ACIDOSIS Status: Resolved (3) Atrial flutter with rapid ventricular response Code(s): I48.92 - UNSPECIFIED ATRIAL FLUTTER Status: Resolved (4) Anemia Code(s): D64.9 - ANEMIA, UNSPECIFIED Status: Chronic (5) Hypothermia Code(s): T68.XXXA - HYPOTHERMIA, INITIAL ENCOUNTER Status: Resolved (6) NELI (acute kidney injury) Code(s): N17.9 - ACUTE KIDNEY FAILURE, UNSPECIFIED Status: Acute (7) ESRD needing dialysis Code(s): N18.6 - END STAGE RENAL DISEASE; Z99.2 - DEPENDENCE ON RENAL DIALYSIS Status: Chronic (8) DMII (diabetes mellitus, type 2) Status: Chronic (9) HTN (hypertension) Code(s): I10 - ESSENTIAL (PRIMARY) HYPERTENSION Status: Chronic - Plan Plan: ) Severe Metabolic Acidosis: resolved - pH 6.8 on arrival to the floor - likely secondary to lactic acidosis from metformin use and possible sepsis - Dr. Sosa and Dr. Keller consulted - Extubated 04/20/18 - Has been accepted to [facility] in [place], awaiting acceptance for [facility] 2) Acute Respiratory failure: 03/24 #1, resolved - Extubated 04/20/18 - Stable from respiratory standpoint since extubation 3) Atrial Flutter: resolved - went into Atrial Flutter at 1130 on 04/19/18 - Dr. Purcell consulted - Dr. Chin consulted, successful CTI Ablation for Atrial Flutter on 04/24/18 - Continue Amio and Metoprolol - Started on Coumadin on 04/25/18 will continue to monitor PT and INR - Pt will like go on Multaq for 1-2 months as an oupatient 4) Hypothermia: resolved - Required warming device initially with ICU temp was 92 - no problems with temp since admission 5) NELI on CKD4 requiring HD: - Dr Sosa consulted. - Hold nephrotoxic medications, especially on discharge - Pt remains anuric, <50 ml output over the last 24 hours - Continue MWF HD 6) Anemia: resolved - H/H 6.4/22 on admission - s/p 2 U pRBCs during HD last night, currently Hemoglobin is stable at 12.1 - Possibly 2/2 Renal disease vs chronic disease. Noted macrocytic. B12 and folate levels were normal. 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 Awaiting acceptance. Addendum - Attending - Attending Attestation Date/Time: 04/27/18 2716 I personally evaluated the patient and discussed the management with Dr. Weaver I agree with the History, Examination, Assessment and Plan documented above with any addition or exceptions noted below- Patient seen in dialysis. Denies any complaints. Feeling stronger. Afebrile VSS. A/P: 1) ESRD- continue HD. 2) Aflutter- s/p cardioversion- continue amiodarone and warfarin as per cardiology. 3) Sepsis- resolved. 4) DM- stable; controlled with diet. 5) D/C planning- accepted to [facility]; awaiting outpatient dialysis approval.
[2018-04-27] MEDS ORDERED: Folic Acid 1 MG TAB PO SCH (09:00)
[2018-04-27] MEDS ORDERED: Cyanocobalamin (Vitamin B-12) 1,000 MCG TAB PO SCH (09:00)
--- NOTE | 2018-04-27 09:07 | PRG ---
DATE OF SERVICE: 04/27/2018 SUBJECTIVE: Ms. Scott is a 78-year-old white female with known history of acute kidney injury secondary to prolonged ATN. No evidence of renal recovery. She is undergoing hemodialysis. I am at the bedside supervising her dialysis. Please note in the interim, she developed atrial flutter and underwent a cardiac ablation. She is doing well. No other complaints today. OBJECTIVE: VITAL SIGNS: Blood pressure 169/71, heart rate 77, respiratory rate 14, temperature 97.3, and pulse ox 95%. GENERAL: Awake, alert, comfortable, not in distress. SKIN: Adequate turgor. HEENT: Pinkish conjunctivae. Anicteric sclerae. No neck mass. No carotid bruits. No JVD. CHEST: No deformities. LUNGS: Clear breath sounds. HEART: Normal sinus rhythm. No murmurs, gallops, or rubs. ABDOMEN: Globular, soft, nontender. No masses. EXTREMITIES: No edema. No deformities. MEDICATIONS: Medications of April 27, 2018, reviewed. LABORATORY DATA: Laboratories of April 26, 2018, sodium 135, potassium 4, chloride 99, carbon dioxide 25, BUN 29, creatinine 3.25, glucose 114, calcium 8.3. Hemoglobin 9.9, hematocrit 30.6. ASSESSMENT AND PLAN: 1. Acute kidney injury, secondary to prolonged acute tubular necrosis. No evidence of renal recovery. Continuing 3 times a week hemodialysis. We will recheck another basic metabolic panel tomorrow and then the next few days. 2. Borderline anemia. Continue to observe. 3. Status post atrial flutter. The patient is status post cardiac ablation. Cardiology is following. Doing well. 4. Recheck basic metabolic panel and CBC in a.m. Job ID: [id number]
[2018-04-27] MEDS: Heparin 5,000 UNITS/ML VIAL SC SCH ×2 (09:19→14:53)
[2018-04-27] MEDS: Losartan 25 MG TAB PO SCH ×2 (09:20→14:53)
[2018-04-27 10:57] LABS: Prothrombin Time 30.7 SEC (12.0-14.7)
[2018-04-27] MEDS ORDERED: Heparin 1,000 UNITS/ML VIAL ONE (11:11)
[2018-04-27] MEDS: Amlodipine 10 MG TAB PO SCH (12:17)
[2018-04-27] MEDS: Dronedarone HCl 400 MG TAB PO SCH (12:17)
[2018-04-27] MEDS: Saccharomyces boulardii 250 MG CAP PO SCH (12:19)
[2018-04-27] MEDS: Acetaminophen 325 MG TAB PO PRN (12:23)
--- NOTE | 2018-04-27 12:39 | PDOC.CTH ---
Cardiology Progress Note - Subjective EP PROGRESS NOTE: 04/27/18 Seen as follow up for atrial flutter s/p EPS and CTI ablation 04/24/18. Started multaq 400mg BID last night. Feels weak today. Denies any cardiac complaints today. No obvious bleeding reported. - Objective Vital Signs Temp Pulse Resp BP Pulse Ox 04/27/18 12:17 82 04/27/18 12:15 99 F 82 18 137/63 96 04/27/18 07:34 92 L 04/27/18 07:33 97.3 F L 77 14 169/71 H 95 04/27/18 04:10 97.8 F 77 20 141/63 H 94 L 04/27/18 03:10 92 L Admit Weight 170 lb 6.677 oz Weight 170 lb 12.8 oz 04/26/18 04/27/18 04/28/18 06:59 06:59 06:59 Intake Total 480 600 Output Total 0 100 Balance 480 500 - Physical Examination General/Neuro: alert & oriented x3 (poor historian. does not seem to fully grasp current medical issues), NAD Neck: carotid US brisk, no JVD present Lungs: CTA, unlabored respirations Heart: PMI normal, RRR Abdomen: NT/ND, soft - Telemetry Telemetry Rhythm: SR - Labs Result Diagrams: 04/26/18 05:30 04/26/18 05:31 Troponin/CKMB Troponin I Less than 0.010 ng/mL (< 0.028) 04/16/18 15:12 - Assessment/Plan 1. Aflutter with RVR - s/p Cardioversion X2 on 04/19/2018 - remains in SR with BBlocker and now multaq 400mg PO BID started 37 PM ( baseline LFTs on 04/16 are WNL) -s/p EPS and CTI ablation 04/24: Arrhythmias were suppressed by amiodarone during EP study. CTI ablation was performed although she was not inducible. -On Heparin subq TID 2. Urosepsis - managed by PCP 3. HTN - stable 4. ESRD with HD on M, W, F - managed by extension division director (Dr Sosa) 5. DM type 2 - managed by PCP 6. Hypothyroidism - 7. Anemia with s/p 2 PRBCs - recent drop from 12 --> 10. Remains at 10 on 04/26. no obvious bleeding source. 8. Hyperlipidemia - on Crestor 10mg qd; 9. Hypomagnesemia - recheck showed 2.2 -Rhythm stable post CTI ablation. -Switched to Multaq 400mg PO BID for 1-2 months course to allow her to recover from her medical issues before stopping and risking recurrent arrhythmias issues. SR overnight. No AFlutter recurrences or new rhythm issues seen -Consider OAC if recurrent arrhythmias are seen, thus need for termite inspector therapy. -For now, hold off on OAC. Recent anemia issues with transfusion and since no atrial fibrillation has been seen.
--- NOTE | 2018-04-27 13:27 | PDOC.CTH ---
Cardiology Progress Note - Subjective The pt seen and examined. No overnight events. No cardiac complaints. Less BLE edema today. - Objective Vital Signs Temp Pulse Resp BP Pulse Ox 04/27/18 12:51 73 16 96 04/27/18 12:17 82 04/27/18 12:15 99 F 82 18 137/63 96 04/27/18 07:34 92 L 04/27/18 07:33 97.3 F L 77 14 169/71 H 95 04/27/18 04:10 97.8 F 77 20 141/63 H 94 L 04/27/18 03:10 92 L Admit Weight 170 lb 6.677 oz Weight 170 lb 12.8 oz 04/26/18 04/27/18 04/28/18 06:59 06:59 06:59 Intake Total 480 600 Output Total 0 100 Balance 480 500 - Physical Examination General/Neuro: alert & oriented x3 Neck: no JVD present Lungs: CTA Heart: RRR Abdomen: soft Extremities: other: (2-3+ pitting edema) - Telemetry Telemetry Rhythm: SR - Labs Result Diagrams: 04/26/18 05:30 04/26/18 05:31 Troponin/CKMB Troponin I Less than 0.010 ng/mL (< 0.028) 04/16/18 15:12 - Assessment/Plan 1. Aflutter with RVR with s/p Cardioversion X2 on 04/19/2018 and s/p CIT ablation on 04/24/2018 - remains in SR with BBlocker and Amiodrane 400mg PO BID since @ 2100 on 04/21/2018 (will taper off); Coumadin from 04/25/2018; Cont. Amiodarone for 1-2 months and possible change to Multaq for recurrent Afib/ Aflutter; Appreciate EP input. 2. Urosepsis - managed by PCP 3. HTN - stable 4. ESRD with HD on M, W, F - managed by supervisor airplane flight attendant (Dr Sosa) 5. DM type 2 - managed by PCP 6. Hypothyroidism - 7. Anemia with s/p 2 PRBCs tx - stable; 8. Hyperlipidemia - on Crestor 10mg qd; 9. Hypomagnesemia - recheck this AM. MAR reviewed * CTI ablation on 04/24/[address] Chin; She is maintaining NSR. * Plan to continue Amiodarone for 1-2 months. EP has suggested Coumadin, which dosage managed by pharmacy. * From Cardiac standpoint, the pt is stable to tx to rehab. Pt. seen and eval. by me. I agree with the A/P by the HUMAN RESOURCES EXECUTIVE ASSISTANT.she remains in NSR. EP is also seeing pt. s/p ablation of atrial flutter. Chest clear. RRR.Hopefully she will go to rehab in the next couple days. Review of Systems - Review of Systems Constitutional: reports: weakness EENTM: reports: no symptoms reported Respiratory: reports: no symptoms reported Cardiac (ROS): reports: no symptoms reported ABD/GI: reports: no symptoms reported : reports: no symptoms reported Musculoskeletal: reports: no symptoms reported
[2018-04-27 15:25] VITALS: BP 130/63; TEMP 97.9
--- NOTE | 2018-04-28 03:46 | DIS ---
DATE OF ADMISSION: 04/16/2018 DATE OF DISCHARGE: 04/27/2018 RESIDENT: Vel Weaver MD ADMITTING ATTENDING: Dr. Savanna Quevedo MD DISCHARGE ATTENDING: Dr. Savanna Quevedo MD CONSULTS: 1. Nephrology, Dr. Sosa on 04/16/2018. 2. Pulmonology, Dr. Partida on 04/16/2018. 3. Dr. Purcell, Cardiology on 04/19/2018. 4. Dr. Chin, Electrophysiology on 04/19/2018. PROCEDURES: 1. Chest x-ray on 04/16/2018, impression; no evidence for acute cardiopulmonary process. Right IJ dialysis catheter is again seen in similar position. 2. Chest x-ray on 04/16/2018, impression; no acute lung process apparent. ET tube appears adequately positioned with tip over the joyce. 3. Emergent endotracheal intubation on 04/16/[address] Partida, no complications. 4. Chest x-ray on 04/18/2018, endotracheal tube and tunneled right IJ vein hemodialysis catheter on place and unchanged in position. Atelectasis of the left lung base, interval placement of nasogastric tube. 5. Chest x-ray on 04/20/2018, impression; stable exam. 6. Echocardiogram on 04/20/2018, summary; ejection fraction is visually estimated at 60% to 65%. Mild mitral regurgitations present. Mild aortic regurgitation is noted. Mild tricuspid regurgitation noted. 7. Chest x-ray on 04/25/2018, impression; no acute cardiopulmonary process. 8. Electrophysiology study and radiofrequency ablation report on 04/24/2018, conclusion; successful cavotricuspid isthmus ablation. Normal AV nicci function pre and post ablation. Normal HV interval. No evidence of accessory pathway or slow pathway present. Abnormal sinus node recovery time. PRIMARY DIAGNOSES: 1. Severe anion gap metabolic acidosis. 2. Acute respiratory failure. 3. Acute renal failure. SECONDARY DIAGNOSES: 1. Atrial flutter. 2. End-stage renal disease, on hemodialysis. 3. Anemia. 4. Hypothermia. 5. Neuropathy. 6. Hypertension. 7. Hyperlipidemia. 8. Type 2 diabetes mellitus. DISCHARGE MEDICATIONS: Original home medications including; 1. Losartan potassium 25 mg p.o. t.i.d. 2. Rosuvastatin 40 mg p.o. daily. 3. Metoprolol succinate 50 mg p.o. daily. 4. Levothyroxine sodium 12.5 mcg p.o. daily. 5. Amlodipine 10 mg p.o. daily. 6. Vitamin B12 1000 mcg p.o. daily. 7. Colace 100 mg p.o. b.i.d. 8. Folic acid 1 mg p.o. daily. 9. Pantoprazole 40 mg p.o. daily. 10. MiraLAX 17 g p.o. daily. 11. Chloraseptic spray 2 sprays p.o. q.2 hours p.r.n. New home medications; 1. Multaq 400 mg p.o. b.i.d. with meals. 2. Warfarin 5 mg p.o. daily. Discontinued medications; 1. Meloxicam 7.5 mg p.o. daily p.r.n. 2. Glimepiride 2 mg p.o. daily. 3. Gabapentin 200 mg p.o. q.i.d. 4. Metformin 1000 mg p.o. b.i.d. HISTORY OF PRESENT ILLNESS/HOSPITAL COURSE: Alisa Scott is a 78-year-old female with past medical history of hypertension and type 2 diabetes mellitus, who presented to the ED with shortness of breath from halfway, reports shortness of breath began 1 day prior to admission. She was on a Monday, , and Monday hemodialysis schedule, but son states she received it on Monday and in an effort to move her to Monday, Monday, and Monday schedule. Upon chart review, the patient was started on levophed in the ED and Rocephin and gentamicin were also given. The patient was initially admitted to the [facility], but it was realized that this would actually qualify for service since she was recently admitted for pancreatitis within last month. The patient was unable to provide much history when she was initially seen upon admission by admitting service, because she was on BiPAP. A stat ABG was ordered while the patient was in the CCU on BiPAP and the resulting pH was 6.8. Dr. Partida, Pulmonology was immediately consulted and intubation was performed along with bicarb bolus and Dr. Sosa was consulted for emergent hemodialysis. The patient was admitted for severe anion gap metabolic acidosis resulting in respiratory failure. She also had acute renal failure during this admission. The patient was intubated from 04/16/2018 to 04/20/2018, also had gastric tube in place during that time. There was concern for septic shock early on her admission and she was started on Levophed and empirically covered with meropenem. The patient was also anemic on admission with a hemoglobin of 6.4. The patient was given 2 units of packed red blood cells with her initial dialysis, which improved her anemia and eventually stabilized around 10. In regard to the patient's severe anion gap metabolic acidosis, the patient's acidosis resolved on 04/17/2018 after receiving dialysis and bicarb. The patient was able to be weaned off the ventilator on 04/20/2018 and had no respiratory issues for the remainder of her admission. In regard to the suspected shock, the patient had negative blood and urine cultures with no growth in 5 days for either. The patient was initially covered with levophed drip and meropenem. She was able to weaned off levophed drip and meropenem was eventually discontinued. The patient developed atrial flutter on 04/19/2018. Dr. Purcell was consulted. The patient was given diltiazem drip, digoxin, and metoprolol and she remained in atrial flutter, it was decided that the patient need to undergo cardioversion. She had cardioversion x2, which immediately converted her to normal sinus rhythm, but she spontaneously returned atrial flutter within 1 minute each time. The patient was started on amiodarone drip on 04/19/2018 and remained in normal sinus rhythm for the remainder of her admission. She was eventually transitioned to oral amiodarone. Dr. Chin was consulted for EP study and possible ablation. The patient underwent ablation on 04/24/2018. It was decided that the patient would be discharged on Multaq for 1 to 2 months as well as 30 days of oral anticoagulation and she was started on Coumadin. The patient had been on heparin during this admission. Discharge INR was 2.6, goal INR for the patient will be 2 to 3. In regard to the patient's diabetes, after being extubated and starting the diet, the patient was started on long acting insulin. For the first 2 days, on long acting insulin, she had a couple of episodes of hypoglycemia and was decided to only use sliding scale insulin thereafter and despite the patient having normal appetite and eating 3 meals a day, she never required sliding scale insulin. Decision was made to discharge the patient without any long acting insulin, although there may be a need for in the future. Metformin and any other nephrotoxic drugs were discontinued. The patient was accepted to [facility] and set up with hemodialysis as an outpatient as well. The patient was cleared for discharge from cardiac, respiratory, and primary medical standpoint on 04/27/2018. DISPOSITION: Stable. DISCHARGE INSTRUCTIONS: 1. Location: [facility] in [place]. 2. Diet: Renal diet, consistent carbohydrate diet, and Coumadin diet. 3. Activity: Continue physical and occupational therapy at rehab facility. 4. Followup: Follow up with primary care provider as well as Cardiology and Electrophysiology. Job ID: [id number]
[2018-05-02] MEDS ORDERED: Amiodarone 200 MG TAB PO SCH (09:00)
== END 2018-04-27 16:21 | DRG 853 ==
LOC: ERS 14:58 → CCU 19:43 → 2NO 04-23 13:33
PROVIDERS: ADMIT Emergency Medicine; ATTEND Emergency Medicine
PROC: 5A1945Z Respiratory Ventilation, 24-96 Consecutive Hours (ICD-10-PCS; principal; 2018-04-16)
PROC: 0BH17EZ Insertion of Endotracheal Airway into Trachea, Via Natural or Artificial Opening (ICD-10-PCS; 2018-04-16)
PROC: 3E033XZ Introduction of Vasopressor into Peripheral Vein, Percutaneous Approach (ICD-10-PCS; 2018-04-16)
PROC: 30233N1 Transfusion of Nonautologous Red Blood Cells into Peripheral Vein, Percutaneous Approach (ICD-10-PCS; 2018-04-16)
PROC: 5A09357 Assistance with Respiratory Ventilation, Less than 24 Consecutive Hours, Continuous Positive Airway Pressure (ICD-10-PCS; 2018-04-16)
PROC: 5A1D70Z Performance of Urinary Filtration, Intermittent, Less than 6 Hours Per Day (ICD-10-PCS; 2018-04-16)
PROC: 5A1D70Z Performance of Urinary Filtration, Intermittent, Less than 6 Hours Per Day (ICD-10-PCS; 2018-04-17)
PROC: 5A1D70Z Performance of Urinary Filtration, Intermittent, Less than 6 Hours Per Day (ICD-10-PCS; 2018-04-18)
PROC: 5A2204Z Restoration of Cardiac Rhythm, Single (ICD-10-PCS; 2018-04-19)
PROC: 5A1D70Z Performance of Urinary Filtration, Intermittent, Less than 6 Hours Per Day (ICD-10-PCS; 2018-04-20)
PROC: 5A1D70Z Performance of Urinary Filtration, Intermittent, Less than 6 Hours Per Day (ICD-10-PCS; 2018-04-23)
PROC: 02583ZZ Destruction of Conduction Mechanism, Percutaneous Approach (ICD-10-PCS; 2018-04-24)
PROC: 02K83ZZ Map Conduction Mechanism, Percutaneous Approach (ICD-10-PCS; 2018-04-24)
PROC: 4A023FZ Measurement of Cardiac Rhythm, Percutaneous Approach (ICD-10-PCS; 2018-04-24)
PROC: 4A0234Z Measurement of Cardiac Electrical Activity, Percutaneous Approach (ICD-10-PCS; 2018-04-24)
PROC: 5A1D70Z Performance of Urinary Filtration, Intermittent, Less than 6 Hours Per Day (ICD-10-PCS; 2018-04-25)
DX: A41.9 Sepsis, unspecified organism (principal); J96.00 Acute respiratory failure, unspecified whether with hypoxia or hypercapnia; N18.6 End stage renal disease; N17.0 Acute kidney failure with tubular necrosis; R57.8 Other shock; E87.2 Acidosis; I12.0 Hypertensive chronic kidney disease with stage 5 chronic kidney disease or end stage renal disease; N17.9 Acute kidney failure, unspecified; I48.3 Typical atrial flutter; E11.22 Type 2 diabetes mellitus with diabetic chronic kidney disease; E78.5 Hyperlipidemia, unspecified; D63.1 Anemia in chronic kidney disease; R68.0 Hypothermia, not associated with low environmental temperature; E11.42 Type 2 diabetes mellitus with diabetic polyneuropathy; E11.649 Type 2 diabetes mellitus with hypoglycemia without coma; E87.6 Hypokalemia; T38.3X5A Adverse effect of insulin and oral hypoglycemic [antidiabetic] drugs, initial encounter; Z99.2 Dependence on renal dialysis; Z79.84 Long term (current) use of oral hypoglycemic drugs; Z79.899 Other long term (current) drug therapy
CPT/HCPCS: 36415; 36416; 36430; 36556; 51701; 71045; 76942; 80048; 80053; 81003; 81015; 82010; 82550; 82607; 82746; 82805; 83605; 83690; 83735; 83880; 84100; 84145; 84443; 84484; 85025; 85610; 86850; 86900; 86901; 87040; 87086; 90935; 93005; 93010; 93306; 93609; 93613; 93621; 93623; 93653; 94002; 94003; 94640; 94660; 96365; 96366; 96368; 96375; C1730; C1769; G0257; J0282; J0360; J0696; J1160; J1265; J1580; J1644; J1720; J1825; J2185; J2250; J2270; J2543; J2704; J2920; J3010; J3475; J3490; J7050; J7070; J7620; P9016; S0028

== ENCOUNTER 2018-07-14 15:51 | Inpatient (IN) | payer MEDICARE ==
[2018-07-14] MEDS ORDERED: ISOVUE-370 76%-LOCM 1 ML ONE (15:54)
[2018-07-14] MEDS ORDERED: Dextrose 50% Abboject 50 ML SYRINGE ONE (16:00)
[2018-07-14 16:30] LABS: Bilirubin Small (Negative); Blood, Urine Large (Negative); Clarity TURBID (Clear); Glucose, Urine (Dipstick) Negative (Negative); Leukocyte Large (Negative); Nitrite Negative (Negative); Protein, Urine (Dipstick) 100 mg/dL (Neg-Trace); Specific Gravity, Urine 1.015 (1.002-1.036); Urobilinogen 0.2 mg/dL (0.2-1.0); pH, Urine 6.5 (5.0-9.0)
[2018-07-14 16:33] LABS: Hemoglobin 11.4 g/dL (12.0-16.0); Mean Corpuscular HGB CONC 32.2 g/dL (32.0-36.0); Mean Corpuscular Hemoglobin 32.9 pg (27.0-31.0); Platelet Count 204 thou/uL (130-400); RBC Distribution Width 16.7 % (11.5-14.5); Red Blood Cell (RBC) Count 3.46 mill/uL (4.20-5.40); White Blood Cell (WBC) Count 13.1 thou/uL (4.8-10.8)
[2018-07-14 16:34] LABS: Pathc Cast-AUWi Flag 650.64 (0-2.49); Yeast-AUWi Flag 1520.3 (0-25.0)
[2018-07-14 16:46] LABS: Squamous Epithelial 0-3 HPF (0-3)
[2018-07-14 16:47] LABS: Bacteria/HPF 4+ HPF (None Seen); Hyaline Casts/LPF 0-3 HYALINE CAST LPF (0-3 Hyaline); Other Casts/LPF 4-6 COARSE GRAN LPF (0-3 Hyaline); Yeast-All Forms None Seen HPF (None Seen)
[2018-07-14 16:47] LABS: Lipase 9 U/L (8-78); Phosphorus 2.7 mg/dL (2.3-4.7)
[2018-07-14 16:50] LABS: ALT (SGPT) 75 U/L (8-55); AST (SGOT) 146 U/L (5-34); Albumin 1.6 g/dL (3.4-4.8); Alkaline Phosphatase 247 U/L (40-150); Anion Gap 18 mmol/L (10-20); BUN (Urea Nitrogen) 22 mg/dL (9.8-20.1); Bilirubin, Total 0.6 mg/dL (0.2-1.2); Calc. Creatinine Clearance 0 mL/min (70-130); Calcium 7.2 mg/dL (7.8-10.44); Carbon Dioxide 23 mmol/L (23-31); Chloride 99 mmol/L (98-107); Estimated GFR-MDRD 13; Globulin 3.1 g/dL (2.4-3.5); Magnesium 1.3 mg/dL (1.6-2.6); Protein, Total 4.7 g/dL (6.0-8.3); Sodium 136 mmol/L (136-145)
--- NOTE | 2018-07-14 16:55 | RAD ---
AP view chest. HISTORY: Altered mental status. AP view chest obtained on 07/14/2018. Comparison made to previous exam from 04/25/2018. AP view chest demonstrates right jugular dialysis catheter in place. EKG leads seen over the chest. There is mild elevation of the right hemidiaphragm. The lungs are well aerated. No evidence of active intrathoracic disease seen. No evidence of effusion s, pneumonia or pneumothorax seen. IMPRESSION: unremarkable AP view chest
[2018-07-14 17:00] LABS: Glucose 37 mg/dL (83-110)
[2018-07-14 17:02] LABS: Anisocytosis SLIGHT = 6-15 cells (100X) (0-5/hpf); Band 4 % (5-11); Hypochromia SLIGHT = 6-15 cells (100X) (0-5/hpf); Lymphocytes 40 % (21-51); MDiff Complete? YES; Metamyelocyte 1 % (0-0); Monocytes 2 % (0-10); Neutrophil 53 % (42-75); Platelet Morphology Comment Appears Adequate
[2018-07-14] MEDS ORDERED: cefTRIAXone\\ROCEPHIN 1 GM VIAL ONE (17:19)
[2018-07-14] MEDS ORDERED: EPINEPHrine 1 MG/ML AMP ONE (17:24)
[2018-07-14] MEDS ORDERED: EPINEPHrine 1 MG/10 ML Abboject SYRINGE ONE (17:27)
[2018-07-14] MEDS ORDERED: Norepinephrine 8 MG/0.9% NS 250 ML ONE (17:28)
--- NOTE | 2018-07-14 18:26 | PDOC.FPRHP ---
- History of Present Illness Chief Complaint: AMS and pain History of Present Illness: The patient is a 78YOF with a PMH significant for ESRD on MWF HD, DMII and a h/ o atrial flutter s/p ablation who presented to the ED from home after reportedly becoming increasingly somnolent and altered over the course of the day at home. The history was obtained from the patient's nurse and the admitting ER physician as the patient was nonverbal on exam and only followed some commands and no family was present at the time of the exam. Per the patient 's ER nurse, the reported that the patient began complaining of belly and foot pain earlier today and became increasingly confused and was refusing to eat. The eventually checked her BP at home and noted that her SBP was down to 89 so her called EMS. On their arrival EMS noted her BG level to be 49 so oral glucose was given en route. EMS reported that the patient was able to speak and complained of pain and not eating today. She also mentioned that she missed her dialysis appointment yesterday. On arrival to the ED the patient was noted to be hypotensive with SBPs down to the 50s so a right femoral central line was placed. She was then given 1.5L of NS and started on levophed @ 15mcg/min. She was then continued on NS @ 120mL/hr. In addition, her BG was still low at 35 on arrival to the ED so she was given 1mg of glucagon and 1 amp of dextrose. Lastly, blood & urine cultures were obtained and she was started on IV vancomycin and rocephin before being transferred to the CCU for continued close monitoring & pressure support. ED Course: 1g rocephin, 1g vancomycin, 1 amp dextrose, 1mg glucagon, 1.5L of NS, levophed @ 15mcg/min - Allergies/Adverse Reactions Allergies Allergy/AdvReac Type Severity Reaction Status Date / Time No Known Drug Allergies Allergy Verified 04/17/18 08:36 - Home Medications Medication Instructions Recorded Confirmed Type Amlodipine [Norvasc] 10 mg PO DAILY 04/01/18 04/16/18 History Levothyroxine Sodium 12.5 mcg PO DAILY 04/01/18 04/16/18 History Losartan Potassium 25 mg PO TID 04/01/18 04/16/18 History Metoprolol Succinate [Toprol XL] 50 mg PO DAILY 04/01/18 04/16/18 History Rosuvastatin Calcium 40 mg PO DAILY 04/01/18 04/16/18 History Cyanocobalamin (Vitamin B-12) 1,000 mcg PO DAILY #30 tab 04/13/18 04/16/18 Rx [Vitamin B-12] Docusate [Colace] 100 mg PO BID #30 cap 04/13/18 04/16/18 Rx Folic Acid [Folvite] 1 mg PO DAILY #30 tab 04/13/18 04/16/18 Rx Pantoprazole [Protonix] 40 mg PO DAILY #30 tab 04/13/18 04/16/18 Rx Polyethylene Glycol 3350 [Miralax] 17 gm PO DAILY #1 bot 04/13/18 04/16/18 Rx Phenol [Chloraseptic [place]] 2 spray PO Q2H PRN 04/17/18 04/17/18 History Acetaminophen [Tylenol Regular 650 mg PO Q4H PRN tab 04/27/18 Rx Strength] Dronedarone HCl [Multaq] 400 mg PO BID-WM #0 tab 04/27/18 Rx Saccharomyces boulardii [Florastor] 250 mg PO DAILY cap 04/27/18 Rx Warfarin Sodium [Coumadin] 5 mg PO 1700 tab 04/27/18 Rx - History PMHx: ESRD on MWF HD, DMII (diet controlled), neuropathy, h/o atrial flutter s/ p ablation, HLD, HTN PSHx: hysterectomy, C spine repair FHx: cancer Social: Lives at home with who is 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 No TAD per last visit H &P. - Review of Systems ROS unobtainable: due to mental status - Vital signs BP: 86/59 up to 134/90 over course of exam HR: 96 RR: 20 Tmax: 98.2F Pox: 100% on RA Wt: 90.72 kg - Physical Exam Constitutional: other (in mild distress 2/2 pain & oriented to self) HEENT: normocephalic and atraumatic, conjunctiva clear, grossly normal hearing, MMM, good dention Neck: supple, trachea midline Heart: normal S1/S2, no murmurs/rubs/gallops, no edema -Heart: tachycardic with regular rate and rhythm Lungs: CTAB, no respiratory distress, good air movement, no rales/rhonchi, no wheezing, no retractions Abdomen: soft, bowel sounds present, other (diffuse TTP with guarding in RUQ) Musculoskeletal: normal structure, other (unable to assess ROM 2/2 AMS & inability to follow all commands) Neurological: no focal deficit Skin: no rash/lesions, good turgor, capillary refill <2 seconds, no jaundice Heme/Lymphatic: no unusual bruising or bleeding, no purpura, no petechia Psychiatric: other (unable to assess 2/2 AMS) FMR H&P: Results - Labs Result Diagrams: 07/14/18 16:22 07/14/18 16:22 Lab results: WBC 13.1 thou/uL (4.8-10.8) H 07/14/18 16:22 Hgb 11.4 g/dL (12.0-16.0) L 07/14/18 16:22 Hct 35.3 % (36.0-47.0) L 07/14/18 16:22 MCV 102.0 fL (78.0-98.0) H 07/14/18 16:22 Plt Count 204 thou/uL (130-400) 07/14/18 16:22 Band Neuts % (Manual) 4 % (5-11) L 07/14/18 16:22 Sodium 136 mmol/L (136-145) 07/14/18 16:22 Potassium 4.0 mmol/L (3.5-5.1) 07/14/18 16:22 Chloride 99 mmol/L (98-107) 07/14/18 16:22 Carbon Dioxide 23 mmol/L (23-31) 07/14/18 16:22 BUN 22 mg/dL (9.8-20.1) H 07/14/18 16:22 Creatinine 3.52 mg/dL (0.6-1.1) H 07/14/18 16:22 Glucose 37 mg/dL (83-110) L* 07/14/18 16:22 Lactic Acid 2.9 mmol/L (0.5-2.2) H 07/14/18 16:22 Calcium 7.2 mg/dL (7.8-10.44) L 07/14/18 16:22 Total Bilirubin 0.6 mg/dL (0.2-1.2) 07/14/18 16:22 AST 146 U/L (5-34) H 07/14/18 16:22 ALT 75 U/L (8-55) H 07/14/18 16:22 Alkaline Phosphatase 247 U/L (40-150) H 07/14/18 16:22 CK-MB (CK-2) 1.0 ng/mL (0-6.6) 07/14/18 16:22 Serum Total Protein 4.7 g/dL (6.0-8.3) L 07/14/18 16:22 Albumin 1.6 g/dL (3.4-4.8) L 07/14/18 16:22 Lipase 9 U/L (8-78) 07/14/18 16:22 Urine Ketones Trace mg/dL (Negative) H 07/14/18 16:15 Urine Blood Large (Negative) H 07/14/18 16:15 Urine Nitrite Negative (Negative) 07/14/18 16:15 Ur Leukocyte Esterase Large (Negative) H 07/14/18 16:15 Urine RBC 11-20 HPF (0-3) H 07/14/18 16:15 Urine WBC Greater Than 50-TNTC HPF (0-3) H 07/14/18 16:15 Ur Squamous Epith Cells 0-3 HPF (0-3) 07/14/18 16:15 Urine Bacteria 4+ HPF (None Seen) H 07/14/18 16:15 - EKG Interpretation EKG: NSR - Radiology Interpretation Chest x-ray Status: report reviewed by me (no acute cardiopulmonary process) FMR H&P: A/P - Problem List (1) Septic shock Current Visit: No Status: Acute Priority: High Code(s): A41.9 - SEPSIS, UNSPECIFIED ORGANISM; R65.21 - SEVERE SEPSIS WITH SEPTIC SHOCK (2) Encephalopathy acute Current Visit: Yes Status: Acute Code(s): G93.40 - ENCEPHALOPATHY, UNSPECIFIED (3) Hypoglycemia Current Visit: Yes Status: Acute Code(s): E16.2 - HYPOGLYCEMIA, UNSPECIFIED (4) Hypomagnesemia Current Visit: Yes Status: Acute Code(s): E83.42 - HYPOMAGNESEMIA (5) Elevated liver function tests Current Visit: Yes Status: Acute Code(s): R94.5 - ABNORMAL RESULTS OF LIVER FUNCTION STUDIES (6) HLD (hyperlipidemia) Current Visit: No Status: Chronic Code(s): E78.5 - HYPERLIPIDEMIA, UNSPECIFIED (7) Anemia Current Visit: No Status: Chronic Code(s): D64.9 - ANEMIA, UNSPECIFIED Qualifiers: Anemia type: due to chronic kidney disease (8) DMII (diabetes mellitus, type 2) Current Visit: No Status: Chronic (9) ESRD needing dialysis Current Visit: No Status: Chronic Code(s): N18.6 - END STAGE RENAL DISEASE; Z99.2 - DEPENDENCE ON RENAL DIALYSIS (10) UTI (urinary tract infection) Current Visit: Yes Status: Acute Qualifiers: Hematuria presence: with hematuria - Plan Septic Shock 2/2 UTI vs. pyelonephritis: - Patient presented severely hypotensive with an elevated HR into the 110s, lactate of 2.9, procalcitonin of 3.24, and WBC count of 13.1 with a UA significant for WBCs, blood, LE, and 4+ bacteria. Blood and urine cultures pending. CXR WNLs & respiratory vitals WNLs so pulmonary source unlikely. Patient started on IV vancomycin and rocephin which will be continued pending culture results. - CT abd/pelvis also pending to assess for pyelo vs. any other intraabdominal infection source as LFTs were also elevated. However, could just be 2/2 severe hypotension. - Patient now HD stable s/p IVF resuscitation and addition of levophed at 15mcg/ min. Will continue IVFs for the next 3-4 hours w/ NS @ 120mL/hr & monitor closely to avoid fluid overload. Will also continue levophed and decrease as tolerated by patient. Goal is to maintain MAP >65. Will continue to monitor vitals closely. - Will trend procal & lactate levels as well. - IV tylenol ordered PRN for pain control. Acute encephalopathy: - Likely multifactorial due to patient's septic shock & hypoglycemia. Will obtain an ammonia level; however low suspicion that that is a contributor. - Will consider a head CT if any acute worsening in mental status is noted. ESRD on MWF HD -Patient's Resizer Operator, Dr. Sosa, consulted by ER. Per Dr. Sosa, plan is to likely dialyze patient tomorrow as no need for urgent HD noted on presentation. Appreciate recs. Hypoglycemia likely 2/2 poor oral intake -BG of 35 on initial presentation but up to 176 s/p glucagon & dextrose. Will continue Q4H accuchecks. Mild SSI ordered as well as hypoglycemia protocol. Hypomagnesemia -Mg 1.3 on admission. Will replace with 1g IV and recheck in the AM. Elevated troponin: -Troponin elevated at 0.049 in admission which is higher than previous admission levels. Likely 2/2 demand ischemia from septic shock as well as ESRD. - EKG showed NST. Will continue to trend & consult cards if level rises above 1.0 overnight. Elevated LFTs: - Alk phos and AST/ALT elevated at 247 & 146/75 respectively. Likely 2/2 profound hypotension as patient recently had a negative hepatitis screen and RUQ US in March of this year per chart review. However, abd CT/pelvis pending due to abdominal pain noted on PE. - Will continue to monitor & recheck a CMP in the AM. Hx of atrial flutter s/p ablation - Aware, patient was to remain on oral anticoagulation, coumadin, for 1 month s/ p recent d/c in April per chart review. However, unable to confirm with family if patient is still taking this or not. Will therefore check coagulation studies. HTN: - Aware, holding BP meds 2/2 hypotension. HLD: - Aware, will resume meds once more alert and tolerating PO. Macrocytic Anemia: - Hgb 11.4 on admission within baseline levels per chart review. Will continue to monitor with daily CBCs & resume home folic acid & vitamin B12 once tolerating PO. Disposition: Will admit to CCU for continued pressure support and IV abx 2/2 septic shock. Anticipated LOS most likely >2 midnights. Diet: NPO IVFs: NS @120mL/hr CODE STATUS: FULL code DVT PPx: Heparin ABx: Vancomycin and rocephin (07/14) FMR H&P: Upper Level - Pertinent history 78 yo F with PMH of ESRD on HD, HTN, DM2, and recent atrial flutter s/p ablation presenting via EMS. Pt reports not feeling well over the last day and having missed her last session of HD. On presentation, EMS found blood glucose level of 49 that improved temporarily with oral glucose. On presentation to ER, pt had BPs in the 70s/40s after 1.5L of IVF given. Routine work up found evidence of UTI. Right femoral CVC obtained and pt started on levophed. - Pertinent findings VSS with levophed at 11 mcg/min Gen: NAD, somnolent but arousable CV: RRR Resp: CTAB Abdomen: TTP diffusely - Plan Date/Time: 07/14/181825 I, Dwayne Ellis MD PGY3, have evaluated this patient and agree with findings/ plan as outlined by mechanical engineering intern resident. Pertinent changes/additions are listed here. 1. Severe sepsis 2/2 UTI -Pt presents with hypotension, leukocytosis, lactic acidosis and UA indicative of infection. Pt did not receive adequate fluid resuscitation 2/2 ESRD history and was subsequently started on levophed. -CXR shows no acute abnormalities. Will obtain procalcitonin. -Trend lactic acid. -Continue abx. Pt received Ceftriaxone and Vanc in the ER. Can likely continue just Cefepime or Zosyn. -Await culture results. 2. Acute encephalopathy possibly secondary to above -Pt reportedly A&Ox4 at baseline but only answers in groans on exam. Due to TTP of abdomen and elevated LFTs, will obtain CT abdomen with contrast prior to admission to CCU. -Obtain ammonia level. 3. ESRD on HD -Nephrology consulted by ER and aware of pt, recommendations greatly appreciated. -No apparent need for urgent HD at this point. Nephrology ok'd CT with contrast , possible HD tomorrow. 4 Hypoglycemia likely 2/2 poor oral intake -Accuchecks and hyperglycemia protocol. 5. Hypomagnesemia -Replete and recheck in AM. 6. Elevated troponin likely 2/2 demand ischemia and ESRD -Continue to trend, although pt does not c/o chest pain. 7. Elevated LFTs likely 2/2 hypovolemia -Continue to trend. Pt recently had hepatitis screen and RUQ US in March of this year. 8. Hx of atrial flutter s/p ablation -Unclear whether pt still taking coumadin. Obtain coagulation studies. FULL code PPx: Heparin for VTE, no GI indicated. disposition: Admit to CCU under inpatient status for anticipated length of stay greater than two midnights, pending clinical course. Addendum - Attending - Attending Attestation Date/Time: 07/14/182128 I personally evaluated the patient and discussed the management with Dr. Buenrostro/ Caleb from [id number]. (30 min CCT). H&P repeated by me. I agree with the History, Examination, Assessment and Plan documented above with any addition or exceptions noted below. 78 y/o WF with ESRD, HTN, T2DM, aflutter s/p ablation who is basically bedbound presents via EMS for hypotension and altered mental status. History mainly obtained through . In normal state of health until yesterday when she didn't feel well. Today complained of some lower chest and abdominal and feet pain. Then states she was acting altered and he took her bp and it was very low so called EMS. In the ER received IVF, central line, vanc and rocephin and started on Levophed. Exam: HR 90, O2 sat 100% on RA, BP 106/75 (on Levo 15) A&O x 1, GCS 14 CV: normal s1/s2, regular Lungs: ctab Abd: diffuse abdominal tenderness, no rebound or guarding Ext; no c/c/e R femoral line and mcguire in place Labs and imaging reviewed. Septic shock from sepsis from UTI- Blood cx, urine cx. Continue vanc with dialysis and rocephin daily. IVF and levo to keep map >65. Encephalopathy- most likely secondary to UTI ESRD- Dialysis per Dr. Sosa Hypoglycemia- now improved. Continue q4 accuchecks for now. Hypomagnesemia- replace Indet trop- trend. most likely from ESRD and sepsis and demand. EKG without ST changes. To ICU.
[2018-07-14 20:28] LABS: INR-International Normal Ratio 1.4; Prothrombin Time 16.8 SEC (12.0-14.7)
[2018-07-14 20:29] LABS: PTT 27.4 SEC (22.9-36.1)
[2018-07-14] MEDS ORDERED: Ondansetron ODT 4 MG TAB SL PRN (20:44)
[2018-07-14] MEDS ORDERED: Ondansetron PF 4 MG/2 ML Vial IVP PRN (20:44)
[2018-07-14] MEDS ORDERED: Sodium Chloride 0.9% 1,000 ML IV SCH (20:45)
[2018-07-14] MEDS ORDERED: Acetaminophen 1,000 MG in Premix Bag 1 BAG IVPB PRN (20:53)
[2018-07-14] MEDS ORDERED: HumaLOG 300 UNITS/3 ML VIAL SC PRN (20:53)
[2018-07-14] MEDS ORDERED: Dextrose 5% in Water 1,000 ML IV PRN (20:53)
[2018-07-14 20:56] VITALS: BMI 26.3
--- NOTE | 2018-07-14 21:01 | CT ---
CT OF THE ABDOMEN AND PELVIS WITH CONTRAST: 07/14/18 COMPARISON: None. HISTORY: Abdominal pain. Hypoglycemia. Dialysis patient. TECHNIQUE: Multiple contiguous axial images were obtained in a CT of the abdomen and pelvis with contrast. Coron al reformats were performed. FINDINGS: The kidneys are small and atrophic. The liver, gallbladder, adrenal glands, spleen, and pancreas are unremarkable. No free air, free fluid, or stranding changes are seen in the abdomen or pelvis. Scattered diverticul a are seen in the colon. The small bowel is unremarkable. No abdominal or pelvic lymphadenopathy are seen. Atherosclerotic calcifications are seen in the aorta . There is a dialysis catheter with its tip in the inferior vena cava. The patient is status post hys terectomy. Degenerative changes are seen in the spine. Diffuse soft tissue anasarca is seen. There are bilateral small pleural effusions. IMPRESSION: 1. No evidence of acute intra-abdominal/pelvic abnormality. 2. Diverticulosis. 3. Small bilateral pleural effusions. POS: [facility]
[2018-07-14] MEDS: Sodium Chloride 0.9% 1,000 ML IV SCH (21:10)
[2018-07-14] MEDS: Heparin 5,000 UNITS/ML VIAL SC SCH (21:16)
[2018-07-14] MEDS ORDERED: Vancomycin HCl 750 MG in Sodium Chloride 0.9% 250 ML 250 ML IVPB SCH (21:30)
[2018-07-14] MEDS ORDERED: HOLD VANCOMYCIN FOR LEVEL >20 FS SCH (21:30)
[2018-07-14] MEDS ORDERED: Vancomycin Sliding Scale 1 EACH FS ONE (21:30)
[2018-07-14] MEDS ORDERED: Vancomycin HCl 500 MG in Sodium Chloride 0.9% 100 ML IVPB SCH (21:30)
[2018-07-14] MEDS ORDERED: Vancomycin HCl 250 MG in Sodium Chloride 0.9% 100 ML IVPB SCH (21:30)
[2018-07-14] MEDS ORDERED: Vancomycin HCl 1 GM in Premix Bag 1 BAG IVPB SCH (21:30)
[2018-07-14 21:54] LABS: Lactic Acid 6.4 mmol/L (0.5-2.2)
[2018-07-14 22:08] LABS: Troponin I 0.118 ng/mL (< 0.028)
--- NOTE | 2018-07-14 23:01 | CON ---
DATE OF CONSULTATION: HISTORY OF PRESENT ILLNESS: Ms. Scott is a 78-year-old white female, who was brought for generalized malaise and weakness. The patient missed dialysis last Monday. According to the patient, the patient has been found to be more somnolent and has decreased appetite and decreased energy level. We are being consulted for her maintenance hemodialysis. The concern is that this patient may be septic. REVIEW OF SYSTEMS: Positive for generalized malaise, decreased appetite, decreased energy level, occasional nausea, but no vomiting. Positive for diffuse myalgia. No gross hematuria. No dysuria. No urinary frequency. No productive cough. No fever or chills. HOME MEDICATIONS: Included the followin. Amlodipine 10 mg daily. 2. Levothyroxine 12.5 mcg daily. 3. Losartan 25 mg p.o. t.i.d. 4. Metoprolol succinate 30 mg daily. 5. Rosuvastatin 40 mg tablet at bedtime. 6. Vitamin B12 1000 mcg daily. 7. Folic acid 1 mg daily. 8. MiraLAX p.r.n. 9. Coumadin as directed. PAST MEDICAL HISTORY: 1. ESRD, status post sepsis. 2. Hypertension. 3. GERD. 4. Cardiac arrhythmia-currently on Multaq 400 mg p.o. b.i.d.?.. PAST SURGICAL HISTORY: 1. Status post cuffed hemodialysis catheter placement. 2. Status post acute pancreatitis. 3. Type 2 diabetes mellitus. 4. Hypertension. 5. Degenerative joint disease. 6. Hyperlipidemia. 7. Uterine cancer in remission. 8. Status post colonoscopy. 9. Status post intubation. 10. Status post hysterectomy. SOCIAL HISTORY: The patient currently lives at home with her taking care of her. No history of smoking. No alcohol. Status post blood transfusion. 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 Sedentary lifestyle. Education 10th grade. ALLERGIES: TRAZODONE. TRAUMA: Status post left foot fracture. IMMUNIZATION: Up-to-date. HOSPITALIZATIONS: Please see past medical history. FAMILY HISTORY: No family history of ESRD. PHYSICAL EXAMINATION: VITAL SIGNS: Blood pressure 100/70, heart rate 70, pulse ox 96 percent. GENERAL: Awake, lethargic, confused, not in overt distress. SKIN: Adequate turgor. HEENT: She has pinkish conjunctivae. Anicteric sclerae. No neck mass. No carotid bruits. No JVD. CHEST: No deformities. LUNGS: Clear breath sounds. No wheezing. No crackles. HEART: Normal sinus rhythm. No murmurs, gallops, or rubs. ABDOMEN: Globular, soft, nontender. No masses. EXTREMITIES: No edema, no deformities. LABORATORY DATA: July 14, 2018, white count 13.1, hemoglobin 8.4. Sodium 136, potassium 4, chloride 99, carbon dioxide 23, BUN 22, creatinine 3.52, glucose 37, calcium 7.2, AST 146, ALT 75, albumin 1.6. Lactic acid 2.9. Lipase is 12. Urinalysis noted to be turbid, protein is 100. She has a WBC greater than 50, RBC 11-10, coarse granular casts. IMAGING: Chest x-ray of July 14, 2018, shows to be unremarkable. No evidence of CHF or infiltrates. ASSESSMENT AND PLAN: 1. Urinary tract infection/urosepsis-empiric IV antibiotics will be done. Blood culture and culture and sensitivity is pending. 2. End-stage renal disease-stable. No indication for any emergent hemodialysis. Plan is for her to undergo a CT scan with contrast. If she receives contrast, we may end up dialyzing her tomorrow. 3. Overall agree with current management. Continue supportive care. Overall, prognosis remains guarded. Job ID: [id number]
[2018-07-15 00:43] LABS: Troponin I 0.165 ng/mL (< 0.028)
[2018-07-15] MEDS: Norepinephrine 8 MG/250 ML BAG IVPB PRN ×4 (01:18→19:31)
[2018-07-15] MEDS: Sodium Chloride 0.9% 1,000 ML IV SCH (06:09)
[2018-07-15 06:29] LABS: ALT (SGPT) 95 U/L (8-55); AST (SGOT) 168 U/L (5-34); Albumin 1.7 g/dL (3.4-4.8); Alkaline Phosphatase 274 U/L (40-150); BUN (Urea Nitrogen) 21 mg/dL (9.8-20.1); Bilirubin, Total 0.8 mg/dL (0.2-1.2); Calc. Creatinine Clearance 15 mL/min (70-130); Calcium 6.6 mg/dL (7.8-10.44); Chloride 103 mmol/L (98-107); Estimated GFR-MDRD 13; Globulin 2.6 g/dL (2.4-3.5); Glucose 122 mg/dL (83-110); Magnesium 1.3 mg/dL (1.6-2.6); Potassium 3.4 mmol/L (3.5-5.1); Protein, Total 4.3 g/dL (6.0-8.3); Sodium 136 mmol/L (136-145)
[2018-07-15 06:32] LABS: Carbon Dioxide Less than 8 mmol/L (23-31)
[2018-07-15 06:41] LABS: Lactic Acid 13.7 mmol/L (0.5-2.2)
[2018-07-15 06:47] LABS: Thyroid Stimulating Hormone 10.9362 uIU/mL (0.35-4.94)
[2018-07-15 06:52] LABS: CKMB 3.8 ng/mL (0-6.6)
[2018-07-15 06:53] LABS: Band 1 % (5-11); Burr Cells MODERATE= 6-15 cells (100X) (0-1/hpf); Eosinophils 1 % (0-10); Hemoglobin 11.1 g/dL (12.0-16.0); Lymphocytes 56 % (21-51); MDiff Complete? YES; Mean Corpuscular HGB CONC 31.7 g/dL (32.0-36.0); Mean Platelet Volume 8.5 fL (7.4-10.4); Monocytes 3 % (0-10); Neutrophil 39 % (42-75); Platelet Count 235 thou/uL (130-400); RBC Distribution Width 16.7 % (11.5-14.5); Red Blood Cell (RBC) Count 3.36 mill/uL (4.20-5.40); White Blood Cell (WBC) Count 14.2 thou/uL (4.8-10.8)
[2018-07-15] MEDS ORDERED: Sodium Bicarb 50 MEQ/50 ML VIAL IVP SCH ×3 (07:00→20:15)
[2018-07-15] MEDS ORDERED: Hydrocortisone Sod Succ/PF 100 mg/2 ml Vial IVP SCH (07:00)
[2018-07-15] MEDS ORDERED: Sodium Chloride 0.9% 1,000 ML IV SCH ×2 (07:00→11:00)
[2018-07-15 07:02] LABS: Actual Bicarbonate (HCO3a) 6.6 mEq/L (22-28); Carboxyhemoglobin (COHb) 0.7 gm% (0.0-3.0); Hemoglobin (Hb) 11.1 g/dL (12.0-16.0); pH, Arterial 7.27 (7.35-7.45)
[2018-07-15 07:09] LABS: CO2 Tension 14.8 mmHg (35.0-45.0)
[2018-07-15 07:10] LABS: Puncture Site RBA
--- NOTE | 2018-07-15 07:12 | PDOC.EVN ---
Event Note - Event Note Event Note: Reevaluated pt as morning labs resulted. Pt continues to be somnolent and will not follow commands or respond appropriately. Vital signs show MAP of 65 with levophed at 30 mcg/min and hypothermia with temp of 95.8. Labs indicate an anion gap metabolic acidosis with an unmeasurable bicarb and worsening lactic acid. Orders given to bolus 1L NS and give hydrocortisone 50 mg IVP. Discussed pt with nephrology who recommends HD. Orders placed for 1 amp of bicarb. Will also obtain ABG but respiratory status appears stable with O2 sat > 90% since admission. Will continue to monitor pt closely.
--- NOTE | 2018-07-15 07:52 | PDOC.FM ---
- Objective Vital Signs & Weight: Vital Signs (12 hours) Temp Pulse Ox 07/15/18 07:06 97 07/15/18 06:00 95.8 F L 07/15/18 00:00 97.3 F L 07/14/18 21:00 98.1 F 07/14/18 20:30 100 Weight Weight 67.4 kg Most Recent Monitor Data Heart Rate from ECG 106 NIBP 104/74 NIBP BP-Mean 84 Respiration from ECG 27 SpO2 95 I&O: 07/14/18 07/15/18 07/16/18 06:59 06:59 06:59 Intake Total 2102 Output Total 0 Balance 2102 Result Diagrams: 07/15/18 05:52 07/15/18 05:52 Dx/Plan (1) Elevated liver function tests Code(s): R94.5 - ABNORMAL RESULTS OF LIVER FUNCTION STUDIES Status: Acute (2) Encephalopathy acute Code(s): G93.40 - ENCEPHALOPATHY, UNSPECIFIED Status: Acute (3) Hypoglycemia Code(s): E16.2 - HYPOGLYCEMIA, UNSPECIFIED Status: Acute (4) UTI (urinary tract infection) Status: Acute Qualifiers: Hematuria presence: with hematuria (5) Metabolic acidosis Code(s): E87.2 - ACIDOSIS Status: Acute (6) Septic shock Code(s): A41.9 - SEPSIS, UNSPECIFIED ORGANISM; R65.21 - SEVERE SEPSIS WITH SEPTIC SHOCK Status: Acute (7) Anemia Code(s): D64.9 - ANEMIA, UNSPECIFIED Status: Chronic Qualifiers: Anemia type: due to chronic kidney disease (8) DMII (diabetes mellitus, type 2) Status: Chronic (9) ESRD needing dialysis Code(s): N18.6 - END STAGE RENAL DISEASE; Z99.2 - DEPENDENCE ON RENAL DIALYSIS Status: Chronic (10) Hypothermia Code(s): T68.XXXA - HYPOTHERMIA, INITIAL ENCOUNTER Status: Resolved - Plan Plan: Septic Shock 2/2 UTI vs. pyelonephritis: - On admission hypotense, tachycardic, lactate of 2.9, procalcitonin of 3.24, and WBC count of 13.1 with a UA significant for WBCs, blood, LE, and 4+ bacteria. CXR WNLs & respiratory vitals WNLs - CT abd/pel wnl - Blood and urine cultures pending. - IV vancomycin and rocephin - pt continues to be hypotense despite levo, metabolic acidosis present - 1 amp bicarb, solumedrol, going for HD Metabolic encephalopathy - Likely multifactorial due to patient's septic shock & hypoglycemia - Will consider a head CT if any acute worsening in mental status is noted. ESRD on MWF HD -Patient's Reservation Agent, Dr. Sosa, consulted by ER. - dialysis today Hypoglycemia likely 2/2 poor oral intake -BG of 35 on initial presentation, hypoglycemic protocol for cont lows - Q4H accuchecks - Mild SSI Hypomagnesemia -Mg 1.3 on admission - monitor and replace Demand ischemia -Troponin elevated at 0.049 in admission which is higher than previous admission levels. Likely 2/2 demand ischemia from septic shock as well as ESRD. Shock liver - Alk phos and AST/ALT elevated at 247 & 146/75 respectively. Likely 2/2 profound hypotension - negative hepatitis screen and RUQ US in 04/10 - CT ab/pel wnl - monitor CMP, treat as above Hx of atrial flutter s/p ablation - Aware, likely not on coumadin with sub-therapuetic INR HTN: - Aware, holding BP meds 2/2 hypotension. HLD: - Aware, will resume meds once more alert and tolerating PO. Macrocytic Anemia: - Hgb 11.4 on admission within baseline levels per chart review. Will continue to monitor with daily CBCs & resume home folic acid & vitamin B12 once tolerating PO. - path smear pending CODE STATUS: FULL code DVT PPx: Heparin ABx: Vancomycin and rocephin (07/14) Dispo: HD now, circulatory support as needed. Guarded Addendum - Attending - Attending Attestation Date/Time: 07/15/18 4541 I personally evaluated the patient at 0640 am and discussed the management with Dr. Costa. I agree with the History, Examination, Assessment and Plan documented above with any addition or exceptions noted below. Pt is somnolent and unable to answer questions Exam: BP- map 70s on 30 of levophed. HR 100, O2 sat 95%, RR 24 Gen: incomprehensible sounds CV: tachy, no murmurs Lungs: ctab anteriorly Abd: mild ttp, no rebound Ext: no edema. cool feet and unable to palpate pulses Labs reviewed. Septic shock from UTI- on levophed. Will add hydrocortisone and keep map >65. Continue IV vanc and rocephin until cx result. Appreciate pulm recs Acute encephalopathy- CT head results pending. Most likely from UTI Hypoglycemia- resolved. continue q4 hour accucheck Acute metabolic acidosis from lactic acid- 1 amp bicarb, 1L NS bolus and dialysis per Dr. Sosa ESRD-recs per dr. sosa Guarded condition
[2018-07-15] MEDS ORDERED: Sodium Bicarb 50 MEQ/50 ML VIAL ONE (07:56)
[2018-07-15] MEDS: Pantoprazole 40 MG VIAL IVP SCH (08:22)
[2018-07-15] MEDS: Sodium Chloride 0.9% (PF) 10 ML VIAL FS PRN (08:22)
[2018-07-15] MEDS: Heparin 5,000 UNITS/ML VIAL SC SCH ×3 (08:22→21:18)
[2018-07-15] MEDS ORDERED: Heparin 10,000 UNITS/ 10 ML VIAL ONE (09:00)
[2018-07-15] MEDS ORDERED: Prevnar 13-Val Conj/PF 0.5 ML SYRINGE IM ONE (09:00)
[2018-07-15] MEDS ORDERED: Dextrose 50% Abboject 50 ML SYRINGE ONE (10:17)
[2018-07-15] MEDS: Vasopressin 40 UNIT, Admixture Fee 1 EACH in Sodium Chloride 0.9% 100 ML IV SCH (10:38)
[2018-07-15 11:01] LABS: HBSAg Index 0.29 S/CO (0-0.99); Hep B Surf Ag Non-Reactive S/CO (NonReactive)
[2018-07-15] MEDS ORDERED: Dextrose 5 %-0.45 % NaCl 1,000 ML IV SCH (11:30)
[2018-07-15] MEDS ORDERED: Calcium Gluc 4.6 MEQ/10 ML (100 MG/ML) SLOW IVP SCH (11:30)
[2018-07-15] MEDS ORDERED: Magnesium 2 GM/50 ML 2 GM in Premix Bag 1 BAG IVPB SCH ×2 (11:45→15:45)
--- NOTE | 2018-07-15 11:51 | CON ---
DATE OF CONSULTATION: 07/15/2018 SERVICE: Pulmonary Medicine. REASON FOR CONSULT: ICU patient/septic shock. HISTORY OF PRESENT ILLNESS: The patient is a 78-year-old white female with multiple recent admissions to the hospital for urinary tract infections and septic shock. She has known heart disease as well as heart failure. She is in her usual state of health when she started having increasing confusion, and obtunded state. She was brought to the emergency department, where she was discovered to have quite low blood pressures. She got 2 L of fluid. Her blood pressures remained low, and a central line was subsequently placed so that pressors could be initiated. She cannot provide any additional elements of the history right now. She is not answering any questions. She appears to be breathing fairly comfortably, but is moaning almost continuously. PAST MEDICAL HISTORY: 1. End-stage renal disease. 2. Type 2 diabetes mellitus. 3. Atrial flutter, status post ablation. 4. Dyslipidemia. 5. Hypertension. 6. Neuropathy. PAST SURGICAL HISTORY: 1. Hysterectomy. 2. C-spine repair. FAMILY HISTORY: Noncontributory. 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 No alcohol, tobacco, or illicit drug use is noted. She has no reported history of exposure to chemicals, dust, asbestos, or tuberculosis. ALLERGIES: NO KNOWN DRUG ALLERGIES. MEDICATIONS: List of her inpatient medications were reviewed and updated. REVIEW OF SYSTEMS: Cannot be obtained as the patient is currently obtunded. PHYSICAL EXAMINATION: VITAL SIGNS: Afebrile, pulse 113, blood pressure 167/43, respirations 22, saturation 92% on room air. GENERAL: The patient is somnolent. She is encephalopathic. HEENT: Normocephalic and atraumatic. Sclerae white. Conjunctivae pink. Oral mucosa is moist without lesions. LUNGS: Decent air entry without prolonged expiratory phase, wheezing, or crackles. HEART: Normal rate and regular. ABDOMEN: Soft, nontender, and nondistended. Bowel sounds are positive. MUSCULOSKELETAL: No cyanosis or clubbing. There is trace pitting in the bilateral lower extremities. NEUROLOGIC: Grossly nonfocal. LABORATORY DATA: WBC 14.2, hemoglobin 11.1, platelets 235,000. Neutrophil count is 39% on top of 1% bands. Lymphocyte count is 56,000. INR 1.4. PH of 7.27, pCO2 of 14, pO2 of 87, corresponding to a saturation of 94%. Ionized calcium 0.9. Glucose 59. Lactate 13.7, this is uptrending compared to prior. Potassium 3.4, creatinine 3.49. AST 168 and gently uptrending, ALT 95 and gently up-trending. Alkaline phosphatase is 274, which is also uptrending. Troponin is uptrending to 0.227. Urinalysis is positive for a significant pyuria. Beta-hydroxybutyric acid was previously elevated. IMAGING STUDIES: CT of the abdomen and pelvis demonstrates, no evidence of acute intra-abdominal process. Diverticulosis is noted without diverticulitis. There are small bilateral pleural effusions evident. Chest x-ray shows no acute cardiopulmonary abnormality. ASSESSMENT: 1. Septic shock. 2. Anion gap metabolic acidosis. 3. End-stage renal disease, on dialysis. 4. Srx-ON-gyozzvjgy myocardial infarction secondary to demand. 5. Urinary tract infection. 6. Type 2 diabetes mellitus. DISCUSSION AND PLAN: We will continue empiric antibiotic coverage. This will be directed at the urine. A presumptive E. coli is already growing. Blood cultures x2 are negative to date. Her blood pressures are quite low on 2 pressors with steroids. We will put an arterial line in, so that we can better monitor her blood pressures. I will give her another liter of fluid as she is clinically dry at bedside, has clear lungs, and remains on room air. Vancomycin will be interrupted altogether. We will wean pressors through time. I will trend the lactate, replace the calcium, and give the patient some D5 half-normal saline at a gentle rate. Pulmonary/Critical Care will continue to follow along while the patient remains in-house. 70 minutes have been devoted to this patient in various activities. I personally reviewed all imaging studies and laboratory data noted within this document. For fifty percent of this time, I was interacting with the patient at the bedside or coordinating care with the care team. For the remainder of the time I was immediately available to the patient in the hospital unit. Job ID: [id number] [facility]
--- NOTE | 2018-07-15 12:12 | PRG ---
DATE OF SERVICE: 07/15/2018 SUBJECTIVE: Ms. Scott is a 78-year-old white female with ESRD and was admitted for urosepsis. She has been hemodynamically unstable in the last 24 hours. Pressor support is currently on board. An arterial line was placed. Blood pressure has been running on the low side. We are currently dialyzing her for her severe metabolic acidosis, and she did miss her dialysis 2 days ago. No fluid removal is being done due to the low blood pressure. OBJECTIVE: VITAL SIGNS: Blood pressure is 99/73, heart rate is 110, respiratory rate is 22, and pulse ox 92%. GENERAL: Noted to be awake, but confused and delirious. SKIN: Adequate turgor. HEENT: She has pinkish conjunctivae, anicteric sclerae. No neck mass. No carotid bruits. No JVD. CHEST: No deformities. LUNGS: Clear breath sounds. No wheezing. No crackles. HEART: Normal sinus rhythm. No murmurs, gallops, or rubs. ABDOMEN: Globular, soft, nontender. No masses. EXTREMITIES: No edema. No deformities. MEDICATIONS: Medications of July 15, 2018, were reviewed. LABORATORY DATA: Laboratories of July 15, 2018, showed the following; white count 14.2, hemoglobin 11.1. Sodium 136, potassium 3.4, chloride 103, carbon dioxide less than 8, BUN 21, creatinine 3.49, calcium 6.6. AST 168, ALT 95, albumin 1.7. TSH 10.9. Procalcitonin 3.05. DIAGNOSTIC DATA: CT scan of the abdomen and pelvis showed no acute evidence of intra-abdominal/pelvic abnormality. There is small bilateral pleural effusion. ASSESSMENT AND PLAN: 1. Urosepsis - empiric IV antibiotics, currently on cephalosporin as well as on vancomycin. Continue supportive care. Continue pressor support for the low blood pressure. The severe metabolic acidosis is most likely a reflection of underlying lactic acidosis with this patient. This is most likely from her sepsis. 2. End-stage renal disease, currently undergoing hemodialysis. No fluid removal is being done. I will re-evaluate this patient again in a.m. if she will need another dialytic intervention. Overall, agree with current management. Overall prognosis remains poor. Job ID: [id number]
[2018-07-15] MEDS: Calcium Gluconate 4.6 MEQ in Sodium Chloride 0.9% 100 ML IVPB SCH ×2 (14:42→15:25)
[2018-07-15] MEDS: Dextrose 50% Abboject 50 ML SYRINGE SLOW IVP PRN ×2 (15:20→19:56)
[2018-07-15 17:27] LABS: Lactic Acid 13.2 mmol/L (0.5-2.2)
[2018-07-15 17:36] LABS: Anion Gap 23 mmol/L (10-20); BUN (Urea Nitrogen) 8 mg/dL (9.8-20.1); Calc. Creatinine Clearance 36 mL/min (70-130); Calcium 6.4 mg/dL (7.8-10.44); Carbon Dioxide 13 mmol/L (23-31); Chloride 106 mmol/L (98-107); Estimated GFR-MDRD 36; Glucose 127 mg/dL (83-110); Magnesium 2.8 mg/dL (1.6-2.6); Phosphorus 2.3 mg/dL (2.3-4.7); Potassium 3.3 mmol/L (3.5-5.1); Sodium 139 mmol/L (136-145)
[2018-07-15] MEDS ORDERED: cefTRIAXone\\ROCEPHIN 1 GM in Sodium Chloride 0.9% 100 ML IVPB SCH (18:00)
--- NOTE | 2018-07-15 18:49 | OP ---
DATE OF PROCEDURE: 07/15/2018 SERVICE: Pulmonary Medicine. PROCEDURE PERFORMED: Left-sided femoral artery catheter placement. CONSENT: The risks and benefits of the procedure were discussed with the patient's at bedside. All questions were answered and alternative options were explained. The patient was unable to provide consent secondary to encephalopathy. MEDICATIONS USED: 1% lidocaine, 5 mL. INDICATIONS: Septic shock. DESCRIPTION OF PROCEDURE: A time-out was performed by the procedure team and patient. The patient was positively identified using name and date of . The procedure site was marked. Vital sign monitoring was accomplished by noninvasive hemodynamic monitoring, pulse oximetry, and telemetry. With the patient in the supine position, the left groin was prepped and draped in sterile fashion and anesthetized with 1% lidocaine. Under ultrasound guidance, a cannulation needle was placed in the femoral artery on the third attempt. There was return of bright red, pulsatile blood. A wire was threaded through the cannulation needle. The needle was removed, and the arterial catheter was threaded over the wire without difficulty and sutured in place with silk sutures x2. The catheter was attached to the monitor, and appropriate arterial waveform was demonstrated. A sterile dressing was applied, and the procedure was terminated. ESTIMATED BLOOD LOSS: 10 mL. COMPLICATIONS: None. Job ID: [id number]
[2018-07-15 19:39] LABS: Actual Bicarbonate (HCO3a) 9.5 mEq/L (22-28); Base Excess (BEa) -20.3 mEq/L (-2.0 to +3.0); CO2 Tension 36.6 mmHg (35.0-45.0); Calcium, Ionized 1.05 mmol/L (1.12-1.30); Carboxyhemoglobin (COHb) 0.7 gm% (0.0-3.0); Hemoglobin (Hb) 11.3 g/dL (12.0-16.0); Potassium - ABG Lab 3.57 mmol/L (3.70-5.30)
[2018-07-15 19:50] LABS: pH, Arterial 7.03 (7.35-7.45)
[2018-07-15 19:51] LABS: Puncture Site ALINE
[2018-07-15] MEDS: Sodium Bicarb 50 MEQ/50 ML VIAL ONE (19:55)
[2018-07-15] MEDS: Hydrocortisone Sod Succ/PF 100 mg/2 ml Vial IVP SCH (19:56)
[2018-07-15] MEDS: SODIUM BICARBONATE IV SCH (20:16)
[2018-07-15] MEDS: WATER IV SCH (20:16)
[2018-07-15] MEDS: DEXTROSE 5% IV SCH (20:16)
[2018-07-15] MEDS: Cefepime 2 GM in Sodium Chloride 0.9% 100 ML IVPB SCH (21:17)
[2018-07-15] MEDS: Calcium Gluc 4.6 MEQ/10 ML (100 MG/ML) SLOW IVP SCH (21:18)
[2018-07-15 21:31] LABS: Base Excess (BEa) -12.9 mEq/L (-2.0 to +3.0); Calcium, Ionized 1.08 mmol/L (1.12-1.30); Carboxyhemoglobin (COHb) 0.6 gm% (0.0-3.0); Hemoglobin (Hb) 10.3 g/dL (12.0-16.0); O2 Tension (PaO2) 88.3 mmHg (> 70.0); Potassium - ABG Lab 3.34 mmol/L (3.70-5.30); pH, Arterial 7.39 (7.35-7.45)
[2018-07-15 21:37] LABS: Puncture Site ALINE
[2018-07-16] MEDS: Calcium Gluc 4.6 MEQ/10 ML (100 MG/ML) SLOW IVP SCH (00:49)
[2018-07-16] MEDS: Vasopressin 40 UNIT, Admixture Fee 1 EACH in Sodium Chloride 0.9% 100 ML IV SCH (00:53)
[2018-07-16] MEDS: Hydrocortisone Sod Succ/PF 100 mg/2 ml Vial IVP SCH ×2 (01:01→08:23)
[2018-07-16] MEDS: Sodium Bicarb 50 MEQ/50 ML VIAL ONE (01:19)
[2018-07-16 02:42] LABS: Actual Bicarbonate (HCO3a) 3.9 mEq/L (22-28); Base Excess (BEa) -24.2 mEq/L (-2.0 to +3.0); Carboxyhemoglobin (COHb) 0.5 gm% (0.0-3.0); Hemoglobin (Hb) 10.8 g/dL (12.0-16.0); Potassium - ABG Lab 4.37 mmol/L (3.70-5.30)
[2018-07-16] MEDS: Dextrose 50% Abboject 50 ML SYRINGE SLOW IVP PRN ×2 (02:56→11:02)
[2018-07-16 03:10] LABS: CO2 Tension 13.8 mmHg (35.0-45.0); pH, Arterial 7.07 (7.35-7.45)
[2018-07-16 03:11] LABS: Puncture Site ALINE
[2018-07-16 03:35] LABS: Actual Bicarbonate (HCO3a) 3.3 mEq/L (22-28); Base Excess (BEa) -23.7 mEq/L (-2.0 to +3.0); Calcium, Ionized 0.99 mmol/L (1.12-1.30); Carboxyhemoglobin (COHb) 0.3 gm% (0.0-3.0); Hemoglobin (Hb) 9.7 g/dL (12.0-16.0); O2 Tension (PaO2) 100.6 mmHg (> 70.0); Potassium - ABG Lab 4.22 mmol/L (3.70-5.30)
[2018-07-16 03:39] LABS: CO2 Tension 10.3 mmHg (35.0-45.0); Puncture Site ALINE; pH, Arterial 7.12 (7.35-7.45)
[2018-07-16 03:40] LABS: ALV-art Gradient 171.725 (0-20)
[2018-07-16 04:12] LABS: ALT (SGPT) 155 U/L (8-55); AST (SGOT) 422 U/L (5-34); Alkaline Phosphatase 254 U/L (40-150); BUN (Urea Nitrogen) 10 mg/dL (9.8-20.1); Bilirubin, Total 0.6 mg/dL (0.2-1.2); Calc. Creatinine Clearance 26 mL/min (70-130); Calcium 7.1 mg/dL (7.8-10.44); Carbon Dioxide Less than 8 mmol/L (23-31); Chloride 103 mmol/L (98-107); Estimated GFR-MDRD 25; Globulin 1.7 g/dL (2.4-3.5); Glucose 276 mg/dL (83-110); Phosphorus 6.5 mg/dL (2.3-4.7); Potassium 4.4 mmol/L (3.5-5.1); Protein, Total 2.7 g/dL (6.0-8.3); Sodium 139 mmol/L (136-145); Troponin I 0.601 ng/mL (< 0.028)
[2018-07-16] MEDS ORDERED: Calcium Gluconate 4.6 MEQ in Sodium Chloride 0.9% 100 ML IVPB SCH (04:40)
[2018-07-16 04:45] LABS: Lactic Acid 30.1 mmol/L (0.5-2.2)
[2018-07-16] MEDS ORDERED: Sodium Chloride 0.9% 1,000 ML IV SCH (05:00)
[2018-07-16] MEDS ORDERED: Sodium Bicarb 50 MEQ/50 ML VIAL IVP SCH ×2 (05:00→10:00)
[2018-07-16] MEDS: Norepinephrine 8 MG/250 ML BAG IVPB PRN ×2 (05:05→10:29)
--- NOTE | 2018-07-16 05:17 | PRG ---
DATE OF SERVICE: 07/16/2018 SERVICE: Pulmonary Medicine. INTERVAL HISTORY: The patient took a turn for the worse overnight. She got increasingly acidotic. We gave her a little bit of BiPAP, 2 amps of bicarb, and a bicarb drip. This was a temporizing measure. It improved things for a short period of time, but she became obtunded once again, and her bicarb dropped and her acidosis picked back up. I came in to intubate her. No sedation was required for the intubation. She cannot provide any additional elements of the history. Otherwise, there were no significant events. The Chemsticks, the blood sticks for glucose were completely discordant. PHYSICAL EXAMINATION: VITAL SIGNS: Currently, afebrile. Pulse 106, blood pressure 119/45, respirations 33, saturation 98% on 40% FiO2 and a PEEP of 5. GENERAL: The patient is intubated. She is completely encephalopathic and essentially nonresponsive. HEENT: Normocephalic and atraumatic. Sclerae white. Conjunctivae pink. Oral mucosa is moist without lesions. LUNGS: Coarse breath sounds with rhonchi are present. There is dependent crackles noted. No wheezing is appreciated. HEART: Normal rate. Regular. ABDOMEN: Soft, nontender, and nondistended. Bowel sounds are positive. MUSCULOSKELETAL: No cyanosis or clubbing. There is 2+ pitting in the bilateral lower extremities, which is new. NEUROLOGICAL: Nonfocal. LABORATORY DATA: WBC is 14.2, hemoglobin 11.1, platelets 235,000. INR 1.4. PH 7.12, pCO2 10, PO2 100 on 40% FiO2 and a PEEP of 5. This was following intubation demonstrating interval improvement in her acidosis. AST and ALT are up trending. Alkaline phosphatase is roughly stable at 254. Troponin is up trending to 0.6. As previously demonstrated, the glucose is completely discordant. Her sugars are 276. Creatinine 1.97. Basic metabolic profile is otherwise unremarkable except for severe acidosis with a bicarb of less than 8. Urinalysis is significant pyuria. Beta-hydroxybutyric acid is barely elevated. Urine culture is growing E coli. There is gram-positive cocci in rods in one of two blood cultures. IMAGING: Chest x-ray demonstrates interval intubation with endotracheal tube roughly 4 cm above the level of the joyce. Carinal angle is not terribly wide. I do not see any acute cardiopulmonary abnormality or infiltrating changes. There is a right-sided vascular catheter, which terminates in good position. ASSESSMENT: 1. Acute hypoxic respiratory failure, mild. 2. Septic shock. 3. Urinary tract infection, suspected. 4. End-stage renal disease, on dialysis. 5. Nez-JB-loxiqoxtl myocardial infarction secondary to demand ischemia. 6. Type 2 diabetes mellitus. 7. Peripheral vascular disease. DISCUSSION AND PLAN: The patient has been intubated. Gave multiple amps of bicarb and started a bicarb drip, but despite this, she is having persistent acidosis. This is secondary to an elevated lactate. We will call for a urgent hemodialysis. We will stop checking peripheral blood sugars as these are completely discordant from our blood sticks. We will give an additional amp of calcium. Pulmonary/Critical Care will continue to follow along. At this point, she is critically ill and would not be unexpected during this hospital stay. Critical care time: 30 minutes. Job ID: [id number] [facility]
[2018-07-16 05:28] LABS: Anisocytosis SLIGHT = 6-15 cells (100X) (0-5/hpf); Band 25 % (5-11); Hemoglobin 9.3 g/dL (12.0-16.0); Lymphocytes 25 % (21-51); MDiff Complete? YES; Macrocytosis SLIGHT = 6-15 cells (100X) (0-5/hpf); Mean Corpuscular HGB CONC 30.6 g/dL (32.0-36.0); Mean Corpuscular Hemoglobin 33.1 pg (27.0-31.0); Mean Platelet Volume 8.3 fL (7.4-10.4); Monocytes 3 % (0-10); Neutrophil 47 % (42-75); Platelet Count 122 thou/uL (130-400); Platelet Morphology Comment Appears Decreased; Polychromasia SLIGHT = 2-3 cells (100X) (0-2/hpf); RBC Distribution Width 16.8 % (11.5-14.5); White Blood Cell (WBC) Count 14.2 thou/uL (4.8-10.8)
--- NOTE | 2018-07-16 05:28 | OP ---
DATE OF PROCEDURE: 07/16/2018 SERVICE: Pulmonary Medicine. PROCEDURE PERFORMED: Emergent endotracheal intubation. CONSENT: This was implied as the procedure was performed emergently secondary to clinical deterioration and respiratory failure. STAFF PHYSICIAN: Rayo Partida MD. MEDICATIONS USED: None. PREPROCEDURE DIAGNOSES: 1. Septic shock. 2. Severe metabolic acidosis. POSTPROCEDURE DIAGNOSES: 1. Septic shock. 2. Severe metabolic acidosis. DESCRIPTION OF PROCEDURE: Vital signs monitoring was accomplished by noninvasive hemodynamic monitoring, pulse oximetry, and telemetry. In the supine position, the patient was preoxygenated with BiPAP and maintained with saturations of 100%. Following induction, no anesthesia was required. A GlideScope was inserted through the mouth offering clear identification of the posterior oropharynx and laryngeal structures with a grade 1 view. A 7.5-[place] endotracheal tube was visualized passing through the vocal cords. Placement was confirmed by condensation in the endotracheal tube, colorimetric capnography, and bi-axillary chest auscultation. Endotracheal tube was secured at 22 cm, measured at the gums. The patient was placed on mechanical ventilation with good return of volumes. Postprocedure x-ray demonstrated good location for the endotracheal tube inside the trachea. ESTIMATED BLOOD LOSS: None. COMPLICATIONS: None. Job ID: [id number]
[2018-07-16] MEDS: SODIUM BICARBONATE IV SCH (07:03)
[2018-07-16] MEDS: DEXTROSE 5% IV SCH (07:03)
[2018-07-16] MEDS: WATER IV SCH (07:03)
--- NOTE | 2018-07-16 07:07 | PDOC.FM ---
- Subjective Subjective: Pt intubated. Pt was undergoing dialysis and BP was ranging from 80/40. Nurse reports good BP before starting dialysis. Pt was on two pressors at this time. Pt does not respond at all. Unable to obtain further hx. - Objective MAR Reviewed: Yes Vital Signs & Weight: Vital Signs (12 hours) Temp Pulse Resp BP 07/16/18 06:22 116 H 109/45 L 07/16/18 06:00 29 H 07/16/18 04:00 97.7 F 28 H 07/16/18 03:25 104 H 07/16/18 03:00 98.0 F 07/16/18 02:14 107 H 07/16/18 02:00 98 F 07/16/18 00:00 98.3 F 07/15/18 19:52 129 H Weight Weight 67.4 kg Most Recent Monitor Data Heart Rate from ECG 109 NIBP 99/86 NIBP BP-Mean 67 Respiration from ECG 30 SpO2 77 I&O: 07/15/18 07/16/18 07/17/18 06:59 06:59 06:59 Intake Total 2103 4390 Output Total 0 0 Balance 2103 4390 Result Diagrams: 07/16/18 03:33 07/16/18 03:33 Radiology Reviewed by me: Yes (07/16 X-ray: Stable from previous. No acute abnormality. Await official read) Phys Exam - Physical Examination Pt intubated. Pt not responsive to sternal rub HEENT: moist MMs Neck: no nodes, no JVD, supple Respiratory: no wheezing, no rhonchi Some mild rales noted bilaterally. No crackles noted Cardiovascular: RRR, no significant murmur, no rub Gastrointestinal: soft, no distention Unable to auscultate Bowel sounds fully Musculoskeletal: pulses present, edema present Trace edema noted in LE bilatarlly Unable to fully obtain due to intubation. Deviation from normal: Unable to obtain due to intubation Deviation from normal: Some bruising noted on arms bilaterally Dx/Plan (1) Septic shock Code(s): A41.9 - SEPSIS, UNSPECIFIED ORGANISM; R65.21 - SEVERE SEPSIS WITH SEPTIC SHOCK Status: Acute (2) UTI (urinary tract infection) Status: Acute Qualifiers: Hematuria presence: with hematuria (3) Encephalopathy acute Code(s): G93.40 - ENCEPHALOPATHY, UNSPECIFIED Status: Acute (4) Elevated liver function tests Code(s): R94.5 - ABNORMAL RESULTS OF LIVER FUNCTION STUDIES Status: Acute (5) Hypoglycemia Code(s): E16.2 - HYPOGLYCEMIA, UNSPECIFIED Status: Acute (6) Anemia Code(s): D64.9 - ANEMIA, UNSPECIFIED Status: Chronic Qualifiers: Anemia type: due to chronic kidney disease (7) DMII (diabetes mellitus, type 2) Status: Chronic (8) ESRD needing dialysis Code(s): N18.6 - END STAGE RENAL DISEASE; Z99.2 - DEPENDENCE ON RENAL DIALYSIS Status: Chronic (9) HTN (hypertension) Code(s): I10 - ESSENTIAL (PRIMARY) HYPERTENSION Status: Chronic (10) Acute respiratory failure Code(s): J96.00 - ACUTE RESPIRATORY FAILURE, UNSP W HYPOXIA OR HYPERCAPNIA Status: Resolved (11) Increased anion gap metabolic acidosis Code(s): E87.2 - ACIDOSIS Status: Resolved - Plan Plan: Septic Shock 2/2 UTI vs. pyelonephritis: - On admission hypotense, tachycardic, lactate of 2.9, procalcitonin of 3.24, and WBC count of 13.1 with a UA significant for WBCs, blood, LE, and 4+ bacteria. CXR WNLs & respiratory vitals WNLs - CT abd/pel wnl - Urine cx- E. coli sens to current tx. Blood cx 1/2- E.coli - Switched to IV cefepime -Pt now on Levophed/Vasopressin, pt getting emergent dialysis and BP not stable. Will add Epi at this time for pressor support. -Pt on bicarb drip and still remains low. Lactate continues to trend upwards. Continue to monitor. -Critical Care/Pulm consulted- Dr. Partida, follow recs. Metabolic Acidosis -2/2 to above. Pt bicarb very low. Lactic acid elevated. -On bicarb drip. ABG pH improved to 7.12 after intubation. Metabolic encephalopathy - Likely multifactorial due to patient's septic shock & hypoglycemia -Brain CT pending. Pt continued to decline overnight and is now intubated. ESRD on MWF HD -Patient's Director Of Hotel Operations, Dr. Sosa, consulted by ER. -Pt undergoing emergency dialysis. Not maintaining BP well. Hypoglycemia likely 2/2 poor oral intake -BG of 35 on initial presentation, hypoglycemic protocol for cont lows - Q4H accuchecks - Mild SSI Demand ischemia -Troponin elevated at 0.049 on admission which is higher than previous admission levels. Likely 2/2 demand ischemia from septic shock as well as ESRD. -Continues to trend upwards to .601 today. Shock liver - Alk phos and AST/ALT elevated at 245 422/155 Likely 2/2 profound hypotension - negative hepatitis screen and RUQ US in 04/10 - CT ab/pel wnl - monitor CMP, treat as above Hx of atrial flutter s/p ablation - Aware, likely not on coumadin with sub-therapuetic INR HTN: - Aware, holding BP meds 2/2 hypotension. HLD: - Aware, will resume meds once more alert and tolerating PO. Macrocytic Anemia: - Hgb 11.4 on admission within baseline levels per chart review. Will continue to monitor with daily CBCs & resume home folic acid & vitamin B12 once tolerating PO. -Hgb today 9.3. - path smear pending Thrombocytopenia -Plt ct has downtrended to 122 today. Likely 2/2 hepatic shock above. -Path smear pending. Will continue to follow Hypomagnesemia (Resolved) -Mg 1.3 on admission - monitor and replace Pt undergoing emergent dialysis to help with acidosis at this time. Dr. Partida switched to cefepime recently. Pt BP dropping. Added Epinephrine as well for pressor support. Trop continues to elevate likely 2/2 to above. trop has continued to increase. Likely due demand and shock. Will possibly consult Cardiology as it is above .3 at this time. AST/ALT continues to worsen. Will continue to follow with CMP. Palliative care consulted as patient continues to worsen despite broad spectrum abx. Addendum - Attending - Attending Attestation Date/Time: 07/16/18 1024 I personally evaluated the patient and discussed the management with Dr. Cespedes. I agree with the History, Examination, Assessment and Plan documented above with any addition or exceptions noted below. Patient here for presumed Septic shock 2/2 UTI in the setting of ESRD on HD status. Patient is critically ill and continues to decline. She was encephalopathic overnight due to her acid base disturbance and had to be intubated. She is currently not requiring sedation. Pulm on board. Continue vent mgmt per their recs. She continues on 3 pressors currently due to hypotension while receiving emergent HD for her acidemia. Expect her lactic acidosis resulting in acidemia is from distal hypoperfusion from the high pressor requirement she is on. She continues on abx for suspected E. Coli UTI and bacteremia. LFTs increasing, suggesting hypoperfusion and possibly headed to shock liver. Will discuss case with family today but this portends a very poor prognosis at the current time.
[2018-07-16] MEDS: Heparin 5,000 UNITS/ML VIAL SC SCH (08:29)
[2018-07-16] MEDS: Sodium Chloride 0.9% (PF) 10 ML VIAL FS PRN (08:30)
[2018-07-16] MEDS: Pantoprazole 40 MG VIAL IVP SCH (08:30)
--- NOTE | 2018-07-16 09:05 | RAD ---
PORTABLE CHEST 1 VIEW: DATE: 07/16/2018. TIME: 3:24 a.m. HISTORY: Respiratory failure. FINDINGS: Comparison is made to the exam of 07/14/2018. Right-sided dialysis catheter remains in place. An endotracheal tube has been placed, tip below the level of the clavicular heads. The heart size is normal. The aorta is tortuous. Mild infiltrates a re seen in the right lung base. No pneumothoraces or pleural effusions are identified. POS: H
[2018-07-16 09:48] LABS: Base Excess (BEa) -11.1 mEq/L (-2.0 to +3.0); Calcium, Ionized 0.86 mmol/L (1.12-1.30); Carboxyhemoglobin (COHb) 0.5 gm% (0.0-3.0); Hemoglobin (Hb) 9.9 g/dL (12.0-16.0); O2 Tension (PaO2) 65.8 mmHg (> 70.0); pH, Arterial 7.53 (7.35-7.45)
--- NOTE | 2018-07-16 10:00 | PRG ---
DATE OF SERVICE: 07/16/2018 SUBJECTIVE: Alisa Scott is a 78-year-old female, who is on multiple pressors, Levophed, epinephrine, vasopressin just for the dialysis. OBJECTIVE: VITAL SIGNS: Pulse 112, blood pressure 129/51, and respiratory rate 26. HEENT: Pupils are equal, encephalopathic. CHEST: Decreased breath sounds. No wheezing. CARDIAC: Normal S1 and S2. No gallops. ABDOMEN: No masses. IMPRESSION: 1. Serum metabolic acidosis, sepsis syndrome, and Escherichia coli. 2. Respiratory failure. 3. Renal failure. PLAN: She is clearly not weanable at this stage. Continue pressors. Continue bicarb drip. Antibiotics and stress dose steroids. Repeat blood gas this morning. We will follow. One-half hour of critical care time. Job ID: [id number]
--- NOTE | 2018-07-16 10:15 | PRG ---
DATE OF SERVICE: 07/16/2018 SERVICE: Renal Medicine. SUBJECTIVE: Ms. Scott is a 78-year-old white female with ESRD and was admitted for urosepsis. She continues to be hemodynamically unstable. She is currently on several pressor supports. Metabolic acidosis remains persistent. She is currently undergoing hemodialysis. The plan is to do daily dialysis with this patient. Minimal fluid removal was done. This is due to her low blood pressure. OBJECTIVE: VITAL SIGNS: Blood pressure is currently at 116/51 and heart rate 120. GENERAL: The patient is sedated, intubated, on ventilator support. SKIN: Adequate turgor. HEENT: She has slightly pale conjunctivae. Anicteric sclerae. NECK: No neck mass. No carotid bruits. No JVD. CHEST: No deformities. LUNGS: Decreased breath sounds. HEART: Tachycardic. No murmur. No gallops. No rubs. ABDOMEN: Globular, soft, nontender. No masses. EXTREMITIES: No edema. No deformities. MEDICATIONS: Medications of July 16, 2018, were reviewed. LABORATORY DATA: Laboratories of July 16, 2018; white count 14.2 and hemoglobin 9.3. Sodium 139, potassium 4.4, chloride 103, carbon dioxide less than 8, BUN 19, creatinine 1.97, and phosphorus 6.5. AST 422, ALT 155. Troponin I 0.601. White count is 14.2 and hemoglobin 9.3. ASSESSMENT AND PLAN: 1. Urosepsis - continue IV antibiotics. Continue supportive care. 2. End-stage renal disease, doing daily dialysis, due to severe metabolic acidosis. No fluid was removed. We gave her about a liter of normal saline infusion during the dialysis due to the drop in blood pressure. 3. Severe metabolic acidosis - this is secondary to her sepsis. Continue supportive care. Do daily dialysis. Job ID: [id number]
[2018-07-16 10:20] LABS: Puncture Site ALINE
[2018-07-16] MEDS: Cefepime 2 GM in Sodium Chloride 0.9% 100 ML IVPB SCH (10:33)
[2018-07-16] MEDS ORDERED: DEXTROSE 5% IVPB SCH (10:45)
[2018-07-16] MEDS ORDERED: WATER IVPB SCH (10:45)
[2018-07-16] MEDS ORDERED: EPINEPHRINE IVPB SCH (10:45)
[2018-07-16] MEDS ORDERED: Dextrose 10% in Water 1,000 ML IV SCH (11:30)
[2018-07-16 12:57] VITALS: TEMP 97.5
[2018-07-16] MEDS ORDERED: Heparin 10,000 UNITS/ 10 ML VIAL ONE (15:00)
[2018-07-16 15:26] VITALS: BP 40/22
--- NOTE | 2018-07-16 15:39 | PDOC.EVN ---
Event Note - Event Note Event Note: Was up with family and her . stated that he did not want to continue with pressers once the current bag ran out. He stated he was waiting for some family to arrive to discuss. But he stated once they arrived that they would withdraw care and want the endotracheal tube removed. states that it was his wifes wishes that she did not want to be on a breathing machine. He states that they want to withdraw presser support and withdraw endotracheal tube. I discussed with nurse and communicated these orders. Pt was already made DNR.
--- NOTE | 2018-07-17 10:06 | PQF ---
ALAN CLARKENERISSA *r [id number] [facility] [id number] CLINICAL DOCUMENTATION IMPROVEMENT CLARIFICATION FORM: ICD-10 Updated PLEASE DO AN ADDENDUM TO THE PROGRESS NOTE WITH ANY DOCUMENTATION UPDATES OR ADDITIONS AND CARRY THROUGH TO DC SUMMARY. THANK YOU. DATE: 07-17-18 ATTN: DR. IZQUIERDO / DR. TERESA Please exercise your independent, professional judgment in responding to the clarification form. Clinical indicators are provided on the bottom of this form for your review Please check appropriate box(s): [ ] NSTEMI due to Demand Ischemia (AMI Type II) [ ] Demand Ischemia without CO [ ] Other diagnosis [ ] Unable to determine CLINICAL INDICATORS - SIGNS / SYMPTOMS / LABS LABS: TROPONIN I 07-14 @ 1622 0.049 07-14 @ 2115 0.118 07-15 @ 0004 0.165 07-15 @ 0552 0.227 07-16 @ 0333 0.601 07-14 (LASHELL): ELEVATED TROPONIN - LIKELY 2/2 DEMAND ISCHEMIA FROM SEPTIC SHOCK WELL ESRD 07-15 (ZACK): NSTEMI SECONDARY TO DEMAND 07-16 (ZACK): NSTEMI SECONDARY TO DEMAND ISCHEMIA; 07-16 (FELECIA): DEMAND ISCHEMIA RISKS: 07-14 (LASHELL): SEPTIC SHOCK WELL ESRD TREATMENTS: 07-14 (LASHELL) * 1.5L NS - STARTED ON LEVOPHED (07-14/07-15/07-16) * BLD AND URINE CULTURES * IV VANCOMYCIN AND ROCEPHIN * CCU MONITORING * IV MAXIPIME (07-15/07-16) THANK YOU MARY (This form is maintained as a part of the permanent medical record) 2014 [email or web address]. All Rights Reserved Mary Hernandez RN, BS [email or web address]
--- NOTE | 2018-07-18 09:03 | DIS ---
DATE OF ADMISSION: 07/14/2018 DATE OF DISCHARGE: 07/16/2018 DATE OF : 07/16/2018. RESIDENT: Bill Cespedes, PGY-2. TIME OF : 15:36. CAUSE OF : 1. Septic shock secondary to UTI, metabolic acidosis. 2. Metabolic encephalopathy. SECONDARY DIAGNOSES: 1. Include anemia of chronic kidney disease. 2. Diabetes mellitus, type 2. 3. End-stage renal disease, needing dialysis. 4. Hypertension. 5. Metabolic acidosis. HOSPITAL COURSE: This was a 78-year-old female with a past medical history of end-stage renal disease, on Monday, Monday, Monday hemodialysis, and diabetes mellitus type 2. Came to the ED after becoming increasingly sleepy that day at home. This was obtained from the patient's home health nurse. The patient had been complaining of belly and foot pain to her earlier that day when she arrived by EMS. EMS stated her blood glucose to be 49. She was noted to be hypotensive with systolic blood pressure down to the 50s. Her . UA was significant for white blood cells, blood, leukocyte esterase, and 4+ bacteria. CT also stated that the possible pyelo. At this time, patient was admitted. She got a central line and was started on pressors. She was also started on D5 for hypoglycemia. She was started on broad-spectrum antibiotics. We would then get the urine cultures back showing E coli. We would then switch antibiotics to cefepime over the course of Monday, 07/15. The patient continued to worsen continued to trend up all the way to 30 on the day of . She started to get more acidotic with her ABG showed a pH of 7.02. This time in the morning of 07/16, Dr. Partida, ICU doctor intubated her to help her with her increasing metabolic acidosis. Her bicarb was 3 on the ABG. The patient was nonresponsive at this time of intubation, they did not require any sedation and then on the date of 07/16, they ordered emergent dialysis. The patient was already on Levophed and vasopressin for blood pressure support. Blood pressures have never really improved from admission, but at this time where she is getting dialysis she got even more hypertensive and we had to add a third pressor epinephrine, but they were not able to draw any fluid. They gave about a L and a half of fluid back to her through dialysis. Her pH did improve, but at this time, came in and this at this time stated that the patient's wishes were not to be on breathing tube or be on life support and at this time, we made patient DNR and withdrew care and the patient's time of was 15:36. The patient likely due to septic shock from UTI and metabolic acidosis due to the infection and hypertension as well. Her troponin also during the stay continued to trend upwards likely due from demand ischemia again from decreased blood flow and hypotension from septic shock as above. Job ID: [id number]
== END 2018-07-16 15:36 | disposition expired | DRG 871 ==
LOC: ERS 15:51 → CCU 20:36
PROVIDERS: ADMIT Family Medicine; ATTEND Family Medicine
PROC: 04HY32Z Insertion of Monitoring Device into Lower Artery, Percutaneous Approach (ICD-10-PCS; principal; 2018-07-15)
PROC: 0BH17EZ Insertion of Endotracheal Airway into Trachea, Via Natural or Artificial Opening (ICD-10-PCS; 2018-07-16)
PROC: 5A1935Z Respiratory Ventilation, Less than 24 Consecutive Hours (ICD-10-PCS; 2018-07-16)
DX: A41.9 Sepsis, unspecified organism (principal); R65.21 Severe sepsis with septic shock; N18.6 End stage renal disease; G93.41 Metabolic encephalopathy; K72.00 Acute and subacute hepatic failure without coma; J96.00 Acute respiratory failure, unspecified whether with hypoxia or hypercapnia; I48.92 Unspecified atrial flutter; N39.0 Urinary tract infection, site not specified; I12.0 Hypertensive chronic kidney disease with stage 5 chronic kidney disease or end stage renal disease; I24.8 Other forms of acute ischemic heart disease; Z66 Do not resuscitate; E78.5 Hyperlipidemia, unspecified; I10 Essential (primary) hypertension; E11.649 Type 2 diabetes mellitus with hypoglycemia without coma; E83.42 Hypomagnesemia; R94.5 Abnormal results of liver function studies; D64.9 Anemia, unspecified; K21.9 Gastro-esophageal reflux disease without esophagitis; M19.91 Primary osteoarthritis, unspecified site; B96.20 Unspecified Escherichia coli [E. coli] as the cause of diseases classified elsewhere; Z90.710 Acquired absence of both cervix and uterus
CPT/HCPCS: 36415; 36416; 70450; 71045; 74177; 80053; 81003; 81015; 82010; 82140; 82553; 82805; 83605; 83690; 83735; 84100; 84145; 84439; 84443; 84484; 85025; 85060; 85610; 85730; 87040; 87077; 87086; 87186; 87340; 90935; 93005; 94002; 94660; C9113; G0257; J0131; J0171; J0692; J0696; J1610; J1644; J1720; J3370; J3475; J3490; J7050; J7070; Q9966